=== PATIENT | female | born 1960 | race Caucasian/White ===

== ENCOUNTER 2020-09-16 10:18 | Day surgery (SDC) | payer OTHER, SELFPAY ==
--- NOTE | 2020-09-14 08:16 | HO.ANESPROP2 ---
Documented by User: Lizzie Olmstead 09/14/20 08:17 HPI - Anesthesia Eval Consult details Narrative: 60yo F for colonoscopy, screening [facility] Past Medical History Medical History GERD (gastroesophageal reflux disease) Hyperlipemia Hypertension Surgical History Surgical History History of ovarian cystectomy Hx of hysterectomy Social History Social History Smoking Status: Never smoker Second Hand Smoke Exposure: Yes Use of substances other than those prescribed or required for medical reasons: No Advance Directives: No Advance Directives Information Provided: Yes Meds Allergies Allergy/AdvReac Type Severity Reaction Status Date / Time No Known Allergies Allergy Unverified 08/18/20 14:59 [No Known Allergies*] Home Medications Medication Instructions Recorded Confirmed Type atorvastatin 1 tab PO BEDTIME 09/13/20 09/13/20 History lisinopril-hydrochlorothiazide 1 tab PO DAILY 09/13/20 09/13/20 History omeprazole 1 cap PO DAILY 09/13/20 09/13/20 History zolpidem 1 tab PO BEDTIME PRN 09/13/20 09/13/20 History Exam Exam Date and Time: September 14, 2020 0816 Assessment and Plan Assessment Anesthesia Assessment: Chart Reviewed Documented by User: Jenny Beltrán 09/16/20 10:39 [facility] Past Medical History Medical History GERD (gastroesophageal reflux disease) Hyperlipemia Hypertension Surgical History Surgical History History of ovarian cystectomy Hx of hysterectomy Social History Social History Smoking Status: Never smoker Second Hand Smoke Exposure: Yes Use of substances other than those prescribed or required for medical reasons: No Advance Directives: No Advance Directives Information Provided: Yes Meds Allergies Allergy/AdvReac Type Severity Reaction Status Date / Time No Known Allergies Allergy Unverified 08/18/20 14:59 [No Known Allergies*] Home Medications Medication Instructions Recorded Confirmed Type atorvastatin 1 tab PO BEDTIME 09/13/20 09/13/20 History lisinopril-hydrochlorothiazide 1 tab PO DAILY 09/13/20 09/13/20 History omeprazole 1 cap PO DAILY 09/13/20 09/13/20 History zolpidem 1 tab PO BEDTIME PRN 09/13/20 09/13/20 History Exam Airway Mallampati Class: II TM Dist: >3cm Neck ROM: Full Assessment and Plan Assessment Anesthesia Assessment: Anesthesia Plan Discussed and Chart Reviewed Final Anesthetic Review NPO: Yes ASA Class: II Final Preanesthetic Review: No Changes in Pt Med Stat, Meds/Allgs Chart Reviewed, Consent Obtained/Reviewed and Anes Risks/Benef Reviewed Patient Risk: Low Procedure Risk: Low Assessment/Block/Sedation in SS: Assess/Block/Sedation-SS Anesthetic Plan Anesthetic Plan: MAC: Disposition: Standard PACU
[2020-09-16 10:28] VITALS: BMI 24.7
[2020-09-16 10:35] VITALS: BP 148/82; PULSE 73; RESP 16; TEMP 36.5; O2SAT 98
[2020-09-16] MEDS: Lactated Ringers 1,000 ML 100 ML IVCONT (10:43)
--- NOTE | 2020-09-16 10:46 | MHC.SHP ---
Pre-Procedural Eval Section A The patient is an INPATIENT: No Changes since office visit: Yes Patient answered all questions; No Cold of Flu in the past 2 weeks, No New Medical Problems and No Changes in Medication The History & Physical has been completed within 30 days and I have reviewed it.: No Section B Chief Complaint: screening Details of Present Illness: Colon cancer screening, frequent bowel movement Present Medications: see Short Stay Collaborative assessment Medical History: Significant History (Hyperlipidemia. Hypertension. Elevated LDL cholesterol level. ) History of Previous Operations: Relevant previous surgery/procedure and date(s) (ovary removed (large cyst) ) Allergies: Allergies Allergy/AdvReac Type Severity Reaction Status Date / Time No Known Allergies Allergy Verified 09/16/20 10:44 [No Known Allergies*] Review of Systems Sugical H&P ROS: Negative: Constitution, Cardiovascular, Respiratory and Psychiatric and Yes, Specify: Gastrointestinal (Gas, bloating and frequent BMs) Exam Surgical H&P Exam: Normal: Heart, Normal: Lungs, Normal: Extremities and Normal: Abdomen Plan Diagnosis/Plan: Unchanged Patient has been examined and remains a candidate for the planned procedure
--- NOTE | 2020-09-16 10:57 | P.BOP_ITS ---
Brief Operative Note Date of procedure: 09/16/20 Pre-op diagnosis: Colon cancer screening, gas, bloating and increased stool fr equency Post-op diagnosis: other ( left-sided diverticulosis and internal hemorrhoids, fair prep) Procedure: COLONOSCOPY PROCEDURE NOTE Consent: Indications for the procedure and potential complications of bleeding, perforation, reaction to medications and missed diagnosis were discussed with the patient and informed consent was obtained. Instrument: Olympus PCF H 190 L variable stiffness pediatric colonoscope Monitoring: Vital signs and clinical assessment, intermittent blood pressure monitoring, continuous EKG monitoring, Pulse oximetry and Carbon Dioxide monitoring were done throughout the procedure. Colon withdrawl time was 25 minutes. Procedure: The patient was placed in the left lateral decubitis position and pre-procedure medications were administered. After a digital rectal examination of the ano-rectum, the video colonoscope was inserted into the rectum and advanced through the colon to the cecum. The colonoscope was slowly withdrawn in a retrograde panoramic fashion and the colon mucosa was carefully examined including a retroflexed view of the rectum. Findings and interventions are described below. Procedure Difficulty: There was a sharp turn at 20- 25 cms with luminal narrowing due to severe diverticulosis. Findings: Terminal Ileum: Not evaluated Cecum: Normal Ascending Colon: Normal Transverse Colon: Normal Descending Colon: Moderate diverticulosis Sigmoid Colon: severe diverticulosis with luminal narrowing Rectum: Normal Ano-rectum: moderate internal hemorrhoids and perianal skin tags Colon preparation: fair despite copious irrigation Impression and Post Procedure Diagnosis: Colonoscopy Findings: No polyps were detected. Random biopsies were obtained from the colon Moderate to severe diverticulosis in the left colon. Moderate internal hemorrhoids and perianal skin tags Plan: Await pathology results Patient has an appointment on 09/26/20 in the GI [facility] with Juliet Samayoa NP. Repeat Colonoscopy in 1-2 years due to fair prep. Above findings were reviewed with the patient and diverticulosis handout was given in the discharge area Surgeon: Zhanna Shaw MD Anesthesia: MAC (Meet [employer]ty CRNA) Automatic Riveting Machine Operator: Dheeraj Abdul Pathology: other (A. random colon biopsy) Condition: stable Disposition: PACU
[2020-09-16 11:44] VITALS: BP 125/72; PULSE 89; RESP 16; TEMP 35.9; O2SAT 96
[2020-09-16 11:58] VITALS: BP 141/77; PULSE 84; RESP 20; O2SAT 98
[2020-09-16 12:11] VITALS: BP 151/80; PULSE 74; RESP 20; TEMP 36.2; O2SAT 100
--- NOTE | 2020-09-16 14:44 | HO.POSTANES ---
Post Anesthesia Evaluation Post Anesthesia Evaluation Vital Signs: Vital Signs Temp Pulse Resp BP Pulse Ox 09/16/20 12:11 97.2 F 74 20 151/80 H 100 09/16/20 11:58 84 20 141/77 H 98 09/16/20 11:44 96.7 F L 89 16 125/72 96 09/16/20 10:35 97.7 F 73 16 148/82 H 98 Anesthesia: Monitored Mental Status: Awake Pain Control: Satisfactory Nausea/Vomiting: None Hydration: Adequate Anesthesia-Related Issues: No Anes. Related Issues
== END 2020-09-16 12:52 | disposition home or self-care (01) ==
PROVIDERS: Visit Provider Internal Medicine Gastroenterology
PROC: 0DJD8ZZ Inspection of Lower Intestinal Tract, Via Natural or Artificial Opening Endoscopic (ICD-10-PCS; CPT 45378; principal; 2020-09-16 11:00)
DX: Z12.11 Encounter for screening for malignant neoplasm of colon (principal); K57.30 Diverticulosis of large intestine without perforation or abscess without bleeding; K64.8 Other hemorrhoids; K64.4 Residual hemorrhoidal skin tags; K63.89 Other specified diseases of intestine; K21.9 Gastro-esophageal reflux disease without esophagitis; I10 Essential (primary) hypertension; E78.5 Hyperlipidemia, unspecified; Z79.899 Other long term (current) drug therapy; Z77.22 Contact with and (suspected) exposure to environmental tobacco smoke (acute) (chronic)
CPT/HCPCS: 45380; 88305; J3010

== ENCOUNTER → 2020-09-26 09:00 | Outpatient (BNVA) | payer OTHER, SELFPAY | PROVIDERS: Visit Provider Nurse Practitioner | DX: K57.90 Diverticulosis of intestine, part unspecified, without perforation or abscess without bleeding (principal); Z86.19 Personal history of other infectious and parasitic diseases; Z71.3 Dietary counseling and surveillance | CPT/HCPCS: 99213; Q3014 ==

== ENCOUNTER 2020-11-03 17:58 | Inpatient (IN) | payer OTHER, SELFPAY ==
[2020-11-03 18:52] VITALS: BP 192/91; PULSE 94; RESP 16; TEMP 37; O2SAT 98; BMI 24.9
--- NOTE | 2020-11-03 21:30 | ED.ABDPAIN ---
HPI - Abdominal Pain General Chief Complaint: Abdominal Pain Stated Complaint: Abdominal Pain Time Seen by Provider: 11/03/20 21:26 Source: patient Mode of arrival: ambulatory Limitations: no limitations History of Present Illness HPI narrative: Patient with history of diverticulosis for colonoscopy done on 09/16 was doing okay for last 4 days patient complaining of pain in left lower quadrant started on Levaquin and Flagyl by PCP 2 days ago still pain is getting worse specially today with poor oral intake and nausea. Patient denied any fever or chills no abdominal distension no rectal bleeding MD elicited complaint: abdominal pain Pain Consistency: constant Location: LLQ Severity: moderate Quality: cramping Radiation: none Exacerbating factors: eating and bowel movement Relieving factors: nothing Associated symptoms: nausea Related Data Home Medications Medication Instructions Recorded Confirmed atorvastatin 1 tab PO BEDTIME 09/13/20 09/13/20 lisinopril-hydrochlorothiazide 1 tab PO DAILY 09/13/20 09/13/20 omeprazole 1 cap PO DAILY 09/13/20 09/13/20 zolpidem 1 tab PO BEDTIME PRN 09/13/20 09/13/20 Allergies Allergy/AdvReac Type Severity Reaction Status Date / Time No Known Allergies Allergy Verified 09/26/20 09:02 [No Known Allergies*] Review of Systems Review of Systems REVIEW OF SYSTEMS: Pertinent positives and negatives are stated above in the history. GEN: no fevers, chills, fatigue HEENT: no nasal congestion, sore throat, ear pain NEURO: no headache, dizziness, focal weakness PULM: no cough, shortness of breath CV: no chest pain, palpitations, LE edema ABD: no vomiting, diarrhea : no dysuria, urgency, frequency SKIN: no rash ROS otherwise negative x 10 Physical Exam Vital Signs: Vital Signs: Last Vital Signs Temp 98.7 F 11/04/20 01:23 Pulse 79 11/04/20 01:23 Resp 18 11/04/20 01:23 BP 132/53 L 11/04/20 01:23 Pulse Ox 98 11/04/20 01:23 Body Mass Index 24.9 VITAL SIGNS: Reviewed. GENERAL: Well developed, well nourished, in mild distress. HEAD: Normocephalic/atraumatic, EYES: PERRLA No pallor/icterus noted OROPHARYNX: Oral mucosa moist no oral lesions NECK: Supple, no adenopathy LUNGS: Normal breath sounds. No adventitious sounds or accessory muscle use CARDIOVASCULAR: Regular rate and rhythm without noted murmurs, no JVD or lower extremity edema. ABDOMEN: Soft, tenderness left lower quadrant, rebound tenderness present guarding present left lower quadrant, non-distended with normal bowel sounds. No rigidity. No palpable masses or hernias noted MUSCULOSKELETAL: No tenderness, deformities, EXTREMITIES: No cyanosis or edema. SKIN: no rashes, ulcerations, jaundice, pallor, NEUROLOGIC: Alert and oriented x 3. Strength and sensation to light touch were grossly intact normal speech MDM - Abdominal Pain MDM Narrative Medical decision making narrative: Patient with acute diverticulitis failure to oral antibiotics CT scan showed significant inflammation without any fluid collection. Will admit patient for IV Levaquin and Flagyl at this time patient is not septic. Blood cultures were drawn patient has normal lactic acid Lab Data Result diagrams: 11/03/20 21:53 11/03/20 21:53 Labs: Lab Results 11/03/20 11/03/20 11/03/20 Range/Units 21:53 21:53 21:53 WBC 15.3 H (4.8-10.8) X10*3/uL RBC 4.31 (4.20-5.50) X10*6/uL Hgb 11.9 L (12.0-16.0) g/dl Hct 34.8 L (37-47) % MCV 80.7 (80-98) fL MCH 27.6 (27.0-33.0) pg MCHC 34.2 (31.0-35.0) g/dl RDW 14.2 (11.0-16.0) % Plt Count 309 (160-400) X10*3/uL MPV 9.9 (9.4-12.3) fL Immature Gran % (Auto) 0.4 (0.0-0.4) % Neut % (Auto) 75.8 H (45-73) % Lymph % (Auto) 13.8 L (20-40) % [place] % (Auto) 7.7 (2-11) % Eos % (Auto) 2.0 (0-4) % Baso % (Auto) 0.3 (0-2) % Lymph # (Auto) 2.1 (1.2-4.9) X10*3/uL [place] # (Auto) 1.2 (0.1-1.2) X10*3/uL Eos # (Auto) 0.3 (0.0-0.4) X10*3/uL Baso # (Auto) 0.1 (0.0-0.2) X10*3/uL Abs Immat Gran (auto) 0.06 H (0.00-0.03) X10*3/uL Absolute Neuts (auto) 11.6 H (2.0-8.3) X10*3/uL Absolute Nucleated RBC 0.000 (0.0-0.012) X10*3/uL Nucleated RBC % (auto) 0.0 (0.0-0.2) /100WBC PT (10.8-13.0) SEC INR (0.9-1.1) APTT (24.1-38.0) SEC Sodium 139 (135-145) mmol/L Potassium 3.6 (3.3-5.1) mmol/l Chloride 103 (96-108) mmol/L Carbon Dioxide 26 (22-29) mmol/L Anion Gap 14 (12-20) BUN 11 (9-16) mg/dL Creatinine 0.68 (0.5-1.4) mg/dL Estim Creat Clear Calc 80.1 Estimated GFR > 60 Random Glucose 106 (60-115) mg/dL Lactic Acid 0.6 (0.5-2.0) mmol/L Calcium 9.0 (8.4-10.2) mg/dL Total Bilirubin 0.7 (0.0-1.0) mg/dL AST 10 (5-31) U/L ALT 10 (0-31) U/L Alkaline Phosphatase 87 (39-117) U/L Total Protein 7.3 (6.5-8.0) g/dL Albumin 4.1 (3.5-5.0) g/dL Lipase 9 (8-78) U/L Urine Color Urine Appearance Urine pH (5.0-8.0) Ur Specific [place] (1.005-1.025) Urine Protein (NEG-TRACE) MG/DL Urine Glucose (UA) (NEG) MG/DL Urine Ketones (NEG) MG/DL Urine Blood (NEG) Urine Nitrite (NEG) Ur Leukocyte Esterase (NEG) Urine RBC (0) /HPF Urine WBC (0-4) /HPF Ur Squamous Epith Cells /LPF Uric Acid Crystals /LPF Urine Bacteria /LPF 11/03/20 11/04/20 Range/Units 21:53 00:04 WBC (4.8-10.8) X10*3/uL RBC (4.20-5.50) X10*6/uL Hgb (12.0-16.0) g/dl Hct (37-47) % MCV (80-98) fL MCH (27.0-33.0) pg MCHC (31.0-35.0) g/dl RDW (11.0-16.0) % Plt Count (160-400) X10*3/uL MPV (9.4-12.3) fL Immature Gran % (Auto) (0.0-0.4) % Neut % (Auto) (45-73) % Lymph % (Auto) (20-40) % [place] % (Auto) (2-11) % Eos % (Auto) (0-4) % Baso % (Auto) (0-2) % Lymph # (Auto) (1.2-4.9) X10*3/uL [place] # (Auto) (0.1-1.2) X10*3/uL Eos # (Auto) (0.0-0.4) X10*3/uL Baso # (Auto) (0.0-0.2) X10*3/uL Abs Immat Gran (auto) (0.00-0.03) X10*3/uL Absolute Neuts (auto) (2.0-8.3) X10*3/uL Absolute Nucleated RBC (0.0-0.012) X10*3/uL Nucleated RBC % (auto) (0.0-0.2) /100WBC PT 15.7 H (10.8-13.0) SEC INR 1.3 H (0.9-1.1) APTT 29.0 (24.1-38.0) SEC Sodium (135-145) mmol/L Potassium (3.3-5.1) mmol/l Chloride (96-108) mmol/L Carbon Dioxide (22-29) mmol/L Anion Gap (12-20) BUN (9-16) mg/dL Creatinine (0.5-1.4) mg/dL Estim Creat Clear Calc Estimated GFR Random Glucose (60-115) mg/dL Lactic Acid (0.5-2.0) mmol/L Calcium (8.4-10.2) mg/dL Total Bilirubin (0.0-1.0) mg/dL AST (5-31) U/L ALT (0-31) U/L Alkaline Phosphatase (39-117) U/L Total Protein (6.5-8.0) g/dL Albumin (3.5-5.0) g/dL Lipase (8-78) U/L Urine Color YELLOW Urine Appearance CLEAR Urine pH 6.5 (5.0-8.0) Ur Specific [place] <= 1.005 (1.005-1.025) Urine Protein NEG (NEG-TRACE) MG/DL Urine Glucose (UA) NEG (NEG) MG/DL Urine Ketones 5 (NEG) MG/DL Urine Blood TRACE (NEG) Urine Nitrite NEG (NEG) Ur Leukocyte Esterase NEG (NEG) Urine RBC 0-2 (0) /HPF Urine WBC 0 (0-4) /HPF Ur Squamous Epith Cells TRACE /LPF Uric Acid Crystals TRACE /LPF Urine Bacteria NONE /LPF Discharge Plan Discharge Clinical Impression: Diverticulitis Patient Disposition: Admitted As Inpatient [facility] Past Medical History Surgical History History of esophagogastroduodenoscopy (EGD) History of ovarian cystectomy Hx of colonoscopy (09/16/20) Hx of hysterectomy Family History Family History Father Parkinson disease HTN (hypertension) Mother HTN (hypertension) Brother Cancer Social History Social History Alcohol intake: never Smoking Status: Unknown if ever smoked Second Hand Smoke Exposure: Yes Use of substances other than those prescribed or required for medical reasons: No Advance Directives: No Advance Directives Information Provided: Yes
--- NOTE | 2020-11-03 21:40 | CT_ITS ---
EXAMINATION: CT ABDOMEN AND PELVIS WITH CONTRAST CLINICAL INFORMATION: Left lower quadrant pain. Concern for diverticulitis. COMPARISON: None TECHNIQUE: Multidetector volumetric images were obtained from the superior aspect of the liver through the pubic symphysis following administration 85 mL of Omnipaque 350 intravenous contrast. Sagittal and coronal reformatted images were obtained on the technologist's workstation. Oral contrast: No This CT examination was performed using dose optimization techniques as appropriate, variously including the following: *Automated exposure control *Adjustment of mA and/or kV according to patient size (this includes techniques or standardized protocols for targeted exams where dose is matched to indication/reason for exam; i.e. extremities or head) *Use of iterative reconstruction technique DLP: 452 mGy-cm FINDINGS: LUNG BASES: The visualized lung bases are unremarkable. LIVER, GALLBLADDER, AND BILIARY TREE: The liver is normal in size, shape, and attenuation. No focal hepatic lesion or biliary ductal dilatation is present. The gallbladder is unremarkable with no evidence of radiopaque gallstones, gallbladder wall thickening, or obvious pericholecystic inflammatory changes. PANCREAS: Unremarkable. SPLEEN: Unremarkable. ADRENAL GLANDS: Unremarkable. KIDNEYS AND URETERS: The kidneys are normal in size, shape, and attenuation. No hydronephrosis, hydroureter, or calculi seen. No perinephric stranding. There are small cortical cysts scattered in the kidneys. Largest lower pole of the right kidney measures 2 cm. BLADDER: Unremarkable. GASTROINTESTINAL TRACT: There is focal bowel wall thickening with pericolonic edema and a small amount of fluid involving the sigmoid colon. There are numerous diverticula in this region. Findings consistent with a diverticulitis. There is no abscess. No free air. No bowel obstruction. Large volume of stool in the right colon. The appendix is not seen. The small bowel loops are unremarkable. ABDOMINAL WALL: No significant hernia is appreciated. LYMPH NODES: Normal. VASCULAR: Scattered vascular calcifications of the wall of aorta. No aneurysm. PELVIC VISCERA: Unremarkable. OSSEOUS STRUCTURES: Unremarkable. CT/CT abdomen pelvis w con IMPRESSION: There is marked diverticulitis involving the sigmoid colon with pericolonic edema and a small amount of fluid but no perforation or abscess.
[2020-11-03] MEDS: Morphine Sulfate 4 MG/ML CARTRIDGE IVPUSH (22:00)
[2020-11-03 22:02] LABS: Basophils Absolute Auto 0.1 X10*3/uL (0.0-0.2); Basophils Percent Auto 0.3 % (0-2); Eosinophils Absolute Auto 0.3 X10*3/uL (0.0-0.4); Hematocrit 34.8 % (37-47); Hemoglobin 11.9 g/dl (12.0-16.0); Imm Gran Abs Auto 0.06 X10*3/uL (0.00-0.03); Imm Gran Pct Auto 0.4 % (0.0-0.4); Lymphocytes Absolute Auto 2.1 X10*3/uL (1.2-4.9); Lymphocytes Percent Auto 13.8 % (20-40); MANUAL DIFF FLAG NO; Mean Corpuscular HGB Conc 34.2 g/dl (31.0-35.0); Mean Corpuscular Hemoglobin 27.6 pg (27.0-33.0); Mean Corpuscular Volume 80.7 fL (80-98); Mean Platelet Volume 9.9 fL (9.4-12.3); Monocytes Absolute Auto 1.2 X10*3/uL (0.1-1.2); Monocytes Percent Auto 7.7 % (2-11); Neutrophils Absolute Auto 11.6 X10*3/uL (2.0-8.3); Neutrophils Percent Auto 75.8 % (45-73); Platelet Count 309 X10*3/uL (160-400); Red Blood Count 4.31 X10*6/uL (4.20-5.50); Red Cell Distribution Width 14.2 % (11.0-16.0); White Blood Count 15.3 X10*3/uL (4.8-10.8)
[2020-11-03] MEDS: 0.9 % Sodium Chloride 1,000 ML 999 ML IVCONT (22:03)
[2020-11-03] MEDS: ondansetron HCL 4 MG/2 ML VIAL IVPUSH (22:03)
[2020-11-03 22:05] VITALS: BP 150/71; PULSE 80; RESP 18; O2SAT 100
[2020-11-03 22:08] LABS: INTERNATIONAL NORM RATIO 1.3 (0.9-1.1); Prothrombin Time 15.7 SEC (10.8-13.0)
[2020-11-03 22:18] LABS: Lactic Acid 0.6 mmol/L (0.5-2.0)
[2020-11-03 22:24] LABS: Alanine Aminotransferase 10 U/L (0-31); Albumin Level 4.1 g/dL (3.5-5.0); Alkaline Phosphatase 87 U/L (39-117); Anion Gap 14 (12-20); Aspartate Amino Transferase 10 U/L (5-31); Bilirubin Total 0.7 mg/dL (0.0-1.0); Blood Urea Nitrogen 11 mg/dL (9-16); Carbon Dioxide 26 mmol/L (22-29); Chloride 103 mmol/L (96-108); Creatinine Clr Calc Pharmacy 80.1; Estimated Glomerular Filt Rate > 60; Glucose Random 106 mg/dL (60-115); Lipase 9 U/L (8-78); Potassium 3.6 mmol/l (3.3-5.1); Sodium 139 mmol/L (135-145); Total Protein 7.3 g/dL (6.5-8.0)
[2020-11-03] MEDS: iohexoL 350 MG/ML 100 ML INFUS..BTL IV (22:56)
[2020-11-04] VITALS (8 sets, daily range): BP systolic 111–169; BP diastolic 53–80; PULSE 65–94; RESP 16–18; TEMP 36.6–37.2; O2SAT 98–99; BMI 22.0
[2020-11-04] MEDS: metroNIDAZOLE/NS 500 MG/100 ML PIGGYBACK 100 MG IV ×3 (00:02→15:21)
[2020-11-04] MEDS: levoFLOXacin/D5W 500 MG/100 ML PIGGYBACK 100 MG IV ×2 (00:02→06:00)
[2020-11-04 00:26] LABS: Glucose Urine UA NEG (NEG); Leukocyte Esterase Urine NEG (NEG); Nitrite Urine NEG (NEG); PH 6.5 (5.0-8.0); Specific Gravity - Urine <= 1.005 (1.005-1.025); Urine Blood TRACE (NEG); Urine Ketones 5 MG/DL (NEG); Urine Protein NEG (NEG-TRACE)
[2020-11-04 00:28] LABS: Appearance Urine CLEAR; Color Urine YELLOW
[2020-11-04 00:52] LABS: RBC Urine 0-2 /HPF (0); Squamous Epithelial Cell Urine TRACE /LPF; WBC Urine 0 /HPF (0-4)
[2020-11-04 00:53] LABS: Uric Acid Crystals Urine TRACE /LPF
--- NOTE | 2020-11-04 01:41 | PM.IMHP ---
History of Present Illness Date of Service: 11/04/20 Chief Complaint: Abdominal pain 60 y/o female with PMHX of HTN, HLP, GERD and Insomnia who presents from home c/o Abdominal pain. Per history provided by the patient, for the past 1 week has been having on and off episodes of abdominal pain, located more in the left lower quadrant of the abdomen 6/10 in intensity, associated with blood mucous whenever goes to the bathroom. Patient was started per PCP 2 days on oral antibiotics but patient report that her symptoms continued for what decided to come to the ED for further evaluation. On presentation to the ED patient was found to be hypertensive which later improved with pain control, now BP of 130/50 mmHg and hR of 79 bpm. No episodes of fever in the ED reported. WBC of 15.3, hgb stable. CT abdomen showed marked diverticulitis of the sigmoid colon without perforation. Patient reports that last colonoscopy was done 1 month ago and told had diverticulosis. Decision for admission given. Patient seen and examined at the bedside, laying down in bed in no acute distress. ROS as above otherwise negative. Physical exam positive for LLQ tenderness, no masses, no guarding, nonedistended. PMHX: HTN, HLP, GERD, Insomnia and diverticulosis PSx: none Toxic habits: No hx of alcohol abuse, smoking or IVDA Review of Systems Constitutional: Constitutional: Reports as per HPI PMFSH Functional capacity: independent ambulation Family History Father Parkinson disease HTN (hypertension) Mother HTN (hypertension) Brother Cancer Surgical History History of esophagogastroduodenoscopy (EGD) History of ovarian cystectomy Hx of colonoscopy (09/16/20) Hx of hysterectomy Social History Alcohol intake: never Smoking Status: Unknown if ever smoked Second Hand Smoke Exposure: Yes Use of substances other than those prescribed or required for medical reasons: No Advance Directives: No Advance Directives Information Provided: Yes Meds Allergies Allergy/AdvReac Type Severity Reaction Status Date / Time No Known Allergies Allergy Verified 09/26/20 09:02 [No Known Allergies*] Home Medications Medication Instructions Recorded Confirmed Type atorvastatin 1 tab PO BEDTIME 09/13/20 09/13/20 History lisinopril-hydrochlorothiazide 1 tab PO DAILY 09/13/20 09/13/20 History omeprazole 1 cap PO DAILY 09/13/20 09/13/20 History zolpidem 1 tab PO BEDTIME PRN 09/13/20 09/13/20 History Physical Exam Vital Signs and Narrative: Vital Signs: Last Vital Signs Temp 98.7 F 11/04/20 01:23 Pulse 79 11/04/20 01:23 Resp 18 11/04/20 01:23 BP 132/53 L 11/04/20 01:23 Pulse Ox 98 11/04/20 01:23 Body Mass Index 24.9 Const: General: cooperative, comfortable and no acute distress Orientation/consciousness: oriented to person, oriented to place and oriented to time HENMT: Head: Yes normal to inspection Eyes: General: appearance normal, both eyes and all related structures Neck: Yes normal visual inspection Chest: Chest palpation & inspection: normal inspection of the chest Resp: Effort & Inspection: normal respiratory effort Auscultation: clear to auscultation bilaterally Cardio: Jugular venous distension: no JVD Rate: regular rate Rhythm: regular rhythm Heart sounds: S1 normal heart sound present and S2 normal heart sound present GI: Inspection: Yes normal to inspection Palpation (GI): Other GI palpation findings present (LLE tenderness on exam ) Skin: General skin exam: no rashes or lesions noted Neuro: General: oriented to person, oriented to place and oriented to time Cognition (Neuro): normal cognition Results Labs CBC and Chem 7: 11/03/20 21:53 11/03/20 21:53 Labs: Laboratory Results - last 24 hr 11/03/20 11/03/20 11/03/20 21:53 21:53 21:53 MCV 80.7 MCH 27.6 MCHC 34.2 RDW 14.2 Plt Count 309 MPV 9.9 Immature Gran % (Auto) 0.4 Neut % (Auto) 75.8 H Lymph % (Auto) 13.8 L [place] % (Auto) 7.7 Eos % (Auto) 2.0 Baso % (Auto) 0.3 Lymph # (Auto) 2.1 [place] # (Auto) 1.2 Eos # (Auto) 0.3 Baso # (Auto) 0.1 Abs Immat Gran (auto) 0.06 H Absolute Neuts (auto) 11.6 H Absolute Nucleated RBC 0.000 Nucleated RBC % (auto) 0.0 PT INR APTT Anion Gap 14 Estim Creat Clear Calc 80.1 Estimated GFR > 60 Random Glucose 106 Lactic Acid 0.6 Calcium 9.0 Total Bilirubin 0.7 AST 10 ALT 10 Alkaline Phosphatase 87 Total Protein 7.3 Albumin 4.1 Lipase 9 Urine Color Urine Appearance Urine pH Ur Specific [place] Urine Protein Urine Glucose (UA) Urine Ketones Urine Blood Urine Nitrite Ur Leukocyte Esterase Urine RBC Urine WBC Ur Squamous Epith Cells Uric Acid Crystals Urine Bacteria 11/03/20 11/04/20 21:53 00:04 MCV MCH MCHC RDW Plt Count MPV Immature Gran % (Auto) Neut % (Auto) Lymph % (Auto) [place] % (Auto) Eos % (Auto) Baso % (Auto) Lymph # (Auto) [place] # (Auto) Eos # (Auto) Baso # (Auto) Abs Immat Gran (auto) Absolute Neuts (auto) Absolute Nucleated RBC Nucleated RBC % (auto) PT 15.7 H INR 1.3 H APTT 29.0 Anion Gap Estim Creat Clear Calc Estimated GFR Random Glucose Lactic Acid Calcium Total Bilirubin AST ALT Alkaline Phosphatase Total Protein Albumin Lipase Urine Color YELLOW Urine Appearance CLEAR Urine pH 6.5 Ur Specific [place] <= 1.005 Urine Protein NEG Urine Glucose (UA) NEG Urine Ketones 5 Urine Blood TRACE Urine Nitrite NEG Ur Leukocyte Esterase NEG Urine RBC 0-2 Urine WBC 0 Ur Squamous Epith Cells TRACE Uric Acid Crystals TRACE Urine Bacteria NONE Imaging Radiologist's Impressions: Impressions Abdomen/Pelvis CT 11/03/20 21:40 IMPRESSION: There is marked diverticulitis involving the sigmoid colon with pericolonic edema and a small amount of fluid but no perforation or abscess. Assessment and Plan (1) Diverticulitis: Status: Acute NPO advance diet as tolerated Continue with Levaquin for gram neg coverage continue with flagyl for anaerobic coverage Follow up [facility] Infectious disease consult in the am Gastroenterology consult in the am (2) Hypertension: Status: Acute continue with home BP meds as ordered (3) Hyperlipemia: Status: Acute continue with statin home dose (4) GERD (gastroesophageal reflux disease): Status: Acute continue with PPI home dose
--- NOTE | 2020-11-04 03:03 | PC.NURSE ---
COVID swab sent. pt continues to be resting with NAD. safety maintained
[2020-11-04 03:23] LABS: COVID-19 Test Negative (Negative)
[2020-11-04] MEDS: Heparin Sodium,Porcine 5,000 UNIT/ML VIAL 5000 UNIT SUBCUT ×3 (04:53→21:19)
[2020-11-04 06:10] LABS: MANUAL DIFF FLAG NO
[2020-11-04 06:45] LABS: Anion Gap 12 (12-20); Basophils Absolute Auto 0.1 X10*3/uL (0.0-0.2); Basophils Percent Auto 0.3 % (0-2); Blood Urea Nitrogen 9 mg/dL (9-16); Calcium 8.4 mg/dL (8.4-10.2); Carbon Dioxide 26 mmol/L (22-29); Chloride 104 mmol/L (96-108); Creatinine Clr Calc Pharmacy 74.7; Eosinophils Absolute Auto 0.2 X10*3/uL (0.0-0.4); Eosinophils Percent Auto 1.3 % (0-4); Estimated Glomerular Filt Rate > 60; Glucose Random 110 mg/dL (60-115); Hematocrit 32.4 % (37-47); Hemoglobin 10.7 g/dl (12.0-16.0); Imm Gran Pct Auto 0.7 % (0.0-0.4); Lymphocytes Absolute Auto 1.7 X10*3/uL (1.2-4.9); Lymphocytes Percent Auto 10.9 % (20-40); Mean Corpuscular Hemoglobin 27.1 pg (27.0-33.0); Mean Platelet Volume 10.5 fL (9.4-12.3); Monocytes Absolute Auto 1.2 X10*3/uL (0.1-1.2); Monocytes Percent Auto 7.5 % (2-11); Neutrophils Absolute Auto 12.2 X10*3/uL (2.0-8.3); Neutrophils Percent Auto 79.3 % (45-73); Platelet Count 293 X10*3/uL (160-400); Red Blood Count 3.95 X10*6/uL (4.20-5.50); Red Cell Distribution Width 14.3 % (11.0-16.0); Sodium 138 mmol/L (135-145); White Blood Count 15.4 X10*3/uL (4.8-10.8)
[2020-11-04] MEDS: 0.9 % Sodium Chloride Flush 3 ML SYRINGE IVFLUSH ×2 (07:48→15:21)
--- NOTE | 2020-11-04 08:05 | P.CNGI_ITS ---
History of Present Illness Data of Consult Service Date: 11/04/20 Requesting physician: Debbie Davidson Primary Care Provider: Unknown Physician HPI 60 YF Presented to [facility] ED yesterday with abdominal pain: Patient with history of diverticulosis for colonoscopy done on 09/16 was doing okay for last 4 days patient complaining of pain in left lower quadrant started on Levaquin and Flagyl by PCP 2 days ago still pain is getting worse specially today with poor oral intake and nausea. Patient denied any fever or chills no abdominal distension no rectal bleeding Pt was started on IV Levofloxacin and metronidazole and admitted for further management. Pt was seen by Infectious Disease today and antibiotics were changed to IV Zosyn. IMAGING STUDIES: 11/03/[address] scan showed: There is marked diverticulitis involving the sigmoid colon with pericolonic edema and a small amount of fluid but no perforation or abscess. Patient complains of cramping 9/10 LLQ pain for the past week. Pain is constant and accompanied by nausea and intermittent fevers and worsened by eating and BMs. She denies recent change in bowel habits or wt loss. Notes Improvement in pain to 1-2/10 this evening. Denies symptoms of heartburn, dysphagia. Denies recent change in bowel habits, constipation, diarrhea, black stools or rectal bleeding. Patient denies major cardiac or pulmonary problems, loud snoring or sleep apnea Denies problems with anesthesia in the past. Denies being on chronic anticoagulation. Patient denies known family history of colon polyps, colon cancer or other GI malignancies. PAST GI HISTORY BY REVIEW OF MEDICAL RECORDS: 09/16/20 Colonoscopy showed: Sigmoid Colon: severe diverticulosis with luminal narrowing Ano-rectum: moderate internal hemorrhoids and perianal skin tags Impression and Post Procedure Diagnosis: Colonoscopy Findings: No polyps were detected. Random biopsies were obtained from the colon Moderate to severe diverticulosis in the left colon. Moderate internal hemorrhoids and perianal skin tags Plan: Patient has an appointment on 09/26/20 in the GI Clinic with Juliet Samayoa NP. Repeat Colonoscopy in 1-2 years due to fair prep. Review of Systems Constitutional: Constitutional: Denies fever(s), Denies headache(s) and Denies weight loss Eyes: Eyes: Denies eye discharge and Denies irritation ENT: Reports Normal hearing present, Denies dysphagia, Denies dizziness and Denies headache(s) Cardiovascular: Cardiovascular: Denies chest pain, Denies leg edema and Denies dyspnea on exertion Respiratory: Respiratory: Denies cough and Denies dyspnea on exertion Gastrointestinal: Gastrointestinal: Reports abdominal pain, Denies change in bowel habits, Denies dysphagia and Denies heartburn Genitourinary: Genitourinary: Denies difficulty voiding and Denies dysuria Musculoskeletal: Musculoskeletal: Denies back pain and Denies arthralgias Integumentary/Breasts: Skin/Breast: Denies pruritus, Denies rash and Denies jaundice Neurologic: Reports Normal hearing present, Denies Abnormal speech present, Denies dizziness, Denies headache(s) and Denies seizure-like activity Psychiatric: Psychiatric: Denies anxiety, Denies depression and Denies panic attacks Endocrine: Endocrine: Denies cold intolerance, Denies flushing and Denies heat intolerance PMFSH Past Medical History Medical History (Updated 11/13/20 @ 00:14 by Background Daemon) Anemia Colon cancer screening Diverticulosis GERD (gastroesophageal reflux disease) Hyperlipemia Hypertension Functional capacity: independent ambulation Family History Family History Father Parkinson disease HTN (hypertension) Mother HTN (hypertension) Brother Cancer Surgical History Surgical History History of esophagogastroduodenoscopy (EGD) History of ovarian cystectomy Hx of colonoscopy (09/16/20) Hx of hysterectomy Social History Social History Household Members: Significant Other Housing: Apartment Do you presently have visiting nurse or other home services: No Alcohol intake: never Smoking Status: Unknown if ever smoked Second Hand Smoke Exposure: Yes Use of substances other than those prescribed or required for medical reasons: No Currently Displaying Signs/Symptoms of Drug Intoxication Withdrawal: No Have you been hit, kicked, punched, or otherwise hurt by someone within the past year? If so, by whom?: No Do you feel safe in your current relationship?: Yes Is there a partner from a previous relationship who is making you feel unsafe now?: No Are you made to feel afraid or neglected: No Advance Directives: No Advance Directives Information Provided: Yes Do you have thoughts of harming others: None Do you have a plan to hurt others: No Plan Recently lost weight without trying: No service: No Current occupational status: employed Meds Allergies Allergy/AdvReac Type Severity Reaction Status Date / Time No Known Allergies Allergy Verified 09/26/20 09:02 [No Known Allergies*] Home Medications Medication Instructions Recorded Confirmed Type atorvastatin 1 tab PO BEDTIME 09/13/20 11/04/20 History lisinopril-hydrochlorothiazide 1 tab PO DAILY 09/13/20 11/04/20 History omeprazole 1 cap PO DAILY 09/13/20 11/04/20 History zolpidem 1 tab PO BEDTIME PRN 09/13/20 11/04/20 History Physical Exam Vital Signs: Vital Signs: Last Vital Signs Temp 97.9 F 11/04/20 07:10 Pulse 82 11/04/20 07:10 Resp 16 11/04/20 07:10 BP 129/68 11/04/20 07:10 Pulse Ox 99 11/04/20 07:10 Body Mass Index 22.0 Const: General: comfortable and no acute distress Nutritional Appearance: average body habitus Orientation/consciousness: patient oriented x3 Limitations: no limitations HENMT: Head: Yes normal to inspection Ears: hearing grossly normal bilaterally Eyes: Sclerae: sclerae normal Pupils: Equal, round and reactive pupils pr esent Neck: Neck: Yes normal visual inspection Chest: Chest palpation & inspection: normal inspection of the chest Resp: Effort & Inspection: normal respiratory effort Auscultation: clear to auscultation bilaterally Cardio: Palpation: normal PMI Rate: regular rate Rhythm: regular rhythm Heart sounds: S1 normal heart sound present, S2 normal heart sound present and no murmurs GI: Palpation (GI): Soft to palpation, Tenderness to palpation present (GI) (Mild LLQ tenderness) and No hepatosplenomegaly present Auscultation: normal bowel sounds Rectal Exam - Female: deferred Skin: General skin exam: no rashes or lesions noted Neuro: General: patient oriented x3, gait normal and moves all extremities Cranial nerves: Yes Equal, round and reactive pupils present and Yes Normal hearing present Speech: No Abnormal speech present Extrem: Right lower extremity: no edema Left lower extremity: no edema Psych: Appearance: grossly normal Mental Status: mental status grossly normal Results Labs CBC & Chem 7: 11/05/20 05:27 11/04/20 05:11 Labs: Short CBC 11/03/20 11/04/20 Range/Units 21:53 05:11 WBC 15.3 H 15.4 H (4.8-10.8) X10*3/uL Hgb 11.9 L 10.7 L (12.0-16.0) g/dl Hct 34.8 L 32.4 L (37-47) % Plt Count 309 293 (160-400) X10*3/uL BMP 11/03/20 11/04/20 21:53 05:11 Sodium 139 138 Potassium 3.6 4.0 Chloride 103 104 Carbon Dioxide 26 26 BUN 11 9 Creatinine 0.68 0.67 Calcium 9.0 8.4 D Liver Function 11/03/20 Range/Units 21:53 Total Bilirubin 0.7 (0.0-1.0) mg/dL AST 10 (5-31) U/L ALT 10 (0-31) U/L Alkaline Phosphatase 87 (39-117) U/L Albumin 4.1 (3.5-5.0) g/dL Urine 11/04/20 Range/Units 00:04 Urine Color YELLOW Urine Appearance CLEAR Urine pH 6.5 (5.0-8.0) Ur Specific [place] <= 1.005 (1.005-1.025) Urine Protein NEG (NEG-TRACE) MG/DL Urine Glucose (UA) NEG (NEG) MG/DL Assessment and Plan (1) Diverticulitis: Problem details: She has been feeling somewhat better CT scan shows some diverticulitis She has had some improvement Status: Acute (2) Colon cancer screening: (3) Diverticulosis: (4) Anemia: 60 YF admitted with LLQ abdominal pain for the past week associated with intermittent fevers, elevated WBC count and normocytic normochromic anemia. Abd CT scan showed diverticulitis involving the sigmoid colon with pericolonic edema and a small amount of fluid without perforation or abscess. Pt notes improvement in abdominal pain today. 09/20 Colonoscopy showed severe diverticulosis with luminal narrowing in the sigmoid colon. RECOMMENDATIONS: 1. Continue IV antibitoics for another 24 hrs. 2. Check iron studies, Vitamin B12 and folate levels for evaluation of anemia - added to am labs. 2. Advance diet to full liquid diet in the am and if she tolerates it to low fibre diet. 3. Once pain resolves, she can be discharged home on oral antibiotics and a low fibre diet
--- NOTE | 2020-11-04 09:44 | MHC.CM.PN ---
CM met with patient at the bedside who reports she is independent and lives with S.O. Patient does not have a HCP and declines filling one out today. Discussed discharge plan, home no services. [facility]Jud Malave will provide transport [phone]. CM will continue to follow patient for discharge needs.
--- NOTE | 2020-11-04 11:44 | P.EN_ITS ---
Event Note Date of Service: 11/04/20 Event Note: Seen/examined. She was admitted this morning with acute diverticul itis. WBC is 15. Has mild tenderness in abdomen. Plan: as outlined in H and P, GI eval pending. Start Liquid diet.
--- NOTE | 2020-11-04 14:30 | W.PM.IDCN ---
History of Present Illness Data of Consult Service Date: 11/04/20 Requesting physician: [facility] Primary Care Provider: Unknown Physician HPI Reason for consult: abdominal discomfort She presents to hospital with 4 days LLQ pain ,7/10 to back She has no fever or chills. She was started on Levaquin and Flagyl two days ago by PCP and has not had improvement. She has leukocytosis Review of Systems Gastrointestinal: Gastrointestinal: Reports abdominal pain PMFSH Past Medical History Functional capacity: independent ambulation Family History Family History Father Parkinson disease HTN (hypertension) Mother HTN (hypertension) Brother Cancer Surgical History Surgical History History of esophagogastroduodenoscopy (EGD) History of ovarian cystectomy Hx of colonoscopy (09/16/20) Hx of hysterectomy Social History Social History Household Members: Significant Other Housing: Apartment Do you presently have visiting nurse or other home services: No Alcohol intake: never Smoking Status: Unknown if ever smoked Second Hand Smoke Exposure: Yes Use of substances other than those prescribed or required for medical reasons: No Have you been hit, kicked, punched, or otherwise hurt by someone within the past year? If so, by whom?: No Do you feel safe in your current relationship?: Yes Is there a partner from a previous relationship who is making you feel unsafe now?: No Are you made to feel afraid or neglected: No Advance Directives: No Advance Directives Information Provided: Yes Do you have thoughts of harming others: None Do you have a plan to hurt others: No Plan Recently lost weight without trying: No service: No Current occupational status: employed Meds Allergies Allergy/AdvReac Type Severity Reaction Status Date / Time No Known Allergies Allergy Verified 09/26/20 09:02 [No Known Allergies*] Home Medications Medication Instructions Recorded Confirmed Type atorvastatin 1 tab PO BEDTIME 09/13/20 11/04/20 History lisinopril-hydrochlorothiazide 1 tab PO DAILY 09/13/20 11/04/20 History omeprazole 1 cap PO DAILY 09/13/20 11/04/20 History zolpidem 1 tab PO BEDTIME PRN 09/13/20 11/04/20 History Physical Exam Vital Signs: Vital Signs: Last Vital Signs Temp 98.1 F 11/04/20 11:08 Pulse 76 11/04/20 11:08 Resp 18 11/04/20 11:08 BP 125/66 11/04/20 11:08 Pulse Ox 98 11/04/20 11:08 Body Mass Index 22.0 Const: General: cooperative Orientation/consciousness: oriented to person, oriented to place and oriented to time HENMT: Head: Yes normal to inspection Mouth: Normal oral and palatal mucosa present Eyes: General: appearance normal, both eyes and all related structures Resp: Effort & Inspection: normal respiratory effort Cardio: Rate: regular rate Rhythm: regular rhythm GI: Inspection: Yes normal to inspection Palpation (GI): Tenderness to palpation present (GI) in the LLQ : General: Yes no CVA tenderness Back/Spine/Pelvis: Back: no CVA tenderness Skin: General skin exam: no rashes or lesions noted Neuro: General: oriented to person, oriented to place and oriented to time Assessment and Plan (1) Diverticulitis: Problem details: She has been feeling somewhat better CT scan shows some diverticulitis She has had some improvement Status: Acute Would continue antibiotics Since Levaquin and Flagyl po didnt seem to work and IV and po are bioequivalent would give Zosyn Po Augmentin on discharge for a week Results Labs CBC & Chem 7: 11/04/20 05:11 11/04/20 05:11 Labs: Short CBC 11/03/20 11/04/20 Range/Units 21:53 05:11 WBC 15.3 H 15.4 H (4.8-10.8) X10*3/uL Hgb 11.9 L 10.7 L (12.0-16.0) g/dl Hct 34.8 L 32.4 L (37-47) % Plt Count 309 293 (160-400) X10*3/uL BMP 11/03/20 11/04/20 21:53 05:11 Sodium 139 138 Potassium 3.6 4.0 Chloride 103 104 Carbon Dioxide 26 26 BUN 11 9 Creatinine 0.68 0.67 Calcium 9.0 8.4 D Liver Function 11/03/20 Range/Units 21:53 Total Bilirubin 0.7 (0.0-1.0) mg/dL AST 10 (5-31) U/L ALT 10 (0-31) U/L Alkaline Phosphatase 87 (39-117) U/L Albumin 4.1 (3.5-5.0) g/dL Urine 11/04/20 Range/Units 00:04 Urine Color YELLOW Urine Appearance CLEAR Urine pH 6.5 (5.0-8.0) Ur Specific [place] <= 1.005 (1.005-1.025) Urine Protein NEG (NEG-TRACE) MG/DL Urine Glucose (UA) NEG (NEG) MG/DL
[2020-11-04] MEDS: Piperacillin Sodium/Tazobactam 3.375 GM in 0.9 % Sodium Chloride 50 ML IV ×2 (16:22→21:19)
[2020-11-05] MEDS: 0.9 % Sodium Chloride Flush 3 ML SYRINGE IVFLUSH ×2 (01:14→08:10)
[2020-11-05 03:47] VITALS: BP 121/66; PULSE 78; RESP 18; TEMP 37.3; O2SAT 97
[2020-11-05] MEDS: Piperacillin Sodium/Tazobactam 3.375 GM in 0.9 % Sodium Chloride 50 ML IV ×2 (05:59→10:00)
[2020-11-05] MEDS: Heparin Sodium,Porcine 5,000 UNIT/ML VIAL 5000 UNIT SUBCUT ×2 (05:59→12:02)
[2020-11-05 06:45] VITALS: BP 112/57; PULSE 69; RESP 20; TEMP 36.6; O2SAT 97
[2020-11-05 07:10] LABS: Hematocrit 31.4 % (37-47); Hemoglobin 10.6 g/dl (12.0-16.0); Mean Corpuscular HGB Conc 33.8 g/dl (31.0-35.0); Mean Corpuscular Hemoglobin 27.5 pg (27.0-33.0); Mean Corpuscular Volume 81.6 fL (80-98); Mean Platelet Volume 10.8 fL (9.4-12.3); Platelet Count 307 X10*3/uL (160-400); Red Blood Count 3.85 X10*6/uL (4.20-5.50); Red Cell Distribution Width 14.3 % (11.0-16.0); White Blood Count 10.7 X10*3/uL (4.8-10.8)
[2020-11-05 07:26] LABS: Iron 41 mcg/dL (30-160); Percent Iron Saturation 21 % (15-50); Total Iron Binding Capacity 200 mcg/dL (228-428); Unsaturated Iron Binding 159 ug/dL
[2020-11-05 07:33] LABS: Ferritin 305 ng/mL (10-250)
--- NOTE | 2020-11-05 10:08 | PM.DS ---
DS: Providers Provider Date of admission: 11/04/20 01:38 Primary care physician: Unknown Physician Consults: 11/04/20 04:19 Consult to Gastroenterology Routine Consulting Provider: [facility] Reason for consultation: diverticulitis Has provider been notified: No Consult to Infectious Diseases Routine Consulting Provider: Daniela De Anda Reason for consultation: diverticulitis Has provider been notified: No DS: Diagnosis Discharge Diagnosis (1) Diverticulitis: Status: Acute Problem details: She has been feeling somewhat better CT scan shows some diverticulitis She has had some improvement (2) Colon cancer screening: (3) Diverticulosis: (4) Anemia: DS: Medications Discharge Medications Home Medications: Home Medications Medication Instructions Recorded Confirmed atorvastatin 1 tab PO BEDTIME 09/13/20 11/04/20 lisinopril-hydrochlorothiazide 1 tab PO DAILY 09/13/20 11/04/20 omeprazole 1 cap PO DAILY 09/13/20 11/04/20 zolpidem 1 tab PO BEDTIME PRN 09/13/20 11/04/20 DS: Summary Hospital Course Hospital Course: 60/F treated with PO flagyl and Levquin for diverticulitis and didn't improve and come to ED and admitted and given IV Abx (Flagyl and levaquin) initially, was then seen by ID (Dr. De Anda) and changed to IV Zosyn and has significantly improved. She is afebrile. WBC is now normal from 16K on admission. Will transition to oral Augmetin for 1 week. She was also seen by Dr. Shaw from GI and recommending oral Abx once pain is improved. Presently has no pain and Tolerating diet Time Spent with Patient Time attestation: Total time spent providing and/or coordinating discharge services: Discharge coordination time: Greater than 30 minutes Physical Exam Vital Signs: Vital Signs: Last Vital Signs Temp 98 F 11/05/20 06:45 Pulse 69 11/05/20 06:45 Resp 20 11/05/20 06:45 BP 112/57 L 11/05/20 06:45 Pulse Ox 97 11/05/20 06:45 Body Mass Index 22.0 General: AO X 3, no acute distress Resp: normal respiratory effort CVS: S1,S2,RRR GI: +BS, NT, no distention Skin: No rash Neuro: motor grossly intact Psych: appropriate affect DS: Data Data Completed and Pending Labs on day of discharge: 11/03/20 21:40 IV insert/maintain NOW CT abdomen pelvis w con Stat 11/03/20 21:42 Morphine Sulfate 4 mg IVPUSH ONCE ONE ondansetron HCL [Zofran] 4 mg IVPUSH ONCE ONE 11/03/20 21:45 0.9 % Sodium Chloride [Ns] 1,000 ml IVCONT 999 mls/hr 11/03/20 21:53 Complete Blood Count Auto Diff Stat Comprehensive Met. Panel Stat Lactic Acid Stat Lipase Stat Partial Thromboplastin Time Stat Prothrombin Time INR Stat 11/03/20 22:56 iohexoL 350 MG/ML [Omnipaque 350 MG/ML] 100 ml IV ONCE ONE 11/03/20 23:28 levoFLOXacin/D5W [Levaquin] 500 mg in 100 ml IV ONCE metroNIDAZOLE/NS [Flagyl] 500 mg in 100 ml IV ONCE 11/04/20 01:36 Transfer Order Routine 11/04/20 03:01 COVID-19 ID NOW ([place]) Stat 11/04/20 04:19 Vital Signs QSHIFT 11/04/20 05:11 Basic Metabolic Panel Routine Complete Blood Count Auto Diff Routine 11/04/20 06:00 levoFLOXacin/D5W [Levaquin] 500 mg in 100 ml IV Q24H 11/04/20 08:00 levoFLOXacin/D5W [Levaquin] 500 mg in 100 ml IV Q24H metroNIDAZOLE/NS [Flagyl] 500 mg in 100 ml IV Q8H 11/04/20 Breakfast NPO Diet 11/04/20 Lunch Clear Liquid Diet 11/04/20 16:19 Piperacillin Sodium/Tazobactam [Zosyn] 3.375 gm IV .STK-MED ONE 11/04/20 21:07 Piperacillin Sodium/Tazobactam [Zosyn] 3.375 gm IV .STK-MED ONE 11/05/20 05:27 Complete Blood Count no Diff DAILY@0600 Ferritin Routine IRON PROFILE Routine 11/05/20 05:42 Piperacillin Sodium/Tazobactam [Zosyn] 3.375 gm IV .STK-MED ONE 11/05/20 09:47 Piperacillin Sodium/Tazobactam [Zosyn] 3.375 gm IV .STK-MED ONE Laboratory Last Values WBC 10.7 X10*3/uL (4.8-10.8) 11/05/20 05:27 RBC 3.85 X10*6/uL (4.20-5.50) L 11/05/20 05:27 Hgb 10.6 g/dl (12.0-16.0) L 11/05/20 05:27 Hct 31.4 % (37-47) L 11/05/20 05:27 MCV 81.6 fL (80-98) 11/05/20 05:27 MCH 27.5 pg (27.0-33.0) 11/05/20 05:27 MCHC 33.8 g/dl (31.0-35.0) 11/05/20 05:27 RDW 14.3 % (11.0-16.0) 11/05/20 05:27 Plt Count 307 X10*3/uL (160-400) 11/05/20 05:27 MPV 10.8 fL (9.4-12.3) 11/05/20 05:27 Immature Gran % (Auto) 0.7 % (0.0-0.4) H 11/04/20 05:11 Neut % (Auto) 79.3 % (45-73) H 11/04/20 05:11 Lymph % (Auto) 10.9 % (20-40) L 11/04/20 05:11 [place] % (Auto) 7.5 % (2-11) 11/04/20 05:11 Eos % (Auto) 1.3 % (0-4) 11/04/20 05:11 Baso % (Auto) 0.3 % (0-2) 11/04/20 05:11 Lymph # (Auto) 1.7 X10*3/uL (1.2-4.9) 11/04/20 05:11 [place] # (Auto) 1.2 X10*3/uL (0.1-1.2) 11/04/20 05:11 Eos # (Auto) 0.2 X10*3/uL (0.0-0.4) 11/04/20 05:11 Baso # (Auto) 0.1 X10*3/uL (0.0-0.2) 11/04/20 05:11 Abs Immat Gran (auto) 0.10 X10*3/uL (0.00-0.03) H 11/04/20 05:11 Absolute Neuts (auto) 12.2 X10*3/uL (2.0-8.3) H 11/04/20 05:11 Absolute Nucleated RBC 0.000 X10*3/uL (0.0-0.012) 11/05/20 05:27 Nucleated RBC % (auto) 0.0 /100WBC (0.0-0.2) 11/05/20 05:27 PT 15.7 SEC (10.8-13.0) H 11/03/20 21:53 INR 1.3 (0.9-1.1) H 11/03/20 21:53 APTT 29.0 SEC (24.1-38.0) 11/03/20 21:53 Sodium 138 mmol/L (135-145) 11/04/20 05:11 Potassium 4.0 mmol/l (3.3-5.1) 11/04/20 05:11 Chloride 104 mmol/L (96-108) 11/04/20 05:11 Carbon Dioxide 26 mmol/L (22-29) 11/04/20 05:11 Anion Gap 12 (-) 11/04/20 05:11 BUN 9 mg/dL (9-16) 11/04/20 05:11 Creatinine 0.67 mg/dL (0.5-1.4) 11/04/20 05:11 Estim Creat Clear Calc 74.7 11/04/20 05:11 Estimated GFR > 60 11/04/20 05:11 Random Glucose 110 mg/dL (60-115) 11/04/20 05:11 Lactic Acid 0.6 mmol/L (0.5-2.0) 11/03/20 21:53 Calcium 8.4 mg/dL (8.4-10.2) D 11/04/20 05:11 Iron 41 mcg/dL (30-160) 11/05/20 05:27 TIBC 200 mcg/dL (228-428) L 11/05/20 05:27 % Saturation 21 % (15-50) 11/05/20 05:27 Unsat Iron Binding 159 ug/dL 11/05/20 05:27 Total Bilirubin 0.7 mg/dL (0.0-1.0) 11/03/20 21:53 Ferritin 305 ng/mL (10-250) H 11/05/20 05:27 AST 10 U/L (5-31) 11/03/20 21:53 ALT 10 U/L (0-31) 11/03/20 21:53 Alkaline Phosphatase 87 U/L (39-117) 11/03/20 21:53 Total Protein 7.3 g/dL (6.5-8.0) 11/03/20 21:53 Albumin 4.1 g/dL (3.5-5.0) 11/03/20 21:53 Lipase 9 U/L (8-78) 11/03/20 21:53 Urine Color YELLOW 11/04/20 00:04 Urine Appearance CLEAR 11/04/20 00:04 Urine pH 6.5 (5.0-8.0) 11/04/20 00:04 Ur Specific [place] <= 1.005 (1.005-1.025) 11/04/20 00:04 Urine Protein NEG MG/DL (NEG-TRACE) 11/04/20 00:04 Urine Glucose (UA) NEG MG/DL (NEG) 11/04/20 00:04 Urine Ketones 5 MG/DL (NEG) 11/04/20 00:04 Urine Blood TRACE (NEG) 11/04/20 00:04 Urine Nitrite NEG (NEG) 11/04/20 00:04 Ur Leukocyte Esterase NEG (NEG) 11/04/20 00:04 Urine RBC 0-2 /HPF (0) 11/04/20 00:04 Urine WBC 0 /HPF (0-4) 11/04/20 00:04 Ur Squamous Epith Cells TRACE /LPF 11/04/20 00:04 Uric Acid Crystals TRACE /LPF 11/04/20 00:04 Urine Bacteria NONE /LPF 11/04/20 00:04 COVID-19 ([place]) Negative (Negative) 11/04/20 03:01 COVID-19 Clin Com See Note 11/04/20 03:01 Preliminary micro results at discharge 11/03/20 21:57 Blood Culture - Preliminary Blood - Arterial No growth after 24 hours. 11/03/20 21:53 Blood Culture - Preliminary Blood - Arterial No growth after 24 hours. Discharge Plan Discharge Anticipated Discharge Date/Time: 11/05/20 10:03 Patient Disposition: Home, Self-Care Referrals: Physician,Unknown [Primary Care Provider] - Discharge Medications: New amoxicillin-pot clavulanate [Augmentin] 875-125 mg tablet 1 tab PO Q12H Qty: 14 RF: 0 Continued atorvastatin 40 mg tablet 1 tab PO BEDTIME RF: 0 lisinopril-hydrochlorothiazide 20-12.5 mg tablet 1 tab PO DAILY RF: 0 omeprazole 20 mg capsule,delayed release(DR/EC) 1 cap PO DAILY RF: 0 zolpidem 10 mg tablet 1 tab PO BEDTIME PRN (Reason: Insomnia) RF: 0 Discharge Orders: Discharge Order (Routine); Ordered 11/05/20 Ordered By: Kirk Canchola Diet: advance to usual diet Activity on Discharge: As tolerated Discharge Date/Time: 11/05/20 13:23 Visit Report Forms: Patient Portal Discharge page Care Plan Goals: Resolution of acute diverticulitis Health Concerns: no new halth concern at this time Plan of Treatment: Take Augmentin as recommend and follow up with your Docotor in a week
--- NOTE | 2020-11-05 10:31 | MHC.CM.PN ---
Pt cleared to DC home today with no services. Pt will self arrange transport
[2020-11-05 12:00] VITALS: BP 150/67; PULSE 72; RESP 20; TEMP 36.4; O2SAT 98
[2020-11-05] MEDS: Amoxicillin/Potassium Clav 875 MG TABLET PO (12:02)
[2020-11-07 09:27] LABS: Folate 14.4 ng/mL (> or = 4.0); Vitamin B12 500 pg/mL (200-900)
== END 2020-11-05 13:23 | disposition home or self-care (01) | DRG 392 ==
LOC: HO.ED 11-04 01:38 → HO.IMC 11-04 03:46
PROVIDERS: Internal Medicine Gastroenterology; Admitting Provider Internal Medicine; Emergency Provider Internal Medicine; Visit Provider Internal Medicine
DX: K57.92 Diverticulitis of intestine, part unspecified, without perforation or abscess without bleeding (principal); K21.9 Gastro-esophageal reflux disease without esophagitis; E78.5 Hyperlipidemia, unspecified; G47.00 Insomnia, unspecified; Z20.828 Contact with and (suspected) exposure to other viral communicable diseases; Z79.899 Other long term (current) drug therapy
CPT/HCPCS: 36415; 74177; 80048; 80053; 81001; 82607; 82728; 82746; 83540; 83605; 83690; 85025; 85027; 85610; 85730; 87040; 87635; 96361; 96365; 96375; 99285; J1956; J2270; J2405; J2543; Q9967

== ENCOUNTER 2021-01-18 14:12 | Outpatient (REF) | payer SELFPAY ==
--- NOTE | ~2021-01-18 | XR_ITS ---
EXAMINATION: XR KNEE, RIGHT CLINICAL INFORMATION: Pain COMPARISON: None TECHNIQUE: Four views of the right knee. FINDINGS: Bone alignment is normal. No fracture or dislocation is seen. There are small osteophytes at the patellofemoral joint. There is a small osteophyte at the quadriceps tendon insertion to the patella. There is a small joint effusion. XR/XR knee RT 4V IMPRESSION: Mild degenerative changes.
== END 2021-01-18 14:13 | disposition home or self-care (01) ==
LOC: HO.XRAY 14:12
PROVIDERS: Visit Provider Family Medicine
DX: M25.561 Pain in right knee (principal)
CPT/HCPCS: 73564

== ENCOUNTER → 2021-05-25 14:50 | Outpatient (BNVA) | payer OTHER, SELFPAY | PROVIDERS: PCP Family Medicine; Visit Provider Nurse Practitioner ==

== ENCOUNTER → 2021-07-03 09:02 | Outpatient (BNVA) | payer OTHER, SELFPAY | PROVIDERS: PCP Family Medicine; Visit Provider Nurse Practitioner ==

== ENCOUNTER 2021-09-07 10:31 | Outpatient (REF) | payer OTHER, SELFPAY ==
--- NOTE | ~2021-09-07 | MM_ITS ---
EXAMINATION: MM SCREENING DIGITAL BREAST TOMOSYNTHESIS, BILATERAL CLINICAL INFORMATION: Screening. Asymptomatic. The lifetime risk of breast cancer based on the Tyrer-Cuzick Model is 4%. COMPARISON: Mammography: 07/22/2020, 04/07/2019, 03/19/2018 TECHNIQUE: Digital breast tomosynthesis is performed in both the craniocaudal and mediolateral oblique views along with computer-aided detection (CAD). Synthesized 2D images are generated from the tomosynthesis. FINDINGS: There are scattered areas of fibroglandular density (ACR BI-RADS breast composition Category b). There are no significant masses, abnormal calcifications, or other abnormalities. Parenchymal pattern is similar to prior studies. No developing density. The axilla and skin contours are unremarkable. MM/MM tomosynthesis screening BI IMPRESSION: No mammographic evidence of malignancy. ASSESSMENT: BI-RADS 1: Negative RECOMMENDATION: Routine annual mammography screening. This patient's information was entered into a reminder system with a target due date for their next mammogram.
== END 2021-09-07 10:32 | disposition home or self-care (01) ==
LOC: HO.MAMMO 10:31
PROVIDERS: Visit Provider Advanced Practice Midwife
DX: Z12.31 Encounter for screening mammogram for malignant neoplasm of breast (principal)
CPT/HCPCS: 77063; 77067

== ENCOUNTER 2021-10-27 10:33 | Emergency (ER) | payer OTHER, SELFPAY ==
[2021-10-27 10:50] VITALS: BP 117/78; PULSE 80; RESP 17; TEMP 36.8; O2SAT 98; BMI 24.0
[2021-10-27 11:08] LABS: Appearance Urine HAZY; Color Urine YELLOW; Glucose Urine UA NEG (NEG); Leukocyte Esterase Urine NEG (NEG); Nitrite Urine NEG (NEG); Specific Gravity - Urine 1.025 (1.005-1.025); UACC Culture Trigger NO; Urine Blood 3+ (NEG); Urine Ketones NEG (NEG); Urine Protein 2+ MG/DL (NEG-TRACE)
[2021-10-27 11:16] LABS: WBC Urine 0-2 /HPF (0-4)
[2021-10-27 11:17] LABS: RBC Urine 30-49 /HPF (0); Squamous Epithelial Cell Urine 1+ /LPF
--- NOTE | 2021-10-27 11:28 | ED.FEMALEGU ---
HPI - Female Genitourinary General Chief complaint: Urogenital-Female Stated complaint: urinary burning Time Seen by Provider: 10/27/21 11:12 Source: patient Mode of arrival: ambulatory Limitations: no limitations History of Present Illness HPI Narrative: 61-year-old female here with complaints of dysuria, frequency and urgency since yesterday. No back pain or abdominal pain. No fevers, chills, vomiting. Related Data Home Medications Medication Instructions Recorded Confirmed atorvastatin 40 mg tablet 1 tab PO BEDTIME 09/13/20 11/04/20 lisinopril 20 1 tab PO DAILY 09/13/20 11/04/20 mg-hydrochlorothiazide 12.5 mg tablet zolpidem 10 mg tablet 1 tab PO BEDTIME PRN 09/13/20 11/04/20 sulfamethoxazole 800 1 tab PO BID 05/25/21 mg-trimethoprim 160 mg tablet Previous Rx's Medication Instructions Recorded lubiprostone 8 mcg capsule 8 mcg PO BID 30 Days #60 cap 07/03/21 (Amitiza) omeprazole 20 mg capsule,delayed 20 mg PO DAILY 30 Days #30 cap 07/03/21 release dicyclomine 20 mg tablet 20 mg PO QID #120 tab 07/28/21 nitrofurantoin 100 mg PO Q12H 5 Days #10 cap 10/27/21 monohydrate/macrocrystals 100 mg capsule (Macrobid) phenazopyridine 200 mg tablet 200 mg PO TID PRN #10 tab 10/27/21 (Pyridium) Allergies Allergy/AdvReac Type Severity Reaction Status Date / Time No Known Allergies Allergy Verified 10/27/21 10:49 [No Known Allergies*] Review of Systems Review of Systems: Yes all other systems are reviewed and are negative Constitutional: Constitutional: Reports no additional constitutional complaints, Denies body ache(s), Denies chills, Denies fever(s), Denies headache(s) and Denies weakness Eyes: Eyes: Reports no additional eye complaints and Denies change in vision ENT: Reports system reviewed and no additional complaints, except as documented, Denies dizziness, Denies headache(s), Denies nasal congestion, Denies nasal discharge and Denies neck pain Cardiovascular: Cardiovascular: Reports no additional cardiovascular complaints, Denies chest pain, Denies leg edema and Denies dyspnea Respiratory: Respiratory: Reports no additional respiratory complaints, Denies cough and Denies dyspnea Gastrointestinal: Gastrointestinal: Reports no additional gastrointestinal complaints, Denies abdominal pain, Denies diarrhea, Denies nausea and Denies vomiting Genitourinary: Genitourinary: Reports no additional female genitourinary complaints, Reports dysuria, Denies urinary incontinence and Reports urinary urgency Comments: frequent urination Musculoskeletal: Musculoskeletal: Reports no additional musculoskeletal complaints, Denies back pain, Denies arthralgias, Denies joint swelling, Denies neck pain, Denies numbness and Denies tingling Integumentary/Breasts: Skin/Breast: Reports system reviewed and no additional complaints, except as docu and Denies rash Neurologic: Reports system reviewed and no additional complaints, except as documented, Denies Abnormal speech present, Denies dizziness, Denies headache(s), Denies numbness, Denies tingling and Denies weakness PMFSH Past Medical History Attestation statement: The following information was validated with the patient. Source: old records reviewed and nursing notes reviewed Medical History Anemia Colon cancer screening Diverticulosis Hyperlipemia Hypertension Surgical History History of esophagogastroduodenoscopy (EGD) History of ovarian cystectomy Hx of colonoscopy (09/16/20) Hx of hysterectomy Family History Family History Father Parkinson disease HTN (hypertension) Mother HTN (hypertension) Brother Cancer Social History Social History Household Members: Significant Other Housing: Apartment Do you presently have visiting nurse or other home services: No Alcohol intake: never Second Hand Smoke Exposure: Yes Advance Directives: No Patient : No service: No Current occupational status: employed Physical Exam Vital Signs: Vital Signs: Last Vital Signs Temp 98.3 F 10/27/21 10:50 Pulse 80 10/27/21 10:50 Resp 17 10/27/21 10:50 BP 117/78 10/27/21 10:50 Pulse Ox 98 10/27/21 10:50 Body Mass Index 24.0 Const: General: cooperative, healthy appearing, comfortable and no acute distress Orientation/consciousness: patient oriented x3 Limitations: no limitations HENMT: Head: Yes normal to inspection Ears: hearing grossly normal bilaterally General nose exam: Normal external nose present Face and sinus: Yes normal facial exam Mouth: Normal oral and palatal mucosa present Throat: Yes posterior oropharynx normal Eyes: General: appearance normal, both eyes and all related structures Pupils: Equal, round and reactive pupils present Neck: Neck: Yes normal visual inspection Chest: Chest palpation & inspection: normal inspection of the chest Resp: Effort & Inspection: normal respiratory effort Auscultation: clear to auscultation bilaterally Cardio: Rate: regular rate Rhythm: regular rhythm Peripheral pulses: Peripheral pulses 2+ throughout GI: Inspection: Yes normal to inspection Palpation (GI): Soft to palpation and nontender Auscultation: normal bowel sounds : General: Yes no CVA tenderness Back/Spine/Pelvis: Back: no CVA tenderness Thoracic/Lumbar Spine: thoracic and lumbar spine normal to inspection Skin: General skin exam: no rashes or lesions noted Neuro: General: patient oriented x3, no focal motor deficits and normal sensation to monofilament Cranial nerves: Yes Equal, round and reactive pupils present Cognition (Neuro): normal cognition Speech: No Abnormal speech present Gait exam (Neuro): Normal gait present Motor exam (neuro): 5/5 motor strength present throughout Extrem: General: Yes normal to inspection Course Course Course Narrative: 61-year-old female here with UTI symptoms since yesterday. No flank pain or abdominal pain. Patient is well-appearing and is afebrile. UA is consistent with UTI. Will send urine culture and treat with course of antibiotics. Reviewed worrisome signs and symptoms of when to return to the emergency department. Comfortable discharge home. MDM - Female Genitourinary Medical Records Attestation: I reviewed the patient's medical records. Lab Data Attestation: I reviewed the patient's lab results. Labs: Lab Results 10/27/21 Range/Units 11:01 Urine Color YELLOW Urine Appearance HAZY Urine pH 6.0 (5.0-8.0) Ur Specific [place] 1.025 (1.005-1.025) Urine Protein 2+ H (NEG-TRACE) MG/DL Urine Glucose (UA) NEG (NEG) MG/DL Urine Ketones NEG (NEG) MG/DL Urine Blood 3+ H (NEG) Urine Nitrite NEG (NEG) Ur Leukocyte Esterase NEG (NEG) Urine RBC 30-49 H (0) /HPF Urine WBC 0-2 (0-4) /HPF Ur Squamous Epith Cells 1+ /LPF Urine Bacteria NONE /LPF Discharge Plan Discharge Clinical Impression: Urinary tract infection Patient Disposition: Home, Self-Care Instructions: Urinary Tract Infection in Women (ED) Additional Instructions: Increase fluids, rest Return for fever, vomiting or back pain Prescriptions: New nitrofurantoin monohyd/m-cryst [Macrobid] 100 mg capsule 100 mg PO Q12H 5 Days Qty: 10 RF: 0 phenazopyridine [Pyridium] 200 mg tablet 200 mg PO TID PRN (Reason: pain) Qty: 10 RF: 0 No Action dicyclomine 20 mg tablet 20 mg PO QID Qty: 120 RF: 1 atorvastatin 40 mg tablet 1 tab PO BEDTIME RF: 0 lisinopril-hydrochlorothiazide 20-12.5 mg tablet 1 tab PO DAILY RF: 0 zolpidem 10 mg tablet 1 tab PO BEDTIME PRN (Reason: Insomnia) RF: 0 sulfamethoxazole-trimethoprim 800-160 mg tablet 1 tab PO BID RF: 0 omeprazole 20 mg capsule,delayed release(DR/EC) 20 mg PO DAILY 30 Days Qty: 30 RF: 6 lubiprostone [Amitiza] 8 mcg capsule 8 mcg PO BID 30 Days Qty: 60 RF: 5 Referrals: Mirlande Casey, STATISTICAL ANALYST [Primary Care Provider] - 2 days Interventions: ED Discharge Assessment Last Done: 10/27/21 11:45
== END 2021-10-27 11:45 | disposition home or self-care (01) ==
PROVIDERS: Nurse Practitioner Family; Emergency Provider Emergency Medicine; PCP Registered Nurse
DX: N39.0 Urinary tract infection, site not specified (principal); I10 Essential (primary) hypertension; E78.5 Hyperlipidemia, unspecified; Z79.02 Long term (current) use of antithrombotics/antiplatelets; Z79.899 Other long term (current) drug therapy
CPT/HCPCS: 36415; 81001; 87086; 99283; 99284

== ENCOUNTER → 2021-12-28 14:16 | Outpatient (BNVA) | payer OTHER, SELFPAY | PROVIDERS: PCP Registered Nurse; Visit Provider Nurse Practitioner | DX: K58.1 Irritable bowel syndrome with constipation (principal); K21.9 Gastro-esophageal reflux disease without esophagitis | CPT/HCPCS: 99212 ==

== ENCOUNTER 2022-05-01 11:00 | Outpatient (REF) | payer OTHER, SELFPAY | END 2022-05-01 11:01 | disposition home or self-care (01) | LOC: HO.LAB 11:00 | PROVIDERS: PCP Registered Nurse | DX: N39.0 Urinary tract infection, site not specified (principal); R10.2 Pelvic and perineal pain | CPT/HCPCS: 87086; 87088; 87186; 99202 ==

== ENCOUNTER 2022-05-10 11:20 | Outpatient (REF) | payer OTHER, SELFPAY ==
[2022-05-10 13:47] LABS: CT PCR NOT DETECTED (Not Detect.); NG PCR NOT DETECTED (Not Detect.)
[2022-05-11 09:51] LABS: BV Int Neg Control Negative (Negative); BV Int Pos Control Positive (Positive)
== END 2022-05-10 11:21 | disposition home or self-care (01) ==
LOC: HO.LAB 11:20
PROVIDERS: Visit Provider Advanced Practice Midwife
DX: Z11.3 Encounter for screening for infections with a predominantly sexual mode of transmission (principal); N95.2 Postmenopausal atrophic vaginitis
CPT/HCPCS: 87480; 87491; 87510; 87591; 87660; 99202

== ENCOUNTER 2022-09-13 10:58 | Outpatient (REF) | payer OTHER, SELFPAY ==
--- NOTE | ~2022-09-13 | MM_ITS ---
EXAMINATION: MM SCREENING DIGITAL BREAST TOMOSYNTHESIS, BILATERAL CLINICAL INFORMATION: Screening. Asymptomatic. The lifetime risk of breast cancer based on the Tyrer-Cuzick Model is 5%. COMPARISON: Mammography: September 07, 2021 and studies dating back to February 08, 2014 TECHNIQUE: Digital breast tomosynthesis is performed in both the craniocaudal and mediolateral oblique views along with computer-aided detection (CAD). Synthesized 2D images are generated from the tomosynthesis. FINDINGS: The breasts are heterogeneously dense, which may obscure small masses (ACR BI-RADS breast composition Category c). There are no new significant masses, abnormal calcifications, or other abnormalities. MM/MM tomosynthesis screening BI IMPRESSION: No significant changes ASSESSMENT: BI-RADS 1: Negative RECOMMENDATION: Routine annual mammography screening. This patient's information was entered into a reminder system with a target due date for their next mammogram.
== END 2022-09-13 10:59 | disposition home or self-care (01) ==
LOC: HO.MAMMO 10:58
PROVIDERS: PCP Registered Nurse; Visit Provider Registered Nurse
DX: Z12.31 Encounter for screening mammogram for malignant neoplasm of breast (principal)
CPT/HCPCS: 77063; 77067

== ENCOUNTER 2022-11-22 10:32 | Outpatient (REF) | payer OTHER, SELFPAY ==
[2022-11-22 17:11] LABS: Urine Cytology See Pathology rpt
== END 2022-11-22 10:33 | disposition home or self-care (01) ==
LOC: HO.LAB 10:32
PROVIDERS: PCP Registered Nurse; Visit Provider Nurse Practitioner Family
DX: N39.0 Urinary tract infection, site not specified (principal)
CPT/HCPCS: 51798; 87086; 87088; 87186; 88112; 99212

== ENCOUNTER 2023-02-07 09:50 | Outpatient (REF) | payer OTHER, SELFPAY ==
--- NOTE | ~2023-02-07 | US_ITS ---
EXAMINATION: US RETROPERITONEAL LIMITED (RENAL ONLY) CLINICAL INFORMATION: Urinary tract infection, site not specified. COMPARISON: CT abdomen and pelvis 11/03/2020. TECHNIQUE: Real-time imaging of the kidneys. FINDINGS: RIGHT KIDNEY: 11.0 x 4.3 x 5.0 cm (SAG x AP x TRV). The kidney is normal in size, contour, and echogenicity. Renal cortical thickness is normal. 2 cm simple appearing lower pole cyst. Extrarenal pelvis present. No renal calculi. LEFT KIDNEY: 10.8 x 5.7 x 4.5 cm (SAG x AP x TRV). The kidney is normal in size, contour, and echogenicity. Renal cortical thickness is normal. No renal calculi or hydronephrosis. Suspected small extra renal pelvis. US/US retroperitoneal limited IMPRESSION: No renal calculi or hydronephrosis of either kidney.
== END 2023-02-07 09:51 | disposition home or self-care (01) ==
LOC: HO.US 09:50
PROVIDERS: Visit Provider Nurse Practitioner Family
DX: N39.0 Urinary tract infection, site not specified (principal)
CPT/HCPCS: 76775

== ENCOUNTER 2023-02-15 10:04 | Outpatient (REF) | payer OTHER, SELFPAY ==
--- NOTE | ~2023-02-15 | US_ITS ---
EXAMINATION: US PELVIS LIMITED (BLADDER) CLINICAL INFORMATION: Urinary tract infection, site not specified. COMPARISON: Ultrasound kidneys 02/07/2023. CT abdomen and pelvis 11/03/2020. TECHNIQUE: Real-time imaging of the bladder. FINDINGS: BLADDER: Well distended and normal. Bilateral ureteral jets are demonstrated. Prevoid bladder volume is 140 mL. Postvoid bladder volume is 9.5 mL. US/US bladder IMPRESSION: Normal bladder.
== END 2023-02-15 10:05 | disposition home or self-care (01) ==
LOC: HO.US 10:04
PROVIDERS: PCP Registered Nurse; Visit Provider Nurse Practitioner Family
DX: N39.0 Urinary tract infection, site not specified (principal)
CPT/HCPCS: 76857

== ENCOUNTER 2023-09-19 10:53 | Outpatient (REF) | payer OTHER, SELFPAY ==
--- NOTE | ~2023-09-19 | MM_ITS ---
EXAMINATION: MM SCREENING DIGITAL BREAST TOMOSYNTHESIS, BILATERAL CLINICAL INFORMATION: Screening. Asymptomatic. COMPARISON: Mammography: 09/13/2022, 09/07/2021, 07/22/2020, 04/07/2019, 03/19/2018 TECHNIQUE: Digital breast tomosynthesis is performed in both the craniocaudal and mediolateral oblique views along with computer-aided detection (CAD). Synthesized 2D images are generated from the tomosynthesis. FINDINGS: There are scattered areas of fibroglandular density (ACR BI-RADS breast composition Category b). There are no suspicious masses, suspicious grouped calcifications, or areas of architectural distortion in either breast. The parenchymal pattern is stable from prior exams. There are no axillary or skin changes. MM/MM tomosynthesis screening BI IMPRESSION: No mammographic evidence of malignancy. ASSESSMENT: BI-RADS BI-RADS 1 - Negative RECOMMENDATION: Routine annual mammography screening. 1 year F/U This examination should not preclude the clinical evaluation of a suspicious palpable abnormality. This patient's information was entered into a reminder system with a target due date for their next mammogram.
== END 2023-09-19 10:54 | disposition home or self-care (01) ==
LOC: HO.MAMMO 10:53
PROVIDERS: Visit Provider Registered Nurse
DX: Z12.31 Encounter for screening mammogram for malignant neoplasm of breast (principal)
CPT/HCPCS: 77063; 77067

== ENCOUNTER → 2023-09-19 11:00 | Outpatient (BNV) | payer OTHER, SELFPAY | PROVIDERS: Visit Provider Radiology Diagnostic Radiology | DX: Z12.31 Encounter for screening mammogram for malignant neoplasm of breast (principal) | CPT/HCPCS: 77063; 77067 ==

== ENCOUNTER 2023-10-30 10:48 | Outpatient (REF) | payer OTHER, SELFPAY ==
[2023-10-30 11:34] LABS: Hematocrit 34.1 % (37.0-47.0); Hemoglobin 11.3 g/dl (12.0-16.0); Mean Corpuscular HGB Conc 33.1 g/dl (31.0-35.0); Mean Corpuscular Hemoglobin 27.3 pg (27.0-33.0); Mean Corpuscular Volume 82.4 fL (80.0-98.0); Mean Platelet Volume 10.8 fL (9.4-12.3); Platelet Count 274 X10*3/uL (160-400); Red Blood Count 4.14 X10*6/uL (4.20-5.50); Red Cell Distribution Width 14.2 % (11.0-16.0); White Blood Count 10.4 X10*3/uL (4.8-10.8)
[2023-10-30 12:19] LABS: Alanine Aminotransferase 8 U/L (0-31); Albumin Level 4.6 g/dL (3.5-5.0); Alkaline Phosphatase 89 U/L (39-117); Anion Gap 11 (12-20); Aspartate Amino Transferase 13 U/L (5-31); Bilirubin Total 0.4 mg/dL (0.0-1.0); Blood Urea Nitrogen 18 mg/dL (9-16); Calcium 10.5 mg/dL (8.4-10.2); Carbon Dioxide 27 mmol/L (22-29); Chloride 106 mmol/L (96-108); Cholesterol 226 mg/dL (<200); Estimated Glomerular Filt Rate > 60; Glucose Random 104 mg/dL (60-115); HDL Cholesterol 56 mg/dL (>40); LDL Cholesterol Calculated 143 mg/dL (<100); Potassium 4.2 mmol/L (3.3-5.1); Sodium 140 mmol/L (135-145); Total Protein 8.8 g/dL (6.5-8.0); Triglycerides 137 mg/dL (<150)
[2023-10-30 12:29] LABS: HBS Num1 296.85 mIU/mL (0-7.99); HBc Num1 0.25 S/CO (0.00-0.79); HBsAGNum1 0.49 S/CO (0.00-0.99); HIV AB/AG Nonreactive (Nonreactive); HIV Num 1 0.05 S/CO (0.00-0.99); Hepatitis B Core Antibody Nonreactive (Nonreactive); Hepatitis B Surface Antigen Negative (Negative); ~HepC Num1 0.12 S/CO (0.00-0.79); ~Hepatitis B Surface Antibody REACTIVE (Nonreactive); ~Hepatitis C Antibody Nonreactive (Nonreactive)
== END 2023-10-30 10:49 | disposition home or self-care (01) ==
LOC: HO.HHCL 10:48
PROVIDERS: Visit Provider Family Medicine
DX: Z00.00 Encounter for general adult medical examination without abnormal findings (principal); Z11.4 Encounter for screening for human immunodeficiency virus [HIV]; I10 Essential (primary) hypertension; E78.5 Hyperlipidemia, unspecified
CPT/HCPCS: 36415; 80053; 80061; 85027; 86704; 86706; 86803; 87340; 87389

== ENCOUNTER 2023-10-31 12:31 | Outpatient (REF) | payer OTHER, SELFPAY ==
[2023-10-31 13:20] LABS: MANUAL DIFF FLAG NO
[2023-10-31 13:26] LABS: Basophils Absolute Auto 0.1 X10*3/uL (0.0-0.2); Basophils Percent Auto 0.7 % (0-2); Eosinophils Absolute Auto 0.5 X10*3/uL (0.0-0.4); Eosinophils Percent Auto 4.9 % (0-4); Hematocrit 34.5 % (37.0-47.0); Hemoglobin 11.3 g/dl (12.0-16.0); Imm Gran Abs Auto 0.04 X10*3/uL (0.00-0.03); Imm Gran Pct Auto 0.4 % (0.0-0.4); Lymphocytes Absolute Auto 2.4 X10*3/uL (1.2-4.9); Lymphocytes Percent Auto 25.3 % (20-40); Mean Corpuscular HGB Conc 32.8 g/dl (31.0-35.0); Mean Corpuscular Hemoglobin 27.1 pg (27.0-33.0); Mean Corpuscular Volume 82.7 fL (80.0-98.0); Mean Platelet Volume 10.8 fL (9.4-12.3); Monocytes Absolute Auto 0.7 X10*3/uL (0.1-1.2); Monocytes Percent Auto 7.3 % (2-11); Neutrophils Absolute Auto 5.9 x10*3/uL (2.0-8.3); Neutrophils Percent Auto 61.4 % (45-73); Platelet Count 278 X10*3/uL (160-400); Red Blood Count 4.17 X10*6/uL (4.20-5.50); Red Cell Distribution Width 14.2 % (11.0-16.0); White Blood Count 9.6 X10*3/uL (4.8-10.8)
[2023-10-31 14:17] LABS: Iron 57 mcg/dL (30-160); Percent Iron Saturation 22 % (15-50); Total Iron Binding Capacity 259 mcg/dL (228-428); Unsaturated Iron Binding 202 ug/dL
[2023-10-31 14:20] LABS: Ferritin 202 ng/mL (10-250)
[2023-10-31 14:32] LABS: Folate 7.1 ng/mL (> or = 4.0); Vitamin B12 986 pg/mL (200-900)
== END 2023-10-31 12:32 | disposition home or self-care (01) ==
LOC: HO.HHCL 12:31
PROVIDERS: Visit Provider Emergency Medicine
DX: D64.9 Anemia, unspecified (principal)
CPT/HCPCS: 36415; 82607; 82728; 82746; 83540; 85025

== ENCOUNTER 2024-01-17 10:52 | Outpatient (REF) | payer OTHER, SELFPAY ==
[2024-01-17 13:30] LABS: Hematocrit 34.9 % (37.0-47.0); Hemoglobin 11.6 g/dl (12.0-16.0); Immature Retic Fraction 14.7 % (3.0-15.9); Mean Corpuscular HGB Conc 33.2 g/dl (31.0-35.0); Mean Corpuscular Hemoglobin 27.2 pg (27.0-33.0); Mean Corpuscular Volume 81.7 fL (80.0-98.0); Mean Platelet Volume 11.2 fL (9.4-12.3); Platelet Count 289 X10*3/uL (160-400); Red Blood Count 4.27 X10*6/uL (4.20-5.50); Red Cell Distribution Width 13.9 % (11.0-16.0); Retic HGB Equivalent 32.4 pg (30.0-35.0); Reticulocyte Percent 1.7 % (0.5-1.8); Reticulocytes Absolute 0.071 X10*6/uL (0.026-0.095); White Blood Count 9.5 X10*3/uL (4.8-10.8)
[2024-01-17 13:44] LABS: Creatinine Urine 64.15 mg/dL; Microalbum/Creatinine Ratio Ur 91.9 ug/mg cr (<30)
[2024-01-17 13:59] LABS: Anion Gap 13 (12-20); Blood Urea Nitrogen 18 mg/dL (9-16); Calcium 10.5 mg/dL (8.4-10.2); Carbon Dioxide 25 mmol/L (22-29); Chloride 105 mmol/L (96-108); Cholesterol 213 mg/dL (<200); Estimated Glomerular Filt Rate > 60; Glucose Random 104 mg/dL (60-115); HDL Cholesterol 53 mg/dL (>40); LDL Cholesterol Calculated 132 mg/dL (<100); Sodium 139 mmol/L (135-145); Triglycerides 141 mg/dL (<150)
== END 2024-01-17 10:53 | disposition home or self-care (01) ==
LOC: HO.HHCL 10:52
PROVIDERS: Visit Provider Nurse Practitioner
DX: D64.9 Anemia, unspecified (principal); I10 Essential (primary) hypertension; E78.5 Hyperlipidemia, unspecified
CPT/HCPCS: 36415; 80048; 80061; 82043; 82570; 85027; 85045

== ENCOUNTER 2024-04-03 11:19 | Outpatient (REF) | payer OTHER, SELFPAY ==
[2024-04-03 13:41] LABS: Hematocrit 34.5 % (37.0-47.0); Hemoglobin 11.7 g/dl (12.0-16.0); Mean Corpuscular HGB Conc 33.9 g/dl (31.0-35.0); Mean Corpuscular Hemoglobin 27.5 pg (27.0-33.0); Mean Corpuscular Volume 81.2 fL (80.0-98.0); Mean Platelet Volume 11.2 fL (9.4-12.3); Platelet Count 275 X10*3/uL (160-400); Red Blood Count 4.25 X10*6/uL (4.20-5.50); Red Cell Distribution Width 14.6 % (11.0-16.0); White Blood Count 9.2 X10*3/uL (4.8-10.8)
[2024-04-03 14:12] LABS: Alanine Aminotransferase 10 U/L (0-31); Albumin Level 4.6 g/dL (3.5-5.0); Alkaline Phosphatase 87 U/L (39-117); Anion Gap 16 (12-20); Aspartate Amino Transferase 15 U/L (5-31); Bilirubin Direct 0.2 mg/dL (0.0-0.5); Bilirubin Total 0.5 mg/dL (0.0-1.0); Blood Urea Nitrogen 29 mg/dL (9-16); Calcium 10.8 mg/dL (8.4-10.2); Carbon Dioxide 23 mmol/L (22-29); Chloride 104 mmol/L (96-108); Estimated Glomerular Filt Rate 51; Glucose Random 105 mg/dL (60-115); Potassium 4.5 mmol/L (3.3-5.1); Sodium 138 mmol/L (135-145); Total Protein 8.9 g/dL (6.5-8.0)
[2024-04-03 14:39] LABS: Creatinine Urine 88.15 mg/dL; Microalbum/Creatinine Ratio Ur 116.8 ug/mg cr (<30)
== END 2024-04-03 11:20 | disposition home or self-care (01) ==
LOC: HO.HHCL 11:19
PROVIDERS: Visit Provider Nurse Practitioner
DX: M79.604 Pain in right leg (principal); M79.605 Pain in left leg; D64.9 Anemia, unspecified; I10 Essential (primary) hypertension
CPT/HCPCS: 36415; 80048; 80076; 82043; 82550; 82570; 85027

== ENCOUNTER 2024-05-27 10:30 | Outpatient (AMB) | payer OTHER, SELFPAY ==
--- NOTE | 2024-05-27 10:34 | A.OFFVIS_ITS ---
Vital Signs 3 05/27/24 10:37 Height 5 ft 3 in Weight 142 lb 13.753 oz BMI 25.3 BP 110/54 L Blood Pressure Location Lt brachial Position Sitting Pulse 71 Intake Visit Reasons: Anemia/Mondamin Screen Intake Note: Patient in office today in follow up of anemia and for colonoscopy screening. CC: Patient c/o abdominal cramping when she needs to have a BM. Vp Celebr[employer] Services Required: Yes Accompanied by: Self / Same As Patient Allergies No Known Allergies [No Known Allergies*] Allergy (Verified 11/22/22 15:27) HPI HPI Anemia/Mondamin Screen: Details: Assessment & Plan (1) Irritable bowel syndrome with constipation: ?Code(s): K58.1 - Irritable bowel syndrome with constipation ?Plan: Gabonese # she declines program development specialist today She received the Amitiza and feels it helped, but after discussion it turns out she is only taking it once a day. She is at 8mcg and I instruct her to take it bid. This is because she continues to have pain, and I think she is having bowel irritability as some days she does not move her bowels and some days it is several times a day. This is likely promoting bowels spasm. She has not had any RB in the stools; and when I explain my thoughts she says yes, I think i have more IBS than diverticulitis. She wants a high fiber food list for her CIC and I print her one in Gabonese from CN site. She did not find the dicyclomine helpful, she prefers taking tylenol for the pain. This is fine. The pain is intermittent and can last anywhere from 2 hours to a whole day and although it is 6/10 at its worst it is improved from when we first started working on it. CARMINA in 6 weeks to see if taking the Amitiza correctly improves her pain/spasm. She continues on her omeprazole with good GERD control. (2) GERD (gastroesophageal reflux disease): ?Code(s): K21.9 - Gastro-esophageal reflux disease without esophagitis ? ? ? Medications: Refilled omeprazole 20 mg? PO DAILY 30 days 30 caps 6RF K21. 9 - Gastro-esophageal reflux disease without esophagitis ? lubiprostone (Amitiza) 8 mcg? PO BID 30 days 60 caps 6RF K58.1 - Irritable bowel syndrome with constipation ? Discontinued nitrofurantoin monohyd/m-cryst 100 mg (Macrobid) ?? must administer with a meal/food ?? Discontinued Reason:? Doctor's Order 100 mg? PO Q12H 5 days 10 caps 0RF ? ? phenazopyridine (Pyridium) ?? Discontinued Reason:? Doctor's Order 200 mg? PO TID PRN 10 tabs 0RF pain ? ? dicyclomine ?? Discontinued Reason:? Doctor's Order 20 mg? PO QID 120 tabs 1RF TODAY'S VISIT Gabonese # DECLINES Patient has been lost to follow-up since 12/2021 HER LAST COLONOSCOPY was 09/2020 but called for 1-2 year follow-up because of poor prep. She has soft stools, but multiple daily BM's with some incomplete evacuation but she is not bothered by this. We discuss low residual diet a couple of days before the prep day. She denies any upper GI problems. There are no prior problems with anesthesia or sedation. She denies any cardiac or respiratory problems. There is no known FHX of crc or polyps. [facility] Medical History (Updated 07/01/24 @ 16:15 by RAMU Walsh) Irritable bowel syndrome with constipation Vaginal irritation UTI (urinary tract infection) History of Helicobacter pylori infection Colon cancer screening Frequent UTI Anemia Diverticulosis Colon cancer screening Hyperlipemia Hypertension Surgical History History of esophagogastroduodenoscopy (EGD) Hx of colonoscopy (09/16/20) History of ovarian cystectomy Hx of hysterectomy Family History Father Parkinson disease HTN (hypertension) Mother HTN (hypertension) Brother Cancer Social History Household Members: Significant Other Housing: Apartment Do you presently have visiting nurse or other home services: No Alcohol intake: current Alcohol intake frequency: holidays/special occasions only Patient Tobacco Use Status: Never used Tobacco Second Hand Smoke Exposure: Yes service: No Current occupational status: employed Sexual orientation: Straight/Heterosexual Gender identity: Female Review of Systems Const Denies fatigue, Denies fever(s), Denies night sweats, Denies poor appetite and Denies weight loss Eyes Reports requires corrective lenses ENT Reports Normal hearing present, Denies dental pain, Denies dysphagia, Denies hearing loss, Denies mouth pain, Denies odynophagia, Denies throat swelling, Denies tongue swelling and Reports other (Dentition adequate) GI Details: Denies abdominal pain, Denies melena, Denies bloating, Denies hematochezia, Denies constipation, Denies GI cramping, Denies dysphagia, Denies excessive flatus, Denies early satiety, Denies heartburn, Denies diarrhea, Denies nausea, Denies odynophagia, Denies vomiting and Denies hematemesis Skin/Breast Denies pruritus, Denies lesions, Denies rash and Denies jaundice Neuro Reports Normal hearing present and Denies Abnormal speech present Endo Denies fatigue Aller/Immun Denies throat swelling and Denies tongue swelling Physical Exam Vital Signs: Last Vital Signs Pulse 71 05/27/24 10:37 BP 110/54 L 05/27/24 10:37 BMI result Body Mass Index 25.3 Const General: cooperative, no acute distress, well developed and well groomed Nutritional Appearance: average body habitus and well nourished Orientation/consciousness: oriented to person, oriented to place and oriented to time Limitations: No language barrier HEENT Head: Yes normocephalic and Yes atraumatic Eyes General: appearance normal, both eyes and all related structures Pupils: Equal, round and reactive pupils present Neck Neck: Yes normal visual inspection and Yes no lymphadenopathy Thyroid: Thyroid normal Resp Effort & Inspection: normal respiratory effort and able to speak in complete sentences Auscultation: clear to auscultation bilaterally Cardio Rate: regular rate Rhythm: regular rhythm Heart sounds: Normal, physiologic split S2 sound present Peripheral pulses: radial pulses present and posterior tibial pulses present GI Inspection: No distended, No Abdominal panniculus present, Yes scar and Yes striae Palpation (GI): Soft to palpation, nontender, no guarding, not rigid and No hepatosplenomegaly present Percussion: Yes normal to percussion Auscultation: normal bowel sounds Rectal Exam - Female: deferred Abdomen image: 2 1. ] Surgical scar Skin General skin exam: no rashes or lesions noted, turgor normal, skin not dry, no jaundice, No spider nevi and no striae Rashes: no rashes Nails: normal Neuro General: oriented to person, oriented to place and oriented to time Cranial nerves: Yes Equal, round and reactive pupils present and Yes Normal hearing present Speech: No Abnormal speech present Extrem General: Yes normal to inspection, No clubbing, No cyanosis and No edema Psych Appearance: grossly normal and well kempt Mental Status: mental status grossly normal Speech and movement: Normal speech and movement present Affect: normal affect Attitude: cooperative Thought process: Normal thought process present and not confabulating Thought content: Normal thought content present Insight: Limited insight present (Psych) Judgement: Limited judgement present (Psych) Results Reviewed Results Reviewed: Laboratory Tests 04/03/24 11:24 WBC 9.2 RBC 4.25 Hgb 11.7 L Hct 34.5 L MCV 81.2 MCH 27.5 Plt Count 275 Estimated GFR 51 Total Bilirubin 0.5 Direct Bilirubin 0.2 AST 15 ALT 10 Alkaline Phosphatase 87 Assessment & Plan Assessment & Plan (1) Pre-op examination: Code(s): Z01.818 - Encounter for other preprocedural examination Category: Medical Plan Gabonese # DECLINES Patient has been lost to follow-up since 12/2021 HER LAST COLONOSCOPY was 09/2020 but called for 1-2 year follow-up because of poor prep. She has soft stools, but multiple daily BM's with some incomplete evacuation but she is not bothered by this. We discuss low residual diet a couple of days before the prep day. She denies any upper GI problems. There are no prior problems with anesthesia or sedation. She denies any cardiac or respiratory problems. There is no known FHX of crc or polyps. Medications: New 2 peg 3350-electrolytes 236-22.74-6.74 -5.86 gram (Golytely) until fecal effluent is clear; do not exceed a total volume of 2,000 mL 240 mL PO Q10M 4,000 mL 0RF 1 day Z12.11 - Encounter for screening for malignant neoplasm of colon bisacodyl (Dulcolax (bisacodyl)) 10 mg (2 x 5 mg) PO BEDTIME 4 tabs 0RF 2 days Discontinued 2 lubiprostone Discontinued Reason: Doctor's Order 8 mcg PO BID 30 days 60 caps 6RF K58.1 - Irritable bowel syndrome with constipation Coding Level of Care Code Est Pt Level 4 (89040) Diagnoses Pre-op examination Z01.818
[2024-05-27 10:37] VITALS: BP 110/54; PULSE 71; BMI 25.3
== END 2024-05-27 11:09 | disposition home or self-care (01) ==
PROVIDERS: PCP Nurse Practitioner; Referring Provider Nurse Practitioner; Visit Provider Nurse Practitioner
DX: Z01.818 Encounter for other preprocedural examination (principal)
CPT/HCPCS: 99214

== ENCOUNTER → 2024-05-27 10:30 | Outpatient (BNVA) | payer OTHER, SELFPAY | PROVIDERS: Visit Provider Nurse Practitioner | DX: Z01.818 Encounter for other preprocedural examination (principal); K21.9 Gastro-esophageal reflux disease without esophagitis; K58.1 Irritable bowel syndrome with constipation | CPT/HCPCS: 99212 ==

== ENCOUNTER 2024-07-13 10:18 | Outpatient (AMB) | payer OTHER, SELFPAY ==
--- NOTE | 2024-07-13 10:18 | A.OFFVIS_ITS ---
Vital Signs 07/13/24 10:19 Height 5 ft 3 in Weight 143 lb BMI 25.3 BP 120/64 Blood Pressure Location Lt brachial Position Sitting Pulse 80 Pulse Source Pulse Oximeter Pulse Oximetry (%) 99 Oxygen Delivery Method Room Air Intake Visit Reasons: Hypertension Intake Note: [facility] senior hardware design engineer not needed patient signed form and scanned into chart. Sales Support Coordinator Required: No Accompanied by: Self / Same As Patient Allergies No Known Allergies [No Known Allergies*] Allergy (Verified 07/13/24 10:21) HPI Comments Details: Thank you for referring Neha in consultation for proteinuria, hypertension and hypercalcemia. 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 She is not a diabetic. She has longstanding hypertension and has been on hydrochlorothiazide, lisinopril and amlodipine. She has no epistaxis, joint swellings, photosensitivity, new skin rashes, hematemesis, melena, hematuria, nephrolithiasis, new bone or back pain. She has been having high calcium but denies taking any excessive all calcium or vitamin-D. She does not take any excessive nonsteroidal anti-inflammatories and tries to maintain good hydration. She has no hearing loss. She is compliant with her medications. She has been on PPI. She does not have any nausea or or vomiting. There were no other new active complaints at the time of this office visit. [facility] Medical History (Updated 07/13/24 @ 10:42 by Dagoberto Espinoza MD) Irritable bowel syndrome with constipation Vaginal irritation UTI (urinary tract infection) History of Helicobacter pylori infection Colon cancer screening Frequent UTI Anemia Diverticulosis Colon cancer screening Hyperlipemia Hypertension Surgical History History of esophagogastroduodenoscopy (EGD) Hx of colonoscopy (09/16/20) History of ovarian cystectomy Hx of hysterectomy Family History Father Parkinson disease HTN (hypertension) Mother HTN (hypertension) Brother Cancer Social History Household Members: Significant Other Housing: Apartment Do you presently have visiting nurse or other home services: No Alcohol intake: current Alcohol intake frequency: holidays/special occasions only Patient Tobacco Use Status: Never used Tobacco Second Hand Smoke Exposure: Yes service: No Current occupational status: employed Sexual orientation: Straight/Heterosexual Gender identity: Female Review of Systems Const All systems reviewed & are unremarkable except as noted in HPI and below Physical Exam Vital Signs: Last Vital Signs Pulse 80 07/13/24 10:19 BP 120/64 07/13/24 10:19 Pulse Ox 99 07/13/24 10:19 Oxygen Delivery Method Room Air 07/13/24 10:19 BMI result Body Mass Index 25.3 Const General: comfortable and no acute distress Orientation/consciousness: patient oriented x3 HEENT Head: Yes normocephalic Mouth: Normal oral and palatal mucosa present Eyes EOM: EOMs intact bilaterally Neck Neck: Yes supple Resp Auscultation: clear to auscultation bilaterally Cardio Jugular venous distension: no JVD Rate: regular rate GI Palpation (GI): Soft to palpation Auscultation: normal bowel sounds General: Yes no CVA tenderness Back/Spine/Pelvis Back: no CVA tenderness Skin General skin exam: no rashes or lesions noted Neuro General: patient oriented x3 and moves all extremities Extrem General: Yes no pedal edema Assessment & Plan Assessment & Plan (1) Proteinuria: Code(s): R80.9 - Proteinuria, unspecified Category: Medical Qualifiers: Proteinuria type: unspecified Qualified Code(s): R80.9 - Proteinuria, unspecified (2) Hypertension: Code(s): I10 - Essential (primary) hypertension Category: Medical Qualifiers: Hypertension type: primary hypertension Qualified Code(s): I10 - Essential (primary) hypertension (3) Hypercalcemia: Code(s): E83.52 - Hypercalcemia Category: Medical Plan Neha has longstanding hypertension. Whether she has any hypertensive nephrosclerosis or AIN from PPI needs to be ascertained. Her urine output is good. She is on RODOLFO inhibitor, hydrochlorothiazide and amlodipine. She may have a parathyroid adenoma. I have ordered workup for her hypercalcemia. Urine studies ordered for evaluation of her proteinuria. Her renal ultrasound is pending. I may discontinue her hydrochlorothiazide given hypercalcemia. She has been having mild swelling at the end of the day when she has been on amlodipine. After evaluation of all the results I may switch her amlodipine and hydrochlorothiazide altogether and maximize her RODOLFO inhibitor if her serum creatinine and potassium permits. Still ,if she continues to have proteinuria and or worsening renal function she may need a renal biopsy. All these have been explained in detail. Time spent retrieving all her data, reviewing past clinical encounters with the primary care physician, current patient encounter documentation 59 minutes. Follow-up given. Orders: Orders Parathyroid Hormone Intact Today R80.9 - Proteinuria, unspecified Phosphorus Today R80.9 - Proteinuria, unspecified Vitamin D 1,25 dihydroxy Today R80.9 - Proteinuria, unspecified Vitamin D 25-OH Total Today R80.9 - Proteinuria, unspecified Immunofixation Pnl, Serum Today R80.9 - Proteinuria, unspecified Complete Blood Count Auto Diff Today R80.9 - Proteinuria, unspecified Creatinine Today R80.9 - Proteinuria, unspecified UA w Microscopic Today R80.9 - Proteinuria, unspecified Protein Creatinine Ratio, Ur Today R80.9 - Proteinuria, unspecified Anti DNA DS Antibody Today R80.9 - Proteinuria, unspecified Proteinase 3 PR3 Antibodies Today R80.9 - Proteinuria, unspecified Phospholipase A2 Receptor Pnl Today R80.9 - Proteinuria, unspecified US renal BI Today E83.52 - Hypercalcemia, I10 - Essential (primary) hypertension, R80.9 - Proteinuria, unspecified Calcium Today R80.9 - Proteinuria, unspecified Blood Urea Nitrogen Today R80.9 - Proteinuria, unspecified Electrolytes Today R80.9 - Proteinuria, unspecified Microalbumin, Random (w Creat) Today R80.9 - Proteinuria, unspecified Myeloperoxidase Antibody Today R80.9 - Proteinuria, unspecified Neutrophil Cytoplasma Ab Today R80.9 - Proteinuria, unspecified Anti Glomerular Basement Memb Today R80.9 - Proteinuria, unspecified Complement C3 Today R80.9 - Proteinuria, unspecified Complement C4 Today R80.9 - Proteinuria, unspecified Hepatitis B Core Antibody Today R80.9 - Proteinuria, unspecified Hepatitis B Surface Antigen Today R80.9 - Proteinuria, unspecified Lactate Dehydrogenase Today E83.52 - Hypercalcemia, I10 - Essential (primary) hypertension, R80.9 - Proteinuria, unspecified Coding Level of Care Code New Pt Level 5 (44148) Diagnoses Proteinuria, unspecified type R80.9 Proteinuria type: unspecified Primary hypertension I10 Hypertension type: primary hypertension Hypercalcemia E83.52
[2024-07-13 10:19] VITALS: BP 120/64; PULSE 80; O2SAT 99; BMI 25.3
== END 2024-07-13 10:45 | disposition home or self-care (01) ==
PROVIDERS: PCP Nurse Practitioner; Visit Provider Internal Medicine Nephrology
DX: R80.9 Proteinuria, unspecified (principal); I10 Essential (primary) hypertension; E83.52 Hypercalcemia
CPT/HCPCS: 99205

== ENCOUNTER → 2024-07-13 10:18 | Outpatient (BNVA) | payer OTHER, SELFPAY | PROVIDERS: PCP Nurse Practitioner; Visit Provider Internal Medicine Nephrology | DX: I10 Essential (primary) hypertension (principal); R80.9 Proteinuria, unspecified; E83.52 Hypercalcemia | CPT/HCPCS: 99202 ==

== ENCOUNTER 2024-07-13 10:54 | Outpatient (REF) | payer OTHER, SELFPAY ==
[2024-07-13 13:14] LABS: MANUAL DIFF FLAG NO
[2024-07-13 13:19] LABS: Basophils Absolute Auto 0.1 X10*3/uL (0.0-0.2); Basophils Percent Auto 0.5 % (0-2); Eosinophils Absolute Auto 0.5 X10*3/uL (0.0-0.4); Eosinophils Percent Auto 4.6 % (0-4); Hematocrit 33.6 % (37.0-47.0); Hemoglobin 11.5 g/dl (12.0-16.0); Imm Gran Abs Auto 0.06 X10*3/uL (0.00-0.03); Imm Gran Pct Auto 0.6 % (0.0-0.4); Lymphocytes Absolute Auto 2.8 X10*3/uL (1.2-4.9); Lymphocytes Percent Auto 26.3 % (20-40); Mean Corpuscular HGB Conc 34.2 g/dl (31.0-35.0); Mean Corpuscular Hemoglobin 28.5 pg (27.0-33.0); Mean Corpuscular Volume 83.4 fL (80.0-98.0); Mean Platelet Volume 10.8 fL (9.4-12.3); Monocytes Absolute Auto 0.8 X10*3/uL (0.1-1.2); Monocytes Percent Auto 7.2 % (2-11); Neutrophils Absolute Auto 6.4 x10*3/uL (2.0-8.3); Neutrophils Percent Auto 60.8 % (45-73); Platelet Count 269 X10*3/uL (160-400); Red Blood Count 4.03 X10*6/uL (4.20-5.50); White Blood Count 10.5 X10*3/uL (4.8-10.8)
[2024-07-13 13:30] LABS: Appearance Urine Clear; Color Urine Yellow; Glucose Urine UA Negative (Negative); Leukocyte Esterase Urine Large (3+) (Negative); Nitrite Urine Negative (Negative); Specific Gravity - Urine 1.015 (1.005-1.025); UMIC TRIGGER UA YES; Urine Blood Trace (Negative); Urine Ketones Negative (Negative); Urine Protein Negative (Neg-Trace)
[2024-07-13 13:36] LABS: Bacteria Urine None Seen (None Seen); Hyaline Casts Urine 0-2 /LPF (0-2); RBC Urine 0-2 /HPF (0-2); Squamous Epithelial Cell Urine 0-2 /HPF (0-2); WBC Urine >50 /HPF (0-5)
[2024-07-13 13:38] LABS: Anion Gap 14 (12-20); Blood Urea Nitrogen 20 mg/dL (9-16); Calcium 10.7 mg/dL (8.4-10.2); Carbon Dioxide 25 mmol/L (22-29); Chloride 105 mmol/L (96-108); Estimated Glomerular Filt Rate > 60; Phosphorus 3.1 mg/dL (2.7-4.5); Potassium 4.6 mmol/L (3.3-5.1); Sodium 139 mmol/L (135-145)
[2024-07-13 13:44] LABS: Creatinine Urine 52.63 mg/dL; Total Protein Urine Random 16 mg/dL (<12)
[2024-07-13 13:53] LABS: Parathyroid Hormone Intact 41.1 pg/mL (8.7-77.1)
[2024-07-13 13:55] LABS: Lactate Dehydrogenase 187 U/L (122-220)
[2024-07-14 08:34] LABS: HBc Num1 0.25 S/CO (0.00-0.79); Hepatitis B Core Antibody Nonreactive (Nonreactive); Hepatitis B Surface Antigen Negative (Negative)
[2024-07-14 10:33] LABS: Complement C3 163 mg/dL (83-193)
[2024-07-14 12:59] LABS: IgA 402 mg/dL (70-320); IgG 1588 mg/dL (600-1540); IgM 157 mg/dL (50-300)
[2024-07-15 19:04] LABS: Anti DNA DS Antibody 2 IU/mL; Anti Glomerular Basement Memb <1.0 AI; Myeloperoxidase Antibody <1.0 AI; Proteinase 3 PR3 Antibodies <1.0 AI
[2024-07-16 10:54] LABS: Neutrophil Cyto Ab Screen NEGATIVE (NEGATIVE)
[2024-07-18 05:54] LABS: VITAMIN D (1,25 OH) D3 51 pg/mL; Vit D (1,25-Dihydroxy) Total 51 pg/mL (18-72); Vitamin D (1,25 OH) D2 <8 pg/mL
[2024-07-24 14:13] LABS: Phospholipase A2 IgG ELISA <4 RU/mL; Phospholipase A2 IgG IFA NEGATIVE (NEGATIVE)
== END 2024-07-13 10:55 | disposition home or self-care (01) ==
LOC: HO.10HDL 10:54
PROVIDERS: Visit Provider Internal Medicine Nephrology
DX: R80.9 Proteinuria, unspecified (principal); I10 Essential (primary) hypertension; E83.52 Hypercalcemia
CPT/HCPCS: 36415; 80051; 81001; 82043; 82306; 82310; 82565; 82570; 82652; 82784; 83520; 83615; 83970; 84100; 84156; 84520; 85025; 86021; 86036; 86160; 86225; 86255; 86334; 86704; 87340

== ENCOUNTER 2024-07-30 08:44 | Outpatient (REF) | payer OTHER, SELFPAY ==
--- NOTE | ~2024-07-30 | US_ITS ---
EXAMINATION: US RETROPERITONEAL COMPLETE (RENAL) CLINICAL INFORMATION: Proteinuria. COMPARISON: CT abdomen and pelvis 11/03/2020, ultrasound kidneys 02/07/2023 TECHNIQUE: Real-time imaging of the kidneys and bladder. FINDINGS: RIGHT KIDNEY: 10.3 x 4.0 x 3.8 cm (SAG x AP x TRV). The kidney is normal in size, contour, and echogenicity. Renal cortical thickness is normal. No calculi . Again seen is some mild fullness in the right renal pelvis similar to the prior CT scan without gross hydronephrosis. A benign 1.7 cm Bosniak class II renal cyst with some mural calcification is noted in the lower pole which requires no additional imaging or follow up. Additional benign cysts were seen on the prior CT not appreciated on the current study No solid renal masses are seen.. LEFT KIDNEY: 10.1 x 5.0 x 4.5 cm (SAG x AP x TRV). The kidney is normal in size, contour, and echogenicity. Renal cortical thickness is normal. No calculi or focal parenchymal lesions. No hydronephrosis. US/US renal BI IMPRESSION: No significant abnormality is seen. Stable mild fullness in the right renal pelvis. Electronically signed by: Edilberto Mauricio MD 07/30/2024 11:28 AM EDT
== END 2024-07-30 08:45 | disposition home or self-care (01) ==
LOC: HO.US 08:44
PROVIDERS: PCP Nurse Practitioner; Visit Provider Internal Medicine Nephrology
DX: R80.9 Proteinuria, unspecified (principal); I10 Essential (primary) hypertension; E83.52 Hypercalcemia
CPT/HCPCS: 76775

== ENCOUNTER 2024-08-12 13:42 | Outpatient (AMB) | payer OTHER, SELFPAY ==
--- NOTE | 2024-08-12 13:56 | HO.NEPHOV_ITS ---
Vital Signs 08/12/24 13:57 Height 5 ft 3 in Weight 143 lb 8 oz BMI 25.4 BP 130/64 Blood Pressure Location Lt brachial Position Sitting Pulse 76 Pulse Source Pulse Oximeter Pulse Oximetry (%) 99 Oxygen Delivery Method Room Air Intake Visit Reasons: Hypertension- Conf Physical Medicine Physician Required: Yes Physical Medicine Physician Services: Physical Medicine Physician Present Physical Medicine Physician Name: [place] [id number] Accompanied by: Self / Same As Patient Allergies No Known Allergies [No Known Allergies*] Allergy (Verified 08/12/24 13:59) HPI Comments Details: Neha was seen in follow up for proteinuria, hypertension and hypercalcemia. 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 She has longstanding hypertension and has been on hydrochlorothiazide, lisinopril and amlodipine. She has no epistaxis, joint swellings, photosensitivity, new skin rashes, hematemesis, melena, hematuria, nephrolithiasis, new bone or back pain. She has been having high calcium but denies taking any excessive all calcium or vitamin-D. Her PTH also has been disproportionately high. She does not take any excessive nonsteroidal anti-inflammatories and tries to maintain good hydration. She has no hearing loss. She is compliant with her medications. She has been on PPI. She does not have any nausea or or vomiting. There were no other new active complaints at the time of this office visit [facility] Medical History (Updated 07/13/24 @ 10:42 by Dagoberto Espinoza MD) Irritable bowel syndrome with constipation Vaginal irritation UTI (urinary tract infection) History of Helicobacter pylori infection Colon cancer screening Frequent UTI Anemia Diverticulosis Colon cancer screening Hyperlipemia Hypertension Surgical History History of esophagogastroduodenoscopy (EGD) Hx of colonoscopy (09/16/20) History of ovarian cystectomy Hx of hysterectomy Family History Father Parkinson disease HTN (hypertension) Mother HTN (hypertension) Brother Cancer Social History Household Members: Significant Other Housing: Apartment Do you presently have visiting nurse or other home services: No Alcohol intake: current Alcohol intake frequency: holidays/special occasions only Patient Tobacco Use Status: Never used Tobacco Second Hand Smoke Exposure: Yes service: No Current occupational status: employed Sexual orientation: Straight/Heterosexual Gender identity: Female Review of Systems Const All systems reviewed & are unremarkable except as noted in HPI and below Physical Exam Vital Signs: Last Vital Signs Pulse 76 08/12/24 13:57 BP 130/64 08/12/24 13:57 Pulse Ox 99 08/12/24 13:57 Oxygen Delivery Method Room Air 08/12/24 13:57 BMI result Body Mass Index 25.4 Const General: comfortable and no acute distress Orientation/consciousness: patient oriented x3 HEENT Head: Yes normocephalic Mouth: Normal oral and palatal mucosa present Eyes EOM: EOMs intact bilaterally Neck Neck: Yes supple Resp Auscultation: clear to auscultation bilaterally Cardio Jugular venous distension: no JVD Rate: regular rate GI Palpation (GI): Soft to palpation Auscultation: normal bowel sounds General: Yes no CVA tenderness Back/Spine/Pelvis Back: no CVA tenderness Skin General skin exam: no rashes or lesions noted Neuro General: patient oriented x3 and moves all extremities Extrem General: Yes no pedal edema Results Reviewed Nephrology Results: Hgb 11.5 g/dl (12.0-16.0) L 07/13/24 WBC 10.5 X10*3/uL (4.8-10.8) 07/13/24 Plt Count 269 X10*3/uL (160-400) 07/13/24 Sodium 139 mmol/L (135-145) 07/13/24 Potassium 4.6 mmol/L (3.3-5.1) 07/13/24 Chloride 105 mmol/L (96-108) 07/13/24 Carbon Dioxide 25 mmol/L (22-29) 07/13/24 BUN 20 mg/dL (9-16) H 07/13/24 Creatinine 0.87 mg/dL (0.5-1.4) 07/13/24 Calcium 10.5 mg/dL (8.4-10.2) H 08/12/24 Phosphorus 3.1 mg/dL (2.7-4.5) 07/13/24 PTH Intact 41.1 pg/mL (8.7-77.1) 07/13/24 Urine Protein Negative mg/dL (Neg-Trace) 07/13/24 Urine Creatinine 52.63 mg/dL 07/13/24 Protein/Creatinin Ratio 0.30 (<0.2) H 07/13/24 Renal US 07/30/24 Assessment & Plan Assessment & Plan (1) Hypercalcemia: Code(s): E83.52 - Hypercalcemia Category: Medical (2) Hypertension: Code(s): I10 - Essential (primary) hypertension Category: Medical Qualifiers: Hypertension type: primary hypertension Qualified Code(s): I10 - Essential (primary) hypertension (3) Proteinuria: Code(s): R80.9 - Proteinuria, unspecified Category: Medical Qualifiers: Proteinuria type: unspecified Qualified Code(s): R80.9 - Proteinuria, unspecified Plan Neha has longstanding hypertension. Whether she has any hypertensive nephrosclerosis or AIN from PPI needs to be ascertained. Her urine output is good. She is on RODOLFO inhibitor, hydrochlorothiazide and amlodipine. She may velasquez ve a parathyroid adenoma. I have ordered Parathyroid scan along with urine calcium. Her renal ultrasound was unremarkable. I may discontinue her hydrochlorothiazide given hypercalcemia. She has been having mild swelling at the end of the day when she has been on amlodipine. After evaluation of all the results I may switch her amlodipine and hydrochlorothiazide altogether and maximize her RODOLFO inhibitor if her serum creatinine and potassium permits. Still ,if she continues to have proteinuria and or worsening renal function she may need a renal biopsy. All these have been explained in detail. Follow-up given Orders: Orders NM parathyroid 08/12/24 E83.52 - Hypercalcemia Calcium, Random Urine 08/12/24 E83.52 - Hypercalcemia, I10 - Essential (primary) hypertension Calcium 08/12/24 E83.52 - Hypercalcemia, I10 - Essential (primary) hypertension Coding Level of Care Code Est Pt Level 4 (65308) Diagnoses Hypercalcemia E83.52 Primary hypertension I10 Hypertension type: primary hypertension Proteinuria, unspecified type R80.9 Proteinuria type: unspecified
[2024-08-12 13:57] VITALS: BP 130/64; PULSE 76; O2SAT 99; BMI 25.4
== END 2024-08-12 14:23 | disposition home or self-care (01) ==
PROVIDERS: PCP Nurse Practitioner; Visit Provider Internal Medicine Nephrology
DX: E83.52 Hypercalcemia (principal); I10 Essential (primary) hypertension; R80.9 Proteinuria, unspecified
CPT/HCPCS: 99214

== ENCOUNTER 2024-08-12 13:42 | Outpatient (REF) | payer OTHER, SELFPAY ==
[2024-08-12 15:36] LABS: Calcium 10.5 mg/dL (8.4-10.2)
== END 2024-08-12 13:43 | disposition home or self-care (01) ==
LOC: HO.LAB 13:42
PROVIDERS: PCP Nurse Practitioner; Visit Provider Internal Medicine Nephrology
DX: I10 Essential (primary) hypertension (principal); E83.52 Hypercalcemia; R80.9 Proteinuria, unspecified; Z79.899 Other long term (current) drug therapy
CPT/HCPCS: 36415; 82310; 99212

== ENCOUNTER 2024-09-24 10:50 | Outpatient (REF) | payer OTHER, SELFPAY ==
--- NOTE | ~2024-09-24 | MM_ITS ---
EXAMINATION: MM SCREENING DIGITAL BREAST TOMOSYNTHESIS, BILATERAL CLINICAL INFORMATION: Screening. Asymptomatic. COMPARISON: Mammography: Comparison is made with available priors TECHNIQUE: Digital breast mammography with tomosynthesis is performed in both the craniocaudal and mediolateral oblique views along with computer-aided detection (CAD). FINDINGS: There are scattered areas of fibroglandular density (ACR BI-RADS breast composition Category b). There are no significant masses, abnormal calcifications, or other abnormalities. MM/MM tomosynthesis screening BI IMPRESSION: No mammographic evidence of malignancy. ASSESSMENT: BI-RADS BI-RADS 1 - Negative RECOMMENDATION: Routine annual mammography screening. 1 year F/U This examination should not preclude the clinical evaluation of a suspicious palpable abnormality. This patient's information was entered into a reminder system with a target due date for their next mammogram. Electronically signed by: Sole Major DO 10/03/2024 10:30 AM EDT
== END 2024-09-24 10:51 | disposition home or self-care (01) ==
LOC: HO.MAMMO 10:50
PROVIDERS: PCP Nurse Practitioner; Visit Provider Nurse Practitioner
DX: Z12.31 Encounter for screening mammogram for malignant neoplasm of breast (principal)
CPT/HCPCS: 77063; 77067

== ENCOUNTER → 2024-09-24 11:00 | Outpatient (BNV) | payer OTHER, SELFPAY | PROVIDERS: PCP Nurse Practitioner; Visit Provider Internal Medicine | DX: Z12.31 Encounter for screening mammogram for malignant neoplasm of breast (principal) | CPT/HCPCS: 77063; 77067 ==

== ENCOUNTER → 2024-10-15 08:05 | Outpatient (REF) | payer OTHER, SELFPAY | LOC: HO.NUCMED 08:05 | PROVIDERS: PCP Nurse Practitioner; Visit Provider Internal Medicine Nephrology | DX: Z13.89 Encounter for screening for other disorder (principal) ==

== ENCOUNTER → 2024-11-05 08:02 | Outpatient (REF) | payer OTHER, SELFPAY ==
--- NOTE | ~2024-11-05 | NM_ITS ---
EXAMINATION: NM PARATHYROID SCAN CLINICAL INFORMATION: Hypercalcemia. COMPARISON: None available. TECHNIQUE: A double radionuclide study of the thyroid bed region and upper chest in multiple projections was performed 4 hours after the oral administration of 940 microcuries I-123 sodium iodide and immediately following the intravenous administration of 30 mCi Tc-99m sestamibi. Repeat imaging was performed 2 hours later. The iodide images were electronically subtracted from the sestamibi images using different weighting factors. FINDINGS: There is homogeneous uptake of radioiodine throughout both lobes. The thyroid gland appears to be normal in size and shape. Note is made of asymmetric focal prominence at the inferior pole of the right lobe of the thyroid gland. There are no focal areas of increased or diminished uptake. Technetium 99m sestamibi images demonstrate homogeneous thyroid activity. Asymmetric focal prominence of the inferior pole of the right lobe of the thyroid gland is also noted on the sestamibi images. There are no focal areas of increased or decreased Technetium 99m sestamibi activity. Computer-generated digital subtraction images reveal no evidence of excess sestamibi activity. NM/NM parathyroid IMPRESSION: * No definite evidence of excess sestamibi activity suggestive of parathyroid adenoma or hyperplasia. There is homogeneous uptake of radioiodine in the thyroid gland which is also normal in size and shape. * Asymmetric focal prominence at the inferior pole of the right lobe of the thyroid gland is present on both iodine as well as an sestamibi images, likely represent asymmetric variable nodular thyroid tissue versus thyroid nodule. Possibility of atypical parathyroid adenoma/intrathyroidal parathyroid adenoma) may have similar appearance and cannot be absolutely excluded. * Alternative imaging modality including 4D CT scan of the soft tissue neck (with and without contrast) may be considered for further clarification. Electronically signed by: Adalberto Walker MD 11/09/2024 11:59 AM [facility]
== END ==
LOC: HO.NUCMED 08:02
PROVIDERS: PCP Nurse Practitioner; Visit Provider Internal Medicine Nephrology
DX: E83.52 Hypercalcemia (principal)
CPT/HCPCS: 78070; A9500; A9516

== ENCOUNTER 2024-11-12 10:12 | Outpatient (AMB) | payer OTHER, SELFPAY ==
--- NOTE | 2024-11-12 10:21 | MHC.OFFVIS ---
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 Her legs and feet hurt , states her ankles swell. At night her legs tingle and it keeps her awake. 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 Complaints include pain in her calves, slight swelling of lower extremities, and cramping of the lower extremities. It has been affecting their daily activities including walking, standing, and working. It is noted more so in bilateral legs. Patient denies any previous venous surgery or injections. Patient denies any history of DVT/ PE. Patient denies any history of phlebitis. Trial of compression includes - compression stockings help a little bit; elevation helps a little as well They now present for vascular evaluation regarding their varicose veins. [facility] Medical History Irritable bowel syndrome with constipation Vaginal irritation UTI (urinary tract infection) History of Helicobacter pylori infection Colon cancer screening Frequent UTI Anemia Diverticulosis Colon cancer screening Hyperlipemia Hypertension Surgical History History of esophagogastroduodenoscopy (EGD) Hx of colonoscopy (09/16/20) History of ovarian cystectomy Hx of hysterectomy Family History Father Parkinson disease HTN (hypertension) Mother HTN (hypertension) Brother Cancer Social History Household Members: Significant Other Housing: Apartment Do you presently have visiting nurse or other home services: No Alcohol intake: current Alcohol intake frequency: holidays/special occasions only Patient Tobacco Use Status: Never used Tobacco Second Hand Smoke Exposure: Yes service: No Current occupational status: employed Sexual orientation: Straight/Heterosexual Gender identity: Female Review of Systems Const Reports as per HPI and Denies weakness ENT Reports Normal hearing present and Denies dizziness Card Reports as per HPI, Denies chest pain, Denies chest pain at rest, Denies chest pain with activity, Denies dyspnea and Denies dyspnea on exertion Resp Reports as per HPI, Denies cough, Denies dyspnea and Denies dyspnea on exertion GI Reports as per HPI, Denies abdominal pain, Denies nausea and Denies vomiting Musc Denies numbness Skin/Breast Reports as per HPI, Denies erythema and Denies wounds Neuro Reports Normal hearing present, Denies dizziness, Denies numbness, Denies Sensory deficit (Neuro) and Denies weakness Psych Reports no additional complaints Endo Reports no additional complaints Physical Exam Const General: healthy appearing and no acute distress Orientation/consciousness: patient oriented x3 HEENT Head: Yes normal to inspection Ears: hearing grossly normal bilaterally Mouth: Normal oral and palatal mucosa present Resp Effort & Inspection: normal respiratory effort and able to speak in complete sentences Auscultation: clear to auscultation bilaterally Cardio Jugular venous distension: no JVD Rate: regular rate Rhythm: regular rhythm Heart sounds: S1 normal heart sound present and S2 normal heart sound present Bruits: no abdominal aortic bruits, no carotid bruits, no femoral bruits and no renal bruits Peripheral pulses: Peripheral pulses 2+ throughout GI Inspection: Yes normal to inspection Palpation (GI): No Abdominal aortic bruit present Skin General skin exam: no rashes or lesions noted Wounds: no wounds Hair: normal Neuro General: patient oriented x3 Cranial nerves: Yes Normal hearing present Cognition (Neuro): normal cognition Gait exam (Neuro): Normal gait present Motor exam (neuro): 5/5 motor strength present throughout Sensory Exam: No Sensory deficit (Neuro) Extrem Other: Bilateral lower extremities: Some small spider veins noted in the thigh areas. Slight discoloration noted in the ankle areas. CEAP: C - 4 E - primary A - superficial P - reflux General: Yes normal to inspection, Yes full ROM, Yes capillary refill normal and Yes normal gait Assessment & Plan Assessment & Plan (1) Varicose veins of both lower extremities with inflammation: Code(s): I83.11 - Varicose veins of right lower extremity with inflammation; I83.12 - Varicose veins of left lower extremity with inflammation Category: Medical Plan: Neha is presenting today as a referral from her PCP for question of venous insufficiency. In short, the patient has evidence of venous insufficiency. I have discussed the pathophysiology with the patient. In addition I have provided informational material regarding venous disease to the patient. We have discussed conservative measures including compression, elevation, and exercise. I have also provided a handout regarding appropriate use of compression stockings and where to purchase good compression stockings as well. I have taken the liberty of ordering venous insufficiency testing with the patient. They will follow up with me after testing. The patient had an opportunity to ask questions regarding the treatment plan. All questions were answered. Imaging studies, laboratory studies and physical exam results were discussed and reviewed in detail. No major barriers to understanding were identified. The patient expressed understanding and agreement with the above treatment plan. The patient is aware they should contact our office by phone for worsening of the current condition or the appearance of new symptoms. Thank you for allowing me to participate in the vascular care of this patient. If you have any questions or concerns regarding the treatment for the above condition please do not hesitate to contact me. The office telephone contact is [phone]. This note is constructed using voice recognition software. While every effort has been made to ensure accuracy, vice president diversity errors may have been included. Thank you for allowing me to participate in the care of your patient. Yours sincerely, TERRA Aldrich Orders: Orders US venous duplex LE BI 1 Week I83.11 - Varicose veins of right lower extremity with inflammation, I83.12 - Varicose veins of left lower extremity with inflammation Coding Level of Care Code New Pt Level 4 (26247) Diagnoses Varicose veins of both lower extremities with inflammation I83.11; I83.12
== END 2024-11-12 10:37 | disposition home or self-care (01) ==
PROVIDERS: PCP Nurse Practitioner; Visit Provider Physician Assistant Surgical
DX: I83.11 Varicose veins of right lower extremity with inflammation (principal); I83.12 Varicose veins of left lower extremity with inflammation
CPT/HCPCS: 99204

== ENCOUNTER → 2024-11-12 10:12 | Outpatient (BNVA) | payer OTHER, SELFPAY | PROVIDERS: PCP Nurse Practitioner; Visit Provider Physician Assistant Surgical | DX: I83.11 Varicose veins of right lower extremity with inflammation (principal); I83.12 Varicose veins of left lower extremity with inflammation | CPT/HCPCS: 99202 ==

== ENCOUNTER 2024-11-18 10:11 | Outpatient (AMB) | payer OTHER, SELFPAY ==
--- NOTE | 2024-11-18 10:26 | HO.NEPHOV_ITS ---
Vital Signs 11/18/24 10:28 Height 5 ft 3 in Weight 142 lb 4 oz BMI 25.2 BP 118/60 Blood Pressure Location Rt brachial Position Sitting Pulse 70 Pulse Source Pulse Oximeter Pulse Oximetry (%) 99 Oxygen Delivery Method Room Air Intake Visit Reasons: Hypertension-Conf Software Licensing Specialist Required: Yes Software Licensing Specialist Language: Horse Race Starter Services: Software Licensing Specialist Offered & Declined [place] [place] Accompanied by: Self / Same As Patient Allergies No Known Allergies [No Known Allergies*] Allergy (Verified 11/18/24 10:27) HPI Comments Details: Neha was seen in follow up for proteinuria, hypertension and hypercalcemia. 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 She is not a diabetic. She has longstanding hypertension and has been on hydrochlorothiazide, lisinopril and amlodipine. She has no epistaxis, joint swellings, photosensitivity, new skin rashes, hematemesis, melena, hematuria, nephrolithiasis, new bone or back pain. She has been having high calcium but denies taking any excessive all calcium or vitamin-D. Her PTH also has been disproportionately high. She does not take any excessive nonsteroidal anti-inflammatories and tries to maintain good hydration. She has no hearing loss. She is compliant with her medications. She has been on PPI. She does not have any nausea or or vomiting. There were no other new active complaints at the time of this office visit [facility] Medical History Irritable bowel syndrome with constipation Vaginal irritation UTI (urinary tract infection) History of Helicobacter pylori infection Colon cancer screening Frequent UTI Anemia Diverticulosis Colon cancer screening Hyperlipemia Hypertension Surgical History History of esophagogastroduodenoscopy (EGD) Hx of colonoscopy (09/16/20) History of ovarian cystectomy Hx of hysterectomy Family History Father Parkinson disease HTN (hypertension) Mother HTN (hypertension) Brother Cancer Social History Household Members: Significant Other Housing: Apartment Do you presently have visiting nurse or other home services: No Alcohol intake: current Alcohol intake frequency: holidays/special occasions only Patient Tobacco Use Status: Never used Tobacco Second Hand Smoke Exposure: Yes service: No Current occupational status: employed Sexual orientation: Straight/Heterosexual Gender identity: Female Review of Systems Const All systems reviewed & are unremarkable except as noted in HPI and below Physical Exam Vital Signs: Last Vital Signs Pulse 70 11/18/24 10:28 BP 118/60 11/18/24 10:28 Pulse Ox 99 11/18/24 10:28 Oxygen Delivery Method Room Air 11/18/24 10:28 BMI result Body Mass Index 25.2 Const General: comfortable and no acute distress Orientation/consciousness: patient oriented x3 HEENT Head: Yes normocephalic Mouth: Normal oral and palatal mucosa present Eyes EOM: EOMs intact bilaterally Neck Neck: Yes supple Resp Auscultation: clear to auscultation bilaterally Cardio Jugular venous distension: no JVD Rate: regular rate GI Palpation (GI): Soft to palpation Auscultation: normal bowel sounds General: Yes no CVA tenderness Back/Spine/Pelvis Back: no CVA tenderness Skin General skin exam: no rashes or lesions noted Neuro General: patient oriented x3 and moves all extremities Extrem General: Yes no pedal edema Results Reviewed Nephrology Results: Hgb 11.5 g/dl (12.0-16.0) L 07/13/24 WBC 10.5 X10*3/uL (4.8-10.8) 07/13/24 Plt Count 269 X10*3/uL (160-400) 07/13/24 Sodium 139 mmol/L (135-145) 07/13/24 Potassium 4.6 mmol/L (3.3-5.1) 07/13/24 Chloride 105 mmol/L (96-108) 07/13/24 Carbon Dioxide 25 mmol/L (22-29) 07/13/24 BUN 20 mg/dL (9-16) H 07/13/24 Creatinine 0.87 mg/dL (0.5-1.4) 07/13/24 Calcium 10.5 mg/dL (8.4-10.2) H 08/12/24 Phosphorus 3.1 mg/dL (2.7-4.5) 07/13/24 PTH Intact 41.1 pg/mL (8.7-77.1) 07/13/24 Urine Protein Negative mg/dL (Neg-Trace) 07/13/24 Urine Creatinine 52.63 mg/dL 07/13/24 Protein/Creatinin Ratio 0.30 (<0.2) H 07/13/24 Renal US 07/30/24 Assessment & Plan Assessment & Plan (1) Hypercalcemia: Code(s): E83.52 - Hypercalcemia Category: Medical (2) Hypertension: Code(s): I10 - Essential (primary) hypertension Category: Medical Qualifiers: Hypertension type: primary hypertension Qualified Code(s): I10 - Essential (primary) hypertension (3) Proteinuria: Code(s): R80.9 - Proteinuria, unspecified Category: Medical Qualifiers: Proteinuria type: unspecified Qualified Code(s): R80.9 - Proteinuria, unspecified Plan Neha has longstanding hypertension. Whether she has any hypertensive nephrosclerosis or AIN from PPI needs to be ascertained. Her urine output is good. She is on RODOLFO inhibitor, hydrochlorothiazide and amlodipine. She likely has a parathyroid adenoma ( refer to recent Sestamibi). She likely will need 24 hour urine calcium. Her renal ultrasound was unremarkable. I discontinued her hydrochlorothiazide given hypercalcemia. I increased her lisinopril to 30 mg daily. She should avoid calcium supplementation for now. I referred her to Endocrine as well. Still ,if she continues to have proteinuria and or worsening renal function she may need a renal biopsy. All these have been explained in detail. Follow-up given Orders: Orders Blood Urea Nitrogen 3 Months I10 - Essential (primary) hypertension, R80.9 - Proteinuria, unspecified Electrolytes 3 Months I10 - Essential (primary) hypertension, R80.9 - Proteinuria, unspecified Protein Creatinine Ratio, Ur 3 Months I10 - Essential (primary) hypertension, R80.9 - Proteinuria, unspecified Creatinine 3 Months I10 - Essential (primary) hypertension, R80.9 - Proteinuria, unspecified Referrals Endocrinology Referral E83.52 - Hypercalcemia Medications: New lisinopril 30 mg PO DAILY 90 tabs 4RF Coding Level of Care Code Est Pt Level 4 (44745) Diagnoses Hypercalcemia E83.52 Primary hypertension I10 Hypertension type: primary hypertension Proteinuria, unspecified type R80.9 Proteinuria type: unspecified
[2024-11-18 10:28] VITALS: BP 118/60; PULSE 70; O2SAT 99; BMI 25.2
== END 2024-11-18 10:50 | disposition home or self-care (01) ==
PROVIDERS: PCP Nurse Practitioner; Visit Provider Internal Medicine Nephrology
DX: E83.52 Hypercalcemia (principal); I10 Essential (primary) hypertension; R80.9 Proteinuria, unspecified
CPT/HCPCS: 99214

== ENCOUNTER → 2024-11-18 10:11 | Outpatient (BNVA) | payer OTHER, SELFPAY | PROVIDERS: PCP Nurse Practitioner; Visit Provider Internal Medicine Nephrology | DX: I10 Essential (primary) hypertension (principal); E83.52 Hypercalcemia; R80.9 Proteinuria, unspecified | CPT/HCPCS: 99212 ==

== ENCOUNTER 2024-12-03 10:25 | Outpatient (REF) | payer OTHER, SELFPAY ==
--- NOTE | ~2024-12-03 | US_ITS ---
EXAMINATION: US LOWER EXTREMITY VENOUS (REFLUX EXAM), BILATERAL CLINICAL INFORMATION: Varices in the right lower extremity with inflammation. COMPARISON: None. TECHNIQUE: Color flow triplex imaging and compression Doppler was performed to evaluate both the deep and the superficial systems bilaterally. To evaluate the superficial system, the examination was performed in the upright position. Color-flow Doppler ultrasound and compression ultrasound were utilized. In addition, maneuvers were utilized to demonstrate reflux. FINDINGS: Submitted for interpretation on December 09, 2024. 1. DEEP VENOUS ULTRASOUND OF THE RIGHT LOWER EXTREMITY: Common Femoral Vein: Compressible, normal respiratory variation and augmented flow. Femoral Vein: Compressible, normal color flow and augmentation. Popliteal Vein: Compressible, normal augmentation. Deep Reflux: There is no evidence of reflux in the deep system in either the common femoral vein, superficial femoral or the popliteal vein. There is no evidence of a Reynoso's cyst. 2. SUPERFICIAL ULTRASOUND WITH DOPPLER OF RIGHT LOWER EXTREMITY: GREAT SAPHENOUS VEIN: Saphenofemoral Junction: 0.6 cm; Reflux: 0 ms Proximal Thigh: 0.3 cm; Reflux: 0 ms Mid Thigh: 0.2 cm; Reflux: 0 ms Distal Thigh: 0.2 cm; Reflux: 0 ms At Knee: 0.2 cm; Reflux: 0 ms Proximal Calf: 0.1 cm; Reflux: 0 ms Mid Calf: 0.2 cm; Reflux: 0 ms Distal Calf: 0.1 cm; Reflux: 0 ms DUPLICATED MEDIAL GREAT SAPHENOUS VEIN: Diameter: None imaged Reflux: NA DUPLICATED LATERAL GREAT SAPHENOUS VEIN: Diameter: None imaged Reflux: NA SMALL SAPHENOUS VEIN: Saphenopopliteal Junction: 0.2 cm; Reflux: 0 ms Proximal: 0.2 cm; Reflux: 0 ms Distal: 0.2 cm; Reflux: 0 ms VEIN OF GIACOMINI: Size: NA Reflux: NA PERFORATORS: Location: None imaged Size: NA Reflux: NA VARICOSITIES: Location: None imaged. Size: NA Reflux: NA 3. DEEP VENOUS ULTRASOUND OF THE LEFT LOWER EXTREMITY: Common Femoral Vein: Compressible, normal respiratory variation and augmented flow. Femoral Vein: Compressible, normal color flow and augmentation. Popliteal Vein: Compressible, normal augmentation. Deep Reflux: There is no evidence of reflux in the deep system in either the common femoral vein, superficial femoral or the popliteal vein. There is no evidence of a Reynoso's cyst. 4. SUPERFICIAL ULTRASOUND WITH DOPPLER OF LEFT LOWER EXTREMITY: GREAT SAPHENOUS VEIN: Saphenofemoral Junction: 0.5 cm; Reflux: 0 ms Proximal Thigh: 0.3 cm; Reflux: 0 ms Mid Thigh: 0.1 cm; Reflux: +36 ms Distal Thigh: 0.3 cm; Reflux: 0 ms At Knee: 0.1 cm; Reflux: 0 ms Proximal Calf: 0.1 cm; Reflux: 0 ms Mid Calf: 0.1 cm; Reflux: 0 ms Distal Calf: 0.1 cm; Reflux: 0 ms DUPLICATED MEDIAL GREAT SAPHENOUS VEIN: Diameter: None imaged Reflux: NA DUPLICATED LATERAL GREAT SAPHENOUS VEIN: Diameter: None imaged. Reflux: NA SMALL SAPHENOUS VEIN: Saphenopopliteal Junction: 0.2 cm; Reflux: 0 ms Proximal: 0.2 cm; Reflux: 0 ms Distal: 0.2 cm; Reflux: 0 ms VEIN OF GIACOMINI: Size: NA Reflux: NA PERFORATORS: Location: None imaged Size: NA Reflux: NA VARICOSITIES: Location: None Imaged Size: NA Reflux: NA US/US venous insuf bilat IMPRESSION: Right: No gross venous insufficiency/reflux. Left: +36 ms at the mid thigh. Electronically signed by: Emerson Manuel MD 12/09/2024 09:11 AM [facility]
== END 2024-12-03 10:26 | disposition home or self-care (01) ==
LOC: HO.US 10:25
PROVIDERS: PCP Nurse Practitioner; Visit Provider Physician Assistant Surgical
DX: I83.11 Varicose veins of right lower extremity with inflammation (principal); I83.12 Varicose veins of left lower extremity with inflammation
CPT/HCPCS: 93970

== ENCOUNTER → 2024-12-03 10:27 | Outpatient (BNV) | payer OTHER, SELFPAY | PROVIDERS: PCP Nurse Practitioner; Visit Provider Radiology Diagnostic Radiology | DX: I83.11 Varicose veins of right lower extremity with inflammation (principal) | CPT/HCPCS: 93970 ==

== ENCOUNTER 2024-12-24 10:51 | Outpatient (AMB) | payer OTHER, SELFPAY ==
--- NOTE | 2024-12-24 10:56 | MHC.OFFVIS ---
Intake Visit Reasons: follow up s/p US 12/03/24 Intake Note: Patient presents for follow up US performed on 12/03/24. No complaints. Accompanied by: Self / Same As Patient Allergies No Known Allergies [No Known Allergies*] Allergy (Verified 12/24/24 10:56) HPI HPI follow up s/p US 12/03/24: Details: Neha is a presenting today for a follow up to venous insufficiency ultrasound, performed on 12/03/2024. She does continue to endorse lower extremity swelling and pain. 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 She does continue to wear compression stockings, which states helps. She has no new concerns this morning. [facility] Medical History Irritable bowel syndrome with constipation Vaginal irritation UTI (urinary tract infection) History of Helicobacter pylori infection Colon cancer screening Frequent UTI Anemia Diverticulosis Colon cancer screening Hyperlipemia Hypertension Surgical History History of esophagogastroduodenoscopy (EGD) Hx of colonoscopy (09/16/20) History of ovarian cystectomy Hx of hysterectomy Family History Father Parkinson disease HTN (hypertension) Mother HTN (hypertension) Brother Cancer Social History Household Members: Significant Other Housing: Apartment Do you presently have visiting nurse or other home services: No Alcohol intake: current Alcohol intake frequency: holidays/special occasions only Patient Tobacco Use Status: Never used Tobacco Second Hand Smoke Exposure: Yes service: No Current occupational status: employed Sexual orientation: Straight/Heterosexual Gender identity: Female Review of Systems Const Reports as per HPI and Denies weakness ENT Reports Normal hearing present and Denies dizziness Card Reports as per HPI, Denies chest pain, Denies chest pain at rest, Denies chest pain with activity, Denies dyspnea and Denies dyspnea on exertion Resp Reports as per HPI, Denies cough, Denies dyspnea and Denies dyspnea on exertion GI Reports as per HPI, Denies abdominal pain, Denies nausea and Denies vomiting Musc Denies numbness Skin/Breast Reports as per HPI, Denies erythema and Denies wounds Neuro Reports Normal hearing present, Denies dizziness, Denies numbness, Denies Sensory deficit (Neuro) and Denies weakness Psych Reports no additional complaints Endo Reports no additional complaints Physical Exam Const General: healthy appearing and no acute distress Orientation/consciousness: patient oriented x3 HEENT Head: Yes normal to inspection Ears: hearing grossly normal bilaterally Mouth: Normal oral and palatal mucosa present Resp Effort & Inspection: normal respiratory effort and able to speak in complete sentences Auscultation: clear to auscultation bilaterally Cardio Jugular venous distension: no JVD Rate: regular rate Rhythm: regular rhythm Heart sounds: S1 normal heart sound present and S2 normal heart sound present Bruits: no abdominal aortic bruits, no carotid bruits, no femoral bruits and no renal bruits Peripheral pulses: Peripheral pulses 2+ throughout GI Inspection: Yes normal to inspection Palpation (GI): No Abdominal aortic bruit present Skin General skin exam: no rashes or lesions noted Wounds: no wounds Hair: normal Neuro General: patient oriented x3 Cranial nerves: Yes Normal hearing present Cognition (Neuro): normal cognition Gait exam (Neuro): Normal gait present Motor exam (neuro): 5/5 motor strength present throughout Sensory Exam: No Sensory deficit (Neuro) Extrem Other: Bilateral lower extremities: Some small spider veins noted in the thigh areas. Slight discoloration noted in the ankle areas. General: Yes normal to inspection, Yes full ROM, Yes capillary refill normal and Yes normal gait Results Reviewed Results Reviewed: Brief summary of venous insufficiency testing is as follows: right great saphenous vein: negative right small saphenous vein: negative right accessory vein: none present left great saphenous vein: negative left small saphenous vein: negative left accessory vein: none present Please note there is no evidence of any venous aneurysms or significant tortuosity Assessment & Plan Assessment & Plan (1) Varicose veins of both lower extremities with inflammation: Code(s): I83.11 - Varicose veins of right lower extremity with inflammation; I83.12 - Varicose veins of left lower extremity with inflammation Category: Medical Plan: Neha is presenting today for a follow up to venous insufficiency ultrasound, performed on 12/03/24. There was no venous insufficiency found on ultrasound. We discussed that she should follow up with her primary care for further assessment and evaluation of the bilateral lower extremity pain and swelling. We did discuss the importance of continuing with the compression stockings, elevation, and physical activity. We discussed the importance of a well-balanced diet. We were able to provide her with some compression stockings today. We discussed if there were any other vascular concerns, she can reach out to us any point. Thank you for allowing us to participate in the patient's care. There are any questions or concerns, please do not hesitate to reach out to us. Coding Level of Care Code Est Pt Level 4 (99388) Diagnoses Varicose veins of both lower extremities with inflammation I83.11; I83.12 Comment Review of venous insufficiency ultrasound
== END 2024-12-24 11:15 | disposition home or self-care (01) ==
PROVIDERS: PCP Nurse Practitioner; Visit Provider Physician Assistant Surgical
DX: I83.11 Varicose veins of right lower extremity with inflammation (principal); I83.12 Varicose veins of left lower extremity with inflammation
CPT/HCPCS: 99214

== ENCOUNTER → 2024-12-24 10:51 | Outpatient (BNVA) | payer OTHER, SELFPAY | PROVIDERS: PCP Nurse Practitioner; Visit Provider Physician Assistant Surgical | DX: I83.11 Varicose veins of right lower extremity with inflammation (principal); I83.12 Varicose veins of left lower extremity with inflammation | CPT/HCPCS: 99212 ==

== ENCOUNTER 2025-01-04 13:56 | Emergency (ER) | payer OTHER, SELFPAY ==
[2025-01-04 14:08] VITALS: BP 136/48; BP 145/77; PULSE 90; PULSE 93; RESP 18; TEMP 36.8; O2SAT 100; BMI 24.8
[2025-01-04 14:21] LABS: MANUAL DIFF FLAG NO
[2025-01-04 14:23] LABS: Basophils Percent Auto 0.2 % (0-2); Eosinophils Percent Auto 0.1 % (0-4); Hematocrit 32.4 % (37.0-47.0); Hemoglobin 11.5 g/dl (12.0-16.0); Imm Gran Abs Auto 0.12 X10*3/uL (0.00-0.03); Imm Gran Pct Auto 0.7 % (0.0-0.4); Lymphocytes Percent Auto 5.5 % (20-40); Mean Corpuscular HGB Conc 35.5 g/dl (31.0-35.0); Mean Corpuscular Hemoglobin 28.2 pg (27.0-33.0); Mean Corpuscular Volume 79.4 fL (80.0-98.0); Mean Platelet Volume 10.3 fL (9.4-12.3); Monocytes Absolute Auto 1.2 X10*3/uL (0.1-1.2); Monocytes Percent Auto 6.6 % (2-11); Neutrophils Absolute Auto 15.6 x10*3/uL (2.0-8.3); Neutrophils Percent Auto 86.9 % (45-73); Platelet Count 193 X10*3/uL (160-400); Red Blood Count 4.08 X10*6/uL (4.20-5.50); Red Cell Distribution Width 13.8 % (11.0-16.0)
[2025-01-04 14:37] LABS: Anion Gap 15 (12-20); Blood Urea Nitrogen 14 mg/dL (9-16); Calcium 9.9 mg/dL (8.4-10.2); Carbon Dioxide 19 mmol/L (22-29); Chloride 107 mmol/L (96-108); Estimated Glomerular Filt Rate > 60; Glucose Random 161 mg/dL (60-115); Magnesium 1.7 mg/dL (1.6-2.6); Potassium 3.6 mmol/L (3.3-5.1); Sodium 137 mmol/L (135-145)
[2025-01-04 15:05] LABS: Influenza A PCR NEGATIVE (Negative); Influenza B PCR NEGATIVE (Negative); Resp Syncy Virus RNA Qual PCR NEGATIVE (Negative); SARS COV2 PCR INHOUSE NEGATIVE (Negative)
--- NOTE | 2025-01-04 16:00 | ED_ITS ---
HPI - General Adult General Chief complaint: General Medical Stated complaint: flu-like symp, N/V, weakness, chills, abd pain Time Seen by Provider: 01/04/25 15:49 Source: patient, RN notes reviewed and old records reviewed Mode of arrival: EMS Limitations: no limitations History of Present Illness ED Provider: Larry HPI narrative: 64-year-old female presents for evaluation abdominal pain. Patient reports lower abdominal pain with nausea, chills and weakness for the last 2 days. She reports that she has lots of stool but it was not diarrhea. She states when she has bowel movements she has burning ?in my bladder. ? The patient reports a history of a pelvic floor prolapse that is status post surgical fixation but states this feels different Denies any sick contacts. She reports a history of a UTI a few years ago Related Data Home Medications ?Medication ?Instructions ?Recorded ?Confirmed zolpidem 10 mg tablet 1 tab PO BEDTIME PRN Insomnia 09/13/20 11/22/22 amlodipine 10 mg tablet 10 mg PO DAILY 11/22/22 11/22/22 ascorbic acid (vitamin C) 250 mg 250 mg PO Q OTHER DAY 05/27/24 tablet ferrous gluconate 324 mg (38 mg 324 mg PO Q OTHER DAY 05/27/24 iron) tablet rosuvastatin 40 mg tablet 40 mg PO DAILY 05/27/24 omeprazole 20 mg capsule,delayed 20 mg PO DAILY PRN 07/13/24 release Previous Rx's ?Medication ?Instructions ?Recorded lisinopril 30 mg tablet 30 mg PO DAILY #90 tabs 11/18/24 cefuroxime axetil 250 mg tablet 250 mg PO Q12H #14 tabs 01/04/25 Allergies Allergy/AdvReac Type Severity Reaction Status Date / Time No Known Allergies Allergy Verified 01/04/25 14:09 [No Known Allergies*] Review of Systems 2 Constitutional: Constitutional: Reports body ache(s), Reports chills, Reports fever(s), Reports lethargy, Reports malaise and Reports weakness Cardiovascular: Cardiovascular: Denies chest pain and Denies dyspnea Respiratory: Respiratory: Denies cough and Denies dyspnea Gastrointestinal: Gastrointestinal: Reports abdominal pain, Denies hematochezia, Reports nausea and Denies vomiting Genitourinary: Genitourinary: Reports dysuria Musculoskeletal: Musculoskeletal: Denies back pain Integumentary/Breasts: Skin/Breast: Denies rash Neurologic: Reports weakness Psychiatric: Psychiatric: Denies anxiety [facility] Past Medical History Medical History Irritable bowel syndrome with constipation Vaginal irritation UTI (urinary tract infection) History of Helicobacter pylori infection Colon cancer screening Frequent UTI Anemia Diverticulosis Colon cancer screening Hyperlipemia Hypertension Surgical History History of esophagogastroduodenoscopy (EGD) Hx of colonoscopy (09/16/20) History of ovarian cystectomy Hx of hysterectomy Family History Family History Father Parkinson disease HTN (hypertension) Mother HTN (hypertension) Brother Cancer Social History Social History Household Members: Significant Other Housing: Apartment Do you presently have visiting nurse or other home services: No Alcohol intake: current Alcohol intake frequency: holidays/special occasions only Patient Tobacco Use Status: Never used Tobacco Smoked in Last 30 Days: No Second Hand Smoke Exposure: Yes Use of substances other than those prescribed or required for medical reasons: No Advance Directives: No Advance Directives Information Provided: Yes Do you have a plan to hurt others: No Plan service: No Current occupational status: employed Sexual orientation: Straight/Heterosexual Gender identity: Female Physical Exam ED Vital Signs: Vital Signs - 24 hr 01/04/25 14:08 Temperature 98.3 F Pulse Rate 90 Respiratory Rate 18 Blood Pressure 136/48 L Pulse Oximetry 100 Oxygen Delivery Method Room Air BMI result Body Mass Index 24.8 Const General: healthy appearing, comfortable, no acute distress, alert and awake Nutritional Appearance: well nourished Orientation/consciousness: patient oriented x3 HENMT Head: Yes normocephalic and Yes atraumatic Eyes Eyelids: Yes eyelids normal Conjunctivae: conjunctivae normal Sclerae: sclerae normal Corneas: corneas normal Pupils: Equal, round and reactive pupils present EOM: EOMs intact bilaterally Neck Neck: Yes full ROM Resp Effort & Inspection: normal respiratory effort, able to speak in complete sentences and not labored GI Inspection: No distended Palpation (GI): Soft to palpation, not firm, Tenderness to palpation present (GI) in the LLQ, in the RLQ and suprapubicly, Guarding due to palpation present (GI) and not rigid Skin General skin exam: elasticity normal Neuro General: patient oriented x3 Cranial nerves: Yes Equal, round and reactive pupils present and Yes Bilaterally intact EOM present Cognition (Neuro): normal cognition Extrem Other: Moving all extremities well without any obvious deformities Medications Administered Discontinued Medications Generic Name Dose Route Start Last Admin Trade Name Freq PRN Reason Stop Dose Admin Cefuroxime Axetil 500 mg 01/04/25 17:11 01/04/25 17:39 Cefuroxime Axetil 500 Mg Tablet PO 01/04/25 17:12 500 mg ONCE ONE Administration Medical Decision Making Medical Decision Making MDM Narrative: A 64-year-old female presents for evaluation abdominal pain. She reports burning in her bladder but states that this is when she was having bowel movements. She reports associated flank pain. Clinically the patient likely has UTI/pyelonephritis. Urinalysis is still pending. [place] [address] which goes along with infectious process. The patient is afebrile, no evidence of sepsis. Less likely bowel obstruction as the patient reports frequent bowel movements Differential Diagnosis Differential Diagnoses: The differential diagnosis associated with the presentation includes UTI Pyelonephritis Gastritis Colitis Diverticulitis Lab Data MDM Lab Attestation statement: I reviewed the patient's lab results. Mild leukocytosis as above. Patient has a chronic anemia that is consistent with her baseline. She does have an associated left shift. No significant chemistry abnormalities. The patient's carbon dioxide level is just below normal at 19 was related to hyperventilation. 01/04/25 14:17 01/04/25 14:17 Labs: Lab Results 01/04/25 01/04/25 Range/Units 14:17 16:48 WBC 18.0 H (4.8-10.8) X10*3/uL RBC 4.08 L (4.20-5.50) X10*6/uL Hgb 11.5 L (12.0-16.0) g/dl Hct 32.4 L (37.0-47.0) % MCV 79.4 L (80.0-98.0) fL MCH 28.2 (27.0-33.0) pg MCHC 35.5 H (31.0-35.0) g/dl RDW 13.8 (11.0-16.0) % Plt Count 193 D (160-400) X10*3/uL MPV 10.3 (9.4-12.3) fL Immature Gran % (Auto) 0.7 H (0.0-0.4) % Neut % (Auto) 86.9 H (45-73) % Lymph % (Auto) 5.5 L (20-40) % [place] % (Auto) 6.6 (2-11) % Eos % (Auto) 0.1 (0-4) % Baso % (Auto) 0.2 (0-2) % Lymph # (Auto) 1.0 L (1.2-4.9) X10*3/uL [place] # (Auto) 1.2 (0.1-1.2) X10*3/uL Eos # (Auto) 0.0 (0.0-0.4) X10*3/uL Baso # (Auto) 0.0 (0.0-0.2) X10*3/uL Abs Immat Gran (auto) 0.12 H (0.00-0.03) X10*3/uL Absolute Neuts (auto) 15.6 H (2.0-8.3) x10*3/uL Absolute Nucleated RBC 0.000 (0.0-0.012) X10*3/uL Nucleated RBC % (auto) 0.0 (0.0-0.2) /100WBC Sodium 137 (135-145) mmol/L Potassium 3.6 (3.3-5.1) mmol/L Chloride 107 (96-108) mmol/L Carbon Dioxide 19 L (22-29) mmol/L Anion Gap 15 (12-20) BUN 14 (9-16) mg/dL Creatinine 0.94 (0.5-1.4) mg/dL Estim Creat Clear Calc 55.0 Estimated GFR > 60 Random Glucose 161 H (60-115) mg/dL Calcium 9.9 (8.4-10.2) mg/dL Magnesium 1.7 (1.6-2.6) mg/dL Urine Color Yellow Urine Appearance Turbid Urine pH 7.5 (5.0-9.0) Ur Specific [place] 1.010 (1.005-1.025) Urine Protein 100 (2+) H (Neg-Trace) mg/dL Urine Glucose (UA) Negative (Negative) mg/dL Urine Ketones 15 (Negative) mg/dL Urine Blood Large (3+) H (Negative) Urine Nitrite Positive H (Negative) Ur Leukocyte Esterase Large (3+) H (Negative) Urine RBC 11-20 H (0-2) /HPF Urine WBC >50 H (0-5) /HPF Ur Squamous Epith Cells 3-5 (0-2) /HPF Urine Bacteria 4+ (None Seen) Hyaline Casts 3-5 (0-2) /LPF Influenza Type A (PCR) NEGATIVE (Negative) Influenza Type B (PCR) NEGATIVE (Negative) RSV RNA Qual (PCR) NEGATIVE (Negative) SARS-CoV-2 RNA (RT-PCR) NEGATIVE (Negative) Discharge Plan Discharge Clinical Impression: UTI (urinary tract infection) Patient Disposition: Home, Self-Care Instructions: Urinary Tract Infection in Women (ED) Additional Instructions: Your workup in the ER today showed a urinary tract infection. You were given an antibiotic called cefuroxime. Take this antibiotic twice daily for 1 week starting tomorrow morning Hydrate well. Return for new or worsening symptoms Prescriptions: New cefuroxime axetil 250 mg tablet 250 mg PO Q12H Qty: 14 0RF No Action zolpidem 10 mg tablet 1 tab PO BEDTIME PRN (Reason: Insomnia) amlodipine 10 mg tablet 10 mg PO DAILY rosuvastatin 40 mg tablet 40 mg PO DAILY ferrous gluconate 324 mg (38 mg iron) tablet 324 mg PO Q OTHER DAY ascorbic acid (vitamin C) 250 mg tablet 250 mg PO Q OTHER DAY lisinopril 30 mg tablet 30 mg PO DAILY Qty: 90 4RF omeprazole 20 mg capsule,delayed release(DR/EC) 20 mg PO DAILY PRN Print Language: German
--- OUTSIDE RECORDS SUMMARY | 2025-01-04 16:17 | XMS_ITS | Encounter Summary ---
Author Organization [employer] [facility] Address [address] [place] [address] 7[address] [place] [address] Care Team Providers Care Egg Worker Name Role Phone Verenice Nixon METAL RIVETING MACHINE OPERATOR Primary Care Provider [phone] Verenice Nixon METAL RIVETING MACHINE OPERATOR Primary Care Provider [phone] Encounter Details Date Type Department Care Team (Late Contact Info) Description 11/01/2023 Orders Only [facility] [address] [place] [address] Regi Marsh FNP Social History Tobacco Use Types Packs/Day Years Used Date Smoking Tobacco: Never Smokeless Tobacco: Never Alcohol Use Standard Drinks/Week Comments Yes 0 (1 standard drink = 0.6 oz pur e alcohol) 2-3 drinks monthly Alcohol Answer Date Recorded Frequency of Alcohol Consumption Not on file 10/30/2023 Average Number of Drinks Not on file 023 Frequency of Binge Drinking Not on file 10/03 Score 0 10/30/2023 Depression Answer Date Recorded Patient Health Questionnaire-9 Score 3 10/30/2023 Patient Health Questionnaire-9 Score 3 10/30/2023 Last PHQ-9: Questionnaire Data Not on file 1 12/30/2022 Depression Answer Date Recorded Patient Health Questionnaire-2 Score 0 10/30/2023 Comments No Sex and Gender Information Value Date Recorded Sex Assigned at Female 10/01/2022 10:14 AM EDT Legal Sex Female 10:14 AM EDT Gender Identity Female 10/01/2022 10:14 AM EDT Sexual Orientation Straight 10/01/2022 10 :14 AM EDT documented as of this encounter Plan of Treatment Upcoming Encounters Date Type Department Care Team (Late Contact Info) Description 01/15/2025 11:00 AM EST Office Visit [facility] [address] [place] [address] Verenice Nixon NP [address] [place] [address] 02/04/2025 10:30 AM EST Office Visit [facility] [address] [place] [address] Jo-Ann Hinojosa, OD [address] [place] [address] documented as of this encounter Visit Diagnoses Not on filedocumented in this encounter Additional Health Concerns Assessment Noted Time PHQ-9 Depression Total Score: 3 10/30/20 9:52 AM EST documented as of this encounter Care Teams Egg Worker Relationship Specialty Start Date End Date Verenice Nixon NP [address] [place] [address] PCP - General Family Medicine 09/06/23 11/03/23 Verenice Nixon NP [address] [place] [address] PCP - General Family Medicine 11/04/23 documented as of this encounter
--- OUTSIDE RECORDS SUMMARY | 2025-01-04 16:17 | XMS_ITS | Encounter Summary ---
Author Organization [employer] [facility] Address [address] [place] [address] 7[address] [place] [address] Care Team Providers Care Production Maintenance Mechanic Name Role Phone LanceCarrie JAWBONE PULLER Primary Care Provider [phone] Verenice Nixon NP Primary Care Provider [phone] Verenice Nixon NP Primary Care Provider [phone] Encounter Details Date Type Department Care Team (Late st Contact Info) Description 03/11/2023 Orders Only [facility] [address] [place] [address] Beatriz Castillo LPN Social History Tobacco Use Types Packs/Day Years Used Date Smoking Tobacco: Never Smokeless Tobacco: Never Comments Unknown Sex and Gender Information Value Date Recorded Sex Assigned at Female 10/01/2022 10:14 AM EDT Legal Sex Female 10:14 AM EDT Gender Identity Female 10/01/2022 10:14 AM EDT Sexual Orientation Straight 10/01/2022 10 :14 AM EDT documented as of this encounter Plan of Treatment Upcoming Encounters Date Type Department Care Team (Late st Contact Info) Description 01/15/2025 11:00 AM EST Office Visit [facility] [address] [place] [address] Verenice Nixon NP [address] [place], [place] [phone] 02/04/2025 10:30 AM EST Office Visit [facility] OPTOM[facility]RY [address] [place], [place] [phone] Jo-Ann Hinojosa, OD [address] [place], [place] [phone] documented as of this encounter Visit Diagnoses Not on filedocumented in this encounter Care Teams Production Maintenance Mechanic Relationship Specialty Start Date End Date Carrie Lucas FNP PCP - General Family Medicine 11/20/21 09/05/23 Verenice Nixon NP [address] [place] [address] PCP - General Family Medicine 09/06/23 11/03/23 Verenice Nixon NP [address] [place] [address] PCP - General Family Medicine 11/04/23 documented as of this encounter
--- OUTSIDE RECORDS SUMMARY | 2025-01-04 16:17 | XMS_ITS | Encounter Summary ---
Author Organization [employer] Address [address] [place] [address] 7[address] [place] [address] Care Team Providers Care Manufacturing Process Engineer Name Role Phone Verenice Nixon NP Primary Care Provider [phone] Reason for Visit * Reason Comments Hypertension Encounter Details Date Type Department Care Team ([facility] st Contact Info) Description 12/16/2024 9:45 AM EST Office Visit [facility] [address] [place] [address] Verenice Nixon NP [address] [place] [address] Primary hypertension (Primary Dx); Anemia, unspecified type; Primary insomnia; Screening for colon cancer Social History Tobacco Use Types Packs/Day Years Used Date Smoking Tobacco: Never Smokeless Tobacco: Never Tobacco Cessation:Counseling Given: Not Answered Alcohol Use Standard Drinks/Week Comments Yes 0 (1 standard drink = 0.6 oz pur e alcohol) 2-3 drinks monthly Alcohol Answer Date Recorded How often do you have a drink containing alcohol ? 1 12/16/2024 How many drinks containing a lcohol do you have on a typical day when you are drinking? 0 12/16/2024 How often do you have six or more drinks on one occasion? 0 12/16/2024 Depression Answer Date Recorded Patient Health Questionnaire-9 Score 0 01/17/2024 Patient Health Questionnaire-9 Score 0 01/17/2024 Last PHQ-9: Questionnaire Data Not on file 0 01/17/2024 Housing Stability Answer Date Recorded What is your housing situation today? I have anup lubin 01/17/[address] you li ve. Do you have problems with any of the following? None of the above 01/17/2024 Food Insecurity Answer Date Recorded Within the past 12 months, y ou worried that your food would run out before you got money to buy more: Never True 01/17/2024 Within the past 12 months,th e food you bought just didn't last and you didn't have enough money to get more: Never True Transportation Answer Date Recorded In the past 12 months, has l ack of transportation kept you from medical appts, meetings, work or from getting things needed for daily living? No 01/17/2024 Utilities Answer Date Recorded In the past 12 months, has t he electric, gas, oil or water company threatened to shut off services in your home? No 01/17/2024 Depression Answer Date Recorded Patient Health Questionnaire-2 Score 0 01/17/2024 Comments No Sex and Gender Information Value Date Recorded Sex Assigned at Female 10/01/2022 10:14 AM EDT Legal Sex Female 10:14 AM EDT Gender Identity Female 10/01/2022 10:14 AM EDT Sexual Orientation Straight 10/01/2022 10 :14 AM EDT documented as of this encounter Last Filed Vital Signs Vital Sign Reading Time Taken Comments Blood Pressure 136/72 12/16/2024 10:33 AM EST Pulse 70 12/16/2024 9:43 AM EST Temperature 36.3 ??C (97.3 ??F) 12/16/2024 9:43 AM ES T Respiratory Rate 18 12/16/2024 9:43 AM EST Oxygen Saturation 97% 12/16/2024 9:43 AM EST Inhaled Oxygen Concentration - - Weight 66.7 kg (147 lb) 12/16/2024 9:43 AM EST Height 160 cm (5' 3 ) 12/16/2024 9:43 AM EST Body Mass Index 26.04 12/16/2024 9:43 AM EST documented in this encounter Plan of Treatment Upcoming Encounters Date Type Department Care Team (Late st Contact Info) Description 01/15/2025 11:00 AM EST Office Visit [facility] [address] [place] [address] Verenice Nixon NP [address] [place] [address] 02/04/2025 10:30 AM EST Office Visit [facility]OMET[facility] [address] [place] [address] Jo-Ann Hinojosa, OD [address] [place] [address] Pending Results Name Type Priority Associated Diagnoses Date /Time Cologuard?? colon cancer screening Lab Routine Screening for colon cancer 12/31/2024 1:15 PM EST documented as of this encounter Procedures Procedure Name Priority Date/Time Associated Diagnosis Comments CBC WITH AUTO DIFFERENTIAL Routine 12/16/2024 10:47 AM EST Anemia, unspecified type LIPID PANEL, STANDARD Routine 12/16/2024 10:47 AM EST Primary hypertension BASIC METABOLIC PANEL Routine 12/16/2024 10:47 AM EST Primary hypertension documented in this encounter Results * (ABNORMAL) CBC auto differential (12/16/2024 10:47 AM EST) White Blood Count 9.9 4.8 - 10.8 X10*3/uL [facility] Red Blood Count 4.15(L) 4.20 - 5.50 X10*6/uL [facility] Hemoglobin 11.8(L) 12.0 - 16.0 g/dl [facility] Hematocrit 35.3(L) 37.0 - 47.0 % [facility] Mean Corpuscular Volume 85.1 80.0 - 98.0 fL [facility] Mean Corpuscular Hemoglobin 28.4 27.0 - 33.0 pg [facility] Mean Corpuscular HGB Conc 33.4 31.0 - 35.0 g/dl [facility] Red Cell Distribution Width 14.5 11.0 - 16.0 % [facility] Platelet Count 260 160 - 400 X10*3/uL [facility] Mean Platelet Volume 11.2 9.4 - 12.3 fL [facility] Neutrophils Percent Auto 60.6 45 - 73 % [facility] Imm Gran Pct Auto 0.4 0.0 - 0.4 % [facility] Lymphocytes Percent Auto 26.5 20 - 40 % [facility] Monocytes Percent Auto 7.4 2 - 11 % [facility] Eosinophils Percent Auto 4.4(H) 0 - 4 % [facility] Basophils Percent Auto 0.7 0 - 2 % [facility] NRBC Pct Auto 0.0 0.0 - 0.2 /100WBC [facility] Neutrophils Absolute Auto 6.0 2.0 - 8.3 x10*3/uL [facility] Imm Gran Abs Auto 0.04(H) 0.00 - 0.03 X10*3/uL [facility] Lymphocytes Absolute Auto 2.6 1.2 - 4.9 X10*3/uL [facility] Monocytes Absolute Auto 0.7 0.1 - 1.2 X10*3/uL [facility] Eosinophils Absolute Auto 0.4 0.0 - 0.4 X10*3/uL [facility] Basophils Absolute Auto 0.1 0.0 - 0.2 X10*3/uL [facility] NRBC Abs Auto 0.000 0.0 - 0.012 X10*3/uL [facility] Blood Venous blood specimen / Unknown 12/16/2024 10:47 AM EST 12/16/2024 1:05 PM EST us Verenice Nixon DIRECTOR OF PHYSICIAN PRACTICES LAB BLOOD ORDERABLES Final Resu lt [facility] [address] [place] [phone] * (ABNORMAL) Basic Metabolic Panel (12/16/2024 10:47 AM EST) Sodium 142 135 - 145 mmol/L [facility] Potassium 3.8 3.3 - 5.1 mmol/L [facility] Chloride 109(H) 96 - 108 mmol/L [facility] Carbon Dioxide 24 22 - 29 mmol/L [facility] Anion Gap 13 12 - 20 [facility] Urea Nitrogen (BUN) 13 9 - 16 mg/dL [facility] Creatinine, Serum 0.81 0.5 - 1.4 mg/dL [facility] Estimated Glomerular Filt Rate >60 [facility] Comment:Chronic Kidney Disea se: Estimated GFR < 60 mL/min/[id number] Kidney Disease: Estimated GFR < 15 mL/min/1.73m2 Glucose 97 60 - 115 mg/dL [facility] Calcium 9.8 8.4 - 10.2 mg/dL [facility] Blood Venous blood specimen / Unknown 12/16/2024 10:47 AM EST 12/16/2024 1:05 PM EST Verenice Nixon DIRECTOR OF PHYSICIAN PRACTICES LAB BLOOD ORDERABLES Final Resu lt [facility] [address] [place] [address] [phone] * (ABNORMAL) Lipid Panel, Standard (12/16/2024 10:47 AM EST) Triglycerides 112 <150 mg/dL [facility] Comment:Desirable Triglyceri de: less than 150 mg/dLBorderline High Triglyceride 150-199 mg/dLHigh Triglyceride: 200-499 mg/dLVery High Triglyceride: greater than or equal to 5OO mg/dL Cholesterol 198 <200 mg/dL [facility] Comment:Desirable Cholestero l: less than 200 mg/dLBorderline High Cholesterol: 200-239 mg/dLHigh Cholesterol: greater than 239 mg/dL LDL Cholesterol Calculated 119(H) <100 mg/dL [facility] Comment:Desirable LDL: less than 100 mg/dLNear Optimal/Above Optimal LDL: 110- 129 mg/dLBorderline High LDL: 130-159 mg/dLHigh LDL: 160-189 mg/dLVery High LDL: greater than or equal to 190 mg/dL HDL Cholesterol 57 >40 mg/dL [facility] Comment:Desirable HDL: great er than 40 mg/dL Note: This HDL assay may give artificially low results in patients with liver disease. Blood Venous blood specimen / Unknown 12/16/2024 10:47 AM EST 12/16/2024 1:05 PM EST Verenice Nixon NP LAB BLOOD ORDERABLES Final Resu lt [facility] [address] [place] [address] [phone] documented in this encounter Visit Diagnoses Diagnosis Primary hypertension- Primary Unspecified essential hypertension Anemia, unspecified type Primary insomnia Persistent disorder of initiating or maintaining sleep Screening for colon cancer Special screening for malignant neoplasms, colon documented in this encounter Additional Health Concerns Assessment Noted Time PHQ-9 Depression Total Score: 0 01/17/20 24 10:02 AM EST documented as of this encounter Care Teams Manufacturing Process Engineer Relationship Specialty Start Date End Date Verenice Nixon NP [address] [place] [address] PCP - General Family Medicine 11/04/23 documented as of this encounter
--- OUTSIDE RECORDS SUMMARY | 2025-01-04 16:17 | XMS_ITS | Encounter Summary ---
Author Organization [employer] Address [address] [place] [address] 7t [place] [address] Care Team Providers Care Court Stenographer Name Role Phone Verenice Nixon NP Primary Care Provider [phone] Reason for Visit * Reason Onset Date Comments Med Refill 02/19/2024 Encounter Details Date Type Department Care Team ([facility] st Contact Info) Description 02/19/2024 Telephone [facility] [address] [place], [place] [phone] Verenice Nixon NP [address] [place], [place] [phone] Med Refill Social History Tobacco Use Types Packs/Day Years [...] AM EDT documented as of this encounter Miscellaneous Notes * Telephone Encounter - Beatriz Castillo LPN - 02/19/2024 1:45 PM EDT Medication was sent to [facility][id number] on 01/23/24 90 day supply. * Telephone Encounter - Harlan Colon - 02/19/2024 1:39 PM EDT TC from pt requesting medication refill. Medications needing refill : rosuvastatin (Crestor) 40 MG tablet To be sent to: [facility]/pharmacy #[id number] - [place], [place] - [address] [place] [address] documented in this encounter Plan of Treatment Upcoming Encounters Date Type Department Care Team (Late st Contact Info) Description 01/15/2025 11:00 AM EST Office Visit [facility] [address] [place] [address] Verenice Nixon NP [address] [place] [address] 02/04/2025 10:30 AM EST Office Visit [facility] [address] [place] [address] Jo-Ann Hinojosa, OD [address] [place] [address] documented as of this encounter Visit Diagnoses Not on filedocumented in this encounter Additional Health Concerns Assessment Noted Time PHQ-9 Depression Total Score: 0 01/17/20 10:02 AM EST documented as of this encounter Care Teams Court Stenographer Relationship Specialty Start Date End Date Verenice Nixon NP [address] [place] [address] PCP - General Family Medicine 11/04/23 documented as of this encounter
--- OUTSIDE RECORDS SUMMARY | 2025-01-04 16:17 | XMS_ITS | Encounter Summary ---
Author Organization [employer] Address [address] [place] [address] [address]t [place] [address] Care Team Providers Care Stevedoring Superintendent Name Role Phone Verenice Nixon RITA Primary Care Provider [phone] Reason for Visit * Reason Comments Med Refill Encounter Details Date Type Department Care Team (Late st Contact Info) Description 12/09/2023 Refill [facility] [address] [place] [address] Tamara Siegel MD [address] [place] [address] Primary insomnia Social History Tobacco Use Types Packs/Day Years [...] encounter Miscellaneous Notes * Telephone Encounter - Verenice Nixon NP - 12/10/2023 11:23 AM EST Approving, but needs appt for additional refills. documented in this encounter Plan of Treatment Upcoming Encounters Date Type Department Care Team (Late st Contact Info) Description 01/15/2025 11:00 AM EST Office Visit [facility] [address] [place] [address] Verenice Nixon NP [address] [place] [address] 02/04/2025 10:30 AM EST Office Visit [facility] [address] [place] [address] TarJo-Ann tello, OD [address] [place] [address] documented as of this encounter Visit Diagnoses Diagnosis Primary insomnia Persistent disorder of initiating or maintaining sleep documented in this encounter Additional Health Concerns Assessment Noted Time PHQ-9 Depression Total Score: 3 10/30/20 23 9:52 AM EST documented as of this encounter Care Teams Stevedoring Superintendent Relationship Specialty Start Date End Date Verenice Nixon NP [address] [place] [address] PCP - General Family Medicine 11/04/23 documented as of this encounter
--- OUTSIDE RECORDS SUMMARY | 2025-01-04 16:17 | XMS_ITS | Encounter Summary ---
Author Organization [employer] Address [address] [facility] 7t [place] [address] Care Team Providers Care Campus Aide Name Role Phone Verenice Nixon NP Primary Care Provider [phone] Reason for Visit * Reason Comments Med Refill Encounter Details Date Type Department Care Team (Late st Contact Info) Description 12/18/2024 Refill [facility] [address] [place] [address] Verenice Nixon NP [address] [place], [place] [phone] Anemia, unspecified type Social History Tobacco Use Types Packs/Day Years [...] Description 01/15/2025 11:00 AM EST Office Visit [facility] [address] [place] [address] Verenice Nixon NP [address] [place] [address] 02/04/2025 10:30 AM EST Office Visit [facility] OPTOM[facility] [address] [place] [address] Tarka, Jo-Ann, OD [address] [place] [address] documented as of this encounter Visit Diagnoses Diagnosis Anemia, unspecified type documented in this encounter Additional Health Concerns Assessment Noted Time PHQ-9 Depression Total Score: 0 01/17/20 24 10:02 AM EST documented as of this encounter Care Teams Campus Aide Relationship Specialty Start Date End Date Verenice Nixon NP [address] [place] [address] PCP - General Family Medicine 11/04/23 documented as of this encounter
--- OUTSIDE RECORDS SUMMARY | 2025-01-04 16:17 | XMS_ITS | Encounter Summary ---
Author Organization [employer] Address [address] [facility] 7t [place] [address] Care Team Providers Care Cut Out Worker Name Role Phone Verenice Nixon NP Primary Care Provider [phone] Reason for Visit * Reason Comments Med Refill Encounter Details Date Type Department Care Team (Late st Contact Info) Description 02/09/2024 Refill [facility]INE [address] [place] [address] Verenice Nixon NP [address] [place] [address] Primary insomnia Social History Tobacco Use Types [...] Telephone Encounter - Verenice Nixon NP - 02/11/2024 4:19 PM EDT Approving, but needs appt for additional refills. documented in this encounter Plan of Treatment Upcoming Encounters Date Type Department Care Team (Late st Contact Info) Description 01/15/2025 11:00 AM EST Office Visit [facility] MEDICINE [address] [place] [address] Verenice Nixon NP [address] [place] [address] 02/04/2025 10:30 AM EST Office Visit [facility] OPTOMETRY [address] [place] [address] Jo-Ann Hinojosa, OD [address] [place] [address] documented as of this encounter Visit Diagnoses Diagnosis Primary insomnia Persistent disorder of initiating or maintaining sleep documented in this encounter Additional Health Concerns Assessment Noted Time PHQ-9 Depression Total Score: 0 01/17/20 24 10:02 AM EST documented as of this encounter Care Teams Cut Out Worker Relationship Specialty Start Date End Date Verenice Nixon NP [address] [place] [address] PCP - General Family Medicine 11/04/23 documented as of this encounter
--- OUTSIDE RECORDS SUMMARY | 2025-01-04 16:17 | XMS_ITS | Clinical Summary ---
Author Organization [employer] Address [address] [place] [address] [address] [place] [address] Care Team Providers Care Manugrapher Name Role Phone Verenice Nixon NP Primary Care Provider [phone] Allergies No known active allergies Medications ibuprofen 400 MG tabletIndications :Dysuria Take 1 tablet (400 mg) by mouth every 6 (six) hours if needed for moderate pain or fever for up to 30 doses. 30 tablet 01/07/20 23 Active rosuvastatin (Crestor) 40 MG tabletIndications :Hyperlipidemia, unspecified hyperlipidemia type TAKE 1 TABLET BY MOUTH EVERY DAY AT NIGHT 90 tablet 1 08/14/20 24 Active omeprazole (PriLOSEC) [address] capsule TAKE 1 CAPSULE BY MOUTH EVERY DAY BEFORE A MEAL 90 capsule 1 09/24/20 24 Active amLODIPine (Norvasc) 10 MG tablet TAKE 1 TABLET BY MOUTH EVERY DAY 90 tablet 11/24/20 24 Active lisinopril 30 MG tablet Take 1 tablet by mouth Once per day. 11/18/20 24 Active zolpidem (Ambien) 10 MG tabletIndications :Primary insomnia TAKE 1 TABLET BY MOUTH EVERYDAY AT BEDTIME Do not start before December 20, 2024. 28 tablet 12/20/19 25 Active ferrous gluconate (Fergon) 324 (38 Fe) MG tabletIndications :Anemia, unspecified type TAKE 1 TABLET BY MOUTH EVERY OTHER MORNING WITH VITAMIN C 45 tablet 12/18/19 25 Active Ascorbic Acid (vitamin C) 250 MG tabletIndications :Anemia, unspecified type TAKE 1 TABLET BY MOUTH EVERY OTHER MORNING WITH IRON 45 tablet 07/17/20 24 025 Discontinued(D iscontinued by another clinician) lisinopril-hydroC HLOROthiazide 20-25 MG tabletIndications :Primary hypertension TAKE 1 TABLET BY MOUTH EVERY DAY 90 tablet 08/27/20 24 025 Discontinued(D iscontinued by another clinician) ferrous gluconate (Fergon) 324 (38 Fe) MG tabletIndications :Anemia, unspecified type TAKE 1 TABLET BY MOUTH EVERY OTHER MORNING WITH VITAMIN C 45 tablet 10/09/20 24 025 Discontinued zolpidem (Ambien) 10 MG tabletIndications :Primary insomnia TAKE 1 TABLET BY MOUTH EVERYDAY AT BEDTIME 28 tablet 11/20/20 24 025 Discontinued(R eorder (will not trigger notification to Pharmacy)) Active Problems Problem Noted Date Diagnosed Date Pain in both lower extremities 06/23/2024 Assessment & Plan (10/15/2024 12:38 PM EST): -likely venous insufficiency based on patient report -advised continued use of compression stockings and leg elevation as previously discussed -referral to vascular as this has been a long standing complaint of hers Assessment & Plan (06/23/2024 5:43 PM EDT): -may be due to venous insufficiency based on patient report -advised to continue elevation when possible -will benefit from use of compression stocking. encouraged to purchase a pair from [email or web address] as [facility] will not cover -consider venous US and vascular referral with continued pain despite interventions mentioned above Anemia 02/13/2024 Assessment & Plan (06/23/2024 5:40 PM EDT): -continue iron supplementation every other day skipping vitamin C doses to see if cause of increased stool frequency -pending GI appointment to undergo colonoscopy to determine GI cause of anemia. Will reach out to our support team in attempt to secure transportation for the patient -cbc ordered to assess anemia status Assessment & Plan (02/13/2024 2:31 PM EDT): -iron panel remains normal -H & H very slowly improving Lab Results Component Value Date HCT 34.9 (L) 01/17/2024 HCT 34.5 (L) 10/31/2023 HCT 34.1 (L) 10/30/2023 HGB 11.6 (L) 01/17/2024 HGB 11.3 (L) 10/31/2023 HGB 12.2 09/21/2021 HGB 13.6 01/18/2021 -previously referred to GI. Will check on status of referral and expedite appointment if possible -start iron supplementation -labs ordered to eval renal function as possible cause Microalbuminuria 01/23/2024 Overview (01/23/2024): Moderately increased. Likely due to hypertension Repeat in 3 months. If persistently increased with disproportion to BP readings, consider renal imaging for structural causes H/O: hysterectomy 01/16/2024 Primary insomnia 10/30/2023 10/30/2023 Assessment & Plan (10/31/2023 4:36 PM EST): -stable on zolpidem 10 mg -sleep hygiene measures reviewed: keep a consistent bed and awakening time; avoid coffee, caffinated drink or foods right before bed; avoid looking at phone or TV 30 min before bed; engage in daily physical activity 4-6 hrs before bed; keep the place where you sleep quiet and dark use a white noise machine or ear plugs to block out sound if needed -gentle stretching/ meditate before bed -medication refilled for future date Diverticular disease 10/30/2023 10/30/2023 Uterovaginal prolapse 10/30/2023 10/30/2023 Routine adult health maintenance 10/30/2023 Assessment & Plan (10/31/2023 8:50 PM EST): -declined flu vaccine -HIV and hepatitis screen completed today -cervical cancer screen not necessary. S/p total hysterectomy -reports recent mammogram and colonoscopy. Will obtain records Recurrent urinary tract infection 05/01/2022 Impaired fasting glucose 10/02/2017 Hypertension 07/29/2012 Assessment & Plan (10/15/2024 12:41 PM EST): -stable -continue current med regimen -continue home monitoring and lifestyle changes -following with renal for microalbuminuria Assessment & Plan (06/23/2024 5:35 PM EDT): -hypertension controlled -BP at target goal of <130/80 mmHg -continue amlodipine 10 mg and lisinopril-hydrochlorothiazide 20/25 mg -microalbumin: 91.9 micrograms/mg on 01/17/2024. Repeat ordered today. Will refer to nephrology if persistently elevated -12 lead EKG: will obtain baseline tracing at next visit -continued daily BP monitoring advised -low salt diet and 30 min moderate intensity daily exercise recommended -Reviewed ED precautions to include chest pain, shortness of breath, severe headache, sudden vision changes or BP >=180/>=120 mmHg. -Call clinic if three or more BP readings >130/80 mmHg. -follow-up 3 months Assessment & Plan (02/13/2024 2:26 PM EDT): -BP nearing target goal of <130/80 -continue taking amlodipine 10 mg and lisinopril-hydrochlorothiazide 20/25 mg -continuous BP monitoring at home encouraged -low salt diet advised -vision referral placed for routine exam -labs ordered to eval kidney function -follow-up in 3 months with BP log Assessment & Plan (10/31/2023 8:44 PM EST): -at goal per AHA/ACC guidelines <130/80 mmHg -continue current medication and daily monitoring -patient educated on symptoms of hyper and hypotension -dietary sodium restriction reinforced Hyperlipidemia 07/29/2012 10/30/2023 Overview (02/13/2024): Dose increased to Crestor 40 mg 01/17 Assessment & Plan (02/13/2024 1:45 PM EDT): -total cholesterol and LDL elevated despite daily medication compliance -continue crestor nightly -dose increased to 40 mg -low fat diet strongly encouraged -30 min moderate intensity physical activity independent of work advised -follow-up 3 months Assessment & Plan (10/31/2023 8:52 PM EST): -continue crestor 10 mg -labs ordered. Will follow up with results -diet and exercise reviewed as outlined above Encounters Date Type Department Care Team Description 01/04/2025 Orders Only GENERIC EXTERNAL DATA DEPARTMENT Provider, Generic External Data 12/18/2024 Refill [facility] [address] [place] [address] Verenice Nixon NP Anemia, unspecified type 12/16/2024 9:45 AM EST Office Visit [facility] [address] [facility] [place] [address] Verenice Nixon NP Primary hypertension (Primary Dx); Anemia, unspecified type; Primary insomnia; Screening for colon cancer 12/16/2024 Travel 12/10/2024 Telephone [facility] [address] [place] [address] Eugenia Mathur MA chartprep 11/24/2024 Refill [facility] [address] [place] [address] Verenice Nixon NP 11/18/2024 Refill [facility] [address] [place] [address] Verenice Nixon NP Primary insomnia 11/05/2024 Orders Only [facility] External Provider, [facility] 10/21/2024 Refill [facility] [address] [place] [address] Verenice Nixon NP Primary insomnia 10/15/2024 Telephone [facility] [address] [place] [address] Verenice Nixon NP Follow-up 10/09/2024 Refill [facility] [address] [place] [address] Verenice Nixon NP Anemia, unspecified type from Last 3 Months Immunizations Name Administration Dates Next Due Hep A, Adult 11/01/2008,02/20/2007 Hep B, adult 07/07/2008,05/21/2007,02/20/2007 Influenza injectable quadriv alent preservative free 10/30/2023,10/02/2017 Influenza, IIV3, injectable 09/06/2014 Influenza, Split (incl. oz fied surface antigen) 07/29/2012 Tdap 12/16/2024,07/29/2012 Zoster, Recombinant 07/09/2022,04/19/2022 Family History Medical History Relation Name Comments Diabetes Brother Pancreatic cancer Brother Hypertension Father Hypertension Mother Diabetes Sister Relation Name Status Comments Brother Father Mother Other paterna uncle throat cancer Sister Social History Tobacco Use Types Packs/Day Years [...] Orientation Straight 10/01/2022 10 :14 AM EDT Last Filed Vital Signs Vital Sign Reading [...] Mass Index 26.04 12/16/2024 9:43 AM EST Plan of Treatment Upcoming Encounters Date Type Department Care Team (Late st Contact Info) Description 01/15/2025 11:00 AM EST Office Visit [facility] [address] [place] [address] Verenice Nixon NP [address] [place] [address] 02/04/2025 10:30 AM EST Office Visit [facility] OPTOMET[facility] [address] [place] [address] TarkaJo-Ann, OD [address] [place] [address] Health Maintenance Due Date Last Done Comments CT Colonography 1961 Colonoscopy 1961 Colorectal Cancer Screening 1960 FIT DNA/Cologuard 1960 FIT 1960 FOBT 1960 Sigmoidoscopy 1960 Pneumococcal Vaccine: 50+ Years (1 of 1 - PCV) 2011 COVID-19 Vaccine ( season) 2024 01/29/2022, 01/19/2021, 12/29/2020 Influenza Vaccine (#1) 2024 3, 10/02/2017, 09/06/2014, Additional history exists Depression Screening 01/17/2025 01/17/2024, 01/17/20 24 SDOH Screening 01/17/2025 01/17/2024 Alcohol/Substance Use Screening 12/16/2025 12/16/2024 Tobacco Screening 12/16/2025 12/16/2024 Mammogram 09/24/2026 09/24/2024, 09/01, 09/13/2022, Additional history exists Lipid Panel 12/16/2029 12/16/2024, 01/02, 10/30/2023, Additional history exists DTaP/Tdap/Td Vaccines (3 - Td or Tdap) 12/16/2034 12/16/2024, 07/29/2012 RSV Patients and Patients Aged 60 years or older (1 - 1-dose 75+ series) 2036 Hepatitis B Vaccines Completed 07/07/2008, 05/21/2007, 02/20/2007 Hepatitis A Vaccines Aged Out 11/01/2008, 02/21/20 07 No longer eligible based on patient's age to complete this topic Zoster Vaccines Completed 07/09/2022, 04/19/2022 HIV Screening Completed 10/30/2023 Hepatitis C Screening Completed 10/30/2023 HIB Vaccines Aged Out No longer eligi ble based on patient's age to complete this topic HPV Vaccines Aged Out No longer eligi ble based on patient's age to complete this topic IPV Vaccines Aged Out No longer eligi ble based on patient's age to complete this topic Meningococcal Vaccine Aged Out No raghav andrez eligible based on patient's age to complete this topic Pneumococcal Vaccine: Pediatrics (0 to 5 Years) and At-Risk Patients (6 to 49) Years) Aged Out No longer eligible based on patient's age to complete this topic RSV under 20 months Aged Out No longe r eligible based on patient's age to complete this topic Rotavirus Vaccines Aged Out No longer eligible based on patient's age to complete this topic Procedures Procedure Name Priority Date/Time Associated Diagnosis Comments SARS COV2/INFLUENZA A/B AND RSV RNA QL NAAT Routine 01/04/2025 2:17 PM EST CBC WITH AUTO DIFFERENTIAL Routine 12/16/2024 10:47 AM EST Anemia, unspecified type BASIC METABOLIC PANEL Routine 12/16/2024 10:47 AM EST Primary hypertension LIPID PANEL, STANDARD Routine 12/16/2024 10:47 AM EST Primary hypertension VASC US LOWER EXTREMITY VENOUS INSUFFICIENCY BILATERAL Routine 12/03/2024 10:47 AM EST NM PARATHYROID Routine 11/05/2024 8:04 AM EST BI MAMMOGRAM SCREENING TOMOSYNTHESIS BILATERAL Routine 09/24/2024 11:00 AM EDT HEPATITIS C AB W/REFL TO HCV RNA, QN, PCR Routine 10/30/2023 10:53 AM EST Routine adult health maintenance HIV 1/2 ANTIGEN/ANTIBODY, FOURTH GENERATION W/RFL Routine 10/30/2023 10:53 AM EST Routine adult health maintenance from Last 3 Months or Most Recently Relevant to Health Maintenance Results * SARS-CoV-2 RNA, Influenza A/B, and RSV RNA, Ql NAAT (01/04/2025 2:17 PM EST) Influenza A PCR NEGATIVE Negative [facility] Influenza B PCR NEGATIVE Negative [facility] Resp Syncy Virus RNA Qual PCR NEGATIVE Negative [facility] SARS COV2 PCR NEGATIVE Negative [facility] Comment:All test results mus t be correlated with clinical findings.Negative results do not preclude SARS-CoV2, influenza Avirus, influenza B virus and/or RSV infectionand should not be used as the sole basis for treatment orother patient management decisions. Negative results must becombined with clinical observations, patient history, andepidemiological information.This test has not been evaluated for monitoring treatment ofinfection.This test has been authorized by the FDA under an EmergencyUse Authorization (EUA) for use by authorized laboratories.Testing performed on the [employer] GeneXpert utilizingreal-time RT-PCR.All SARS CoV2 and positive influenza A/B results arereported to [facility]. 01/04/2025 2:17 PM EST 01/04/2025 2:20 PM EST us Generic External Data Provider LAB MICROBIOLOGY - GENERAL ORDERABLES Final Result [facility] [address] [place], [place] [phone] * (ABNORMAL) CBC auto differential (12/16/2024 10:47 AM EST) White Blood Count 9.9 4.8 - 10.8 X10*3/uL [facility] Red Blood Count 4.15(L) 4.20 - 5.50 X10*6/uL [facility] Hemoglobin 11.8(L) 12.0 - 16.0 g/dl [facility] Hematocrit 35.3(L) 37.0 - 47.0 % [facility] Mean Corpuscular Volume 85.1 80.0 - 98.0 fL [facility] Mean Corpuscular Hemoglobin 28.4 27.0 - 33.0 pg [facility] Mean Corpuscular HGB Conc 33.4 31.0 - 35.0 g/dl [facility] Red Cell Distribution Width 14.5 11.0 - 16.0 % [facility] Platelet Count 260 160 - 400 X10*3/uL [facility] Mean Platelet Volume 11.2 9.4 - 12.3 fL [facility] Neutrophils Percent Auto 60.6 45 - 73 % [facility] Imm Gran Pct Auto 0.4 0.0 - 0.4 % [facility] Lymphocytes Percent Auto 26.5 20 - 40 % [facility] Monocytes Percent Auto 7.4 2 - 11 % [facility] Eosinophils Percent Auto 4.4(H) 0 - 4 % [facility] Basophils Percent Auto 0.7 0 - 2 % [facility] NRBC Pct Auto 0.0 0.0 - 0.2 /100WBC [facility] Neutrophils Absolute Auto 6.0 2.0 - 8.3 x10*3/uL [facility] Imm Gran Abs Auto 0.04(H) 0.00 - 0.03 X10*3/uL [facility] Lymphocytes Absolute Auto 2.6 1.2 - 4.9 X10*3/uL [facility] Monocytes Absolute Auto 0.7 0.1 - 1.2 X10*3/uL [facility] Eosinophils Absolute Auto 0.4 0.0 - 0.4 X10*3/uL [facility] Basophils Absolute Auto 0.1 0.0 - 0.2 X10*3/uL [facility] NRBC Abs Auto 0.000 0.0 - 0.012 X10*3/uL [facility] Blood Venous blood specimen / Unknown 12/16/2024 10:47 AM EST 12/16/2024 1:05 PM EST us Verenice Nixon COUNTER [employer]KER LAB BLOOD ORDERABLES Final Resu lt [facility] [address] [place] [address] [phone] * (ABNORMAL) Lipid Panel, Standard (12/16/2024 10:47 AM EST) Triglycerides 112 <150 mg/dL [facility] Comment:Desirable Triglyceri de: less than 150 mg/dLBorderline High Triglyceride 150-199 mg/dLHigh Triglyceride: 200-499 mg/dLVery High Triglyceride: greater than or equal to 5OO mg/dL Cholesterol 198 <200 mg/dL [facility] Comment:Desirable Cholestero l: less than 200 mg/dLBorderline High Cholesterol: 200-239 mg/dLHigh Cholesterol: greater than 239 mg/dL LDL Cholesterol Calculated 119(H) <100 mg/dL [facility] Comment:Desirable LDL: less than 100 mg/dLNear Optimal/Above Optimal LDL: 110- 129 mg/dLBorderline High LDL: 130-159 mg/dLHigh LDL: 160-189 mg/dLVery High LDL: greater than or equal to 190 mg/dL HDL Cholesterol 57 >40 mg/dL [facility] Comment:Desirable HDL: great er than 40 mg/dL Note: This HDL assay may give artificially low results in patients with liver disease. Blood Venous blood specimen / Unknown 12/16/2024 10:47 AM EST 12/16/2024 1:05 PM EST Verenice Lucio [employer]TER [employer] LAB BLOOD ORDERABLES Final Resu lt Performing Organization Address City/[facility]/ZIP Co de Phone Number [facility] [address] [place] [address] [phone] * (ABNORMAL) Basic Metabolic Panel (12/16/2024 10:47 AM EST) Sodium 142 135 - 145 mmol/L [facility] Potassium 3.8 3.3 - 5.1 mmol/L [facility] Chloride 109(H) 96 - 108 mmol/L [facility] Carbon Dioxide 24 22 - 29 mmol/L [facility] Anion Gap 13 12 - 20 [facility] Urea Nitrogen (BUN) 13 9 - 16 mg/dL [facility] Creatinine, Serum 0.81 0.5 - 1.4 mg/dL [facility] Estimated Glomerular Filt Rate >60 [facility] Comment:Chronic Kidney Disea se: Estimated GFR < 60 mL/min/[id number] Kidney Disease: Estimated GFR < 15 mL/min/1.73m2 Glucose 97 60 - 115 mg/dL [facility] Calcium 9.8 8.4 - 10.2 mg/dL [facility] Blood Venous blood specimen / Unknown 12/16/2024 10:47 AM EST 12/16/2024 1:05 PM EST Verenice Lucio COUNTER [employer]KER LAB BLOOD ORDERABLES Final Resu lt Performing Organization Address City/[facility]/ZIP Co de Phone Number [facility] [address] [place] [address] [phone] * VASC US Lower Extremity Venous Insufficiency Bilateral (12/03/2024 10:47 AM EST) 12/03/2024 10:4 7 AM EST Narrative [facility] - 12/09/2024 9:13 AM EST ? [facility] ?[address] ?[place] [address] ? Ultrasound Report ? Signed ? Patient: Metzger,Neha ?MR#: [id number] ? : 1960 ?Acct:[id number] ? Age/Sex: 64 / F ?ADM Date: 12/03/24 ? Loc: HO.US ? Attending Dr: Ngozi Cates PA-C ? Ordering Physician: Ngozi Cates PA-C ?? Date of Service: 12/03/24 ?? Procedure(s): US venous insuf bilat ?? Accession Number(s): [id number] ? cc: Verenice Nixon; Ngozi Cates PA-C ? EXAMINATION: ?? US LOWER EXTREMITY VENOUS (REFLUX EXAM), BILATERAL ? CLINICAL INFORMATION: ?? Varices in the right lower extremity with inflammation. ? COMPARISON: ?? None. ? TECHNIQUE: ?? Color flow triplex imaging and compression Doppler was performed to ?? evaluate both the deep and the superficial systems bilaterally. To ?? evaluate the superficial system, the examination was performed in the ?? upright position. Color-flow Doppler ultrasound and compression ?? ultrasound were utilized. In addition, maneuvers were utilized to ?? demonstrate reflux. ? FINDINGS: ? Submitted for interpretation on December 09, 2024. ? 1. DEEP VENOUS ULTRASOUND OF THE RIGHT LOWER EXTREMITY: ?? Common Femoral Vein: Compressible, normal respiratory variation and ?? augmented flow. ? Femoral Vein: Compressible, normal color flow and augmentation. ?? Popliteal Vein: Compressible, normal augmentation. ? Deep Reflux: There is no evidence of reflux in the deep system in ?? either the common femoral vein, superficial femoral or the popliteal ?? vein. ? There is no evidence of a Reynoso's cyst. ? 2. SUPERFICIAL ULTRASOUND WITH DOPPLER OF RIGHT LOWER EXTREMITY: ? GREAT SAPHENOUS VEIN: ?? Saphenofemoral Junction: 0.6 cm; Reflux: 0 ms ?? Proximal Thigh: 0.3 cm; Reflux: 0 ms ?? Mid Thigh: 0.2 cm; Reflux: 0 ms ?? Distal Thigh: 0.2 cm; Reflux: 0 ms ?? At Knee: 0.2 cm; Reflux: 0 ms ?? Proximal Calf: 0.1 cm; Reflux: 0 ms ?? Mid Calf: 0.2 cm; Reflux: 0 ms ?? Distal Calf: 0.1 cm; Reflux: 0 ms ? DUPLICATED MEDIAL GREAT SAPHENOUS VEIN: ?? Diameter: None imaged ?? Reflux: NA ? DUPLICATED LATERAL GREAT SAPHENOUS VEIN: ?? Diameter: None imaged ?? Reflux: NA ? SMALL SAPHENOUS VEIN: ?? Saphenopopliteal Junction: 0.2 cm; Reflux: 0 ms ?? Proximal: 0.2 cm; Reflux: 0 ms ?? Distal: 0.2 cm; Reflux: 0 ms ? VEIN OF GIACOMINI: ?? Size: NA ?? Reflux: NA ? PERFORATORS: ?? Location: None imaged ?? Size: NA ?? Reflux: NA ? VARICOSITIES: ?? Location: None imaged. ?? Size: NA ?? Reflux: NA ? 3. DEEP VENOUS ULTRASOUND OF THE LEFT LOWER EXTREMITY: ?? Common Femoral Vein: Compressible, normal respiratory variation and ?? augmented flow. ? Femoral Vein: Compressible, normal color flow and augmentation. ?? Popliteal Vein: Compressible, normal augmentation. ? Deep Reflux: There is no evidence of reflux in the deep system in ?? either the common femoral vein, superficial femoral or the popliteal ?? vein. ? There is no evidence of a Reynoso's cyst. ? 4. SUPERFICIAL ULTRASOUND WITH DOPPLER OF LEFT LOWER EXTREMITY: ? GREAT SAPHENOUS VEIN: ?? Saphenofemoral Junction: 0.5 cm; Reflux: 0 ms ?? Proximal Thigh: 0.3 cm; Reflux: 0 ms ?? Mid Thigh: 0.1 cm; Reflux: +36 ??ms ?? Distal Thigh: 0.3 cm; Reflux: 0 ms ?? At Knee: 0.1 cm; Reflux: 0 ms ?? Proximal Calf: 0.1 cm; Reflux: 0 ms ?? Mid Calf: 0.1 cm; Reflux: 0 ms ?? Distal Calf: 0.1 cm; Reflux: 0 ms ? DUPLICATED MEDIAL GREAT SAPHENOUS VEIN: ?? Diameter: None imaged ?? Reflux: NA ? DUPLICATED LATERAL GREAT SAPHENOUS VEIN: ?? Diameter: None imaged. ?? Reflux: NA ? SMALL SAPHENOUS VEIN: ?? Saphenopopliteal Junction: 0.2 cm; Reflux: 0 ms ?? Proximal: 0.2 cm; Reflux: 0 ms ?? Distal: 0.2 cm; Reflux: 0 ms ? VEIN OF GIACOMINI: ?? Size: NA ?? Reflux: NA ? PERFORATORS: ?? Location: None imaged ?? Size: NA ?? Reflux: NA ? VARICOSITIES: ?? Location: None Imaged ?? Size: NA ?? Reflux: NA ? US/US venous insuf bilat ?? IMPRESSION: ?? Right: No gross venous insufficiency/reflux. ? Left: +36 ms at the mid thigh. ? Electronically signed by: ??Emerson Manuel MD ??12/09/2024 09:11 AM ?? EST RP ? Dictated By: ?Emerson Sahu MD ? Signed By: ?<Electronically signed by Emerson Britton MD in OV> ? 12/09/24 0911 ? DD/ [id number] ? TD/TT: 12/03/24 1139 ? [employer]: ? Procedure Note Deejay, Image - 12/09/2024 [place] [id number] Ultrasound Report Signed Patient: Jerome Metzger#: [id number] : 1Acct:[id number] Age/Sex: 64 / FADM Date: 12/03/24 Loc: HO. Attending Dr: Ngozi Cates PA-C Ordering Physician: Ngozi Cates PA-C Date of Service: 12/03/24 Procedure(s): US venous insuf bilat Accession Number(s): [id number] cc: Verenice Nixon; Ngozi Cates PA-C EXAMINATION: US LOWER EXTREMITY VENOUS (REFLUX EXAM), BILATERAL CLINICAL INFORMATION: Varices in the right lower extremity with inflammation. COMPARISON: None. TECHNIQUE: Color flow triplex imaging and compression Doppler was performed to evaluate both the deep and the superficial systems bilaterally. To evaluate the superficial system, the examination was performed in the upright position. Color-flow Doppler ultrasound and compression ultrasound were utilized. In addition, maneuvers were utilized to demonstrate reflux. FINDINGS: Submitted for interpretation on December 09, 2024. 1. DEEP VENOUS ULTRASOUND OF THE RIGHT LOWER EXTREMITY: Common Femoral Vein: Compressible, normal respiratory variation and augmented flow. Femoral Vein: Compressible, normal color flow and augmentation. Popliteal Vein: Compressible, normal augmentation. Deep Reflux: There is no evidence of reflux in the deep system in either the common femoral vein, superficial femoral or the popliteal vein. There is no evidence of a Reynoso's cyst. 2. SUPERFICIAL ULTRASOUND WITH DOPPLER OF RIGHT LOWER EXTREMITY: GREAT SAPHENOUS VEIN: Saphenofemoral Junction: 0.6 cm; Reflux: 0 ms Proximal Thigh: 0.3 cm; Reflux: 0 ms Mid Thigh: 0.2 cm; Reflux: 0 ms Distal Thigh: 0.2 cm; Reflux: 0 ms At Knee: 0.2 cm; Reflux: 0 ms Proximal Calf: 0.1 cm; Reflux: 0 ms Mid Calf: 0.2 cm; Reflux: 0 ms Distal Calf: 0.1 cm; Reflux: 0 ms DUPLICATED MEDIAL GREAT SAPHENOUS VEIN: Diameter: None imaged Reflux: NA DUPLICATED LATERAL GREAT SAPHENOUS VEIN: Diameter: None imaged Reflux: NA SMALL SAPHENOUS VEIN: Saphenopopliteal Junction: 0.2 cm; Reflux: 0 ms Proximal: 0.2 cm; Reflux: 0 ms Distal: 0.2 cm; Reflux: 0 ms VEIN OF GIACOMINI: Size: NA Reflux: NA PERFORATORS: Location: None imaged Size: NA Reflux: NA VARICOSITIES: Location: None imaged. Size: NA Reflux: NA 3. DEEP VENOUS ULTRASOUND OF THE LEFT LOWER EXTREMITY: Common Femoral Vein: Compressible, normal respiratory variation and augmented flow. Femoral Vein: Compressible, normal color flow and augmentation. Popliteal Vein: Compressible, normal augmentation. Deep Reflux: There is no evidence of reflux in the deep system in either the common femoral vein, superficial femoral or the popliteal vein. There is no evidence of a Reynoso's cyst. 4. SUPERFICIAL ULTRASOUND WITH DOPPLER OF LEFT LOWER EXTREMITY: GREAT SAPHENOUS VEIN: Saphenofemoral Junction: 0.5 cm; Reflux: 0 ms Proximal Thigh: 0.3 cm; Reflux: 0 ms Mid Thigh: 0.1 cm; Reflux: +36 ms Distal Thigh: 0.3 cm; Reflux: 0 ms At Knee: 0.1 cm; Reflux: 0 ms Proximal Calf: 0.1 cm; Reflux: 0 ms Mid Calf: 0.1 cm; Reflux: 0 ms Distal Calf: 0.1 cm; Reflux: 0 ms DUPLICATED MEDIAL GREAT SAPHENOUS VEIN: Diameter: None imaged Reflux: NA DUPLICATED LATERAL GREAT SAPHENOUS VEIN: Diameter: None imaged. Reflux: NA SMALL SAPHENOUS VEIN: Saphenopopliteal Junction: 0.2 cm; Reflux: 0 ms Proximal: 0.2 cm; Reflux: 0 ms Distal: 0.2 cm; Reflux: 0 ms VEIN OF GIACOMINI: Size: NA Reflux: NA PERFORATORS: Location: None imaged Size: NA Reflux: NA VARICOSITIES: Location: None Imaged Size: NA Reflux: NA US/US venous insuf bilat IMPRESSION: Right: No gross venous insufficiency/reflux. Left: +36 ms at the mid thigh. Electronically signed by: Emerson Manuel MD 12/09/2024 09:11 AM EST Dictated By: Emerson Sahu MD Signed By: <Electronically signed by Emerson Britton MDin OV> 12/09/24 0911 DD/ 1047 TD/TT: 12/03/24 1139 Manager International: [facility] External Provider CV VASC ULAR PROCEDURES Edited Result - Final [facility] [address] [place] [phone] * NM Parathyroid (11/05/2024 8:04 AM EST) Anatomical Region Laterality Modality Head and Neck Nuclear Medicine 11/05/2024 8:04 AM EST Narrative 11/09/2024 12:03 PM EST ? [facility] ?[address] ?[place] [address] ?Nuclear Medicine Report ? Signed ? Patient: Metzger,Neha ?MR#: [id number] ? : 1960 ?Acct:[id number] ? Age/Sex: 64 / F ?ADM Date: 12/05/24 ? Loc: HO.NUCMED ? Attending Dr: Dagoberto Espinoza MD ? Ordering Physician: Dagoberto Espinoza MD ?? Date of Service: 11/05/24 ?? Procedure(s): NM parathyroid ?? Accession Number(s): [id number] ? cc: Verenice Nixon; Dagoberto Espinoza MD ? EXAMINATION: ?? NM PARATHYROID SCAN ? CLINICAL INFORMATION: ?? Hypercalcemia. ? COMPARISON: ?? None available. ? TECHNIQUE: ?? A double radionuclide study of the thyroid bed region and upper chest ?? in multiple projections was performed 4 hours after the oral ?? administration of 940 microcuries I-123 sodium iodide and immediately ?? following the intravenous administration of 30 mCi Tc-99m sestamibi. ?? Repeat imaging was performed 2 hours later. The iodide images were ?? electronically subtracted from the sestamibi images using different ?? weighting factors. ? FINDINGS: ?? There is homogeneous uptake of radioiodine throughout both lobes. The ?? thyroid gland appears to be normal in size and shape. Note is made of ?? asymmetric focal prominence at the inferior pole of the right lobe of ?? the thyroid gland. There are no focal areas of increased or diminished ?? uptake. ? Technetium 99m sestamibi images demonstrate homogeneous thyroid ?? activity. Asymmetric focal prominence of the inferior pole of the right ?? lobe of the thyroid gland is also noted on the sestamibi images. There ?? are no focal areas of increased or decreased Technetium 99m sestamibi ?? activity. ? Computer-generated digital subtraction images reveal no evidence of ?? excess sestamibi activity. ? NM/NM parathyroid ?? IMPRESSION: ?? * ??No definite evidence of excess sestamibi activity suggestive of ?? parathyroid adenoma or hyperplasia. There is homogeneous uptake of ?? radioiodine in the thyroid gland which is also normal in size and ?? shape. ?? * ??Asymmetric focal prominence at the inferior pole of the right lobe ?? of the thyroid gland is present on both iodine as well as an sestamibi ?? images, likely represent asymmetric variable nodular thyroid tissue ?? versus thyroid nodule. Possibility of atypical parathyroid ?? adenoma/intrathyroidal parathyroid adenoma) may have similar appearance ?? and cannot be absolutely excluded. ?? * ??Alternative imaging modality including 4D CT scan of the soft tissue ?? neck (with and without contrast) may be considered for further ?? clarification. ? Electronically signed by: ??Adalberto Walker MD ??11/09/2024 11:59 AM EST ? Dictated By: ?Adalberto Walker MD ? Signed By: ?<Electronically signed by Adalberto Walker MD in OV> ? 11/09/24 1159 ? DD/ 0804 ? TD/TT: 11/05/24 1515 ? Manager International: PK ? Procedure Note Donsongter, Image - 11/09/[address] [address] Nuclear Medicine Report Signed Patient: Jerome Metzger#: [id number] : 1Acct:[id number] Age/Sex: 64 / FADM Date: 11/05/24 Loc: [place] Attending Dr: Dagoberto Espinoza MD Ordering Physician: Dagoberto Espinoza MD Date of Service: 11/05/24 Procedure(s): NM parathyroid Accession Number(s): [id number] cc: Verenice Nixon; Dagoberto Espinoza MD EXAMINATION: NM PARATHYROID SCAN CLINICAL INFORMATION: Hypercalcemia. COMPARISON: None available. TECHNIQUE: A double radionuclide study of the thyroid bed region and upper chest in multiple projections was performed 4 hours after the oral administration of 940 microcuries I-123 sodium iodide and immediately following the intravenous administration of 30 mCi Tc-99m sestamibi. Repeat imaging was performed 2 hours later. The iodide images were electronically subtracted from the sestamibi images using different weighting factors. FINDINGS: There is homogeneous uptake of radioiodine throughout both lobes. The thyroid gland appears to be normal in size and shape. Note is made of asymmetric focal prominence at the inferior pole of the right lobe of the thyroid gland. There are no focal areas of increased or diminished uptake. Technetium 99m sestamibi images demonstrate homogeneous thyroid activity. Asymmetric focal prominence of the inferior pole of the right lobe of the thyroid gland is also noted on the sestamibi images. There are no focal areas of increased or decreased Technetium 99m sestamibi activity. Computer-generated digital subtraction images reveal no evidence of excess sestamibi activity. NM/NM parathyroid IMPRESSION: * No definite evidence of excess sestamibi activity suggestive of parathyroid adenoma or hyperplasia. There is homogeneous uptake of radioiodine in the thyroid gland which is also normal in size and shape. * Asymmetric focal prominence at the inferior pole of the right lobe of the thyroid gland is present on both iodine as well as an sestamibi images, likely represent asymmetric variable nodular thyroid tissue versus thyroid nodule. Possibility of atypical parathyroid adenoma/intrathyroidal parathyroid adenoma) may have similar appearance and cannot be absolutely excluded. * Alternative imaging modality including 4D CT scan of the soft tissue neck (with and without contrast) may be considered for further clarification. Electronically signed by: Adalberto Walker MD 11/09/2024 11:59 AM EST Dictated By: Adalberto Walker MD Signed By: <Electronically signed by Adalberto Walker MD in OV> 11/09/24 1159 DD/ 0804 TD/TT: 11/05/24 1515 Manager International: MO[facility] External Provider IMG NM PROCEDURES Final Result * BI Mammogram Screening Tomosynthesis Bilateral (09/24/2024 11:00 AM EDT) Anatomical Region Laterality Modality Breast Bilateral Mammography 09/24/2024 11:0 0 AM EDT Narrative 10/03/2024 10:33 AM EDT ? [facility] [place] ? [address] [facility] ?[place] [address] ? Mammography Report ? Signed ? Patient: Metzger,Neha ?MR#: [id number] ? : 1960 ?Acct:[id number] ? Age/Sex: 64 / F ?ADM Date: 10/24/24 ? Loc: HO.MAMMO ? Attending Dr: Verenice Appram ? Ordering Physician: Verenice Nixon ?Results: 1Negative ? Date of Service: 09/24/24 ?Follow Up: 1 Year From Orig ?? inal Mammogram ? Procedure(s): MM tomosynthesis screening BI ?? Accession Number(s): [id number] ? cc: Verenice Nixon ? EXAMINATION: ?? MM SCREENING DIGITAL BREAST TOMOSYNTHESIS, BILATERAL ? CLINICAL INFORMATION: ? Screening. Asymptomatic. ? COMPARISON: ?? Mammography: Comparison is made with available priors ? TECHNIQUE: ?? Digital breast mammography with tomosynthesis is performed in both the ?? craniocaudal and mediolateral oblique views along with computer-aided ?? detection (CAD). ? FINDINGS: ?? There are scattered areas of fibroglandular density (ACR BI-RADS breast ?? composition Category b). ? There are no significant masses, abnormal calcifications, or other ?? abnormalities. ? MM/MM tomosynthesis screening BI ?? IMPRESSION: ?? No mammographic evidence of malignancy. ? ASSESSMENT: ? BI-RADS BI-RADS 1 - Negative ? RECOMMENDATION: ?? Routine annual mammography screening. ? 1 year F/U ? This examination should not preclude the clinical evaluation of a ?? suspicious palpable abnormality. ? This patient's information was entered into a reminder system with a ?? target due date for their next mammogram. ? Electronically signed by: ??Sole Major DO ??10/03/2024 10:30 AM EDT ?? RP ? Dictated By: ?Sole Major DO ? Signed By: ?<Electronically signed by Sole Major, DO in OV> ? 10/03/24 1030 ? DD/ 1100 ? TD/TT: 09/24/24 1118 ? Manager International: ? Procedure Note Donotuseinterpreter, Image - 10/03/2024 [facility] [address] [place] [address] Mammography Report Signed Patient: Jerome Metzger#: [id number] : 1Acct:[id number] Age/Sex: 64 / FADM Date: 09/24/24 Loc: HO.MAMMO Attending Dr: Verenice Nixon Ordering Physician: Verenice NixonResults: 1Negative Date of Service: 09/24/24Follow Up: 1 Year From Orig inal Mammogram Procedure(s): MM tomosynthesis screening BI Accession Number(s): [id number] cc: Verenice Nixon EXAMINATION: MM SCREENING DIGITAL BREAST TOMOSYNTHESIS, BILATERAL CLINICAL INFORMATION: Screening. Asymptomatic. COMPARISON: Mammography: Comparison is made with available priors TECHNIQUE: Digital breast mammography with tomosynthesis is performed in both the craniocaudal and mediolateral oblique views along with computer-aided detection (CAD). FINDINGS: There are scattered areas of fibroglandular density (ACR BI-RADS breast composition Category b). There are no significant masses, abnormal calcifications, or other abnormalities. MM/MM tomosynthesis screening BI IMPRESSION: No mammographic evidence of malignancy. ASSESSMENT: BI-RADS BI-RADS 1 - Negative RECOMMENDATION: Routine annual mammography screening. 1 year F/U This examination should not preclude the clinical evaluation of a suspicious palpable abnormality. This patient's information was entered into a reminder system with a target due date for their next mammogram. Electronically signed by: Sole Major DO 10/03/2024 10:30 AM EDT Dictated By: Sole Major DO Signed By: <Electronically signed by Sole Major DO in OV> 10/03/24 1030 DD/ 1100 TD/TT: 09/24/24 1118 Manager International: Verenice Nixon COUNTER MAKER IMG BI PROCEDURES Final Result * Hepatitis C Antibody with Reflex to HCV, RNA, Quantitative, Real-Time PCR (10/30/2023 10:53 AM EST) Hepatitis C Antibody Nonreactive Nonreactive [facility] Comment:Antibodies to HCV no t detected; does not exclude early acuteHCV infection. Blood Venous blood specimen / Unknown 10/30/2023 10:53 AM EST 10/30/2023 11:19 AM EST Tamara Siegel MD LAB BLOOD ORDERABLES Final Re sult Performing Organization Address [facility]/ZIP Co de Phone Number [facility] [address] [place] [phone] * HIV-1/2 Antigen and Antibodies, Fourth Generation, with Reflexes (10/30/2023 10:53 AM EST) HIV AB/AG Nonreactive Nonreactive [facility] Comment:HIV-1 p24 Ag and/or HIV-1/HIV-2 Ab not detected.A test result that is nonreactive does not exclude thepossibility of exposure to or infection with HIV-1 and/orHIV-2. Nonreactive results in this assay for individualswith prior exposure to HIV-1 and/or HIV-2 may be due toantigen and antibody levels that are below the limit ofdetection of this assay.The [employer] HIV Ag/Ab Combo assay result andsupplemental assay results should be interpreted inconjunction with the patient's clinical presentation,history and other laboratory results. If the results areinconsistent with clinical evidence, additional testing issuggested to confirm the result. Blood Venous blood specimen / Unknown 10/30/2023 10:53 AM EST 10/30/2023 11:19 AM EST us Tamara Siegel MD LAB BLOOD ORDERABLES Final Re sult Performing Organization Address City/[facility]/ZIP Co de Phone Number [facility] [address] [place] [phone] from Last 3 Months or Most Recently Relevant to Health Maintenance Insurance [facility] [employer] [facility] Care Teams Manugrapher Relationship Specialty Start Date End Date Verenice Nixon NP [address] [place] [address] PCP - General Family Medicine 11/04/23
--- OUTSIDE RECORDS SUMMARY | 2025-01-04 16:17 | XMS_ITS | Encounter Summary ---
Author Organization [employer] Address [address] [place] [address] 7t [place] [address] Care Team Providers Care Drawer Liner Name Role Phone LanceCarrie ENERGY SALES CONSULTANT Primary Care Provider [phone] Verenice Nixon NP Primary Care Provider [phone] Verenice Nixon NP Primary Care Provider [phone] Encounter Details Date Type Department Care Team (Late st Contact Info) Description 04/02/2023 Orders Only [facility] CHC MED & PEDS [address] [place] [address] Beatriz Castillo LPN Social History Tobacco Use [...] Description 01/15/2025 11:00 AM EST Office Visit [facility] MEDICINE [address] [place] [address] Verenice Nixon NP [address] [place], [place] [phone] 02/04/2025 10:30 AM EST Office Visit [facility] OPTOMETRY [address] [place], [place] [phone] Jo-Ann Hinojosa, OD [address] [place], [place] [phone] documented as of this encounter Visit Diagnoses Not on filedocumented in this encounter Care Teams Drawer Liner Relationship Specialty Start Date End Date Carrie Lucas FNP PCP - General Family Medicine 11/20/21 09/05/23 Verenice Nixon NP [address] [place] [address] PCP - General Family Medicine 09/06/23 11/03/23 Verenice Nixon NP [address] [place] [address] PCP - General Family Medicine 11/04/23 documented as of this encounter
--- OUTSIDE RECORDS SUMMARY | 2025-01-04 16:17 | XMS_ITS | Encounter Summary ---
Author Organization [employer] [facility] Address [address] [place] [address] [place] [address] Care Team Providers Care Urgent Care Physician Assistant Name Role Phone Carrie LucasP Primary Care Provider [phone] Verenice Nixon NP Primary Care Provider [phone] Verenice Nixon NP Primary Care Provider [phone] Reason for Visit * Reason Comments Med Refill Encounter Details Date Type Department Care Team (Late st Contact Info) Description 11/05/2022 Refill [facility] MEDICINE [address] [place] [address] Carrie Lucas FNP [address] [place] [address] [place] [address] Social History Tobacco Use Types Packs/Day Years Used Date Smoking Tobacco: Never Assessed Comments Unknown Sex and Gender Information Value [...] Description 01/15/2025 11:00 AM EST Office Visit [facility] MEDICINE [address] [place] [address] Verenice Nixon NP [address] [place] [address] 02/04/2025 10:30 AM EST Office Visit [facility] OPTOMETRY [address] [place] [address] Jo-Ann Hinojosa, OD [address] [place] [address] documented as of this encounter Visit Diagnoses Not on filedocumented in this encounter Care Teams Urgent Care Physician Assistant Relationship Specialty Start Date End Date Carrie Lucas FNP PCP - General Family Medicine 11/20/21 09/05/23 Verenice Nixon NP [address] [place] [address] PCP - General Family Medicine 09/06/23 11/03/23 Verenice Nixon NP [address] [place] [address] PCP - General Family Medicine 11/04/23 documented as of this encounter
--- OUTSIDE RECORDS SUMMARY | 2025-01-04 16:17 | XMS_ITS | Encounter Summary ---
Author Organization [employer] Address [address] [place] [address] 7 [place] [address] Care Team Providers Care Ear Machine Operator Name Role Phone Naveedpeyton Verenice RITA Primary Care Provider [phone] Reason for Visit * Reason Onset Date Comments chartprep 12/10/2024 Encounter Details Date Type Department Care Team ([facility] st Contact Info) Description 12/10/2024 Telephone [facility] MEDICINE [address] [place] [address] Eugenia Mathur MA chartprep Social History Tobacco Use Types Packs/Day Years [...] encounter Miscellaneous Notes * Telephone Encounter - Eugenia Mathur MA - 12/10/2024 9:50 AM EST Chart Prep Labs: done Images: done Vaccines due: Covid Due, Tdap Due, and Flu Due Referrals: Completed Screenings: Colonoscopy Overdue care gaps: [facility] and Oral Health, GEORGE-7 documented in this encounter Plan of Treatment Upcoming Encounters Date Type Department Care Team (Late st Contact Info) Description 01/15/2025 11:00 AM EST Office Visit [facility] MEDIC[facility] [address] [place] [address] Verenice Nixon NP [address] [place] [address] 02/04/2025 10:30 AM EST Office Visit [facility] OPTOMETRY [address] [place] [address] Jo-Ann Hinojosa OD [address] [place] [address] documented as of this encounter Visit Diagnoses Not on filedocumented in this encounter Additional Health Concerns Assessment Noted Time PHQ-9 Depression Total Score: 0 01/17/20 24 10:02 AM EST documented as of this encounter Care Teams Ear Machine Operator Relationship Specialty Start Date End Date Verenice Nixon NP [address] [place] [address] PCP - General Family Medicine 11/04/23 documented as of this encounter
--- OUTSIDE RECORDS SUMMARY | 2025-01-04 16:17 | XMS_ITS | Encounter Summary ---
Author Organization [employer] Address [address] [place] [facility] [address] [place] [address] Care Team Providers Care Production Support Manager Name Role Phone Verenice Nixon RITA Primary Care Provider [phone] Encounter Details Date Type Department Care Team (Late st Contact Info) Description 01/04/2025 Orders Only GENERIC EXTERNAL DATA DEPARTMENT Provider, Generic External Data Social History Tobacco Use Types Packs/Day Years [...] 01/15/2025 11:00 AM EST Office Visit [facility] MEDICINE [address] [place] [address] Verenice Nixon NP [address] [place] [address] 02/04/2025 10:30 AM EST Office Visit [facility] OPTOMETRY [address] [place] [address] Jo-Ann Hinojosa, OD [address] [place] [address] documented as of this encounter Procedures Procedure Name Priority Date/Time Associated Diagnosis Comments SARS COV2/INFLUENZA A/B AND RSV RNA QL NAAT Routine 01/04/2025 2:17 PM EST documented in this encounter Results * SARS-CoV-2 RNA, Influenza A/B, and RSV RNA, Ql NAAT (01/04/2025 2:17 PM EST) Influenza A PCR NEGATIVE Negative [facility] Influenza B PCR NEGATIVE Negative [facility] Resp Syncy Virus RNA Qual PCR NEGATIVE Negative [facility] SARS COV2 PCR NEGATIVE Negative [facility] Comment:All test results mus t be [...] use by authorized laboratories.Testing performed on the Dog Digital GeneXpert utilizingreal-time RT-PCR.All SARS CoV2 and positive influenza A/B results arereported to [facility]. 01/04/2025 2:17 PM EST 01/04/2025 2:20 PM EST us Generic External Data Provider LAB MICROBIOLOGY - GENERAL ORDERABLES Final Result [facility] [address] [place] [phone] documented in this encounter Visit Diagnoses Not on filedocumented in this encounter Additional Health Concerns Assessment Noted Time PHQ-9 Depression Total Score: 0 01/17/20 24 10:02 AM EST documented as of this encounter Care Teams Production Support Manager Relationship Specialty Start Date End Date Verenice Nixon NP [address] [place] [address] PCP - General Family Medicine 11/04/23 documented as of this encounter
--- OUTSIDE RECORDS SUMMARY | 2025-01-04 16:17 | XMS_ITS | Encounter Summary ---
Author Organization [employer] Address [address] [facility] 7t [place] [address] Care Team Providers Care Section Crews Activities Clerk Name Role Phone Verenice Nixon RITA Primary Care Provider [phone] Encounter Details Date Type Department Care Team (Latest Contact Info) Description 12/16/2024 Travel Social History Tobacco Use Types Packs/Day Years [...] Description 01/15/2025 11:00 AM EST Office Visit [facility] MEDICINE [address] [place] [address] Verenice Nixon NP [address] [place] [address] 02/04/2025 10:30 AM EST Office Visit [facility] OPTOMETRY [address] [place] [address] Tarka, Jo-Ann, OD [address] [place] [address] documented as of this encounter Visit Diagnoses Not on filedocumented in this encounter Additional Health Concerns Assessment Noted Time PHQ-9 Depression Total Score: 0 01/17/20 24 10:02 AM EST documented as of this encounter Care Teams Section Crews Activities Clerk Relationship Specialty Start Date End Date Verenice Nixon NP [address] [place] [address] PCP - General Family Medicine 11/04/23 documented as of this encounter
--- OUTSIDE RECORDS SUMMARY | 2025-01-04 16:17 | XMS_ITS | Encounter Summary ---
Author Organization [employer] Address [address] [place] [address] 7t [place] [address] Care Team Providers Care Study Manager Name Role Phone LanceCarrie Heidi SILVAP Primary Care Provider [phone] Verenice Nixon NP Primary Care Provider [phone] Verenice Nixon NP Primary Care Provider [phone] Encounter Details Date Type Department Care Team (Late st Contact Info) Description 01/02/2023 Orders Only [facility] CH[facility] MED & PEDS [address] [place] [address] Beatriz Castillo LPN Social History Tobacco Use [...] EST Office Visit [facility] MEDICINE [address] [place] [address] Verenice Nixon NP [address] [place] [address] 02/04/2025 10:30 AM EST Office Visit [facility] OPTOMETRY [address] [place] [address] Jo-Ann Hinojosa, OD [address] [place] [address] documented as of this encounter Visit Diagnoses Not on filedocumented in this encounter Care Teams Study Manager Relationship Specialty Start Date End Date Carrie Lucas FNP PCP - General Family Medicine 11/20/21 09/05/23 Verenice Nixon NP [address] [place] [address] PCP - General Family Medicine 09/06/23 11/03/23 Verenice Nixon NP [address] [place] [address] PCP - General Family Medicine 11/04/23 documented as of this encounter
--- OUTSIDE RECORDS SUMMARY | 2025-01-04 16:17 | XMS_ITS | Encounter Summary ---
Author Organization [employer] [facility] Address [address] [place] [address] Care Team Providers Care Commercial Hvac Service Technician Name Role Phone Carrie Lucas FURNACE INSTALLER Primary Care Provider [phone] Verenice Nixon NP Primary Care Provider [phone] Verenice Nixon NP Primary Care Provider [phone] Encounter Details Date Type Department Care Team (Late st Contact Info) Description 12/07/2022 Orders Only [facility] MEDICINE [address] [place] [address] Maria G Jean RN [address] [place] [address] Social History Tobacco Use Types Packs/Day Years [...] 01/15/2025 11:00 AM EST Office Visit [facility] MEDICINE [address] [place] [address] Verenice Nixon NP [address] [place] [address] 02/04/2025 10:30 AM EST Office Visit [facility] OPTOMETRY [address] [place], [place] [phone] Jo-Ann Hinojosa, OD [address] [place] [address] documented as of this encounter Visit Diagnoses Not on filedocumented in this encounter Care Teams Commercial Hvac Service Technician Relationship Specialty Start Date End Date Carrie Lucas FNP PCP - General Family Medicine 11/20/21 09/05/23 Verenice Nixon NP [address] [place] [address] PCP - General Family Medicine 09/06/23 11/03/23 Verenice Nixon NP [address] [place] [address] PCP - General Family Medicine 11/04/23 documented as of this encounter
[2025-01-04 16:55] LABS: Appearance Urine Turbid; Color Urine Yellow; Glucose Urine UA Negative (Negative); Leukocyte Esterase Urine Large (3+) (Negative); Nitrite Urine Positive (Negative); PH 7.5 (5.0-9.0); UMIC TRIGGER UACC YES; Urine Blood Large (3+) (Negative); Urine Ketones 15 mg/dL (Negative); Urine Protein 100 (2+) mg/dL (Neg-Trace)
[2025-01-04 16:57] LABS: Bacteria Urine 4+ (None Seen); UACC Culture Trigger YES; WBC Urine >50 /HPF (0-5)
[2025-01-04] MEDS: cefuroxime axetiL 500 MG TABLET PO (17:39)
[2025-01-04 18:17] VITALS: BP 109/63; PULSE 75; RESP 16; TEMP 36.9; O2SAT 95
[2025-01-04 18:20] VITALS: BP 109/63; PULSE 75; RESP 16; TEMP 36.9; O2SAT 95
== END 2025-01-04 18:22 | disposition home or self-care (01) ==
PROVIDERS: Emergency Provider Emergency Medicine
DX: N39.0 Urinary tract infection, site not specified (principal); R11.2 Nausea with vomiting, unspecified; R10.2 Pelvic and perineal pain; Z03.818 Encounter for observation for suspected exposure to other biological agents ruled out; Z87.440 Personal history of urinary (tract) infections; Z79.899 Other long term (current) drug therapy
CPT/HCPCS: 0241U; 80048; 81001; 83735; 85025; 87086; 87088; 87186; 99283; 99284

== ENCOUNTER 2025-02-11 09:56 | Outpatient (AMB) | payer OTHER, SELFPAY ==
[2025-02-11 09:58] VITALS: BP 136/74; PULSE 69; O2SAT 98; BMI 26.2
--- NOTE | 2025-02-11 09:58 | A.OFFVIS_ITS ---
Vital Signs 02/11/25 09:58 Height 5 ft 3 in Weight 147 lb 11.355 oz BMI 26.2 BP 136/74 Blood Pressure Location Rt brachial Position Sitting Pulse 69 Pulse Source Pulse Oximeter Pulse Oximetry (%) 98 Oxygen Delivery Method Room Air Intake Visit Reasons: Hypercalcemia Intake Note: New patient present today for Hypercalcemia office visit. Mucking Machine Operator Required: Yes Mucking Machine Operator Language: Dye Machine Operator Services: Mucking Machine Operator Present (GSOUND) Mucking Machine Operator Name: Mirtha #[id number] Information Interpreted: clinical only Accompanied by: Self / Same As Patient Allergies No Known Allergies [No Known Allergies*] Allergy (Verified 02/11/25 10:04) Medication List - Last Reconciled 02/11/25 by Martine Hicks MD amlodipine 10 mg PO DAILY ferrous gluconate 324 mg PO Q OTHER DAY lisinopril 30 mg PO DAILY omeprazole 20 mg PO DAILY PRN rosuvastatin 40 mg PO DAILY zolpidem 1 tab PO BEDTIME PRN HPI Comments Details: 64-year-old female coming in today for 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 Chart review shows patient has had elevated calcium levels at least since 2022. Calcium level during 2022 and 2023 ranged anywhere from 10.5-10.8 with albumin level around 4.6, corrected calcium would be 9.9-10.2. Most recently after hydrochlorothiazide was discontinued by Nephrology, calcium level in December and January has come down to 9.8-9.9, no concurrent albumin done. Magnesium level of 1.7 from January 2025. Phosphorus was normal back in July 2020 for a 3.1. Vitamin-D level was 37 back in July 2024, 125 dihydroxy vitamin-D level was also normal at 51 at the same time. PTH level from that time was inappropriately normal at 41.1 with a calcium level of 10.7, consistent with PTH mediated hypercalcemia. No history of kidney stones, renin ultrasound 07/30/2024 did not show any kidney stones. No history of fragility fractures, no DEXA scan done. No 24 hour urine in the system. 11/05/2024: Parathyroid can nuclear medicine showed an asymmetric focal prominence in the inferior pole of the right lobe of the thyroid gland present on both iodine as well as sestamibi images, either representing thyroid nodule versus atypical parathyroid adenoma/intrathyroidal parathyroid adenoma. Vitamin-D intake: 2023 took supplements for a few months , stopped it end of the year Calcium intake: no supplements, Lactaid 1-2 times a month, no yogurt, cheese rarely doesnt really like these Denies any symptoms of hyper calcemia such constipation, brain fog, memory issues. Does report polyuria since 1 year. Has history of IBS and diverticulosis so intermittent abd pain. Family history of kidney stones:none Family history of hypercalcemia:none No history of pituitary tumors No history of GERD/diarrhea. History to evaluate possible thyroid nodule Patient currently denies heat or cold intolerance, , diarrhea or constipation,, palpitation, anxiety, weight changes, mood changes, low energy, changes in appearance of eyes or vision changes, tremors, increased diaphoresis or dry skin. ?Reports some hair loss Patient denies any difficulty swallowing, pain on swallowing or voice changes or difficulty breathing. Patient denies any history of childhood neck radiation. Denies having ever used lithium, amiodarone or biotin supplements. Patient denies any family history of thyroid cancer . sister has thyroid disease. Physical exam General: sitting comfortably in no acute distress HEENT: normocephalic/atraumatic, moist oral mucosa Neck: supple, palpable 1 cm thyroid nodule right side Cardiac: normal heart sounds Pulm: normal breath sounds B/L, no added breath sounds Abd: not distended, no tenderness Extremities: no edema, no signs of myxedema Laboratory Tests 01/12/20 11/03/20 11/04/20 10:15 21:53 05:11 BUN Creatinine Estim Creat Clear Calc Estimated GFR Calcium 9.6 9.0 8.4 D Phosphorus Magnesium Albumin 4.2 4.1 25-OH Vitamin D Total 1,25 Dihydroxy Vit D 1,25 Dihydroxy Vit D2 1,25 Dihydroxy Vit D3 PTH Intact 10/30/23 01/17/24 04/03/24 10:53 10:55 11:24 BUN Creatinine Estim Creat Clear Calc Estimated GFR Calcium 10.5 H D 10.5 H 10.8 H Phosphorus Magnesium Albumin 4.6 4.6 25-OH Vitamin D Total 1,25 Dihydroxy Vit D 1,25 Dihydroxy Vit D2 1,25 Dihydroxy Vit D3 PTH Intact 07/13/24 08/12/24 12/16/24 11:00 14:58 10:47 BUN Creatinine Estim Creat Clear Calc Estimated GFR Calcium 10.7 H 10.5 H 9.8 D Phosphorus 3.1 Magnesium Albumin 25-OH Vitamin D Total 37.0 1,25 Dihydroxy Vit D 51 1,25 Dihydroxy Vit D2 <8 1,25 Dihydroxy Vit D3 51 PTH Intact 41.1 01/04/25 14:17 BUN 14 Creatinine 0.94 Estim Creat Clear Calc 55.0 Estimated GFR > 60 Calcium 9.9 Phosphorus Magnesium 1.7 Albumin 25-OH Vitamin D Total 1,25 Dihydroxy Vit D 1,25 Dihydroxy Vit D2 1,25 Dihydroxy Vit D3 PTH Intact NM PARATHYROID SCAN 11/05/24 CLINICAL INFORMATION: Hypercalcemia. COMPARISON: None available. TECHNIQUE: A double radionuclide study of the thyroid bed region and upper chest in multiple projections was performed 4 hours after the oral administration of 940 microcuries I-123 sodium iodide and immediately following the intravenous administration of 30 mCi Tc-99m sestamibi. Repeat imaging was performed 2 hours later. The iodide images were electronically subtracted from the sestamibi images using different weighting factors. FINDINGS: There is homogeneous uptake of radioiodine throughout both lobes. The thyroid gland appears to be normal in size and shape. Note is made of asymmetric focal prominence at the inferior pole of the right lobe of the thyroid gland. There are no focal areas of increased or diminished uptake. Technetium 99m sestamibi images demonstrate homogeneous thyroid activity. Asymmetric focal prominence of the inferior pole of the right lobe of the thyroid gland is also noted on the sestamibi images. There are no focal areas of increased or decreased Technetium 99m sestamibi activity. Computer-generated digital subtraction images reveal no evidence of excess sestamibi activity. NM/NM parathyroid IMPRESSION: * No definite evidence of excess sestamibi activity suggestive of parathyroid adenoma or hyperplasia. There is homogeneous uptake of radioiodine in the thyroid gland which is also normal in size and shape. * Asymmetric focal prominence at the inferior pole of the right lobe of the thyroid gland is present on both iodine as well as an sestamibi images, likely represent asymmetric variable nodular thyroid tissue versus thyroid nodule. Possibility of atypical parathyroid adenoma/intrathyroidal parathyroid adenoma) may have similar appearance and cannot be absolutely excluded. * Alternative imaging modality including 4D CT scan of the soft tissue neck (with and without contrast) may be considered for further clarification. Electronically signed by: Adalberto Walker MD 11/09/2024 11:59 AM EST RP US RETROPERITONEAL COMPLETE (RENAL) 07/30/24 CLINICAL INFORMATION: Proteinuria. COMPARISON: CT abdomen and pelvis 11/03/2020, ultrasound kidneys 02/07/2023 TECHNIQUE: Real-time imaging of the kidneys and bladder. FINDINGS: RIGHT KIDNEY: 10.3 x 4.0 x 3.8 cm (SAG x AP x TRV). The kidney is normal in size, contour, and echogenicity. Renal cortical thickness is normal. No calculi . Again seen is some mild fullness in the right renal pelvis similar to the prior CT scan without gross hydronephrosis. A benign 1.7 cm Bosniak class II renal cyst with some mural calcification is noted in the lower pole which requires no additional imaging or follow up. Additional benign cysts were seen on the prior CT not appreciated on the current study No solid renal masses are seen.. LEFT KIDNEY: 10.1 x 5.0 x 4.5 cm (SAG x AP x TRV). The kidney is normal in size, contour, and echogenicity. Renal cortical thickness is normal. No calculi or focal parenchymal lesions. No hydronephrosis. US/US renal BI IMPRESSION: No significant abnormality is seen. Stable mild fullness in the right renal pelvis. Electronically signed by: Edilberto Mauricio MD 07/30/2024 11:28 AM EDT RP [facility] Medical History Irritable bowel syndrome with constipation Vaginal irritation UTI (urinary tract infection) History of Helicobacter pylori infection Colon cancer screening Frequent UTI Anemia Diverticulosis Colon cancer screening Hyperlipemia Hypertension Surgical History History of esophagogastroduodenoscopy (EGD) Hx of colonoscopy (09/16/20) History of ovarian cystectomy Hx of hysterectomy Family History Father Parkinson disease HTN (hypertension) Mother HTN (hypertension) Brother Cancer Social History Household Members: Significant Other Housing: Apartment Do you presently have visiting nurse or other home services: No Alcohol intake: current Alcohol intake frequency: holidays/special occasions only Patient Tobacco Use Status: Never used Tobacco Second Hand Smoke Exposure: Yes service: No Current occupational status: employed Sexual orientation: Straight/Heterosexual Gender identity: Female Physical Exam Vital Signs: Last Vital Signs Pulse 69 02/11/25 09:58 BP 136/74 02/11/25 09:58 Pulse Ox 98 02/11/25 09:58 Oxygen Delivery Method Room Air 02/11/25 09:58 BMI result Body Mass Index 26.2 Assessment & Plan Assessment & Plan (1) Hypercalcemia: Code(s): E83.52 - Hypercalcemia Category: Medical Plan: 64-year-old female coming in today for 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 Chart review shows patient has had elevated calcium levels at least since 2022. Calcium level during 2022 and 2023 ranged anywhere from 10.5-10.8 with albumin level around 4.6, corrected calcium would be 9.9-10.2. Most recently after hydrochlorothiazide was discontinued by Nephrology, calcium level in December and January has come down to 9.8-9.9, no concurrent albumin done. Magnesium level of 1.7 from January 2025. Phosphorus was normal back in July 2020 for a 3.1. Vitamin-D level was 37 back in July 2024, 125 dihydroxy vitamin-D level was also normal at 51 at the same time. PTH level from that time was inappropriately normal at 41.1 with a calcium level of 10.7, consistent with PTH mediated hypercalcemia. likely the hydrochlorothiazide and mast a possible primary hyperparathyroidism. calcium levels normal most recently, however we will evaluate with a 24 hour urine collection to see if she has hypercalciuria. No history of kidney stones, renal ultrasound 07/30/2024 did not show any kidney stones. No history of fragility fractures, no DEXA scan done. If no hypercalciuria is present, she possibly has mild primary hyperparathyroidism /normocalcemic hyperPTH that does not meet criteria for surgery. 11/05/2024: Parathyroid can nuclear medicine showed an asymmetric focal prominence in the inferior pole of the right lobe of the thyroid gland present on both iodine as well as sestamibi images, either representing thyroid nodule versus atypical parathyroid adenoma/intrathyroidal parathyroid adenoma. while further imaging is not needed if we are not considering surgery for primary hyperparathyroidism. Since her sestamibi scan did show some increased uptake in the inferior pole of the right lobe of the thyroid, we will obtain ultrasound of the thyroid to evaluate for possible thyroid nodule. I do on my exam feel 1 cm cm right thyroid nodule. Plan: - ordered 24 hour urine calcium, creatinine, BMP, serum calcium, albumin, ionized calcium, PTH, phosphorus - discussed with her that patients with underlying hyperparathyroidism can have bone loss, restart vitamin-D 1000 units daily. We will check level as well - discussed with her that while she should not be taking any calcium supplements, her nutritional intake of calcium is very low, she should try to incorporate at least 2-3 servings of calcium rich foods daily - ordered ultrasound of the thyroid -follow up in 8 weeks to discuss results Plan I spent 45 minutes in reviewing the record, seeing the patient and documenting in the medical record. Orders: Orders Albumin Level Today E83.52 - Hypercalcemia Calcium, Ionized Today E83.52 - Hypercalcemia Phosphorus Today E83.52 - Hypercalcemia Vitamin D 25-OH Total Today E83.52 - Hypercalcemia Calcium, 24 Hr Ur Today E83.52 - Hypercalcemia US thyroid Today E04.1 - Nontoxic single thyroid nodule TSH reflex Free T4 Today E04.1 - Nontoxic single thyroid nodule Calcium Today E83.52 - Hypercalcemia Parathyroid Hormone Intact Today E83.52 - Hypercalcemia Creatinine, 24 Hr Group Today E83.52 - Hypercalcemia Basic Metabolic Panel Today E83.52 - Hypercalcemia Medications: New cholecalciferol (vitamin D3) 25 mcg PO DAILY 30 caps 5RF Patient Instructions: Do 24 hr urine collection and same day as you hand in the urine , do blood work 24 hr urine collection instructions You have been asked to collect your urine for 24 hours to assess for calcium excretion. You must choose a 24 hour period of time when you will be home. The morning of the first day, DISCARD the FIRST morning void and then note the time. You will collect every single void from then on for 24 hours. For example, if you wake up at 6am and urinate, flush down that void. You will then collect every drop of urine all day and all night through 6am the following day. You will urinate one last time at 6am for the collection. The jug of urine must be kept in the refrigerator until you bring it to the lab. Start taking vitamin D 1000 units daily Start incorporating calcium in your diet , 2-3 servings daily of calcium rich foods Do ultrasound of the thyroid, someone will call you to schedule this Follow up in 8 weeks to discuss results Realice greyson recolecci?n de orina de 24 horas y, el mismo d?a que la entregue, realice un an?lisis de cally. Instrucciones para la recolecci?n de orina de 24 horas Se le velasquez solicitado que recolecte orina geovanni 24 horas para evaluar la excreci?n de calcio. Debe elegir un per?odo de 24 horas en el que estar? en casa. La ma?louisa del primer d?a, DESECHE la PRIMERA micci?n de la ma?louisa y anote la hora. Recolectar? cada micci?n a partir de entonces geovanni 24 horas. Por ejemplo, si se despierta a las 6 a. m. y orina, tire de la carty. Rec olectar? cada gota de orina geovanni todo el d?a y toda la noche hasta las 6 a. m. del d?a siguiente. Orinar? por ?ltima vez a las 6 a. m. para la recolecci?n. El recipiente con la orina debe conservarse en el refrigerador hasta que lo lleve al laboratorio. Comience a rkistal 1000 unidades diarias de vitamina D. Comience a incorporar calcio en ridley dieta: 2-3 raciones diarias de alimentos ricos en calcio. Realice greyson ecograf?a de tiroides; le llamar?n para programarla. V?ctima de seguimiento en 8 semanas para analizar los resultados. Coding Level of Care Code New Pt Level 4 (57062) Diagnoses Hypercalcemia E83.52 Time Spent (min) 45
--- OUTSIDE RECORDS SUMMARY | 2025-02-11 12:19 | XMS_ITS | Encounter Summary ---
Author Organization [employer] [facility] Address [address] [place] [address] Care Team Providers Care Phlebotomist Associate Name Role Phone Carrie Lucas Primary Care Provider [phone] Verenice Nixon NP Primary Care Provider [phone] Verenice Nixon NP Primary Care Provider [phone] Reason for Visit * Reason Comments Med Refill Encounter Details Date Type Department Care Team (Late st Contact Info) Description 11/05/2022 Refill [facility] MEDICINE [address] [place] [phone] Carrie Lucas FNP [address] [place] [address] Dept [place] [address] Social History Tobacco Use Types Packs/Day Years [...] Care Team (Late st Contact Info) Description 05/14/2025 10:00 AM EDT Office Visit [facility] MEDICINE [address] [place] [address] Verenice Nixon NP [address] [place], [place] [phone] documented as of this encounter Visit Diagnoses Not on filedocumented in this encounter Care Teams Phlebotomist Associate Relationship Specialty Start Date End Date Carrie Lucas FNP PCP - General Family Medicine 11/20/21 09/05/23 Verenice Nixon NP [address] [place] [address] PCP - General Family Medicine 09/06/23 11/03/23 Verenice Nixon NP [address] [place] [address] PCP - General Family Medicine 11/04/23 documented as of this encounter
--- OUTSIDE RECORDS SUMMARY | 2025-02-11 12:19 | XMS_ITS | Encounter Summary ---
Author Organization [employer] Address [address] [place] [address] [address] [place] [address] Care Team Providers Care Seedling Sorter Name Role Phone Verenice Nixon RITA Primary Care Provider [phone] Reason for Visit * Reason Comments Med Refill Encounter Details Date Type Department Care Team (Late st Contact Info) Description 12/09/2023 Refill [facility] MEDICINE [address] [place] [address] Tamara Siegel MD [address] [place] [address] Primary insomnia Social History Tobacco Use Types [...] Description 05/14/2025 10:00 AM EDT Office Visit [facility] MEDICINE [address] [place] [address] Verenice Nixon NP [address] [place] [address] documented as of this encounter Visit Diagnoses Diagnosis Primary insomnia Persistent disorder of initiating or maintaining sleep documented in this encounter Additional Health Concerns Assessment Noted Time PHQ-9 Depression Total Score: 3 10/30/20 23 9:52 AM EST documented as of this encounter Care Teams Seedling Sorter Relationship Specialty Start Date End Date Verenice Nixon NP [address] [place] [address] PCP - General Family Medicine 11/04/23 documented as of this encounter
--- OUTSIDE RECORDS SUMMARY | 2025-02-11 12:19 | XMS_ITS | Encounter Summary ---
Author Organization [employer] Address [address] [place] [address] [address] [place] [address] Care Team Providers Care Cuff Maker Name Role Phone Verenice Nixon RITA Primary Care Provider [phone] Encounter Details Date Type Department Care Team (Late st Contact Info) Description 02/11/2025 Orders Only GENERIC EXTERNAL DATA DEPARTMENT Provider, [...] Recorded Patient Health Questionnaire-2 Score 0 01/17/2024 Internet Access Answer Date Recorded Internet Access Q1 Yes 01/15/2025 Internet Access Q2 Not on file 01/15/2025 Comments No Sex and Gender Information Value [...] Description 05/14/2025 10:00 AM EDT Office Visit [facility] MEDICINE [address] [place] [address] Verenice Nixon NP [address] [place] [address] Pending Results Name Type Priority Associated Diagnoses Date /Time Basic Metabolic Panel Lab Routine 10:45 AM EDT Phosphate (As Phosphorus) Lab Routine 02/11/2025 10:45 AM EDT Albumin Lab Routine 02/11/2025 10: 45 AM EDT documented as of this encounter Procedures Procedure Name Priority Date/Time Associated Diagnosis Comments PHOSPHATE ( PHOSPHORUS) Routine 02/11/2025 10:45 AM EDT CALCIUM Routine 02/11/2025 10:45 AM EDT ALBUMIN Routine 02/11/2025 10:45 AM EDT BASIC METABOLIC PANEL Routine 02/11/2025 10:45 AM EDT documented in this encounter Results * Calcium (02/11/2025 10:45 AM EDT) Calcium 10.2 8.4 - 10.2 mg/dL [facility] 02/11/2025 10:4 5 AM EDT 02/11/2025 11:32 AM EDT us Generic External Data Provider LAB BLOOD ORDERAB LES Final Result [facility] [address] [place] [phone] [phone] documented in this encounter Visit Diagnoses Not on filedocumented in this encounter Additional Health Concerns Assessment Noted Time PHQ-9 Depression Total Score: 0 01/17/20 24 10:02 AM EST documented as of this encounter Care Teams Cuff Maker Relationship Specialty Start Date End Date Verenice Nixon NP [address] [place] [address] PCP - General Family Medicine 11/04/23 documented as of this encounter
--- OUTSIDE RECORDS SUMMARY | 2025-02-11 12:19 | XMS_ITS | Encounter Summary ---
Author Organization [facility] Address [address] [place] [address] Care Team Providers Care Senior Principal Architect Name Role Phone Carrie Lucas Primary Care Provider [phone] Verenice Nixon NP Primary Care Provider [phone] Verenice Nixon NP Primary Care Provider [phone] Encounter Details Date Type Department Care Team (Late st Contact Info) Description 03/11/[address] [facility] MED & PEDS [address] [place] [address] Beatriz Castillo LPN Social History Tobacco Use [...] Description 05/14/2025 10:00 AM EDT Office Visit [facility] MEDICINE [address] [place] [address] Verenice Nixon NP [address] [place] [address] documented as of this encounter Visit Diagnoses Not on filedocumented in this encounter Care Teams Senior Principal Architect Relationship Specialty Start Date End Date Carrie Lucas FNP PCP - General Family Medicine 11/20/21 09/05/23 Verenice Nixon NP [address] [place] [address] PCP - General Family Medicine 09/06/23 11/03/23 Verenice Nixon NP [address] [place] [address] PCP - General Family Medicine 11/04/23 documented as of this encounter
--- OUTSIDE RECORDS SUMMARY | 2025-02-11 12:19 | XMS_ITS | Clinical Summary ---
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 30 tablet 01/07/20 23 Active rosuvastatin (Crestor) 40 MG tabletIndications :Hyperlipidemia, unspecified hyperlipidemia type TAKE 1 TABLET BY MOUTH EVERY DAY AT NIGHT 90 tablet 1 08/14/20 24 Active lisinopril 30 MG tablet Take 1 tablet by mouth Once per day. 11/18/20 24 Active ferrous gluconate (Fergon) 324 (38 Fe) MG tabletIndications :Anemia, unspecified type TAKE 1 TABLET BY MOUTH EVERY OTHER MORNING WITH VITAMIN C 45 tablet 12/18/19 25 Active zolpidem (Ambien) 10 MG tabletIndications :Primary insomnia TAKE 1 TABLET BY MOUTH EVERYDAY AT BEDTIME DO NOT START BEFORE DECEMBER 20, 2024. 28 tablet 01/20/20 25 Active omeprazole (PriLOSEC) [address] capsule TAKE 1 CAPSULE BY MOUTH EVERY DAY BEFORE A MEAL 90 capsule 1 02/09/20 25 Active omeprazole (PriLOSEC) [address] capsule TAKE 1 CAPSULE BY MOUTH EVERY DAY BEFORE A MEAL 90 capsule 1 09/24/20 24 025 Discontinued amLODIPine (Norvasc) 10 MG tablet TAKE 1 TABLET BY MOUTH EVERY DAY 90 tablet 11/24/20 24 025 Discontinued(D iscontinued by another clinician) zolpidem (Ambien) 10 MG tabletIndications :Primary insomnia TAKE 1 TABLET BY MOUTH EVERYDAY AT BEDTIME Do not start before December 20, 2024. 28 tablet 12/20/19 25 025 Discontinued Active Problems Problem Noted Date Diagnosed Date Screening for colon cancer 02/08/2025 Assessment & Plan (02/08/2025 1:41 PM EDT): -patient agreeable to screening with cologuard -counseled on 13% false positive and 8% false negative rate and is aware that if the test is positive a diagnostic colonoscopy should be pursued within 3-6 months. -patient informed of need to repeat test in 3 years if negative result -cologuard order placed Pain in both lower extremities 06/23/2024 Assessment & Plan (02/08/2025 1:40 PM EDT): -following with vascular -has started using compression stockings and is scheduled for US Assessment & Plan (10/15/2024 12:38 PM EST): [...] stocking. encouraged to purchase a pair from medical supply [employer] as [facility] will not cover -consider venous US [...] Primary insomnia 10/30/2023 10/30/2023 Assessment & Plan (02/08/2025 1:39 PM EDT): Med refill for Zolpidem 10 mg provided per patient request Assessment & Plan (10/31/2023 4:36 PM EST): [...] glucose 10/02/2017 Hypertension 07/29/2012 Assessment & Plan (02/08/2025 1:38 PM EDT): -stable at this time; notable slight increase since discontinuing hydrochlorothiazide secondary to elevated Ca levels -continue current med regimen with lisinopril 30 mg -continue home monitoring -diet and lifestyle modifications reviewed -following with renal for microalbuminuria -plan to discuss initiation of Aspirin for primary prevention at next visit Assessment & Plan (10/15/2024 12:41 PM EST): [...] Encounters Date Type Department Care Team Description 02/11/2025 Orders Only GENERIC EXTERNAL DATA DEPARTMENT Provider, Generic External Data 02/09/2025 Telephone [facility] MEDICINE [address] [place] [phone] Eugenia Mathur MA follow up appointment scheduled 02/08/2025 Telephone [facility] MEDICINE [address] [place] [phone] Verenice Nixon NP 02/07/2025 Refill [facility] MEDICINE [address] [place] [phone] Verenice Nixon NP 02/04/2025 10:30 AM EST Office Visit [facility] OPTOMETRY [address] [place] [address] Tarka, Jo-Ann, OD 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); Presbyopia 02/04/2025 Travel 01/19/2025 Refill [facility] MEDICINE [address] [place] [address] Verenice Nixon NP Primary insomnia 01/15/2025 11:00 AM EST Office Visit [facility] MEDICINE [address] [place] [phone] Verenice Nixon NP Encounter for immunization 01/05/2025 Telephone [facility] MEDICINE [address] [place] [phone] Eugenia Mathur MA chartprep 01/04/2025 Orders Only GENERIC EXTERNAL DATA DEPARTMENT Provider, Generic External Data 12/18/2024 Refill [facility] MEDICINE [address] [place] [address] Verenice Nixon NP Anemia, unspecified type 12/16/2024 9:45 AM EST Office Visit [facility] [address] [facility] [place] [address] Verenice Nixon NP Primary hypertension (Primary Dx); Anemia, unspecified type; Primary insomnia; Screening for colon cancer; Pain in both lower extremities 12/16/2024 Travel 12/10/2024 Telephone [facility] MEDICINE [address] [place] [address] Kevan Eugenia [place] chartprep 11/24/2024 Refill [facility] MEDICINE [address] [place] [address] Verenice Nixon NP 11/18/2024 Refill [facility] MEDICINE [address] [place] [address] Verenice Nixon NP Primary insomnia from Last 3 Months Immunizations Name Administration Dates Next Due Hep A, Adult 11/01/2008,02/20/2007 Hep B, adult 07/07/2008,05/21/2007,02/20/2007 Influenza injectable quadriv alent preservative free 10/30/2023,10/02/2017 Influenza, IIV3, injectable 09/06/2014 Influenza, Split (incl. oz fied surface antigen) 07/29/2012 Pneumococcal Conjugate PCV 20 01/15/2025 Tdap 12/16/2024,07/29/2012 Zoster, Recombinant 07/09/2022,04/19/2022 Family History [...] Sign Reading Time Taken Comments Blood Pressure 122/71 01/15/2025 11:03 AM EST Pulse 70 01/15/2025 11:03 AM EST Temperature 36.9 ??C (98.5 ??F) 01/15/2025 11:[address] Respiratory Rate 16 01/15/2025 11:03 AM EST Oxygen Saturation 98% 01/15/2025 11:03 AM EST Inhaled Oxygen Concentration - - Weight 65 kg (143 lb 6.4 oz) 01/15/2025 11:03 AM EST Height 160 cm (5' 3 ) 01/15/2025 11:03 AM EST Body Mass Index 25.4 01/15/2025 11:03 AM EST Plan of Treatment Upcoming Encounters Date Type Department Care Team (Late st Contact Info) Description 05/14/2025 10:00 AM EDT Office Visit [facility] MEDICINE [address] [place] [address] Verenice Nixon NP [address] [place], [place] [phone] Health Maintenance Due Date Last Done Comments CT Colonography 1960 Colonoscopy 1960 FIT 1960 FOBT 1960 Sigmoidoscopy 1960 COVID-19 Vaccine ( season) 2024 01/29/2022, 01/19/2021, 12/29/2020 Influenza Vaccine (#1) 2024 , 10/02/2017, 09/06/2014, Additional history exists Depression Screening 01/17/2025 01/17/2024, 01/17/20 Alcohol/Substance Use Screening 12/16/2025 12/16/2024 SDOH Screening 01/15/2026 01/15/2025 Tobacco Screening 02/04/2026 02/04/2025 Mammogram 09/24/2026 09/24/2024, 09/01, 09/13/2022, Additional history exists Colorectal Cancer Screening 12/29/2027 FIT DNA/Cologuard 12/29/2027 12/29/2024 Lipid Panel 12/16/2029 12/16/2024, 01/02, 10/30/2023, Additional [...] Completed 10/30/2023 Hepatitis C Screening Completed 10/30/2023 Pneumococcal Vaccine: 50+ Years Completed 01/15/2025 HIB Vaccines Aged Out No longer eligi [...] Procedure Name Priority Date/Time Associated Diagnosis Comments ALBUMIN Routine 02/11/2025 10:45 AM EDT PHOSPHATE ( PHOSPHORUS) Routine 02/11/2025 10:45 AM EDT BASIC METABOLIC PANEL Routine 02/11/2025 10:45 AM EDT CALCIUM Routine 02/11/2025 10:45 AM EDT URINALYSIS, COMPLETE, WITH REFLEX TO CULTURE Routine 01/04/2025 4:48 PM EST CULTURE, URINE, ROUTINE Routine 01/04/2025 4:48 PM EST SARS COV2/INFLUENZA A/B AND RSV RNA QL NAAT Routine 01/04/2025 2:17 PM EST LAB COLOGUARD?? COLON CANCER SCREEN Routine 12/29/2024 4:40 PM EST Screening for colon cancer CBC WITH AUTO DIFFERENTIAL Routine 12/16/2024 10:47 AM EST Anemia, unspecified type BASIC METABOLIC PANEL Routine 12/16/2024 10:47 AM EST Primary hypertension LIPID PANEL, STANDARD Routine 12/16/2024 10:47 AM EST Primary hypertension VASC US LOWER EXTREMITY VENOUS INSUFFICIENCY BILATERAL Routine 12/03/2024 10:47 AM EST BI MAMMOGRAM SCREENING TOMOSYNTHESIS BILATERAL Routine 09/24/2024 11:00 AM EDT HEPATITIS C AB W/REFL TO HCV RNA, QN, PCR Routine 10/30/2023 10:53 AM EST Routine adult health maintenance HIV 1/2 ANTIGEN/ANTIBODY, FOURTH GENERATION W/RFL Routine 10/30/2023 10:53 AM EST Routine adult health maintenance from Last 3 Months or Most Recently Relevant to Health Maintenance Results * Calcium (02/11/2025 10:45 AM EDT) Calcium 10.2 8.4 - 10.2 mg/dL [facility] 02/11/2025 10:4 5 AM EDT 02/11/2025 11:32 AM EDT us Generic External Data Provider LAB BLOOD ORDERAB LES Final Result [facility] [address] [place] [phone] * (ABNORMAL) Urinalysis, Complete, with Reflex to Culture (01/04/2025 4:48 PM EST) Color Urine Yellow [facility] Appearance Urine Turbid [facility] PH 7.5 5.0 - 9.0 [facility] Glucose Urine UA Negative Negative mg/dL [facility] Urine Blood Large (3+)(A) Negative [facility] Specific [place] - Urine 1.010 1.005 - 1.025 [facility] Urine Protein 100 (2+)(A) Neg-Trace mg/dL [facility] Urine Ketones 15 Negative mg/dL [facility] Nitrite Urine Positive(A) Negative [facility] Leukocyte Esterase Urine Large (3+)(A) Negative [facility] RBC Urine 11-20(A) 0 - 2 /HPF [facility] Urine WBC >50(A) 0 - 5 /HPF [facility] Urine Squamous Epithelial Cell 3-5 0 - 2 /HPF [facility] Urine Bacteria 4+ None Seen [facility] Hyaline Casts, Urine 3-5 0 - 2 /LPF [facility] 01/04/2025 4:48 PM EST 01/04/2025 4:50 PM EST Narrative [facility] - 01/04/2025 5:07 PM EST Urine, Clean Catch Generic External Data Provider LAB URINE ORDERAB LES Final Result Performing Organization Address [facility] de Phone Number [facility] [address] [place] [phone] * Culture, Urine, Routine (01/04/2025 4:48 PM EST) Urine Urine specimen obtained by clean catch procedure / Unknown 01/04/2025 4:48 PM EST 01/04/2025 5:17 PM EST Comment:[facility] Narrative [facility] - 01/06/2025 7:49 AM EST Escherichia coli Quant > 100,000 cfu/mL Escherichia coli: Ampicillin 16(I) Escherichia coli: Cefazolin (Urine) <=1(S) Escherichia coli: Cefepime <=0.12(S) Escherichia coli: Ceftriaxone <=0.25(S) Escherichia coli: Ciprofloxacin >=4(R) Escherichia coli: Gentamicin <=1(S) Escherichia coli: Nitrofurantoin <=16(S) Escherichia coli: Trimethoprim/Sulfamethoxazole >=320(R) Specimen Source: Urine clean catch Generic External Data Provider LAB MICROBIOLOGY - GENERAL ORDERABLES Final Result Performing Organization Address [facility] Phone Number [facility] [address] [place] [phone] * SARS-CoV-2 RNA, Influenza A/B, and RSV RNA, Ql NAAT (01/04/2025 2:17 PM EST) Influenza A PCR NEGATIVE Negative [facility] Influenza B PCR NEGATIVE Negative [facility] Resp Syncy Virus RNA Qual PCR NEGATIVE Negative [facility] SARS COV2 PCR NEGATIVE Negative [facility] Comment:All test results mus [...] use by authorized laboratories.Testing performed on the [employer] GeneXpert utilizingreal-time RT-PCR.All SARS CoV2 and positive influenza A/B results arereported to [facility]. 01/04/2025 2:17 PM EST 01/04/2025 2:20 PM EST us Generic External Data Provider LAB MICROBIOLOGY - GENERAL ORDERABLES Final Result [facility] [address] [place] [phone] * Cologuard?? colon cancer screening (12/29/2024 4:40 PM EST) Cologuard Result Negative Negative 01/06/20 8:01 PM EST [facility] (CLIA #:[id number]) Comment: NEGATIVE TEST RESULT. A negative Cologuard result indicates a low likelihood that a colorectal cancer (CRC) or advanced adenoma (adenomatous polyps with more advanced pre-malignant features) ??is present. The chance that a person with a negative Cologuard test has a colorectal cancer is less than 1 in 1500 (negative predictive value >99.9%) or has an ??advanced adenoma is less than ??5.3% (negative predictive value 94.7%). These data are based on a prospective cross-sectional study of 10,000 individuals at average risk for colorectal cancer who were screened with both Cologuard and colonoscopy. (Vinod Robles. roverto al, N Engl J Med 2014;370(14):1286- 1297) The normal value (reference range) for this assay is negative. COLOGUARD RE-SCREENING RECOMMENDATION: Periodic colorectal cancer screening is an important part of preventive healthcare for asymptomatic individuals at average risk for colorectal cancer. ??Following a negative Cologuard result, the [place] [employer] and U.S. Multi-Society Task Force screening guidelines recommend a Cologuard re-screening interval of 3 years. References: [place] [employer] Guideline for Colorectal Cancer Screening: https://www.cancer.org/cancer/dknos-ypwtsx-gakvhg/hrgwfeihv-csjeyvmzt-mkhtkya/ac s-rec ommendations.html.; Arun VILLALOBOS, Jocelin ORONA, Cheikh VelázquezK, Colorectal Cancer Screening: Recommendations for Physicians and Patients from the U.S. Multi-Society Task Force on Colorectal Cancer Screening , Am J Gastroenterology 2017; 112:2138-4259. TEST DESCRIPTION: Composite algorithmic analysis of stool DNA-biomarkers with hemoglobin immunoassay. ?? Quantitative values of individual biomarkers are not reportable and are not associated with individual biomarker result reference ranges. Cologuard is intended for colorectal cancer screening of adults of either sex, 45 years or older, who are at average-risk for colorectal cancer (CRC). Cologuard has been approved for use by the U.S. FDA. The performance of Cologuard was established in a cross sectional study of average-risk adults aged 50-84. Cologuard performance in patients ages 45 to 49 years was estimated by sub-group analysis of near-age groups. Colonoscopies performed for a positive result may find as the most clinically significant lesion: colorectal cancer [4.0%], advanced adenoma (including sessile serrated polyps greater than or equal to 1cm diameter) [20%] or non- advanced adenoma [31%]; or no colorectal neoplasia [45%]. These estimates are derived from a prospective cross-sectional screening study of 10,000 individuals at average risk for colorectal cancer who were screened with both Cologuard and colonoscopy. (Vinod Malcolm, N Engl J Med 2014;370(14):1250-6123.) Cologuard may produce a false negative or false positive result (no colorectal cancer or precancerous polyp present at colonoscopy follow up). A negative Cologuard test result does not guarantee the absence of CRC or advanced adenoma (pre-cancer). The current Cologuard screening interval is every 3 years. ([place] [employer] and U.S. Multi-Society Task Force). Cologuard performance data in a 10,000 patient pivotal study using colonoscopy as the reference method can be accessed at the following location: www.wmbly/results. Additional description of the Cologuard test process, warnings and precautions can be found at www.cologuard.com. Stool specimen (specimen) 12/29/2024 4:40 PM EST 12/31/2024 1:15 PM EST Verenice Lucio [employer] LAB MOLECULAR DIAGNOSTICS ORDER [place]ALDEMAR Final Result [facility] (CLIA #:[id number]) [place] [place] [address], * (ABNORMAL) CBC auto differential (12/16/2024 10:47 AM EST) White Blood Count 9.9 4.8 - 10.8 X10*3/uL [facility] Red Blood Count 4.15(L) 4.20 - 5.50 X10*6/uL [facility] Hemoglobin 11.8(L) 12.0 - 16.0 g/dl [facility] Hematocrit 35.3(L) 37.0 - 47.0 % [facility] Mean Corpuscular Volume 85.1 80.0 - 98.0 fL [facility] Mean Corpuscular Hemoglobin 28.4 27.0 - 33.0 pg [facility] Mean Corpuscular HGB Conc 33.4 31.0 - 35.0 g/dl [facility] Red Cell Distribution Width 14.5 11.0 - 16.0 % [facility] Platelet Count 260 160 - 400 X10*3/uL [facility] Mean Platelet Volume 11.2 9.4 - 12.3 fL [facility] Neutrophils Percent Auto 60.6 45 - 73 % [facility] Imm Gran Pct Auto 0.4 0.0 - 0.4 % [facility] Lymphocytes Percent Auto 26.5 20 - 40 % [facility] Monocytes Percent Auto 7.4 2 - 11 % [facility] Eosinophils Percent Auto 4.4(H) 0 - 4 % [facility] Basophils Percent Auto 0.7 0 - 2 % [facility] NRBC Pct Auto 0.0 0.0 - 0.2 /100WBC [facility] Neutrophils Absolute Auto 6.0 2.0 - 8.3 x10*3/uL [facility] Imm Gran Abs Auto 0.04(H) 0.00 - 0.03 X10*3/uL [facility] Lymphocytes Absolute Auto 2.6 1.2 - 4.9 X10*3/uL [facility] Monocytes Absolute Auto 0.7 0.1 - 1.2 X10*3/uL [facility] Eosinophils Absolute Auto 0.4 0.0 - 0.4 X10*3/uL [facility] Basophils Absolute Auto 0.1 0.0 - 0.2 X10*3/uL [facility] NRBC Abs Auto 0.000 0.0 - 0.012 X10*3/uL [facility] Blood Venous blood specimen / Unknown 12/16/2024 10:47 AM EST 12/16/2024 1:05 PM EST us Verenice Nixon [employer] LAB BLOOD ORDERABLES Final Resu lt [facility] [address] [place] [phone] * (ABNORMAL) Lipid Panel, Standard (12/16/2024 10:47 AM EST) Triglycerides 112 <150 mg/dL [facility] Comment:Desirable Triglyceri de: less than 150 mg/dLBorderline High Triglyceride 150-199 mg/dLHigh Triglyceride: 200-499 mg/dLVery High Triglyceride: greater than or equal to 5OO mg/dL Cholesterol 198 <200 mg/dL [facility] Comment:Desirable Cholestero l: less than 200 mg/dLBorderline High Cholesterol: 200-239 mg/dLHigh Cholesterol: greater than 239 mg/dL LDL Cholesterol Calculated 119(H) <100 mg/dL [facility] Comment:Desirable LDL: less than 100 mg/dLNear Optimal/Above Optimal LDL: 110- 129 mg/dLBorderline High LDL: 130-159 mg/dLHigh LDL: 160-189 mg/dLVery High LDL: greater than or equal to 190 mg/dL HDL Cholesterol 57 >40 mg/dL [facility] Comment:Desirable HDL: great er than 40 mg/dL Note: This HDL assay may give artificially low results in patients with liver disease. Blood Venous blood specimen / Unknown 12/16/2024 10:47 AM EST 12/16/2024 1:05 PM EST Verenice Nixon [employer] LAB BLOOD ORDERABLES Final Resu lt [facility] [address] [place] [phone] * (ABNORMAL) Basic Metabolic Panel (12/16/2024 10:47 AM EST) Sodium 142 135 - 145 mmol/L [facility] Potassium 3.8 3.3 - 5.1 mmol/L [facility] Chloride 109(H) 96 - 108 mmol/L [facility] Carbon Dioxide 24 22 - 29 mmol/L [facility] Anion Gap 13 12 - 20 [facility] Urea Nitrogen (BUN) 13 9 - 16 mg/dL [facility] Creatinine, Serum 0.81 0.5 - 1.4 mg/dL [facility] Estimated Glomerular Filt Rate >60 [facility] Comment:Chronic Kidney Disea se: Estimated GFR < 60 mL/min/1.40k0Slchyi Kidney Disease: Estimated GFR < 15 mL/min/1.73m2 Glucose 97 60 - 115 mg/dL [facility] Calcium 9.8 8.4 - 10.2 mg/dL [facility] Blood Venous blood specimen / Unknown 12/16/2024 10:47 AM EST 12/16/2024 1:05 PM EST us Verenice Nixon [employer] LAB BLOOD ORDERABLES Final Resu lt [facility] [address] [facility] [place] [address] [phone] * VASC US Lower Extremity Venous Insufficiency Bilateral (12/03/2024 10:47 AM EST) 12/03/2024 10:4 7 AM EST Narrative [facility] - 12/09/2024 9:13 AM EST ? [facility] ?[address] ?[place] [address] ? Ultrasound Report ? Signed ? Patient: Metzger,Neha ?MR#: [id number] ? : 1960 ?Acct:[id number] ? Age/Sex: 64 / F ?ADM Date: 12/03/24 ? Loc: HO.US ? Attending Dr: Ngozi Cates PA-C ? Ordering Physician: Ngozi Cates PA-C ?? Date of Service: 12/03/24 ?? Procedure(s): US venous insuf bilat ?? Accession Number(s): [id number] ? cc: Verenice Nixon; Ngozi Cates PA-C [...] DD/ 1047 ? TD/TT: 12/03/24 1139 ? Ballaster: ? Procedure Note Javier Villalba - 12/09/[address] [address] Ultrasound Report Signed Patient: Jerome Metzger#: [id number] : 1960cct:[id number] Age/Sex: 64 / FADM Date: 12/03/24 Loc: . Attending Dr: Ngozi Cates PA-C Ordering Physician: Ngozi Cates PA-C Date of Service: 12/03/24 Procedure(s): US venous insuf bilat Accession Number(s): [id number] cc: Verenice Nixon; Ngozi Cates PA-C EXAMINATION: [...] by: Emerson Manuel MD 12/09/2024 09:11 AM [facility] Dictated By: Emerson Sahu MD Signed By: <Electronically signed by Emerson Britton MDin OV> 12/09/24 0911 DD/ 1047 TD/TT: 12/03/24 1139 Ball[place]: us [facility] External Provider CV VASC ULAR PROCEDURES Edited Result - Final [facility] [address] [place] [address] * BI Mammogram Screening Tomosynthesis Bilateral (09/24/2024 11:00 AM EDT) Anatomical Region Laterality Modality Breast Bilateral Mammography 09/24/2024 11:0 0 AM EDT Narrative 10/03/2024 10:33 AM EDT ? [facility] ? [address] ?[place] [address] ? Mammography Report ? Signed ? Patient: Metzger,Neha ?MR#: [id number] ? : 1960 ?Acct:[id number] ? Age/Sex: 64 / F ?ADM Date: 09/24/24 ? Loc: HO.MAMMO ? Attending Dr: Verenice Nixon ? Ordering Physician: Verenice Nixon ?Results: 1Negative ? Date of Service: 09/24/24 ?Follow Up: 1 Year From Orig ?? inal Mammogram ? Procedure(s): MM tomosynthesis screening BI ?? Accession Number(s): [id number] ? cc: Verenice Nixon ? EXAMINATION: ?? [...] ??Sole Major DO ??10/03/2024 10:30 AM EDT ? Dictated By: ?Sole Major DO ? Signed By: ?<Electronically signed by Sole Major, DO in OV> ? 10/03/24 1030 ? DD/ 1100 ? TD/TT: 09/24/24 1118 ? Ballaster: ? Procedure Note Deejay, Image - 10/03/2024 [facility] [address] [place] [address] Mammography Report Signed Patient: Jerome Metzger#: [id number] : 1Acct:[id number] Age/Sex: 64 / FADM Date: 09/24/24 Loc: SEAN Attending Dr: Verenice Nixon Ordering Physician: Verenice NixonResults: 1Negative Date of Service: 09/24/24Follow Up: 1 Year From Orig inal Mammogram Procedure(s): MM tomosynthesis screening BI Accession Number(s): [id number] cc: Verenice Nixon EXAMINATION: MM SCREENING DIGITAL [...] 10/03/24 1030 DD/ 1100 TD/TT: 09/24/24 1118 Ball[place]: Verenice Nixon NP IMG BI PROCEDURES Final Result * Hepatitis C Antibody with Reflex to HCV, RNA, Quantitative, Real-Time PCR (10/30/2023 10:53 AM EST) Hepatitis C Antibody Nonreactive Nonreactive [facility] Comment:Antibodies to HCV no t detected; does not exclude early acuteHCV infection. Blood Venous blood specimen / Unknown 10/30/2023 10:53 AM EST 10/30/2023 11:19 AM EST us Tamara Siegel MD LAB BLOOD ORDERABLES Final Re sult [facility] [address] [place] [phone] * HIV-1/2 Antigen and Antibodies, Fourth Generation, with Reflexes (10/30/2023 10:53 AM EST) HIV AB/AG Nonreactive Nonreactive [facility] Comment:HIV-1 p24 Ag and/or HIV-1/HIV-2 Ab not detected.A test result that is nonreactive does not exclude thepossibility of exposure to or infection with HIV-1 and/orHIV-2. Nonreactive results in this assay for individualswith prior exposure to HIV-1 and/or HIV-2 may be due toantigen and antibody levels that are below the limit ofdetection of this assay.The [employer] HIV Ag/Ab Combo assay result andsupplemental assay results should be interpreted inconjunction with the patient's clinical presentation,history and other laboratory results. If the results areinconsistent with clinical evidence, additional testing issuggested to confirm the result. 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
--- OUTSIDE RECORDS SUMMARY | 2025-02-11 12:19 | XMS_ITS | Encounter Summary ---
Author Organization [employer] Address [address] [place] [address] 7t [place] [address] Care Team Providers Care Parcel Post Truck Driver Name Role Phone Verenice Nixon NP Primary Care Provider [phone] Reason for Visit * Reason Onset Date Comments Med Refill 02/19/2024 Encounter Details Date Type Department Care Team ([facility] st Contact Info) Description 02/19/2024 Telephone [facility] MEDICINE [address] [place], [place] [phone] Verenice Nixon NP [address] [place], [place] [id number] Med Refill Social History Tobacco Use Types [...] 1:45 PM EDT Medication was sent to [id number] on 01/23/24 90 day supply. * Telephone Encounter - Harlan Colon - 02/19/2024 1:39 PM EDT TC from pt requesting medication refill. Medications needing refill : rosuvastatin (Crestor) 40 MG tablet To be sent to: [facility]/pharmacy #[id number] - [place], [place] - [address] [place] [address] documented in this encounter Plan of Treatment Upcoming Encounters Date Type Department Care Team (Late st Contact Info) Description 05/14/2025 10:00 AM EDT Office Visit [facility] MEDICINE [address] [place] [address] Verenice Nixon NP [address] [place] [address] documented as of this encounter Visit Diagnoses Not on filedocumented in this encounter Additional Health Concerns Assessment Noted Time PHQ-9 Depression Total Score: 0 01/17/20 24 10:02 AM EST documented as of this encounter Care Teams Parcel Post Truck Driver Relationship Specialty Start Date End Date Verenice Nixon NP [address] [place] [address] PCP - General Family Medicine 11/04/23 documented as of this encounter
--- OUTSIDE RECORDS SUMMARY | 2025-02-11 12:19 | XMS_ITS | Encounter Summary ---
Author Organization [employer] Address [address] [place] [address] 7t [place] [address] Care Team Providers Care Medical Records Director Name Role Phone Verenice Nixon NP Primary Care Provider [phone] Encounter Details Date Type Department Care Team ([facility] st Contact Info) Description 02/08/2025 Telephone [facility] MEDICINE [address] [place] [address] Verenice Nixon NP [address] [place] [address] Social History Tobacco Use Types Packs/Day Years [...] encounter Miscellaneous Notes * Telephone Encounter - Ngozi Vital RN - 02/08/2025 2:55 PM EDT T/C to pt via [employer] Pilot Boat Operator [employer] #[id number] to advise of message from PCP re: lab results. No answer,v/m left to return call to [place] team nurses. * Telephone Encounter - Ngozi Vital RN - 02/08/2025 2:50 PM EDT ----- Message from Verenice Nixon sent at 02/08/2025 1:47 PM EDT ----- Please inform patient of lab results that are within acceptable range with exception of mild anemialikely due to iron deficiency. Advise increased dietary sources. Inform if improvement in lipid levels and encouraged continued low fat diet. Thanks documented in this encounter Plan of Treatment Upcoming Encounters Date Type Department Care Team (Late st Contact Info) Description 05/14/2025 10:00 AM EDT Office Visit [facility] MEDICINE [address] [place] [address] Vreenice Nixon NP [address] [place] [address] documented as of this encounter Visit Diagnoses Not on filedocumented in this encounter Additional Health Concerns Assessment Noted Time PHQ-9 Depression Total Score: 0 01/17/20 24 10:02 AM EST documented as of this encounter Care Teams Medical Records Director Relationship Specialty Start Date End Date Verenice Nixon NP [address] [place] [address] PCP - General Family Medicine 11/04/23 documented as of this encounter
--- OUTSIDE RECORDS SUMMARY | 2025-02-11 12:19 | XMS_ITS | Encounter Summary ---
Author Organization [employer] Address [address] [place] [address] 7 [place] [address] Care Team Providers Care Skiagrapher Name Role Phone NaveedVerenice todd RITA Primary Care Provider [phone] Reason for Visit * Reason Onset Date Comments follow up appointment scheduled 02/09/2025 Encounter Details Date Type Department Care Team ([facility] st Contact Info) Description 02/09/2025 Telephone [facility] MEDICINE [address] [place] [address] Eugenia Mathur MA follow up appointment scheduled Social History Tobacco Use Types Packs/Day Years [...] Telephone Encounter - Eugenia Mathur MA - 02/09/2025 9:34 AM EDT T/C placed spoke with pt, pt agreed to come in on 05/14/25 @ 10:00pm for follow up visit. Reminder will be sent. documented in this encounter Plan of Treatment Upcoming Encounters Date Type Department Care Team (Late st Contact Info) Description 05/14/2025 10:00 AM EDT Office Visit [facility] MEDICINE [address] [place] [address] Verenice Nixon NP [address] [place] [address] documented as of this encounter Visit Diagnoses Not on filedocumented in this encounter Additional Health Concerns Assessment Noted Time PHQ-9 Depression Total Score: 0 01/17/20 24 10:02 AM EST documented as of this encounter Care Teams Skiagrapher Relationship Specialty Start Date End Date Verenice Nixon NP [address] [place] [address] PCP - General Family Medicine 11/04/23 documented as of this encounter
--- OUTSIDE RECORDS SUMMARY | 2025-02-11 12:19 | XMS_ITS | Encounter Summary ---
Author Organization [employer] Address [address] [facility] [address] [facility] 7t [place] [address] Care Team Providers Care Small Business Sales Representative Name Role Phone Verenice Nixon RITA Primary Care Provider [phone] Encounter Details Date Type Department Care Team (Latest Contact Info) Description 02/04/2025 Travel Social History Tobacco Use Types Packs/Day [...] 05/14/2025 10:00 AM EDT Office [facility] MEDICINE [address] [place] [address] Verenice Nixon NP [address] [place] [address] documented as of this encounter Visit Diagnoses Not on filedocumented in this encounter Additional Health Concerns Assessment Noted Time PHQ-9 Depression Total Score: 0 01/17/20 24 10:02 AM EST documented as of this encounter Care Teams Small Business Sales Representative Relationship Specialty Start Date End Date Verenice Nixon NP [address] [place] [address] PCP - General Family Medicine 11/04/23 documented as of this encounter
--- OUTSIDE RECORDS SUMMARY | 2025-02-11 12:19 | XMS_ITS | Encounter Summary ---
Author Organization [employer] Address [address] [place] [address] 7 [place] [address] Care Team Providers Care Concert Singer Name Role Phone Verenice Nixon NP Primary Care Provider [phone] Reason for Visit * Reason Comments Follow-up Encounter Details Date Type Department Care Team ([facility] st Contact Info) Description 01/15/2025 11:00 AM EST Office Visit [facility] MEDICINE [address] [place] [address] Verenice Nixon NP [address] [place] [address] Encounter for immunization Social History Tobacco Use Types Packs/Day Years [...] Mass Index 25.4 01/15/2025 11:03 AM EST documented in this encounter Plan of Treatment Upcoming Encounters Date Type Department Care Team (Late st Contact Info) Description 05/14/2025 10:00 AM EDT Office Visit [facility] MEDICINE [address] [place] [address] Verenice Nixon NP [address] [place] [address] documented as of this encounter Visit Diagnoses Diagnosis Encounter for immunization documented in this encounter Additional Health Concerns Assessment Noted Time PHQ-9 Depression Total Score: 0 01/17/20 24 10:02 AM EST documented as of this encounter Care Teams Concert Singer Relationship Specialty Start Date End Date Verenice Nixon NP [address] [place] [address] PCP - General Family Medicine 11/04/23 documented as of this encounter
--- OUTSIDE RECORDS SUMMARY | 2025-02-11 12:19 | XMS_ITS | Encounter Summary ---
Author Organization [employer] [facility] Address [address] [place] [address] Care Team Providers Care Refractory Repairer Name Role Phone Carrie Lucas Primary Care Provider [phone] Verenice Nixon NP Primary Care Provider [phone] Verenice Nixon NP Primary Care Provider [phone] Encounter Details Date Type Department Care Team (Late st Contact Info) Description 01/02/2023 Orders Only [facility] CHC MED & PEDS [address] [place] [address] Beatriz Castillo LPN Social History Tobacco Use [...] Description 05/14/2025 10:00 AM EDT Office Visit [facility] MEDICINE [address] [place] [address] Verenice Nixon NP [address] [place] [address] documented as of this encounter Visit Diagnoses Not on filedocumented in this encounter Care Teams Refractory Repairer Relationship Specialty Start Date End Date Carrie Lucas FNP PCP - General Family Medicine 11/20/21 09/05/23 Verenice Nixon NP [address] [place] [address] PCP - General Family Medicine 09/06/23 11/03/23 Verenice Nixon NP [address] [place] [address] PCP - General Family Medicine 11/04/23 documented as of this encounter
--- OUTSIDE RECORDS SUMMARY | 2025-02-11 12:19 | XMS_ITS | Encounter Summary ---
Author Organization [facility] [facility] Address [address] [place] [address] Care Team Providers Care Cardroom Attendant Name Role Phone Carrie Lucas Primary Care Provider [phone] Verenice Nixon NP Primary Care Provider [phone] Verenice Nixon NP Primary Care Provider [phone] Encounter Details Date Type Department Care Team (Late st Contact Info) Description 04/02/2023 Orders Only [facility] CHC MED & PEDS [address] [place] [address] Beatriz Castillo LPN Social History Tobacco Use [...] Description 05/14/2025 10:00 AM EDT Office Visit [facility] MEDICINE [address] [place] [address] Verenice Nixon NP [address] [place] [address] documented as of this encounter Visit Diagnoses Not on filedocumented in this encounter Care Teams Cardroom Attendant Relationship Specialty Start Date End Date Carrie Lucas FNP PCP - General Family Medicine 11/20/21 09/05/23 Verenice Nixon NP [address] [place] [address] PCP - General Family Medicine 09/06/23 11/03/23 Verenice Nixon NP [address] [place] [address] PCP - General Family Medicine 11/04/23 documented as of this encounter
--- OUTSIDE RECORDS SUMMARY | 2025-02-11 12:19 | XMS_ITS | Encounter Summary ---
Author Organization [employer] Address [address] [place] [address] 7t [place] [address] Care Team Providers Care Shadow Graph Weight Operator Name Role Phone Verenice Nixon NP Primary Care Provider [phone] Reason for Visit * Reason Comments Med Refill Encounter Details Date Type Department Care Team (Late st Contact Info) Description 01/19/[address] [facility] MEDICINE [address] [place] [address] Verenice Nixon NP [address] [place] [address] Primary insomnia Social History Tobacco Use Types [...] Description 05/14/2025 10:00 AM EDT Office Visit [facility] MEDICINE [address] [place] [address] Verenice Nixon NP [address] [place] [address] documented as of this encounter Visit Diagnoses Diagnosis Primary insomnia Persistent disorder of initiating or maintaining sleep documented in this encounter Additional Health Concerns Assessment Noted Time PHQ-9 Depression Total Score: 0 01/17/20 24 10:02 AM EST documented as of this encounter Care Teams Shadow Graph Weight Operator Relationship Specialty Start Date End Date Verenice Nixon NP [address] [place] [address] PCP - General Family Medicine 11/04/23 documented as of this encounter
--- OUTSIDE RECORDS SUMMARY | 2025-02-11 12:19 | XMS_ITS | Encounter Summary ---
Author Organization [employer] Address [address] [place] [address] 7t [place] [address] Care Team Providers Care Associate Director Of Development Name Role Phone Verenice Nixon NP Primary Care Provider [phone] Reason for Visit * Reason Comments Med Refill Encounter Details Date Type Department Care Team (Late st Contact Info) Description 02/09/2024 Refill [facility] MEDICINE [address] [place] [address] Verenice Nixon NP [address] [place] [address] Primary insomnia Social History Tobacco Use Types [...] Description 05/14/2025 10:00 AM EDT Office Visit [facility] MEDICINE [address] [place] [address] Verenice Nixon NP [address] [place] [address] documented as of this encounter Visit Diagnoses Diagnosis Primary insomnia Persistent disorder of initiating or maintaining sleep documented in this encounter Additional Health Concerns Assessment Noted Time PHQ-9 Depression Total Score: 0 01/17/20 24 10:02 AM EST documented as of this encounter Care Teams Associate Director Of Development Relationship Specialty Start Date End Date Verenice Nixon NP [address] [place] [address] PCP - General Family Medicine 11/04/23 documented as of this encounter
--- OUTSIDE RECORDS SUMMARY | 2025-02-11 12:19 | XMS_ITS | Encounter Summary ---
Author Organization [employer] [facility] Address [address] [place] [address] [address]t [place] [address] Care Team Providers Care Nc Manager Name Role Phone Verenice Nixon MANAGER OF DIGITAL Primary Care Provider [phone] Verenice Nixon MANAGER OF DIGITAL Primary Care Provider [phone] Encounter Details Date Type Department Care Team (Late Contact Info) Description 11/01/2023 Orders Only [facility] MEDICINE [address] [place] [address] Regi Marsh FNP Social History Tobacco Use [...] Department Care Team (Late Contact Info) Description 05/14/2025 10:00 AM EDT Office Visit [facility] MEDICINE [address] [place] [address] Verenice Nixon NP [address] [place] [address] documented as of this encounter Visit Diagnoses Not on filedocumented in this encounter Additional Health Concerns Assessment Noted Time PHQ-9 Depression Total Score: 3 10/30/20 23 9:52 AM EST documented as of this encounter Care Teams Nc Manager Relationship Specialty Start Date End Date Verenice Nixon NP [address] [place] [address] PCP - General Family Medicine 09/06/23 11/03/23 Verenice Nixon NP [address] [place] [address] PCP - General Family Medicine 11/04/23 documented as of this encounter
--- OUTSIDE RECORDS SUMMARY | 2025-02-11 12:19 | XMS_ITS | Encounter Summary ---
Author Organization [employer] Address [address] [place] [address] 7t [place] [address] Care Team Providers Care Accounting Instructor Name Role Phone Verenice Nixon RITA Primary Care Provider [phone] Reason for Visit * Reason Comments Blurred Vision Encounter Details Date Type Department Care Team ([facility] st Contact Info) Description 02/04/2025 10:30 AM EST Office Visit [facility] OPTOMETRY [address] [place], [place] [phone] Jo-Ann Hinojosa, OD [address] [place] [address] 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); Presbyopia Social History Tobacco Use Types Packs/Day Years [...] AM EDT documented as of this encounter Progress Notes * Jo-Ann Hinojosa, OD - 02/04/2025 10:30 AM EST Eye Care Progress Note Patient ID: Neha Metzger is a 64 y.o. female. Chief Complaint Blurred Vision HPI Presents for complete eye exam with complains of blurry vision OU. Reports she is struggling to see up close more than last year. She is using two different pair of OTC glasses to see at distance and at near. Never purchased prescription glasses with last Rx. Denies dryness, pain, flashes, floaters. Last eye exam was here in 01/2023. Last edited by Jo-Ann Hinojosa, OD on 02/05/2025 9:22 AM. Current Outpatient Medications Medication Sig Dispense Refill ferrous gluconate (Fergon) 324 (38 Fe) MG tablet TAKE 1 TABLET BY MOUTH EVERY OTHER MORNING WITH VITAMIN C 45 tablet 0 ibuprofen 400 MG tablet Take 1 tablet (400 mg) by mouth every 6 (six) hours if needed for moderate pain or fever for up to 30 doses. 30 tablet 0 lisinopril 30 MG tablet Take 1 tablet by mouth Once per day. omeprazole (PriLOSEC) [address] capsule TAKE 1 CAPSULE BY MOUTH EVERY DAY BEFORE A MEAL 90 capsule 1 rosuvastatin (Crestor) 40 MG tablet TAKE 1 TABLET BY MOUTH EVERY DAY AT NIGHT 90 tablet 1 zolpidem (Ambien) 10 MG tablet TAKE 1 TABLET BY MOUTH EVERYDAY AT BEDTIME DO NOT START BEFORE DECEMBER 20, 2024. 28 tablet 0 No current facility-administered medications for this visit. Past Medical History: Diagnosis Date Hyperlipidemia Hypertension Insomnia Ovarian cyst Past Surgical History: Procedure Laterality Date BLADDER SURGERY lifted HYSTERECTOMY TOTAL VAGINAL HYSTERECTOMY 10/17/2017 Family History Problem Relation Name Age of Onset Hypertension Mother Hypertension Father Diabetes Sister Diabetes Brother Pancreatic cancer Brother Social History Socioeconomic History Marital status: Single Spouse name: Not on file Number of children: Not on file Years of education: Not on file Highest education level: Not on file Occupational History Not on file Tobacco Use Smoking status: Never Smokeless tobacco: Never Substance and Sexual Activity Alcohol use: Yes Comment: 2-3 drinks monthly Drug use: Never Sexual activity: Yes Partners: Male control/protection: Post-menopausal Other Topics Concern Not on file Social History Narrative Not on file Social Drivers of Health Food Insecurity: Low Risk (01/17/2024) Food Insecurity Within the past 12 months, you worried that your food would run out before you got money to buy more:: Never True Within the past 12 months,the food you bought just didn't last and you didn't have enough money to get more: : Never True Transportation Needs: Low Risk (01/17/2024) Transportation In the past 12 months, has lack of transportation kept you from medical appts, meetings, work or from getting things needed for daily living? : No Intimate Partner Violence: Not on file Housing Stability: Low Risk (01/17/2024) Housing Stability What is your housing situation today?: I have housing Think about the place you live. Do you have problems with any of the following? : None of the above No Known Allergies ROS Positive for: Eyes Negative for: Constitutional, Gastrointestinal, Neurological, Skin, Genitourinary, Musculoskeletal,HENT, Endocrine, Cardiovascular, Respiratory, Psychiatric, Allergic/Imm, Heme/Lymph Last edited by Jaleesa Espitia on 02/04/2025 10:35 AM. Base Eye Exam Visual Acuity (Snellen - Linear) Right Left Dist cc 20/20 -2 20/25 +2 Dist ph sc 20/25 +1 Wearing Rx in phoropter Super pinhole OS: 20/25-3 Tonometry ([facility] , 10:48 AM) Right Left Pressure 18 18 Pupils Pupils APD Right PERRL None Left PERRL None Visual Ramachandran Left Right Full Full Extraocular Movement Right Left Full Full Neuro/Psych Oriented x3: Yes Mood/Affect: Normal Dilation Both eyes: 1.0% Tropicamide @ 10:48 AM Slit Lamp and Fundus Exam External Exam Right Left External Normal Normal Slit Lamp Exam Right Left Lids/Lashes mild scalloping mild scalloping Conjunctiva/Sclera White and quiet White and quiet Cornea Oily tear film Oily tear film Anterior Chamber Deep and quiet Deep and quiet Iris Flat Flat Lens 1+ NSC, trace ACC, posterior vacuoles, 1-2+ paracentral PSC 1+ NSC, trace ACC, few posterior vacuoles, trace central PSC Fundus Exam Right Left Vitreous Clear PVD Disc [place] and distinct [place] and distinct C/D Ratio Vertical 0.40 0.35 C/D Ratio Horizontal 0.40 0.35 Macula Flat and intact Flat and intact, small area of RPE mottling inferior to macula within arcades Vessels Normal Normal Periphery No holes/breaks/tears 360 degrees No holes/breaks/tears 360 degrees Refraction Wearing Rx Sphere Cylinder Add Right +0.75 Sphere +2.25 Left +1.00 Sphere +2.25 Manifest Refraction (Subjective) Sphere Cylinder Dist VA Add Near VA Right +0.75 Sphere 20/20 +2.50 20/20 Left +1.00 Sphere 20/25 +2.50 20/20 Final Rx Sphere Cylinder Dist VA Add Near VA Right +0.75 Sphere 20/20 +2.50 20/20 Left +1.00 Sphere 20/25 +2.50 20/20 Expiration Date: 02/04/2026 Assessment/plan: Diagnoses and all orders for this visit: Combined forms of age-related cataract of both eyes - Visually insignificant right eye (OD), mild impact on vision left eye (OS) (BCVA 20/25) - Monitor annually Presbyopia - Dispensed updated spec Rx RTC in 1 year for comprehensive eye exam or soon as needed Jo-Ann Hinojosa, OD 02/05/2025, 9:23 AM Student Name: Jaleesa Espitia I attest that I was physically present with the optometry student. I personally saw and evaluated the patient and performed my own history and examination. I have reviewed, verified, and revised the documented findings as necessary and agree with the content and plan as written. Pillar Worker Source: _x_ None ___ Bilingual Staff ___ Qualified Staff Cotton Ginner Helper ___ Telephone Pillar Worker; ID# ___ Pillar Worker brought by patient (family member, friend, HAY STACKER OPERATOR, etc) ___ In person manager contract ___ Ipad Pillar Worker; ID#: Language Spoken During Exam: ___English____ documented in this encounter Plan of Treatment Upcoming Encounters Date Type Department Care Team (Late st Contact Info) Description 05/14/2025 10:00 AM EDT Office Visit [facility] MEDICINE [address] [place] [address] Verenice Nixon NP [address] [place] [address] documented as of this encounter Visit Diagnoses Diagnosis Combined forms of age-related cataract of both eyes- Primary Presbyopia documented in this encounter Additional Health Concerns Assessment Noted Time PHQ-9 Depression Total Score: 0 01/17/20 24 10:02 AM EST documented as of this encounter Care Teams Accounting Instructor Relationship Specialty Start Date End Date Verenice Nixon NP [address] [place] [address] PCP - General Family Medicine 11/04/23 documented as of this encounter
--- OUTSIDE RECORDS SUMMARY | 2025-02-11 12:19 | XMS_ITS | Encounter Summary ---
Author Organization [facility] [facility] Address [address] [place] [address] Care Team Providers Care Warehouse Laborer Name Role Phone Carrie Lucas Primary Care Provider [phone] Verenice Nixon NP Primary Care Provider [phone] Verenice Nixon NP Primary Care Provider [phone] Encounter Details Date Type Department Care Team (Late st Contact Info) Description 12/07/2022 Orders Only [facility] MEDICINE [address] [place] [address] Maria G Jean RN [address] [place] [address] Social History Tobacco Use Types Packs/Day Years [...] 10:00 AM EDT Office Visit [facility] MEDICINE [address] [place] [address] Verenice Nixon NP [address] [place] [address] documented as of this encounter Visit Diagnoses Not on filedocumented in this encounter Care Teams Warehouse Laborer Relationship Specialty Start Date End Date Carrie Lucas FNP PCP - General Family Medicine 11/20/21 09/05/23 Verenice Nixon NP [address] [place] [address] PCP - General Family Medicine 09/06/23 11/03/23 Verenice Nixon NP [address] [place] [address] PCP - General Family Medicine 11/04/23 documented as of this encounter
--- OUTSIDE RECORDS SUMMARY | 2025-02-11 12:19 | XMS_ITS | Encounter Summary ---
Author Organization [employer] Address [address] [facility] 7t [place] [address] Care Team Providers Care Tunnel Inspector Name Role Phone Verenice Nixon NP Primary Care Provider [phone] Reason for Visit * Reason Comments Med Refill Encounter Details Date Type Department Care Team (Late st Contact Info) Description 02/07/2025 Refill [facility] [address] [place] [address] Verenice Nixon NP [address] [place] [address] Social History Tobacco Use Types Packs/Day Years [...] 10:00 AM EDT Office Visit [facility] [address] [place] [address] Verenice Nixon NP [address] [place] [address] documented as of this encounter Visit Diagnoses Not on filedocumented in this encounter Additional Health Concerns Assessment Noted Time PHQ-9 Depression Total Score: 0 01/17/20 24 10:02 AM EST documented as of this encounter Care Teams Tunnel Inspector Relationship Specialty Start Date End Date Verenice Nixon NP [address] [place] [address] PCP - General Family Medicine 11/04/23 documented as of this encounter
== END 2025-02-11 10:30 | disposition home or self-care (01) ==
LOC: HO.ENCR 09:57
PROVIDERS: Visit Provider Student in an Organized Health Care Education/Training Program
DX: E83.52 Hypercalcemia (principal)
CPT/HCPCS: 99204

== ENCOUNTER → 2025-02-11 09:56 | Outpatient (BNVA) | payer OTHER, SELFPAY | PROVIDERS: Visit Provider Student in an Organized Health Care Education/Training Program | DX: E83.52 Hypercalcemia (principal); E04.1 Nontoxic single thyroid nodule | CPT/HCPCS: 99202 ==

== ENCOUNTER 2025-02-11 10:37 | Outpatient (REF) | payer OTHER, SELFPAY ==
[2025-02-11 11:57] LABS: Calcium 10.2 mg/dL (8.4-10.2)
[2025-02-11 12:09] LABS: Albumin Level 4.3 g/dL (3.5-5.0); Anion Gap 11 (12-20); Blood Urea Nitrogen 16 mg/dL (9-16); Calcium 10.3 mg/dL (8.4-10.2); Carbon Dioxide 27 mmol/L (22-29); Chloride 108 mmol/L (96-108); Estimated Glomerular Filt Rate > 60; Glucose Random 103 mg/dL (60-115); Phosphorus 3.1 mg/dL (2.7-4.5); Potassium 4.1 mmol/L (3.3-5.1); Sodium 142 mmol/L (135-145)
[2025-02-11 12:26] LABS: TSH reflex Free T4 0.93 uIU/mL (0.32-4.0); Vitamin D 25-OH Total 25.9 ng/mL (>30)
[2025-02-11 12:40] LABS: Parathyroid Hormone Intact 56.8 pg/mL (8.7-77.1)
--- OUTSIDE RECORDS SUMMARY | 2025-02-11 13:26 | XMS_ITS | Encounter Summary ---
Author Organization [employer] [facility] Address [address] [place] [address] Care Team Providers Care Group Work Program Director Name Role Phone Carrie Lucas Primary Care Provider [phone] Verenice Nixon NP Primary Care Provider [phone] Verenice Nixon NP Primary Care Provider [phone] Encounter Details Date Type Department Care Team (Late st Contact Info) Description 12/07/2022 Orders Only [facility] [address] [place] [address] Maria G Jean RN [address] [place] [address] Social History Tobacco Use Types Packs/Day Years [...] Description 05/14/2025 10:00 AM EDT Office Visit [facility] [address] [place] [address] Verenice Nixon NP [address] [place] [address] documented as of this encounter Visit Diagnoses Not on filedocumented in this encounter Care Teams Group Work Program Director Relationship Specialty Start Date End Date Carrie Lucas FNP PCP - General Family Medicine 11/20/21 09/05/23 Verenice Nixon NP [address] [place] [address] PCP - General Family Medicine 09/06/23 11/03/23 Verenice Nixon NP [address] [place] [address] PCP - General Family Medicine 11/04/23 documented as of this encounter
--- OUTSIDE RECORDS SUMMARY | 2025-02-11 13:26 | XMS_ITS | Encounter Summary ---
Author Organization [employer] Address [address] [place] [address] 7 [place] [address] Care Team Providers Care Stroke Belt Sander Operator Name Role Phone Verenice Nixon NP Primary Care Provider [phone] Reason for Visit * Reason Comments Follow-up Encounter Details Date Type Department Care Team ([facility] st Contact Info) Description 01/15/2025 11:00 AM EST Office Visit [facility] [address] [place] [address] Verenice Nixon NP [address] [place] [address] Encounter for immunization Social History Tobacco Use [...] Description 05/14/2025 10:00 AM EDT Office Visit [facility] [address] [place] [address] Verenice Nixon NP [address] [place] [address] documented as of this encounter Visit Diagnoses Diagnosis Encounter for immunization documented in this encounter Additional Health Concerns Assessment Noted Time PHQ-9 Depression Total Score: 0 01/17/20 24 10:02 AM EST documented as of this encounter Care Teams Stroke Belt Sander Operator Relationship Specialty Start Date End Date Verenice Nixon NP [address] [place] [address] PCP - General Family Medicine 11/04/23 documented as of this encounter
--- OUTSIDE RECORDS SUMMARY | 2025-02-11 13:26 | XMS_ITS | Encounter Summary ---
Author Organization [employer] Address [address] [place] [address] 7t [place] [address] Care Team Providers Care Aoc Director Combat Operations Officer Name Role Phone Verenice Nixon NP Primary Care Provider [phone] Reason for Visit * Reason Onset Date Comments Med Refill 02/19/2024 Encounter Details Date Type Department Care Team ([facility] st Contact Info) Description 02/19/2024 Telephone [facility] [address] [place], [place] [phone] Verenice Nixon NP [address] [place], [place] [phone] Med Refill Social History Tobacco Use Types [...] 1:45 PM EDT Medication was sent to [id number] on 01/23/24 90 day supply. * Telephone Encounter - Harlan Colon - 02/19/2024 1:39 PM EDT TC from pt requesting medication refill. Medications needing refill : rosuvastatin (Crestor) 40 MG tablet To be sent to: [facility]/pharmacy #[id number] - [place], [place] - [address] [place] [address] documented in this encounter Plan of Treatment Upcoming Encounters Date Type Department Care Team (Late st Contact Info) Description 05/14/2025 10:00 AM EDT Office Visit [facility] [address] [place] [address] Verenice Nixon NP [address] [place] [address] documented as of this encounter Visit Diagnoses Not on filedocumented in this encounter Additional Health Concerns Assessment Noted Time PHQ-9 Depression Total Score: 0 01/17/20 24 10:02 AM EST documented as of this encounter Care Teams Aoc Director Combat Operations Officer Relationship Specialty Start Date End Date Verenice Nixon NP [address] [place] [address] PCP - General Family Medicine 11/04/23 documented as of this encounter
--- OUTSIDE RECORDS SUMMARY | 2025-02-11 13:26 | XMS_ITS | Encounter Summary ---
Author Organization [employer] [facility] Address [address] [place] [address] Care Team Providers Care Platen Grinder Name Role Phone Carrie Lucas Primary Care Provider [phone] Verenice Nixon NP Primary Care Provider [phone] Verenice Nixon NP Primary Care Provider [phone] Encounter Details Date Type Department Care Team (Late st Contact Info) Description 01/02/2023 Orders Only [facility] [address] [place] [address] Beatriz Castillo LPN Social History Tobacco Use [...] Description 05/14/2025 10:00 AM EDT Office Visit [facility] 230 [place] [address] Verenice Nixon NP [address] [place] [address] documented as of this encounter Visit Diagnoses Not on filedocumented in this encounter Care Teams Platen Grinder Relationship Specialty Start Date End Date Carrie Lucas FNP PCP - General Family Medicine 11/20/21 09/05/23 Verenice Nixon NP [address] [place] [address] PCP - General Family Medicine 09/06/23 11/03/23 Verenice Nixon NP [address] [place] [address] PCP - General Family Medicine 11/04/23 documented as of this encounter
--- OUTSIDE RECORDS SUMMARY | 2025-02-11 13:26 | XMS_ITS | Encounter Summary ---
Author Organization [employer] Address [address] [place] [address] 7t [place] [address] Care Team Providers Care Internal Sales Engineer Name Role Phone Verenice Nixon RITA Primary Care Provider [phone] Reason for Visit * Reason Comments Blurred Vision Encounter Details Date Type Department Care Team ([facility] st Contact Info) Description 02/04/2025 10:30 AM EST Office Visit [facility] [address] [place], [place] [phone] Jo-Ann Hinojosa, OD [address] [place] [address] Combined forms of age-related cataract of both [...] Exam Right Left Vitreous Clear PVD Disc [place] and distinct [place] and distinct C/D Ratio Vertical 0.40 0.35 [...] with the content and plan as written. Incinerator Attendant Source: _x_ None ___ Bilingual Staff ___ Qualified Staff [employer] Farm Workers ___ Telephone Incinerator Attendant; ID# ___ Incinerator Attendant brought by patient (family member, friend, SOW MANAGER, etc) ___ In person tobacco drier operator ___ Ipad Incinerator Attendant; ID#: Language Spoken During Exam: ___English____ documented in this encounter Plan of Treatment Upcoming Encounters Date Type Department Care Team (Late st Contact Info) Description 05/14/2025 10:00 AM EDT Office Visit [facility] [address] [place] [address] Verenice Nixon NP [address] [place] [address] documented as of this encounter Visit Diagnoses Diagnosis 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
--- OUTSIDE RECORDS SUMMARY | 2025-02-11 13:26 | XMS_ITS | Encounter Summary ---
Author Organization [employer] Address [address] [place] [address] 7t [place] [address] Care Team Providers Care Commercial Lending Assistant Name Role Phone Verenice Nixon RITA Primary Care Provider [phone] Encounter Details Date Type Department Care Team [...] Upcoming Encounters Date Type Department Care Team ([facility] st Contact Info) Description 05/14/2025 10:00 AM EDT Office Visit [facility] [address] [place], [place] [phone] Verenice Nixon NP [address] [place] [address] documented as of this encounter Procedures Procedure Name Priority Date/Time Associated Diagnosis Comments VITAMIN D,25-OH,TOTAL,IA Routine 02/11/2025 10:45 AM EDT TSH W/REFLEX TO FT4 Routine 02/11/2025 1 0:45 AM EDT PHOSPHATE ( PHOSPHORUS) Routine 02/11/2025 10:45 AM EDT PTH, INTACT WITHOUT CALCIUM Routine 02/11/2025 10:45 AM EDT CALCIUM Routine 02/11/2025 10:45 AM EDT ALBUMIN Routine 02/11/2025 10:45 AM EDT BASIC METABOLIC PANEL Routine 02/11/2025 10:45 AM EDT documented in this encounter Results * PTH, Intact Without Calcium (02/11/2025 10:45 AM EDT) Parathyroid Hormone, Intact 56.8 8.7 - 77.1 pg/mL [facility] 02/11/2025 10:4 5 AM EDT 02/11/2025 11:40 AM EDT Generic External Data Provider LAB BLOOD ORDERAB LES Final Result Performing Organization Address [facility] Co de Phone Number [facility] [address] [place] [phone] * TSH with Reflex to Free T4 (02/11/2025 10:45 AM EDT) TSH reflex Free T4 0.93 0.32 - 4.0 uIU/mL [facility] 02/11/2025 10:4 5 AM EDT 02/11/2025 11:32 AM EDT Generic External Data Provider LAB BLOOD ORDERAB LES Final Result Performing Organization Address [facility] de Phone Number [facility] [address] [place] [phone] * (ABNORMAL) Vitamin D, 25-Hydroxy, Total, Immunoassay (02/11/2025 10:45 AM EDT) Vitamin D 25-OH Total 25.9(L) >30 ng/mL [facility] Comment: Health Based Reference Values*< 20 ??ng/mL ??Cnqyunned04-83 ng/mL ??Insufficient> 30 ??ng/mL ??Sufficient*Robin MCLAUGHLIN. N Engl J Med. 2007;357:266-280There is no well-established upper level of normal vitamin Dlevels. Some laboratories use 50 ng/mL as an upper limit ofnormal. However, toxicity is patient-dependent and may occurat any level. Careful correlation with the patient'spresentation is necessary and, if there is concern forvitamin D toxicity, treatment should be consideredirrespective of the serum level.Care must be taken in interpreting Vitamin D results fromdifferent laboratories and methodologies. ??Published datademonstrated that results from patients undergoinghemodialysis may show a negative bias when tested withvarious automated 25-OH vitamin D assays when compared toLC- MS/MS.When testing samples from patients whose predominant form ofVitamin D is Vitamin D2, such as patients receiving VitaminD2 supplementation, results that are subtherapeutic shouldbe confirmed with another method such as LC-MS/MS. 02/11/2025 10:4 5 AM EDT 02/11/2025 11:32 AM EDT Generic External Data Provider LAB BLOOD ORDERAB LES Final Result Performing Organization Address [facility] de Phone Number [facility] [address] [place] [phone] * Albumin (02/11/2025 10:45 AM EDT) Albumin Level 4.3 3.5 - 5.0 g/dL [facility] 02/11/2025 10:4 5 AM EDT 02/11/2025 11:32 AM EDT Generic External Data Provider LAB BLOOD ORDERAB LES Final Result Performing Organization Address [facility] Co de Phone Number [facility] [address] [place] [phone] * Phosphate (As Phosphorus) (02/11/2025 10:45 AM EDT) Phosphorus 3.1 2.7 - 4.5 mg/dL [facility] 02/11/2025 10:4 5 AM EDT 02/11/2025 11:32 AM EDT Generic External Data Provider LAB BLOOD ORDERAB LES Final Result Performing Organization Address [facility] Co de Phone Number [facility] [address] [place] [phone] * (ABNORMAL) Basic Metabolic Panel (02/11/2025 10:45 AM EDT) Sodium 142 135 - 145 mmol/L [facility] Potassium 4.1 3.3 - 5.1 mmol/L [facility] Chloride 108 96 - 108 mmol/L [facility] Carbon Dioxide 27 22 - 29 mmol/L [facility] Anion Gap 11(L) 12 - 20 [facility] Urea Nitrogen (BUN) 16 9 - 16 mg/dL [facility] Creatinine, Serum 0.87 0.5 - 1.4 mg/dL [facility] Estimated Glomerular Filt Rate >60 [facility] Comment:Chronic Kidney Disea se: Estimated GFR < 60 mL/min/1.98c7Cdmzer Kidney Disease: Estimated GFR < 15 mL/min/1.73m2 Glucose 103 60 - 115 mg/dL [facility] Calcium 10.3(H) 8.4 - 10.2 mg/dL [facility] 02/11/2025 10:4 5 AM EDT 02/11/2025 11:32 AM EDT us Generic External Data Provider LAB BLOOD ORDERAB LES Final Result Performing Organization Address [facility]/ZIP Co de Phone Number [facility] [address] [place] [phone] * Calcium (02/11/2025 10:45 AM EDT) Calcium 10.2 8.4 - 10.2 mg/dL [facility] 02/11/2025 10:4 5 AM EDT 02/11/2025 11:32 AM EDT us Generic External Data Provider LAB BLOOD ORDERAB LES Final Result Performing Organization Address City/[facility]/ZIP Co de Phone Number [facility] [address] [place] [phone] documented in this encounter Visit Diagnoses Not on filedocumented in this encounter Additional Health Concerns Assessment Noted Time PHQ-9 Depression Total Score: 0 01/17/20 24 10:02 AM EST documented as of this encounter Care Teams Commercial Lending Assistant Relationship Specialty Start Date End Date Verenice Nixon NP [address] [place] [address] PCP - General Family Medicine 11/04/23 documented as of this encounter
--- OUTSIDE RECORDS SUMMARY | 2025-02-11 13:26 | XMS_ITS | Encounter Summary ---
Author Organization [employer] Address [address] [place] [address] 7 [place] [address] Care Team Providers Care Video Game Producer Name Role Phone NaveedVerenice todd RITA Primary Care Provider [phone] Reason for Visit * Reason Onset Date Comments follow up appointment scheduled 02/09/2025 Encounter Details Date Type Department Care Team ([facility] st Contact Info) Description 02/09/2025 Telephone [facility] [address] [place] [address] Eugenia Mathur MA follow up appointment scheduled [...] Description 05/14/2025 10:00 AM EDT Office Visit [facility] [address] [place] [address] Verenice Nixon NP [address] [place] [address] documented as of this encounter Visit Diagnoses Not on filedocumented in this encounter Additional Health Concerns Assessment Noted Time PHQ-9 Depression Total Score: 0 01/17/20 24 10:02 AM EST documented as of this encounter Care Teams Video Game Producer Relationship Specialty Start Date End Date Verenice Nixon NP [address] [place] [address] PCP - General Family Medicine 11/04/23 documented as of this encounter
--- OUTSIDE RECORDS SUMMARY | 2025-02-11 13:26 | XMS_ITS | Encounter Summary ---
Author Organization [employer] [facility] Address [address] [place] [address] 7t [place] [address] Care Team Providers Care Car Rental Clerk Name Role Phone Verenice Nixon SENIOR INSTRUCTIONAL DESIGNER Primary Care Provider [phone] Verenice Nixon SENIOR INSTRUCTIONAL DESIGNER Primary Care Provider [phone] Encounter Details Date Type Department Care Team (Late Contact Info) Description 11/01/2023 Orders Only [facility] [address] [place] [phone] Regi Marsh FNP Social History Tobacco Use [...] EDT Office Visit [facility] [address] [place] [address] Verenice Nixon NP [address] [place] [address] documented as of this encounter Visit Diagnoses Not on filedocumented in this encounter Additional Health Concerns Assessment Noted Time PHQ-9 Depression Total Score: 3 10/30/20 23 9:52 AM EST documented as of this encounter Care Teams Car Rental Clerk Relationship Specialty Start Date End Date Verenice Nixon NP [address] [place] [address] PCP - General Family Medicine 09/06/23 11/03/23 Verenice Nixon NP [address] [place] [address] PCP - General Family Medicine 11/04/23 documented as of this encounter
--- OUTSIDE RECORDS SUMMARY | 2025-02-11 13:26 | XMS_ITS | Encounter Summary ---
Author Organization [employer] Address [address] [place] [address] 7t [place] [address] Care Team Providers Care Administrative Support Assistant Name Role Phone Verenice Nixon NP Primary Care Provider [phone] Reason for Visit * Reason Comments Med Refill Encounter Details Date Type Department Care Team (Late st Contact Info) Description 01/19/2025 Refill [facility] [address] [place] [address] Verenice Nixon NP [address] [place] [address] Primary insomnia Social History Tobacco Use Types [...] Description 05/14/2025 10:00 AM EDT Office Visit [facility] [address] [place] [address] Verenice Nixon NP [address] [place] [address] documented as of this encounter Visit Diagnoses Diagnosis Primary insomnia Persistent disorder of initiating or maintaining sleep documented in this encounter Additional Health Concerns Assessment Noted Time PHQ-9 Depression Total Score: 0 01/17/20 24 10:02 AM EST documented as of this encounter Care Teams Administrative Support Assistant Relationship Specialty Start Date End Date Verenice Nixon NP [address] [place] [address] PCP - General Family Medicine 11/04/23 documented as of this encounter
--- OUTSIDE RECORDS SUMMARY | 2025-02-11 13:26 | XMS_ITS | Encounter Summary ---
Author Organization [employer] Address [address] [facility] 7t [place] [address] Care Team Providers Care Service Vehicle Operator Name Role Phone Verenice Nixon NP Primary Care Provider [phone] Reason for Visit * Reason Comments Med Refill Encounter Details Date Type Department Care Team (Late st Contact Info) Description 02/07/2025 Refill [facility] [address] [place] [address] Verenice Nixon NP [address] [place] [address] Social History Tobacco Use Types Packs/Day Years [...] Description 05/14/2025 10:00 AM EDT Office Visit [facility] [address] [place] [address] Verenice Nixon NP [address] [place] [address] documented as of this encounter Visit Diagnoses Not on filedocumented in this encounter Additional Health Concerns Assessment Noted Time PHQ-9 Depression Total Score: 0 01/17/20 24 10:02 AM EST documented as of this encounter Care Teams Service Vehicle Operator Relationship Specialty Start Date End Date Verenice Nixon NP [address] [place] [address] PCP - General Family Medicine 11/04/23 documented as of this encounter
--- OUTSIDE RECORDS SUMMARY | 2025-02-11 13:26 | XMS_ITS | Encounter Summary ---
Author Organization [employer] [facility] Address [address] [place] [address] Care Team Providers Care Gun Striper Name Role Phone Carrie Lucas Primary Care Provider [phone] Verenice Nixon NP Primary Care Provider [phone] Verenice Nixon NP Primary Care Provider [phone] Reason for Visit * Reason Comments Med Refill Encounter Details Date Type Department Care Team (Late st Contact Info) Description 11/05/2022 Refill [facility] [address] [place] [address] Carrie Lucas FNP [address] [place] [address] Dept [place] [address] Social History Tobacco Use Types Packs/Day Years [...] Description 05/14/2025 10:00 AM EDT Office Visit [facility] [address] [place] [address] Verenice Nixon NP [address] [place], [place] [phone] documented as of this encounter Visit Diagnoses Not on filedocumented in this encounter Care Teams Gun Striper Relationship Specialty Start Date End Date Carrie Lucas FNP PCP - General Family Medicine 11/20/21 09/05/23 Verenice Nixon NP [address] [place] [address] PCP - General Family Medicine 09/06/23 11/03/23 Verenice Nixon NP [address] [place] [address] PCP - General Family Medicine 11/04/23 documented as of this encounter
--- OUTSIDE RECORDS SUMMARY | 2025-02-11 13:26 | XMS_ITS | Encounter Summary ---
Author Organization [employer] [facility] Address [address] [place] [address] Care Team Providers Care Cytopathology Technologist Name Role Phone Carrie Lucas Primary Care Provider [phone] Verenice Nixon NP Primary Care Provider [phone] Verenice Nixon NP Primary Care Provider [phone] Encounter Details Date Type Department Care Team (Late st Contact Info) Description 04/02/[address] [facility] [address] [place] [address] Beatriz Castillo LPN Social History Tobacco Use [...] [facility] [address] [place] [address] Verenice Nixon NP [address] [place] [address] documented as of this encounter Visit Diagnoses Not on filedocumented in this encounter Care Teams Cytopathology Technologist Relationship Specialty Start Date End Date Carrie Lucas FNP PCP - General Family Medicine 11/20/21 09/05/23 Verenice Nixon NP [address] [place] [address] PCP - General Family Medicine 09/06/23 11/03/23 Verenice Nixon NP [address] [place] [address] PCP - General Family Medicine 11/04/23 documented as of this encounter
--- OUTSIDE RECORDS SUMMARY | 2025-02-11 13:26 | XMS_ITS | Encounter Summary ---
Author Organization [employer] Address [address] [place] [address] 7t [place] [address] Care Team Providers Care President & Founder Name Role Phone Verenice Nixon NP Primary Care Provider [phone] Reason for Visit * Reason Comments Med Refill Encounter Details Date Type Department Care Team (Late st Contact Info) Description 02/09/2024 Refill [facility] [address] [place] [address] Verenice Nixon NP [address] [place] [address] Primary insomnia Social History Tobacco Use Types [...] Description 05/14/2025 10:00 AM EDT Office Visit [facility] [address] [place] [address] Verenice Nixon NP [address] [place] [address] documented as of this encounter Visit Diagnoses Diagnosis Primary insomnia Persistent disorder of initiating or maintaining sleep documented in this encounter Additional Health Concerns Assessment Noted Time PHQ-9 Depression Total Score: 0 01/17/20 24 10:02 AM EST documented as of this encounter Care Teams President & Founder Relationship Specialty Start Date End Date Verenice Nixon NP [address] [place] [address] PCP - General Family Medicine 11/04/23 documented as of this encounter
--- OUTSIDE RECORDS SUMMARY | 2025-02-11 13:26 | XMS_ITS | Encounter Summary ---
Author Organization [facility] [facility] Address [address] [place] [address] Care Team Providers Care Marketing Campaign Analyst Name Role Phone Carrie Lucas Primary Care Provider [phone] Verenice Nixon NP Primary Care Provider [phone] Verenice Nixon NP Primary Care Provider [phone] Encounter Details Date Type Department Care Team (Late st Contact Info) Description 03/11/2023 Orders Only [facility] [address] [place] [address] Beatriz Castillo LPN Social History Tobacco Use [...] Description 05/14/2025 10:00 AM EDT Office Visit [facility] [address] [place] [address] Verenice Nixon NP [address] [place] [address] documented as of this encounter Visit Diagnoses Not on filedocumented in this encounter Care Teams Marketing Campaign Analyst Relationship Specialty Start Date End Date Carrie Lucas FNP PCP - General Family Medicine 11/20/21 09/05/23 Verenice Nixon NP [address] [place] [address] PCP - General Family Medicine 09/06/23 11/03/23 Verenice Nixon NP [address] [place] [address] PCP - General Family Medicine 11/04/23 documented as of this encounter
--- OUTSIDE RECORDS SUMMARY | 2025-02-11 13:26 | XMS_ITS | Encounter Summary ---
Author Organization [employer] Address [address] [place] [address] 7[address] [place] [address] Care Team Providers Care Health Screener Name Role Phone Verenice Nixon NP Primary Care Provider [phone] Encounter Details Date Type Department Care Team ([facility] st Contact Info) Description 02/08/2025 Telephone [facility] [address] [place] [address] Verenice Nixon NP [address] [place] [address] Social History Tobacco Use Types Packs/Day Years [...] 2:55 PM EDT T/C to pt via [employer] Cataloging Technician Amauri #[id number] to advise of message from PCP re: lab results. No answer,v/m left to return call to [place] team nurses. * Telephone Encounter - Ngozi [...] 10:00 AM EDT Office Visit [facility] [address] [place] [address] Verenice Nixon NP [address] [place] [address] documented as of this encounter Visit Diagnoses Not on filedocumented in this encounter Additional Health Concerns Assessment Noted Time PHQ-9 Depression Total Score: 0 01/17/20 24 10:02 AM EST documented as of this encounter Care Teams Health Screener Relationship Specialty Start Date End Date Verenice Nixon NP [address] [place] [address] PCP - General Family Medicine 11/04/23 documented as of this encounter
--- OUTSIDE RECORDS SUMMARY | 2025-02-11 13:26 | XMS_ITS | Clinical Summary ---
Author Organization [employer] Address [address] [place] [address] 7t [place] [address] Care Team Providers Care Statistical Methods Professor Name Role Phone Nave[place] Verenice SALINAS Primary Care Provider Allergies No known active allergies Medications ibuprofen [...] to purchase a pair from medical supply [employer] as [facility] will not cover -consider venous US [...] DEPARTMENT Provider, Generic External Data 02/09/[address] [facility] [address] [place] [address] Eugenia Mathur MA follow up appointment scheduled 02/08/[address] [facility] [address] [place] [address] Verenice Nixon NP 02/07/[address] [facility] [address] [place] [address] Verenice Nixon NP 02/04/2025 10:30 AM EST Office Visit 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 [address] [place] [address] Verenice Nixon NP Primary insomnia 01/15/2025 11:00 AM EST Office Visit [facility] [address] [place] [address] Verenice Nixon NP Encounter for immunization 01/05/[address] [facility] [address] [place] [address] Eugenia Mathur MA chartprep 01/04/2025 Orders Only GENERIC EXTERNAL DATA DEPARTMENT Provider, Generic External Data 12/18/[address] [facility] [address] [place] [address] Verenice Nixon NP Anemia, unspecified type 12/16/2024 9:45 AM EST Office [facility] [address] [facility] [place] [address] Verenice Nixon NP Primary hypertension (Primary Dx); Anemia, unspecified type; Primary insomnia; Screening for colon cancer; Pain in both lower extremities 12/16/2024 Travel 12/10/[address] [facility] [address] [place] [address] Kevan Eugenia [place] chartprep 11/24/[address] [facility] [address] [place] [address] Verenice Nixon NP 11/18/[address] [facility] [address] [place] [address] Verenice Nixon NP Primary insomnia from Last [...] 05/14/2025 10:00 AM EDT Office Visit [facility] [address] [place] [address] Verenice Nixon NP [address] [place], [place] [phone] Health Maintenance Due Date Last Done Comments [...] Procedure Name Priority Date/Time Associated Diagnosis Comments PTH, INTACT WITHOUT CALCIUM Routine 02/11/2025 10:45 AM EDT TSH W/REFLEX TO FT4 Routine 02/11/2025 1 0:45 AM EDT VITAMIN D,25-OH,TOTAL,IA Routine 02/11/2025 10:45 AM EDT ALBUMIN Routine 02/11/2025 10:45 AM EDT PHOSPHATE [...] Recently Relevant to Health Maintenance Results * (ABNORMAL) Vitamin D, 25-Hydroxy, Total, Immunoassay (02/11/2025 10:45 AM EDT) Vitamin D 25-OH Total 25.9(L) >30 ng/mL [facility] Comment: Health Based Reference Values*< 20 ??ng/mL ??Smxnkujwl43-37 ng/mL ??Insufficient> 30 ??ng/mL ??Sufficient*Robin MCLAUGHLIN. N [...] ORDERAB LES Final Result Performing Organization Address [facility] de Phone Number [facility] [address] [place] [phone] * TSH with Reflex to Free T4 (02/11/2025 10:45 AM EDT) TSH reflex Free T4 0.93 0.32 - 4.0 uIU/mL [facility] 02/11/2025 10:4 5 AM EDT 02/11/2025 11:32 AM EDT Generic External Data Provider LAB BLOOD ORDERAB LES Final Result Performing Organization Address [facility] de Phone Number [facility] [address] [place] [phone] * Phosphate (As Phosphorus) (02/11/2025 10:45 AM EDT) Phosphorus 3.1 2.7 - 4.5 mg/dL [facility] 02/11/2025 10:4 5 AM EDT 02/11/2025 11:32 AM EDT Generic External Data Provider LAB BLOOD ORDERAB LES Final Result Performing Organization Address [facility] de Phone Number [facility] [address] [place] [phone] * PTH, Intact Without Calcium (02/11/2025 10:45 AM EDT) Parathyroid Hormone, Intact 56.8 8.7 - 77.1 pg/mL [facility] 02/11/2025 10:4 5 AM EDT 02/11/2025 11:40 AM EDT us Generic External Data Provider LAB BLOOD ORDERAB LES Final Result Performing Organization Address City/[facility]/ZIP Co de Phone Number [facility] [address] [place] [phone] * Calcium (02/11/2025 10:45 AM EDT) Calcium 10.2 8.4 - 10.2 mg/dL [facility] 02/11/2025 10:4 5 AM EDT 02/11/2025 11:32 AM EDT us Generic External Data Provider LAB BLOOD ORDERAB LES Final Result Performing Organization Address [facility] Co de Phone Number [facility] [address] [place] [phone] * Albumin (02/11/2025 10:45 AM EDT) Albumin Level 4.3 3.5 - 5.0 g/dL [facility] 02/11/2025 10:4 5 AM EDT 02/11/2025 11:32 AM EDT Generic External Data Provider LAB BLOOD ORDERAB LES Final Result Performing Organization Address [facility] Co de Phone Number [facility] [address] [place] [phone] * (ABNORMAL) Basic Metabolic Panel (02/11/2025 10:45 AM EDT) Only the most recent of2 resultswithin the time period is included. Sodium 142 135 - 145 mmol/L [facility] Potassium 4.1 3.3 - 5.1 mmol/L [facility] Chloride 108 96 - 108 mmol/L [facility] Carbon Dioxide 27 22 - 29 mmol/L [facility] Anion Gap 11(L) 12 - 20 [facility] Urea Nitrogen (BUN) 16 9 - 16 mg/dL [facility] Creatinine, Serum 0.87 0.5 - 1.4 mg/dL [facility] Estimated Glomerular Filt Rate >60 [facility] Comment:Chronic Kidney Disea se: Estimated GFR < 60 mL/min/1.74b6Hnpdno Kidney Disease: Estimated GFR < 15 mL/min/1.73m2 Glucose 103 60 - 115 mg/dL [facility] Calcium 10.3(H) 8.4 - 10.2 mg/dL [facility] 02/11/2025 10:4 5 AM EDT 02/11/2025 11:32 AM EDT us Generic External Data Provider LAB BLOOD ORDERAB LES Final Result Performing Organization Address City/State/[facility] Co de Phone Number [facility] [address] [place] [phone] * (ABNORMAL) Urinalysis, Complete, with Reflex to Culture (01/04/2025 4:48 PM EST) Color Urine Yellow [facility] Appearance Urine Turbid [facility] PH 7.5 5.0 - 9.0 [facility] Glucose Urine UA Negative Negative mg/dL [facility] Urine Blood Large (3+)(A) Negative [facility] Specific [place] - Urine 1.010 1.005 - 1.025 [facility] Urine Protein 100 (2+)(A) Neg-Trace mg/dL [facility] Urine Ketones 15 Negative mg/dL [facility] Nitrite Urine Positive(A) Negative [facility] Leukocyte Esterase Urine Large (3+)(A) Negative [facility] RBC Urine 11-20(A) 0 - 2 /HPF [facility] Urine WBC >50(A) 0 - 5 /HPF [facility] Urine Squamous Epithelial Cell 3-5 0 - 2 /HPF [facility] Urine Bacteria 4+ None Seen [facility] Hyaline Casts, Urine 3-5 0 - 2 /LPF [facility] 01/04/2025 4:48 PM EST 01/04/2025 4:50 PM EST Narrative [facility] - 01/04/2025 5:07 PM EST Urine, Clean Catch Generic External Data Provider LAB URINE ORDERAB LES Final Result Performing Organization Address [facility] de Phone Number [facility] [address] [place] [phone] * Culture, Urine, Routine (01/04/2025 4:48 PM EST) Urine Urine specimen obtained by clean catch procedure / Unknown 01/04/2025 4:48 PM EST 01/04/2025 5:17 PM EST Comment:[facility] - 01/06/2025 7:49 AM EST Escherichia [...] GENERAL ORDERABLES Final Result Performing Organization Address [facility] Phone Number [facility] [address] [place] [phone] * SARS-CoV-2 RNA, Influenza A/B, and RSV RNA, Ql NAAT (01/04/2025 2:17 PM EST) Influenza A PCR NEGATIVE Negative [facility] Influenza B PCR NEGATIVE Negative [facility] Resp Syncy Virus RNA Qual PCR NEGATIVE Negative [facility] SARS COV2 PCR NEGATIVE Negative [facility] Comment:All test results mus t [...] use by authorized laboratories.Testing performed on the [employer] GeneXpert utilizingreal-time RT-PCR.All SARS CoV2 and positive influenza A/B results arereported to [facility]. 01/04/2025 2:17 PM EST 01/04/2025 2:20 PM EST us Generic External Data Provider LAB MICROBIOLOGY - GENERAL ORDERABLES Final Result [facility] [address] [place] [phone] * Cologuard?? colon cancer screening (12/29/2024 4:40 PM EST) Cologuard Result Negative Negative 01/06/20 8:01 PM EST [employer] (CLIA #:[id number]) Comment: NEGATIVE TEST RESULT. A negative Cologuard [...] cancer. ??Following a negative Cologuard result, the [place] Cancer Society and U.S. Multi-Society Task Force screening guidelines recommend a Cologuard re-screening interval of 3 years. References: [place] [employer] Guideline for Colorectal Cancer Screening: https://www.cancer.org/cancer/bfobm-wclfwt-yjucfg/qoshrrbkv-eobzljgoc-wlgtiuv/ac s-rec ommendations.html.; Arun VILLALOBOS, Jocelin ORONA, Cheikh VelázquezK, Colorectal Cancer Screening: Recommendations for Physicians and Patients from the U.S. Multi-Society Task Force on Colorectal Cancer Screening , Am J Gastroenterology 2017; 112:2219-5927. TEST DESCRIPTION: Composite algorithmic analysis of stool [...] colonoscopy. (Vinod Malcolm, N Engl J Med 2014;370(14):2156-3811.) Cologuard may produce a false negative or false positive result (no colorectal cancer or precancerous polyp present at colonoscopy follow up). A negative Cologuard test result does not guarantee the absence of CRC or advanced adenoma (pre-cancer). The current Cologuard screening interval is every 3 years. ([place] [employer] and U.S. Multi-Society Task Force). Cologuard performance data in a 10,000 patient pivotal study using colonoscopy as the reference method can be accessed at the following location: www.[employer]/results. Additional description of the Cologuard test process, warnings and precautions can be found at www.cologuard.com. Stool specimen (specimen) 12/29/2024 4:40 PM EST 12/31/2024 1:15 PM EST [facility] [employer] LAB MOLECULAR DIAGNOSTICS ORDER WALDEMAR Final Result [employer] (CLIA #:[id number]) [place] [address], * (ABNORMAL) CBC auto differential (12/16/2024 10:47 AM EST) White Blood Count 9.9 4.8 - 10.8 X10*3/uL [facility] Red Blood Count 4.15(L) 4.20 - 5.50 X10*6/uL [facility] Hemoglobin 11.8(L) 12.0 - 16.0 g/dl [facility] Hematocrit 35.3(L) 37.0 - 47.0 % [facility] Mean Corpuscular Volume 85.1 80.0 - 98.0 fL [facility] Mean Corpuscular Hemoglobin 28.4 27.0 - 33.0 pg [facility] Mean Corpuscular HGB Conc 33.4 31.0 - 35.0 g/dl [facility] Red Cell Distribution Width 14.5 11.0 - 16.0 % [facility] Platelet Count 260 160 - 400 X10*3/uL [facility] Mean Platelet Volume 11.2 9.4 - 12.3 fL [facility] Neutrophils Percent Auto 60.6 45 - 73 % [facility] Imm Gran Pct Auto 0.4 0.0 - 0.4 % [facility] Lymphocytes Percent Auto 26.5 20 - 40 % [facility] Monocytes Percent Auto 7.4 2 - 11 % [facility] Eosinophils Percent Auto 4.4(H) 0 - 4 % [facility] Basophils Percent Auto 0.7 0 - 2 % [facility] NRBC Pct Auto 0.0 0.0 - 0.2 /100WBC [facility] Neutrophils Absolute Auto 6.0 2.0 - 8.3 x10*3/uL [facility] Imm Gran Abs Auto 0.04(H) 0.00 - 0.03 X10*3/uL [facility] Lymphocytes Absolute Auto 2.6 1.2 - 4.9 X10*3/uL [facility] Monocytes Absolute Auto 0.7 0.1 - 1.2 X10*3/uL [facility] Eosinophils Absolute Auto 0.4 0.0 - 0.4 X10*3/uL [facility] Basophils Absolute Auto 0.1 0.0 - 0.2 X10*3/uL [facility] NRBC Abs Auto 0.000 0.0 - 0.012 X10*3/uL [facility] Blood Venous blood specimen / Unknown 12/16/2024 10:47 AM EST 12/16/2024 1:05 PM EST us Verenice Nixon [employer] LAB BLOOD ORDERABLES Final Resu lt [facility] [address] [place], [place] [phone] * (ABNORMAL) Lipid Panel, Standard (12/16/2024 10:47 AM EST) Triglycerides 112 <150 mg/dL [facility] Comment:Desirable Triglyceri de: less than 150 mg/dLBorderline High Triglyceride 150-199 mg/dLHigh Triglyceride: 200-499 mg/dLVery High Triglyceride: greater than or equal to 5OO mg/dL Cholesterol 198 <200 mg/dL [facility] Comment:Desirable Cholestero l: less than 200 mg/dLBorderline High Cholesterol: 200-239 mg/dLHigh Cholesterol: greater than 239 mg/dL LDL Cholesterol Calculated 119(H) <100 mg/dL [facility] Comment:Desirable LDL: less than 100 mg/dLNear Optimal/Above Optimal LDL: 110- 129 mg/dLBorderline High LDL: 130-159 mg/dLHigh LDL: 160-189 mg/dLVery High LDL: greater than or equal to 190 mg/dL HDL Cholesterol 57 >40 mg/dL [facility] Comment:Desirable HDL: great er than 40 mg/dL Note: This HDL assay may give artificially low results in patients with liver disease. Blood Venous blood specimen / Unknown 12/16/2024 10:47 AM EST 12/16/2024 1:05 PM EST us Verenice Nixon [employer] LAB BLOOD ORDERABLES Final Resu lt [facility] [address] [place] [address] [phone] * VASC US Lower Extremity Venous Insufficiency Bilateral (12/03/2024 10:47 AM EST) 12/03/2024 10:4 7 AM EST Narrative [facility] - 12/09/2024 9:13 AM EST ? [facility] ?[address] ?[place] [address] ? Ultrasound Report ? Signed ? Patient: Metzger,Neha ?MR#: [id number] ? : 1960 ?Acct:[id number] ? Age/Sex: 64 / F ?ADM Date: 01/02/25 ? Loc: HO.US ? Attending Dr: Ngozi Cates PA-C ? Ordering Physician: Ngozi Cates PA-C ?? Date of Service: 12/03/24 ?? Procedure(s): US venous insuf bilat ?? Accession Number(s): [id number] ? cc: Verenice Nixon; Ngozi Cates PA-C [...] Emerson Britton MD in OV> ? 12/09/24 09 ? DD/ 1047 ? TD/TT: 12/03/24 1139 ? School Crossing Guard: ? Procedure Note Donsongter, Image - 12/09/2024 [place] [id number] Ultrasound Report Signed Patient: Jerome Metzger#: [id number] : 1Acct:[id number] Age/Sex: 64 / FADM Date: 12/03/24 Loc: HO.US Attending Dr: Ngozi Cates PA-C Ordering Physician: Ngozi Cates PA-C Date of Service: 12/03/24 Procedure(s): US venous insuf bilat Accession Number(s): [id number] cc: Verenice Nixon; Ngozi Cates PA-C EXAMINATION: [...] Emerson Manuel MD 12/09/2024 09:11 AM EST RP Dictated By: Emerson Sahu MD Signed By: <Electronically signed by Emerson Britton MDin OV> 12/09/24 0911 DD/ 1047 TD/TT: 12/03/24 1139 School Crossing Guard: [facility] External Provider CV VASC ULAR PROCEDURES Edited Result - Final [facility] [address] [place] [address] * BI Mammogram Screening Tomosynthesis Bilateral (09/24/2024 11:00 AM EDT) Anatomical Region Laterality Modality Breast Bilateral Mammography 09/24/2024 11:0 0 AM EDT Narrative 10/03/2024 10:33 AM EDT ? [facility] [place] ? [address] ?[place] [address] ? Mammography Report ? Signed ? Patient: Metzger,Neha ?MR#: [id number] ? : 1960 ?Acct:[id number] ? Age/Sex: 64 / F ?ADM Date: 10/24/24 ? Loc: HO.MAMMO ? Attending Dr: Verenice Appram ? Ordering Physician: Appram,Verenice ?Results: 1Negative ? Date of Service: 09/24/24 ?Follow Up: 1 Year From Orig ?? inal Mammogram ? Procedure(s): MM tomosynthesis screening BI ?? Accession Number(s): [id number] ? cc: Verenice Nixon ? EXAMINATION: ?? [...] DD/ 1100 ? TD/TT: 09/24/24 1118 ? School Crossing Guard: ? Procedure Note Deejay, Image - 10/03/2024 [facility] [address] [place] [address] Mammography Report Signed Patient: Jerome Metzger#: [id number] : 1Acct:[id number] Age/Sex: 64 / FADM Date: 09/24/24 Loc: HO.MAMMO Attending Dr: Verenice Nixon Ordering Physician: Verenice NixonResults: 1Negative Date of Service: 09/24/24Follow Up: 1 Year From Orig inal Mammogram Procedure(s): MM tomosynthesis screening BI Accession Number(s): [id number] cc: Verenice Nixon EXAMINATION: MM SCREENING DIGITAL [...] 10/03/24 1030 DD/ 1100 TD/TT: 09/24/24 1118 School Crossing Guard: Verenice Nixon NP IMG BI PROCEDURES Final Result * Hepatitis C Antibody with Reflex to HCV, RNA, Quantitative, Real-Time PCR (10/30/2023 10:53 AM EST) Hepatitis C Antibody Nonreactive Nonreactive [facility] Comment:Antibodies to HCV no t detected; does not exclude early acuteHCV infection. Blood Venous blood specimen / Unknown 10/30/2023 10:53 AM EST 10/30/2023 11:19 AM EST us Tamara Siegel MD LAB BLOOD ORDERABLES Final Re sult Performing Organization Address [facility] Co de Phone Number [facility] [address] [place] [phone] * HIV-1/2 Antigen and Antibodies, Fourth Generation, with Reflexes (10/30/2023 10:53 AM EST) Pathologist [facility] HIV AB/AG Nonreactive Nonreactive [facility] Comment:HIV-1 p24 Ag and/or HIV-1/HIV-2 Ab not detected.A test result that is nonreactive does not exclude thepossibility of exposure to or infection with HIV-1 and/orHIV-2. Nonreactive results in this assay for individualswith prior exposure to HIV-1 and/or HIV-2 may be due toantigen and antibody levels that are below the limit ofdetection of this assay.[email or web address] HIV Ag/Ab Combo assay result andsupplemental assay results should be interpreted inconjunction with the patient's clinical presentation,history and other laboratory results. If the results areinconsistent with clinical evidence, additional testing issuggested to confirm the result. Blood Venous blood specimen / Unknown 10/30/2023 10:53 AM EST 10/30/2023 11:19 AM EST us Tamara Siegel MD LAB BLOOD ORDERABLES Final Re sult Performing Organization Address [facility]/ZIP Co de Phone Number [facility] [address] [place] [address] [phone] from Last 3 Months or Most Recently Relevant to Health Maintenance Insurance [facility] Care Teams Statistical Methods Professor Relationship Specialty Start Date End Date Verenice Nixon NP [address] [place] [address] PCP - General Family Medicine 11/04/23
--- OUTSIDE RECORDS SUMMARY | 2025-02-11 13:26 | XMS_ITS | Encounter Summary ---
Author Organization [employer] Address [address] [place] [address] [address] [place] [address] Care Team Providers Care Data Technical Lead Name Role Phone Verenice Nixon RITA Primary Care Provider [phone] Reason for Visit * Reason Comments Med Refill Encounter Details Date Type Department Care Team (Late st Contact Info) Description 12/09/2023 Refill [facility] [address] [place] [address] Tamara Siegel MD [address] [place] [address] Primary insomnia Social History Tobacco Use Types [...] Description 05/14/2025 10:00 AM EDT Office Visit [facility] [address] [place] [address] Verenice Nixon NP [address] [place] [address] documented as of this encounter Visit Diagnoses Diagnosis Primary insomnia Persistent disorder of initiating or maintaining sleep documented in this encounter Additional Health Concerns Assessment Noted Time PHQ-9 Depression Total Score: 3 10/30/20 23 9:52 AM EST documented as of this encounter Care Teams Data Technical Lead Relationship Specialty Start Date End Date Verenice Nixon NP [address] [place] [address] PCP - General Family Medicine 11/04/23 documented as of this encounter
--- OUTSIDE RECORDS SUMMARY | 2025-02-11 13:26 | XMS_ITS | Encounter Summary ---
Author Organization [employer] Address [address] [facility] [address] [place] [address] Care Team Providers Care Embosser Apprentice Name Role Phone Verenice Nixon RITA Primary Care Provider [phone] Encounter Details Date Type Department Care [...] Description 05/14/2025 10:00 AM EDT Office Visit [facility] [address] [place] [address] Verenice Nixon NP [address] [place] [address] documented as of this encounter Visit Diagnoses Not on filedocumented in this encounter Additional Health Concerns Assessment Noted Time PHQ-9 Depression Total Score: 0 01/17/20 24 10:02 AM EST documented as of this encounter Care Teams Embosser Apprentice Relationship Specialty Start Date End Date Verenice Nixon NP [address] [place] [address] PCP - General Family Medicine 11/04/23 documented as of this encounter
[2025-02-16 16:03] LABS: Calcium, Ionized 5.4 mg/dL (4.7-5.5)
== END 2025-02-11 10:38 | disposition home or self-care (01) ==
LOC: HO.10HDL 10:37
PROVIDERS: Visit Provider Student in an Organized Health Care Education/Training Program
DX: E83.52 Hypercalcemia (principal); E04.1 Nontoxic single thyroid nodule
CPT/HCPCS: 36415; 80048; 82040; 82306; 82310; 82330; 83970; 84100; 84443

== ENCOUNTER 2025-02-19 07:39 | Outpatient (REF) | payer OTHER, SELFPAY ==
[2025-02-19 10:31] LABS: Albumin Level 4.1 g/dL (3.5-5.0); Anion Gap 12 (12-20); Blood Urea Nitrogen 22 mg/dL (9-16); Calcium 9.9 mg/dL (8.4-10.2); Carbon Dioxide 25 mmol/L (22-29); Chloride 109 mmol/L (96-108); Estimated Glomerular Filt Rate > 60; Glucose Random 114 mg/dL (60-115); Sodium 142 mmol/L (135-145)
[2025-02-19 10:33] LABS: Total Volume 24 Hour Urine 1650 mL
[2025-02-19 10:57] LABS: Creatinine, 24Hr Urine 1.1 G/Day (1.0-2.0); Creatinine, mg/dL 64.24
[2025-02-20 16:43] LABS: Calcium, 24 Hr Urine 83 mg/24 h; Calcium/Creatinine Ratio 83 mg/g creat (30-275); Creatinine 24Hr Urine 0.99 g/24 h (0.50-2.15)
== END 2025-02-19 07:40 | disposition home or self-care (01) ==
LOC: HO.10HDL 07:39
PROVIDERS: Visit Provider Student in an Organized Health Care Education/Training Program
DX: E83.52 Hypercalcemia (principal)
CPT/HCPCS: 36415; 80048; 82040; 82340; 82570

== ENCOUNTER 2025-02-26 10:32 | Outpatient (AMB) | payer OTHER, SELFPAY ==
--- NOTE | 2025-02-26 10:59 | HO.NEPHOV ---
Vital Signs 02/26/25 11:00 Height 5 ft 3 in Weight 147 lb 2 oz BMI 26.1 BP 120/80 Blood Pressure Location Rt brachial Position Sitting Pulse 70 Pulse Source Pulse Oximeter Pulse Oximetry (%) 97 Oxygen Delivery Method Room Air Intake Visit Reasons: Hypertension-Conf Foreclosure Home Inspector Required: Yes Foreclosure Home Inspector Language: Improvement Director Services: Foreclosure Home Inspector Offered & Declined ([facility] film cutter services refused ) Accompanied by: Self / Same As Patient Allergies No Known Allergies [No Known Allergies*] Allergy (Verified 02/26/25 10:59) HPI Comments Details: Neha was seen in follow up for proteinuria, hypertension and hypercalcemia. 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 She is not a diabetic. She has longstanding hypertension and has been on hydrochlorothiazide, lisinopril and amlodipine. She has no epistaxis, joint swellings, photosensitivity, new skin rashes, hematemesis, melena, hematuria, nephrolithiasis, new bone or back pain. She has been having high calcium but denies taking any excessive all calcium or vitamin-D. Her PTH also has been disproportionately high. She does not take any excessive nonsteroidal anti-inflammatories and tries to maintain good hydration. She has no hearing loss. She is compliant with her medications. She has been on PPI. She does not have any nausea or or vomiting. There were no other new active complaints at the time of this office visit [facility] Medical History Irritable bowel syndrome with constipation Vaginal irritation UTI (urinary tract infection) History of Helicobacter pylori infection Colon cancer screening Frequent UTI Anemia Diverticulosis Colon cancer screening Hyperlipemia Hypertension Surgical History History of esophagogastroduodenoscopy (EGD) Hx of colonoscopy (09/16/20) History of ovarian cystectomy Hx of hysterectomy Family History Father Parkinson disease HTN (hypertension) Mother HTN (hypertension) Brother Cancer Social History Household Members: Significant Other Housing: Apartment Do you presently have visiting nurse or other home services: No Alcohol intake: current Alcohol intake frequency: holidays/special occasions only Patient Tobacco Use Status: Never used Tobacco Second Hand Smoke Exposure: Yes service: No Current occupational status: employed Sexual orientation: Straight/Heterosexual Gender identity: Female Review of Systems Const All systems reviewed & are unremarkable except as noted in HPI and below Physical Exam Vital Signs: Last Vital Signs Pulse 70 02/26/25 11:00 BP 152/80 H 02/26/25 11:00 Pulse Ox 97 02/26/25 11:00 Oxygen Delivery Method Room Air 02/26/25 11:00 BMI result Body Mass Index 26.1 Const General: comfortable and no acute distress Orientation/consciousness: patient oriented x3 HEENT Head: Yes normocephalic Mouth: Normal oral and palatal mucosa present Eyes EOM: EOMs intact bilaterally Neck Neck: Yes supple Resp Auscultation: clear to auscultation bilaterally Cardio Jugular venous distension: no JVD Rate: regular rate GI Palpation (GI): Soft to palpation Auscultation: normal bowel sounds General: Yes no CVA tenderness Back/Spine/Pelvis Back: no CVA tenderness Skin General skin exam: no rashes or lesions noted Neuro General: patient oriented x3 and moves all extremities Extrem General: Yes no pedal edema Results Reviewed Nephrology Results: Hgb 11.5 g/dl (12.0-16.0) L 01/04/25 WBC 18.0 X10*3/uL (4.8-10.8) H 01/04/25 Plt Count 193 X10*3/uL (160-400) 01/04/25 Sodium 142 mmol/L (135-145) 02/19/25 Potassium 4.0 mmol/L (3.3-5.1) 02/19/25 Chloride 109 mmol/L (96-108) H 02/19/25 Carbon Dioxide 25 mmol/L (22-29) 02/19/25 BUN 22 mg/dL (9-16) H 02/19/25 Creatinine 0.89 mg/dL (0.5-1.4) 02/19/25 Calcium 9.9 mg/dL (8.4-10.2) 02/19/25 Phosphorus 3.1 mg/dL (2.7-4.5) 02/11/25 PTH Intact 56.8 pg/mL (8.7-77.1) 02/11/25 Urine Protein 100 (2+) mg/dL (Neg-Trace) H 01/04/25 Assessment & Plan Assessment & Plan (1) Hypertension: Code(s): I10 - Essential (primary) hypertension Category: Medical Qualifiers: Hypertension type: primary hypertension Qualified Code(s): I10 - Essential (primary) hypertension (2) Hypercalcemia: Code(s): E83.52 - Hypercalcemia Category: Medical (3) Proteinuria: Code(s): R80.9 - Proteinuria, unspecified Category: Medical Qualifiers: Proteinuria type: unspecified Qualified Code(s): R80.9 - Proteinuria, unspecified Plan Neha has longstanding hypertension. Whether she has any hypertensive nephrosclerosis or AIN from PPI needs to be ascertained. Her urine output is good. She is on RODOLFO inhibitor, hydrochlorothiazide and amlodipine. She likely has a parathyroid adenoma ( refer to recent Sestamibi). Her renal ultrasound was unremarkable. I discontinued her hydrochlorothiazide given hypercalcemia. She can continue lisinopril 30 mg daily. She should avoid calcium supplementation for now. She follows with Endocrine as well. If she continues to have proteinuria and or worsening renal function she may need a renal biopsy. All these have been explained in detail. Follow-up given Orders: Orders Protein Creatinine Ratio, Ur 3 Months I10 - Essential (primary) hypertension, R80.9 - Proteinuria, unspecified Blood Urea Nitrogen 3 Months I10 - Essential (primary) hypertension, R80.9 - Proteinuria, unspecified Creatinine 3 Months I10 - Essential (primary) hypertension, R80.9 - Proteinuria, unspecified Electrolytes 3 Months I10 - Essential (primary) hypertension, R80.9 - Proteinuria, unspecified Coding Level of Care Code Est Pt Level 4 (04455) Diagnoses Primary hypertension I10 Hypertension type: primary hypertension Hypercalcemia E83.52 Proteinuria, unspecified type R80.9 Proteinuria type: unspecified
[2025-02-26 11:00] VITALS: BP 120/80; PULSE 70; O2SAT 97; BMI 26.1
== END 2025-02-26 11:15 | disposition home or self-care (01) ==
LOC: HO.HKA 10:32
PROVIDERS: PCP Nurse Practitioner; Visit Provider Internal Medicine Nephrology
DX: I10 Essential (primary) hypertension (principal); E83.52 Hypercalcemia; R80.9 Proteinuria, unspecified
CPT/HCPCS: 99214

== ENCOUNTER → 2025-02-26 10:32 | Outpatient (BNVA) | payer OTHER, SELFPAY | PROVIDERS: PCP Nurse Practitioner; Visit Provider Internal Medicine Nephrology | DX: I10 Essential (primary) hypertension (principal); E83.52 Hypercalcemia; R80.9 Proteinuria, unspecified | CPT/HCPCS: 99212 ==

== ENCOUNTER 2025-03-11 12:51 | Outpatient (REF) | payer OTHER, SELFPAY ==
--- NOTE | ~2025-03-11 | US_ITS ---
EXAMINATION: US THYROID HISTORY: E04.1 - Nontoxic single thyroid nodule TECHNIQUE: Real-time grayscale ultrasound imaging was performed and images were reviewed. COMPARISON: There are no prior studies for comparison. FINDINGS: SIZE: The right thyroid lobe measures 4.1 x 1.7 x 1.1 cm. The left thyroid lobe measures 4.5 x 1.1 x 1.1 cm. The isthmus measures 2 mm. FLOW: Flow to the gland is normal. ECHOGENICITY: The echotexture of the gland is homogeneous. NODULES: Multiple small thyroid nodules are seen bilaterally as follows: Nodule #: 1 Location: Right upper pole measuring 10 x 6 x 8 mm Shape: Wider than tall (0 points) Margins: Smooth (0 points) Echotexture: Indeterminate (1 point) Composition: Mostly solid (2 points) Calcifications: None (0 points) Total points: 3 TIRADS: TR3: Mildly suspicious. Nodule #: 2 Location: Right mid to lower pole measuring 3 x 2 x 3 mm Shape: Round (0 points) Margins: Smooth (0 points) Echotexture: Indeterminate (1 point) Composition: Mixed (1 point) Calcifications: None (0 points) Total points: 2 TIRADS: TR2: Not suspicious Nodule #: 3 Location: Right lower pole measuring 6 x 5 x 7 mm Shape: Wider than tall (0 points) Margins: Lobulated (2 points) Echotexture: Hypoechoic (2 points) Composition: Solid (2 points) Calcifications: Comet tail (0 points) Total points: 6 TIRADS: TR4: Moderately suspicious. Nodule #: 4 Location: Right isthmus measuring 6 x 3 x 5 mm Shape: Wider than tall (0 points) Margins: Lobulated (2 points) Echotexture: Hypoechoic (2 points) Composition: Solid (2 points) Calcifications: None (0 points) Total points: 6 TIRADS: TR4: Moderately suspicious. Nodule #: 5 Location: Left upper pole measuring 6 x 3 x 5 mm Shape: Wider than tall (0 points) Margins: Ill-defined (0 points) Echotexture: Indeterminate (1 point) Composition: Mixed (1 point) Calcifications: None (0 points) Total points: 2 TIRADS: TR2: Not suspicious US/US thyroid IMPRESSION: Multiple subcentimeter thyroid nodules as described. ACR TI-RADS Guidelines TR1 (0 points): Benign, No follow-up or biopsy required TR2 (2 points): Not Suspicious, No biopsy or follow up indicated TR3 (3 points): Mildly Suspicious, FNA if >= 2.5 cm, Follow if >= 1.5 cm TR4 (4-6 points): Moderately Suspicious, FNA if >= 1.5 cm, Follow if >= 1.0 cm TR5 (>=7 points): Highly Suspicious, FNA if >= 1.0 cm, Follow if >= 0.5 cm Electronically signed by: Davy Grayson MD 03/11/2025 03:45 PM EDT
--- OUTSIDE RECORDS SUMMARY | 2025-03-11 15:24 | XMS_ITS | Encounter Summary ---
Author Organization [employer] [facility] Address [address] [place] [address] 7 [place] [address] Care Team Providers Care Game Breeding Farm Manager Name Role Phone Verenice Nixon RITA Primary Care Provider [phone] Reason for Visit * Reason Onset Date Comments unable to post insurance 02/23/2025 Encounter Details Date Type Department Care Team ([facility] st Contact Info) Description 02/23/2025 Telephone [facility] ADULT DENTAL [address] [place] [address] Loretta Jasso DDS [address] [place] [address] unable to post insurance Social History Tobacco Use Types Packs/Day Years [...] encounter Miscellaneous Notes * Telephone Encounter - Nataliya De - 02/23/2025 10:53 AM EDT Patient is coming in for 1:30 emergency dental appt. Unable to post insurance portal not [facility] [address] documented in this encounter Plan of Treatment Upcoming Encounters Date Type Department Care Team (Late st Contact Info) Description 05/13/2025 11:00 AM EDT Office Visit [facility] AD[facility] [address] [place] [address] Willow Eisenberg 05/14/2025 10:00 AM EDT Office Visit [facility] MEDIC[facility] [address] [place] [address] Verenice Nixon NP [address] [place] [address] documented as of this encounter Visit Diagnoses Not on filedocumented in this encounter Additional Health Concerns Assessment Noted Time PHQ-9 Depression Total Score: 0 01/17/20 24 10:02 AM EST documented as of this encounter Care Teams Game Breeding Farm Manager Relationship Specialty Start Date End Date Verenice Nixon NP [address] [place] [address] PCP - General Family Medicine 11/04/23 documented as of this encounter
--- OUTSIDE RECORDS SUMMARY | 2025-03-11 15:24 | XMS_ITS | Encounter Summary ---
Author Organization [employer] Address [address] [place] [address] 7t [place] [address] Care Team Providers Care Director Corporate Communications Name Role Phone Verenice Nixon NP Primary Care Provider [phone] Reason for Visit * Reason Onset Date Comments Med Refill 02/19/2024 Encounter Details Date Type Department Care Team ([facility] st Contact Info) Description 02/19/2024 Telephone [facility] MEDICINE [address] [place], [place] [phone] Verenice Nixon NP [address] [place], [place] [phone] Med Refill Social History Tobacco Use Types [...] 1:45 PM EDT Medication was sent to [id number] on 01/23/24 90 day supply. * Telephone Encounter - Harlan Colon - 02/19/2024 1:39 PM EDT TC from pt requesting medication refill. Medications needing refill : rosuvastatin (Crestor) 40 MG tablet To be sent to: [facility]/pharmacy #[id number] - [place], [place] - [address] [place] [address] documented in this encounter Plan of Treatment Upcoming Encounters Date Type Department Care Team (Late st Contact Info) Description 05/13/2025 11:00 AM EDT Office Visit [facility] ADULT DENTAL [address] [place] [address] Willow Eisenberg 05/14/2025 10:00 AM EDT Office Visit [facility] MEDICINE [address] [place] [address] Verenice Nixon NP [address] [place] [address] documented as of this encounter Visit Diagnoses Not on filedocumented in this encounter Additional Health Concerns Assessment Noted Time PHQ-9 Depression Total Score: 0 01/17/20 24 10:02 AM EST documented as of this encounter Care Teams Director Corporate Communications Relationship Specialty Start Date End Date Verenice Nixon NP [address] [place] [address] PCP - General Family Medicine 11/04/23 documented as of this encounter
--- OUTSIDE RECORDS SUMMARY | 2025-03-11 15:24 | XMS_ITS | Encounter Summary ---
Author Organization [email or web address] Address [address] [place] [address] 7[address] [place] [address] Care Team Providers Care Chairman Ceo Name Role Phone NaveedVerenice todd RITA Primary Care Provider [phone] Reason for Visit * Reason Comments Med Refill Encounter Details Date Type Department Care Team (Late st Contact Info) Description 12/09/2023 Refill [facility] [address] [place] [address] Tamara Siegel MD [address] [place] [address] Primary insomnia Social History Tobacco Use Types [...] Description 05/13/2025 11:00 AM EDT Office Visit [facility] ADULT DENTAL [address] [place] [address] Willow Eisenberg 05/14/2025 10:00 AM EDT Office Visit [facility] MEDICINE [address] [place] [address] Verenice Nixon NP [address] [place] [address] documented as of this encounter Visit Diagnoses Diagnosis Primary insomnia Persistent disorder of initiating or maintaining sleep documented in this encounter Additional Health Concerns Assessment Noted Time PHQ-9 Depression Total Score: 3 10/30/20 23 9:52 AM EST documented as of this encounter Care Teams Chairman Ceo Relationship Specialty Start Date End Date Verenice Nixon NP [address] [place] [address] PCP - General Family Medicine 11/04/23 documented as of this encounter
--- OUTSIDE RECORDS SUMMARY | 2025-03-11 15:24 | XMS_ITS | Encounter Summary ---
Author Organization [employer] [facility] Address [address] [place] [address] 7[address] [place] [address] Care Team Providers Care Audiovisual Librarian Name Role Phone LanceCarrie ponce Heidi SILVAP Primary Care Provider [phone] Verenice Nixon NP Primary Care Provider [phone] Verenice Nixon NP Primary Care Provider [phone] Encounter Details Date Type Department Care Team (Late st Contact Info) Description 03/11/2023 Orders Only [facility] [address] [place] [address] Beatriz Castillo LPN Social History Tobacco Use [...] Description 05/13/2025 11:00 AM EDT Office Visit [facility] ADULT DENTAL [address] [place] [address] Willow Eisenberg 05/14/2025 10:00 AM EDT Office Visit [facility] MEDICINE [address] [place] [address] Verenice Nixon NP [address] [place] [address] documented as of this encounter Visit Diagnoses Not on filedocumented in this encounter Care Teams Audiovisual Librarian Relationship Specialty Start Date End Date Carrie Lucas FNP PCP - General Family Medicine 11/20/21 09/05/23 Verenice Nixon NP [address] [place] [address] PCP - General Family Medicine 09/06/23 11/03/23 Verenice Nixon NP [address] [place] [address] PCP - General Family Medicine 11/04/23 documented as of this encounter
--- OUTSIDE RECORDS SUMMARY | 2025-03-11 15:24 | XMS_ITS | Encounter Summary ---
Author Organization [employer] [facility] Address [address] [place] [address] 7t [place] [address] Care Team Providers Care Skinner Pelts Name Role Phone LanceCarrie Heidi SILVAP Primary Care Provider [phone] Verenice Nixon NP Primary Care Provider [phone] Verenice Nixon NP Primary Care Provider [phone] Encounter Details Date Type Department Care Team (Late st Contact Info) Description 01/02/2023 Orders Only [facility] & PEDS [address] [place] [address] Beatriz Castillo LPN Social History Tobacco Use [...] Description 05/13/2025 11:00 AM EDT Office Visit [facility] ADULT DENTAL [address] [place] [address] Willow Eisenberg 05/14/2025 10:00 AM EDT Office Visit [facility] MEDICINE [address] [place] [address] Verenice Nixon NP [address] [place] [address] documented as of this encounter Visit Diagnoses Not on filedocumented in this encounter Care Teams Skinner Pelts Relationship Specialty Start Date End Date Carrie Lucas FNP PCP - General Family Medicine 11/20/21 09/05/23 Verenice Nixon NP [address] [place] [address] PCP - General Family Medicine 09/06/23 11/03/23 Verenice Nixon NP [address] [place] [address] PCP - General Family Medicine 11/04/23 documented as of this encounter
--- OUTSIDE RECORDS SUMMARY | 2025-03-11 15:24 | XMS_ITS | Encounter Summary ---
Author Organization [employer] [facility] Address [address] [place] [address] [address] [place] [address] Care Team Providers Care Contract Driver Name Role Phone LanceCarrie ponce CLINICAL RESOURCE MANAGER Primary Care Provider [phone] Verenice Nixon NP Primary Care Provider [phone] Verenice Nixon NP Primary Care Provider [phone] Encounter Details Date Type Department Care Team (Late st Contact Info) Description 12/07/2022 Orders Only [facility] MEDICINE [address] [place] [address] Maria G Jean RN [address] [place] [address] Social History Tobacco Use Types Packs/Day Years [...] Description 05/13/2025 11:00 AM EDT Office Visit [facility] ADULT DENTAL [address] [place] [address] Willow Eisenberg 05/14/2025 10:00 AM EDT Office Visit [facility] MEDICINE [address] [place] [address] Verenice Nixon NP [address] [place] [address] documented as of this encounter Visit Diagnoses Not on filedocumented in this encounter Care Teams Contract Driver Relationship Specialty Start Date End Date Carrie Lucas FNP PCP - General Family Medicine 11/20/21 09/05/23 Verenice Nixon NP [address] [place] [address] PCP - General Family Medicine 09/06/23 11/03/23 Verenice Nixon NP [address] [place] [address] PCP - General Family Medicine 11/04/23 documented as of this encounter
--- OUTSIDE RECORDS SUMMARY | 2025-03-11 15:24 | XMS_ITS | Encounter Summary ---
Author Organization [employer] [facility] Address [address] [place] [address] 7t [place] [address] Care Team Providers Care Service Learning Coordinator Name Role Phone Verenice Nixon FREIGHT COORDINATOR Primary Care Provider [phone] Verenice Nixon FREIGHT COORDINATOR Primary Care Provider [phone] Encounter Details Date Type Department Care Team (Late Contact Info) Description 11/01/2023 Orders Only [facility] MEDICINE [address] [place] [address] Regi Marsh FNP Social History Tobacco Use [...] Department Care Team (Late Contact Info) Description 05/13/2025 11:00 AM EDT Office Visit [facility] ADULT DENTAL [address] [place] [address] Willow Eisenberg 05/14/2025 10:00 AM EDT Office Visit [facility] MEDICINE [address] [place] [address] Verenice Nixon NP [address] [place] [address] documented as of this encounter Visit Diagnoses Not on filedocumented in this encounter Additional Health Concerns Assessment Noted Time PHQ-9 Depression Total Score: 3 10/30/20 23 9:52 AM EST documented as of this encounter Care Teams Service Learning Coordinator Relationship Specialty Start Date End Date Verenice Nixon NP [address] [place] [address] PCP - General Family Medicine 09/06/23 11/03/23 Verenice Nixon NP [address] [place] [address] PCP - General Family Medicine 11/04/23 documented as of this encounter
--- OUTSIDE RECORDS SUMMARY | 2025-03-11 15:24 | XMS_ITS | Clinical Summary ---
Author Organization [employer] Address [address] [place] [address] [address] [place] [address] Care Team Providers Care Cryptographic Machine Operator Name Role Phone Naveedpeyton Verenice RITA Primary Care Provider [phone] Allergies No known active allergies Medications ibuprofen 400 MG tabletIndications: Dysuria Take 1 tablet (400 mg) by mouth every 6 (six) hours if needed for moderate pain or fever for up to 30 doses. 30 tablet 01/07/20 23 Active rosuvastatin (Crestor) 40 MG tabletIndications: Hyperlipidemia, unspecified hyperlipidemia type TAKE 1 TABLET BY MOUTH EVERY DAY AT NIGHT 90 tablet 1 08/14/20 24 Active lisinopril 30 MG tablet Take 1 tablet by mouth Once per day. 11/18/20 24 Active ferrous gluconate (Fergon) 324 (38 Fe) MG tabletIndications: Anemia, unspecified type TAKE 1 TABLET BY MOUTH EVERY OTHER MORNING WITH VITAMIN C 45 tablet 12/18/19 25 Active omeprazole (PriLOSEC) [address] capsule TAKE 1 CAPSULE BY MOUTH EVERY DAY BEFORE A MEAL 90 capsule 1 02/09/20 25 Active zolpidem (Ambien) 10 MG tabletIndications: Primary insomnia TAKE 1 TABLET BY MOUTH EVERYDAY AT BEDTIME 28 tablet 02/18/20 25 Active D3-1000 25 MCG (1000 UT) capsule Take 1 capsule by mouth Once per day. 02/12/20 25 Active zolpidem (Ambien) 10 MG tabletIndications: Primary insomnia TAKE 1 TABLET BY MOUTH EVERYDAY AT BEDTIME DO NOT START BEFORE DECEMBER 20, 2024. 28 tablet 01/20/20 25 025 Discontinued amoxicillin (Amoxil) 500 MG capsule Take 1 capsule (500 mg) by mouth every 8 (eight) hours for 7 days. 21 capsule 02/24/20 25 025 ibuprofen 800 MG tablet Take 1 tablet (800 mg) by mouth every 8 (eight) hours if needed for mild pain for up to 10 days. 15 tablet 02/24/20 25 025 acetaminophen (Tylenol 8 Hour) 650 MG ER tablet Take 1 tablet (650 mg) by mouth every 8 (eight) hours if needed for moderate pain for up to 10 days. Do not crush, chew, or split. 15 tablet 02/24/20 25 025 Active Problems Problem Noted Date Diagnosed Date Open fracture of tooth 02/23/2025 Screening for colon cancer 02/08/2025 Assessment & [...] has been a long standing complaint of [facility] Assessment & Plan (06/23/2024 5:43 PM EDT): -may be due to venous insufficiency based on patient report -advised to continue elevation when possible -will benefit from use of compression stocking. encouraged to purchase a pair from [employer] as [facility] will not cover -consider venous US [...] Encounters Date Type Department Care Team Description 02/23/2025 2:00 PM EDT Office Visit [facility] ADULT D[facility] [address] [place] [address] Antonio Pedro DDS Open fracture of tooth, sequela (Primary Dx) 02/23/2025 1:30 PM EDT Office Visit [facility] [address] [place] [address] Ras-Loretta Edgar, DDS Open fracture of tooth, initial encounter (Primary Dx) 02/23/2025 Telephone [facility] [address] [place] [address] Mcginnis-EdgarJohnny bonnerfemia, DDS unable to post insurance 02/19/2025 Orders Only GENERIC EXTERNAL DATA DEPARTMENT Provider, Generic External Data 02/16/2025 Refill [facility] [address] [place] [address] Verenice Nixon NP Primary insomnia 02/11/2025 Orders Only GENERIC EXTERNAL DATA DEPARTMENT Provider, Generic External Data 02/09/2025 Telephone [facility] [address] [place] [address] Eugenia Mathur MA follow up appointment scheduled 02/08/2025 Telephone [facility] [address] [place] [address] Verenice Nixon NP 02/07/2025 Refill [facility] [address] [place] [phone] Verenice Nixon NP 02/04/2025 10:30 AM EST Office Visit [facility] [address] [place] [address] Taromer, Jo-Ann, OD 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); Presbyopia 02/04/2025 Travel 01/19/2025 Refill [facility] [address] [place] [address] Verenice Nixon NP Primary insomnia 01/15/2025 11:00 AM EST Office Visit [facility] [address] [place] [phone] Verenice Nixon NP Encounter for immunization 01/05/2025 Telephone [facility] [address] [place] [phone] Eugenia Mathur MA chartprep 01/04/2025 Orders Only GENERIC EXTERNAL DATA DEPARTMENT Provider, Generic External Data 12/18/2024 Refill [facility] [address] [place] [phone] Verenice Nixon NP Anemia, unspecified type 12/16/2024 9:45 AM EST Office Visit [facility] [address] [place] [phone] Verenice Nixon NP Primary hypertension (Primary Dx); Anemia, unspecified type; Primary insomnia; Screening for colon cancer; Pain in both lower extremities 12/16/2024 Travel from Last 3 Months Immunizations Name Administration [...] is your housing situation today? I have anpu lubin 01/17/[address] you [...] Sign Reading Time Taken Comments Blood Pressure 126/74 02/23/2025 2:21 PM EDT Pulse 70 01/15/2025 11:03 AM EST Temperature [...] Description 05/13/2025 11:00 AM EDT Office Visit [facility] [address] [place] [address] Willow Eisenberg 05/14/2025 10:00 AM EDT Office Visit [facility] [address] [place] [address] Verenice Nixon NP [address] [place] [address] Health Maintenance Due Date Last Done Comments CT Colonography 1960 Colonoscopy 1960 FIT 1960 FOBT 1960 Sigmoidoscopy 1960 Dental Oral Exam 02/08/2017 08/10/2016 Dental Prophylaxis 03/22/2017 09/20/2016 Dental X-Ray: Full Mouth 08/11/2019 08/10/2016 COVID-19 Vaccine ( season) 2024 01/29/2022, 01/19/2021, 12/29/2020 Influenza Vaccine (#1) 2024 , 10/02/2017, 09/06/2014, Additional history exists Depression Screening 01/17/2025 01/17/2024, 01/17/20 Alcohol/Substance Use Screening 12/16/2025 12/16/2024 SDOH Screening 01/15/2026 01/15/2025 Tobacco Screening 02/23/2026 02/23/2025 Dental X-Ray: Bitewings 02/24/2026 02/23/2025, 08/10 Mammogram 09/24/2026 09/24/2024, 09/01, 09/13/2022, Additional history [...] Procedure Name Priority Date/Time Associated Diagnosis Comments CASE PRESENTATION, DETAILED AND EXTENSIVE TREATMENT PLANNING Routine 02/23/2025 2:00 PM EDT 12 EXTRACTION, ERUPTED TOOTH REQ REMOVAL OF BONE AND/OR SECTIONING OF TOOTH Routine 02/23/2025 2:00 PM EDT CASE PRESENTATION, DETAILED AND EXTENSIVE TREATMENT PLANNING Routine 02/23/2025 1:30 PM EDT Open fracture of tooth, initial encounter CASE PRESENTATION, DETAILED AND EXTENSIVE TREATMENT PLANNING Routine 02/23/2025 1:30 PM EDT Open fracture of tooth, initial encounter BITEWING - SINGLE RADIOGRAPHIC IMAGE Routine 02/23/2025 1:30 PM EDT Open fracture of tooth, initial encounter PALLIATIVE (EMERGENCY) TREATMENT OF DENTAL PAIN - MINOR PROCEDURE Routine 02/23/2025 1:30 PM EDT Open fracture of tooth, initial encounter ALBUMIN Routine 02/19/2025 7:43 AM EDT BASIC METABOLIC PANEL Routine 02/19/2025 7:43 AM EDT CALCIUM, 24 HOUR URINE (W/ CREATININE) Routine 02/19/2025 6:45 AM EDT CREATININE, 24 HR GROUP Routine 02/19/2025 6:45 AM EDT CALCIUM, IONIZED Routine 02/11/2025 10:4 5 AM EDT PTH, INTACT WITHOUT CALCIUM Routine [...] Routine 12/16/2024 10:47 AM EST Primary hypertension BI MAMMOGRAM SCREENING TOMOSYNTHESIS BILATERAL Routine 09/24/2024 11:00 AM EDT HEPATITIS C AB W/REFL TO HCV RNA, QN, PCR Routine 10/30/2023 10:53 AM EST Routine adult health maintenance HIV 1/2 ANTIGEN/ANTIBODY, FOURTH GENERATION W/RFL Routine 10/30/2023 10:53 AM EST Routine adult health maintenance PROPHYLAXIS - ADULT Routine 09/20/2016 1 2:00 AM EDT INTRAORAL - COMPLETE SERIES OF RADIOGRAPHIC IMAGES Routine 08/10/2016 12:00 AM EDT COMPREHENSIVE ORAL EVALUATION - NEW OR ESTABLISHED PATIENT Routine 08/10/2016 12:00 AM EDT from Last 3 Months or Most Recently Relevant to Health Maintenance Results * Albumin (02/19/2025 7:43 AM EDT) Only the most recent of2 resultswithin the time period is included. Albumin Level 4.1 3.5 - 5.0 g/dL [facility] 02/19/2025 7:43 AM EDT 02/19/2025 10:13 AM EDT us Generic External Data Provider LAB BLOOD ORDERAB LES Final Result Performing Organization Address [facility]/ZIP Co de Phone Number [facility] [address] [place] [address] [phone] * (ABNORMAL) Basic Metabolic Panel (02/19/2025 7:43 AM EDT) Only the most recent of3 resultswithin the time period is included. Sodium 142 135 - 145 mmol/L [facility] Potassium 4.0 3.3 - 5.1 mmol/L [facility] Chloride 109(H) 96 - 108 mmol/L [facility] Carbon Dioxide 25 22 - 29 mmol/L [facility] Anion Gap 12 12 - 20 [facility] Urea Nitrogen (BUN) 22(H) 9 - 16 mg/dL [facility] Creatinine, Serum 0.89 0.5 - 1.4 mg/dL [facility] Estimated Glomerular Filt Rate >60 [facility] Comment:Chronic Kidney Disea se: Estimated GFR < 60 mL/min/1.64h5Kzxsbe Kidney Disease: Estimated GFR < 15 mL/min/1.73m2 Glucose 114 60 - 115 mg/dL [facility] Calcium 9.9 8.4 - 10.2 mg/dL [facility] 02/19/2025 7:43 AM EDT 02/19/2025 10:13 AM EDT us Generic External Data Provider LAB BLOOD ORDERAB LES Final Result Performing Organization Address [facility]/ZIP Co de Phone Number [facility] [address] [place] [address] [phone] * CREATININE, 24 HR GROUP (02/19/2025 6:45 AM EDT) Creatinine, 24 Hour Urine 1.1 1.0 - 2.0 G/Day [facility] Creatinine, Urine 64.24 [facility] Urine Total Volume 24 Hour 1,650 mL [facility] 02/19/2025 6:45 AM EDT 02/19/2025 10:06 AM EDT [facility] - 02/19/2025 10:57 AM EDT [id number] Generic External Data Provider LAB URINE ORDERAB LES Final Result Performing Organization Address [facility] Co de Phone Number [facility] [address] [place] [phone] * Calcium, 24 Hour Urine W/ Creatinine (02/19/2025 6:45 AM EDT) Calcium, 24 Hour Urine 83 mg/24 h [facility] Comment:Reference Range 35-2 50 Low calcium diet 35-200 Calcium/Creatini ne Ratio 83 30 - 275 mg/g creat [facility] Creatinine, 24 Hour Urine 0.99 0.50 - 2.15 g/24 h [facility] Comment:THIS TEST WAS PERFOR MED AT:[employer] [place] [phone] ESQUIVEL MD 02/19/2025 6:45 AM EDT 02/19/2025 10:06 AM EDT [facility] - 02/20/2025 4:43 PM EDT [id number] Generic External Data Provider LAB URINE ORDERAB LES Final Result Performing Organization Address [facility] Co de Phone Number [facility] [address] [place] [phone] * (ABNORMAL) Vitamin D, 25-Hydroxy, Total, Immunoassay (02/11/2025 10:45 AM EDT) Vitamin D 25-OH Total 25.9(L) >30 ng/mL [facility] Comment: Health Based Reference Values*< 20 ??ng/mL ??[id number] ng/mL ??Insufficient> 30 ??ng/mL ??Sufficient*Robin MCLAUGHLIN. N [...] ORDERAB LES Final Result Performing Organization Address [facility]/ZIP Co de Phone Number [facility] [address] [place] [phone] * TSH with Reflex to Free T4 (02/11/2025 10:45 AM EDT) TSH reflex Free T4 0.93 0.32 - 4.0 uIU/mL [facility] 02/11/2025 10:4 5 AM EDT 02/11/2025 11:32 AM EDT us Generic External Data Provider LAB BLOOD ORDERAB LES Final Result Performing Organization Address [facility]/ZIP Co de Phone Number [facility] [address] [place] [address] [phone] * Phosphate (As Phosphorus) (02/11/2025 10:45 AM EDT) Phosphorus 3.1 2.7 - 4.5 mg/dL [facility] 02/11/2025 10:4 5 AM EDT 02/11/2025 11:32 AM EDT us Generic External Data Provider LAB BLOOD ORDERAB LES Final Result Performing Organization Address [facility]/ZIP Co de Phone Number [facility] [address] [place] [phone] * PTH, Intact Without Calcium (02/11/2025 10:45 AM EDT) Parathyroid Hormone, Intact 56.8 8.7 - 77.1 pg/mL [facility] 02/11/2025 10:4 5 AM EDT 02/11/2025 11:40 AM EDT us Generic External Data Provider LAB BLOOD ORDERAB LES Final Result Performing Organization Address [facility] de Phone Number [facility] [address] [place] [phone] * Calcium, Ionized (02/11/2025 10:45 AM EDT) Calcium, Ionized 5.4 4.7 - 5.5 mg/dL [facility] Comment:THIS TEST WAS PERFOR MED AT:[employer] [address] [phone] ESQUIVEL MD 02/11/2025 10:4 5 AM EDT 02/11/2025 11:32 AM EDT us Generic External Data Provider LAB BLOOD ORDERAB LES Final Result Performing Organization Address [facility] Co de Phone Number [facility] [address] [place] [phone] * Calcium (02/11/2025 10:45 AM EDT) Calcium 10.2 8.4 - 10.2 mg/dL [facility] 02/11/2025 10:4 5 AM EDT 02/11/2025 11:32 AM EDT us Generic External Data Provider LAB BLOOD ORDERAB LES Final Result [facility] [address] [place] [phone] * (ABNORMAL) Urinalysis, Complete, with Reflex to Culture (01/04/2025 4:48 PM EST) Color Urine Yellow [facility] Appearance Urine Turbid [facility] PH 7.5 5.0 - 9.0 [facility] Glucose Urine UA Negative Negative mg/dL [facility] Urine Blood Large (3+)(A) Negative [facility] Specific [place] - Urine 1.010 1.005 - 1.025 [facility] Urine Protein 100 (2+)(A) Neg-Trace mg/dL [facility] Urine Ketones 15 Negative mg/dL [facility] Nitrite Urine Positive(A) Negative [facility] Leukocyte Esterase Urine Large (3+)(A) Negative [facility] RBC Urine 11-20(A) 0 - 2 /HPF [facility] Urine WBC >50(A) 0 - 5 /HPF [facility] Urine Squamous Epithelial Cell 3-5 0 - 2 /HPF [facility] Urine Bacteria 4+ None Seen [facility] Hyaline Casts, Urine 3-5 0 - 2 /LPF [facility] 01/04/2025 4:48 PM EST 01/04/2025 4:50 PM EST Narrative [facility] - 01/04/2025 5:07 PM EST Urine, Clean Catch us Generic External Data Provider LAB URINE ORDERAB LES Final Result Performing Organization Address [facility]/ZIP Co de Phone Number [facility] [address] [place] [phone] * Culture, Urine, Routine (01/04/2025 4:48 PM EST) Urine Urine specimen obtained by clean catch procedure / Unknown 01/04/2025 4:48 PM EST 01/04/2025 5:17 PM EST Comment:[facility] Narrative [facility] - 01/06/2025 7:49 AM EST [...] GENERAL ORDERABLES Final Result Performing Organization Address [facility] Co de Phone Number [facility] [address] [place] [phone] * SARS-CoV-2 RNA, Influenza A/B, and RSV RNA, Ql NAAT (01/04/2025 2:17 PM EST) Influenza A PCR NEGATIVE Negative [facility] Influenza B PCR NEGATIVE Negative [facility] Resp Syncy Virus RNA Qual PCR NEGATIVE Negative [facility] SARS COV2 PCR NEGATIVE Negative [facility] Comment:All test results mus t [...] use by authorized laboratories.Testing performed on the [employer] GeneXpert utilizingreal-time RT-PCR.All SARS CoV2 and positive influenza A/B results arereported to [facility]. 01/04/2025 2:17 PM EST 01/04/2025 2:20 PM EST us Generic External Data Provider LAB MICROBIOLOGY - GENERAL ORDERABLES Final Result [facility] [address] [place] [phone] * Cologuard?? colon cancer screening (12/29/2024 4:40 PM EST) Cologuard Result Negative Negative 01/06/20 8:01 PM EST [facility] (CLIA #:[id number]) Comment: NEGATIVE TEST RESULT. A negative Cologuard [...] screened with both Cologuard and colonoscopy. (Vinod Childress al, N Engl J Med 2014;370(14):1286- 1297) The normal value (reference range) for this assay is negative. COLOGUARD RE-SCREENING RECOMMENDATION: Periodic colorectal cancer screening is an important part of preventive healthcare for asymptomatic individuals at average risk for colorectal cancer. ??Following a negative Cologuard result, the [place] [employer] and U.S. Multi-Society Task Force screening guidelines recommend a Cologuard re-screening interval of 3 years. References: [place] [employer] Guideline for Colorectal Cancer Screening: https://www.cancer.org/cancer/szoqh-fbyjpc-hlbekm/deqvlvtxb-hlzlhcsnw-ltuverk/ac s-rec ommendations.html.; Arun DK, Jocelin CR, Cheikh VelázquezK, Colorectal Cancer Screening: Recommendations for Physicians and Patients from the U.S. Multi-Society Task Force on Colorectal Cancer Screening , Am J Gastroenterology 2017; 112:7611-2763. TEST DESCRIPTION: Composite algorithmic analysis of stool [...] screened with both Cologuard and colonoscopy. (Vinod Childress al, N Engl J Med 2014;370(14):1390-1526.) Cologuard may produce a false negative or false positive result (no colorectal cancer or precancerous polyp present at colonoscopy follow up). A negative Cologuard test result does not guarantee the absence of CRC or advanced adenoma (pre-cancer). The current Cologuard screening interval is every 3 years. ([place] [employer] and U.S. Multi-Society Task Force). Cologuard performance data in a 10,000 patient pivotal study using colonoscopy as the reference method can be accessed at the following location: www.[employer].Vite/results. Additional description of the Cologuard test process, warnings and precautions can be found at www.[employer] Networks[employer].com. Stool specimen (specimen) 12/29/2024 4:40 PM EST 12/31/2024 1:15 PM EST us Verenice Nixon [facility] SPECIAL[facility] LAB MOLECULAR DIAGNOSTICS ORDER [place]ALDEMAR Final Result [facility] (CLIA #:[id number]) [address] [place] [address] [place] [address], [place] [phone] * (ABNORMAL) CBC auto differential (12/16/2024 10:47 AM EST) White Blood Count 9.9 4.8 - 10.8 X10*3/uL [facility] Red Blood Count 4.15(L) 4.20 - 5.50 X10*6/uL [facility] Hemoglobin 11.8(L) 12.0 - 16.0 g/dl [facility] Hematocrit 35.3(L) 37.0 - 47.0 % [facility] Mean Corpuscular Volume 85.1 80.0 - 98.0 fL [facility] Mean Corpuscular Hemoglobin 28.4 27.0 - 33.0 pg [facility] Mean Corpuscular HGB Conc 33.4 31.0 - 35.0 g/dl [facility] Red Cell Distribution Width 14.5 11.0 - 16.0 % [facility] Platelet Count 260 160 - 400 X10*3/uL [facility] Mean Platelet Volume 11.2 9.4 - 12.3 fL [facility] Neutrophils Percent Auto 60.6 45 - 73 % [facility] Imm Gran Pct Auto 0.4 0.0 - 0.4 % [facility] Lymphocytes Percent Auto 26.5 20 - 40 % [facility] Monocytes Percent Auto 7.4 2 - 11 % [facility] Eosinophils Percent Auto 4.4(H) 0 - 4 % [facility] Basophils Percent Auto 0.7 0 - 2 % [facility] NRBC Pct Auto 0.0 0.0 - 0.2 /100WBC [facility] Neutrophils Absolute Auto 6.0 2.0 - 8.3 x10*3/uL [facility] Imm Gran Abs Auto 0.04(H) 0.00 - 0.03 X10*3/uL [facility] Lymphocytes Absolute Auto 2.6 1.2 - 4.9 X10*3/uL [facility] Monocytes Absolute Auto 0.7 0.1 - 1.2 X10*3/uL [facility] Eosinophils Absolute Auto 0.4 0.0 - 0.4 X10*3/uL [facility] Basophils Absolute Auto 0.1 0.0 - 0.2 X10*3/uL [facility] NRBC Abs Auto 0.000 0.0 - 0.012 X10*3/uL [facility] Blood Venous blood specimen / Unknown 12/16/2024 10:47 AM EST 12/16/2024 1:05 PM EST us Verenice Nixon [facility] SPECIALIST LAB BLOOD ORDERABLES Final Resu lt [facility] [address] [place] [phone] * (ABNORMAL) Lipid Panel, Standard (12/16/2024 10:47 AM EST) Triglycerides 112 <150 mg/dL [facility] Comment:Desirable Triglyceri de: less than 150 mg/dLBorderline High Triglyceride 150-199 mg/dLHigh Triglyceride: 200-499 mg/dLVery High Triglyceride: greater than or equal to 5OO mg/dL Cholesterol 198 <200 mg/dL [facility] Comment:Desirable Cholestero l: less than 200 mg/dLBorderline High Cholesterol: 200-239 mg/dLHigh Cholesterol: greater than 239 mg/dL LDL Cholesterol Calculated 119(H) <100 mg/dL [facility] Comment:Desirable LDL: less than 100 mg/dLNear Optimal/Above Optimal LDL: 110- 129 mg/dLBorderline High LDL: 130-159 mg/dLHigh LDL: 160-189 mg/dLVery High LDL: greater than or equal to 190 mg/dL HDL Cholesterol 57 >40 mg/dL [facility] Comment:Desirable HDL: great er than 40 mg/dL Note: This HDL assay may give artificially low results in patients with liver disease. Blood Venous blood specimen / Unknown 12/16/2024 10:47 AM EST 12/16/2024 1:05 PM EST us Verenice Nixon [facility] SPECIALIST LAB BLOOD ORDERABLES Final Resu lt [facility] [address] [place] [phone] * BI Mammogram Screening Tomosynthesis Bilateral (09/24/2024 11:00 AM EDT) Anatomical Region Laterality Modality Breast Bilateral Mammography 09/24/2024 11:0 0 AM EDT Narrative 10/03/2024 10:33 AM EDT ? [facility] [place] ? [address] ?[place] [address] ? Mammography Report ? Signed ? Patient: Spencer Metzgera ?MR#: [id number] ? : 1960 ?Acct:[id number] ? Age/Sex: 64 / F ?ADM Date: 10/24/24 ? Loc: HO.MAMMO ? Attending Dr: Verenice Appram ? Ordering Physician: Appram,Verenice ?Results: 1Negative ? Date of Service: 10/24/24 ?Follow Up: 1 Year From Orig ?? inal Mammogram ? Procedure(s): MM tomosynthesis screening BI ?? Accession Number(s): [id number] ? cc: Hussain,Verenice ? EXAMINATION: ?? MM SCREENING DIGITAL BREAST [...] DD/ 1100 ? TD/TT: 09/24/24 1118 ? Nba Player: ? Procedure Note Deejay, Image - 10/03/2024 [facility] [address] [place] [address] [place] [address] Mammography Report Signed Patient: Jerome Metzger#: [id number] : 1Acct:[id number] Age/Sex: 64 / FADM Date: 09/24/24 Loc: HO.MAMMO Attending Dr: Verenice Nixon Ordering Physician: Verenice NixonResults: 1Negative Date of Service: 09/24/24Follow Up: 1 Year From [facility] Mammogram Procedure(s): MM tomosynthesis screening BI Accession Number(s): [id number] cc: Verenice Nixon EXAMINATION: MM SCREENING DIGITAL [...] 10/03/24 1030 DD/ 1100 TD/TT: 09/24/24 1118 Nba Player: us Verenice Nixon [facility] SPECIALIST IMG BI PROCEDURES Final Result * Hepatitis C Antibody with Reflex to HCV, RNA, Quantitative, Real-Time PCR (10/30/2023 10:53 AM EST) Hepatitis C Antibody Nonreactive Nonreactive [facility] Comment:Antibodies to HCV no t detected; does not exclude early acuteHCV infection. Blood Venous blood specimen / Unknown 10/30/2023 10:53 AM EST 10/30/2023 11:19 AM EST us Tamara Siegel MD LAB BLOOD ORDERABLES Final Re sult Performing Organization Address [facility]/ZIP Co de Phone Number [facility] [address] [place] [phone] [phone] * HIV-1/2 Antigen and Antibodies, Fourth Generation, with Reflexes (10/30/2023 10:53 AM EST) HIV AB/AG Nonreactive Nonreactive [facility] Comment:HIV-1 p24 Ag and/or HIV-1/HIV-2 Ab not detected.A test result that is nonreactive does not exclude thepossibility of exposure to or infection with HIV-1 and/orHIV-2. Nonreactive results in this assay for individualswith prior exposure to HIV-1 and/or HIV-2 may be due toantigen and antibody levels that are below the limit ofdetection of this assay.The Symplified HIV Ag/Ab Combo assay result andsupplemental assay results should be interpreted inconjunction with the patient's clinical presentation,history and other laboratory results. If the results areinconsistent with clinical evidence, additional testing issuggested to confirm the result. Blood Venous blood specimen / Unknown 10/30/2023 10:53 AM EST 10/30/2023 11:19 AM EST us Tamara Siegel MD LAB BLOOD ORDERABLES Final Re sult Performing Organization Address [facility]/ZIP Co de Phone Number [facility] [address] [place] [address] [phone] from Last 3 Months or Most Recently Relevant to Health Maintenance Insurance [facility] - [facility] PARTIAL (MEDICAID) Care Teams Cryptographic Machine Operator Relationship Specialty Start Date End Date Verenice Nixon NP [address] [place] [address] PCP - General Family Medicine 11/04/23
--- OUTSIDE RECORDS SUMMARY | 2025-03-11 15:24 | XMS_ITS | Encounter Summary ---
Author Organization [facility] Address [address] [place] [address] 7[address] [place] [address] Care Team Providers Care High [employer] Biology Teacher Name Role Phone LanceCarrie ponce Heidi SILVAP Primary Care Provider [phone] Verenice Nixon NP Primary Care Provider [phone] Verenice Nixon NP Primary Care Provider [phone] Encounter Details Date Type Department Care Team (Late st Contact Info) Description 04/02/2023 Orders Only [facility] [address] [place] [address] Beatriz Castillo LPN Social History Tobacco Use [...] Description 05/13/2025 11:00 AM EDT Office Visit [facility] [address] [place] [address] Willow Eisenberg 05/14/2025 10:00 AM EDT Office Visit [facility] [address] [place] [address] Verenice Nixon NP [address] [place] [address] documented as of this encounter Visit Diagnoses Not on filedocumented in this encounter Care Teams High [employer] Biology Teacher Relationship Specialty Start Date End Date Carrei Lucas FNP PCP - General Family Medicine 11/20/21 09/05/23 Verenice Nixon NP [address] [place] [address] PCP - General Family Medicine 09/06/23 11/03/23 Verenice Nixon NP [address] [place] [address] PCP - General Family Medicine 11/04/23 documented as of this encounter
--- OUTSIDE RECORDS SUMMARY | 2025-03-11 15:24 | XMS_ITS | Encounter Summary ---
Author Organization [facility] [place] [facility] Address [address] [place] [address] Care Team Providers Care Siderographer Name Role Phone Carrie Lucas Primary Care Provider [phone] Verenice Nixon NP Primary Care Provider [phone] Verenice Nixon NP Primary Care Provider [phone] Reason for Visit * Reason Comments Med Refill Encounter Details Date Type Department Care Team (Late st Contact Info) Description 11/05/2022 Refill [facility] [address] [place] [phone] Carrie Lucas FNP [address] [place] [address] Dept [place] [address] Social History Tobacco Use Types Packs/Day Years [...] Description 05/13/2025 11:00 AM EDT Office Visit [facility] [address] [place] [address] Willow Eisenberg 05/14/2025 10:00 AM EDT Office Visit [facility] [address] [place] [address] Verenice Nixon NP [address] [place] [address] documented as of this encounter Visit Diagnoses Not on filedocumented in this encounter Care Teams Siderographer Relationship Specialty Start Date End Date Carrie Lucas FNP PCP - General Family Medicine 11/20/21 09/05/23 Verenice Nixon NP [address] [place] [address] PCP - General Family Medicine 09/06/23 11/03/23 Verenice Nixon NP [address] [place] [address] PCP - General Family Medicine 11/04/23 documented as of this encounter
--- OUTSIDE RECORDS SUMMARY | 2025-03-11 15:24 | XMS_ITS | Encounter Summary ---
Author Organization [employer] Address [address] [facility] [address] [place] [address] Care Team Providers Care Injection Molding Machine Operator Name Role Phone Verenice Nixon NP Primary Care Provider [phone] Reason for Visit * Reason Comments Med Refill Encounter Details Date Type Department Care Team ([facility] st Contact Info) Description 02/09/2024 Refill [facility] [address] [place] [address] Verenice Nixon NP [address] [place] [address] Primary insomnia Social History Tobacco Use Types [...] Description 05/13/2025 11:00 AM EDT Office Visit [facility] ADULT D[facility] [address] [place] [address] Willow Eisenberg 05/14/2025 10:00 AM EDT Office Visit [facility] [address] [place] [address] Verenice Nixon NP [address] [place] [address] documented as of this encounter Visit Diagnoses Diagnosis Primary insomnia Persistent disorder of initiating or maintaining sleep documented in this encounter Additional Health Concerns Assessment Noted Time PHQ-9 Depression Total Score: 0 01/17/20 24 10:02 AM EST documented as of this encounter Care Teams Injection Molding Machine Operator Relationship Specialty Start Date End Date Verenice Nixon NP [address] [place] [address] PCP - General Family Medicine 11/04/23 documented as of this encounter
== END 2025-03-11 12:52 | disposition home or self-care (01) ==
LOC: HO.US 12:51
PROVIDERS: Visit Provider Student in an Organized Health Care Education/Training Program
DX: E04.1 Nontoxic single thyroid nodule (principal)
CPT/HCPCS: 76536

== ENCOUNTER → 2025-03-11 12:53 | Outpatient (BNV) | payer OTHER, SELFPAY | PROVIDERS: Visit Provider Radiology Diagnostic Radiology | DX: E04.1 Nontoxic single thyroid nodule (principal) | CPT/HCPCS: 76536 ==

== ENCOUNTER 2025-04-08 10:50 | Outpatient (AMB) | payer OTHER, SELFPAY ==
[2025-04-08 10:52] VITALS: BP 138/74; PULSE 74; O2SAT 97; BMI 26.9
--- NOTE | 2025-04-08 10:52 | A.OFFVIS_ITS ---
Vital Signs 04/08/25 10:52 Height 5 ft 3 in Weight 152 lb 1.903 oz BMI 26.9 BP 138/74 Blood Pressure Location Lt brachial Position Sitting Pulse 74 Pulse Source Pulse Oximeter Pulse Oximetry (%) 97 Oxygen Delivery Method Room Air Intake Visit Reasons: Hypercalcemia Intake Note: Patient present today for Hypercalcemia office visit. 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 Chart review shows patient has had elevated calcium levels at least since 2022. Calcium level during 2022 and 2023 ranged anywhere from 10.5-10.8 with albumin level around 4.6, corrected calcium would be 9.9-10.2. Most recently after hydrochlorothiazide was discontinued by Nephrology, calcium level in December and January has come down to 9.8-9.9, no concurrent albumin done. Magnesium level of 1.7 from January 2025. Phosphorus was normal back in July 2020 for a 3.1. Vitamin-D level was 37 back in July 2024, 125 dihydroxy vitamin-D level was also normal at 51 at the same time. PTH level from that time was inappropriately normal at 41.1 with a calcium level of 10.7, consistent with PTH mediated hypercalcemia. No history of kidney stones, renin ultrasound 07/30/2024 did not show any kidney stones. No history of fragility fractures, no DEXA scan done. No 24 hour urine in the system. 11/05/2024: Parathyroid can nuclear medicine showed an asymmetric focal prominence in the inferior pole of the right lobe of the thyroid gland present on both iodine as well as sestamibi images, either representing thyroid nodule versus atypical parathyroid adenoma/intrathyroidal parathyroid adenoma. Vitamin-D intake: 2023 took supplements for a few months , stopped it end of the year Calcium intake: no supplements, Lactaid 1-2 times a month, no yogurt, cheese rarely doesnt really like these Denies any symptoms of hyper calcemia such constipation, brain fog, memory issues. Does report polyuria since 1 year. Has history of IBS and diverticulosis so intermittent abd pain. Family history of kidney stones:none Family history of hypercalcemia:none No history of pituitary tumors No history of GERD/diarrhea. Interval histoy Vitamin D 1000 units daily Milk and cheese: incorporating more Most recent blood work and urine test from 02/19/2025 showed calcium has come down to 9.9 with albumin of 4.1, corrected calcium would be 9.8, normal ionized calcium of 5.4. 24 hour urine calcium also does not show any hypercalciuria. MNG 11/05/2024: Parathyroid can nuclear medicine showed an asymmetric focal prominence in the inferior pole of the right lobe of the thyroid gland present on both iodine as well as sestamibi images, either representing thyroid nodule versus atypical parathyroid adenoma/intrathyroidal parathyroid adenoma. Patient currently denies heat or cold intolerance, , diarrhea or constipation,, palpitation, anxiety, weight changes, mood changes, low energy, changes in appearance of eyes or vision changes, tremors, increased diaphoresis or dry skin. ?Reports some hair loss Patient denies any difficulty swallowing, pain on swallowing or voice changes or difficulty breathing. Patient denies any history of childhood neck radiation. Denies having ever used lithium, amiodarone or biotin supplements. Patient denies any family history of thyroid cancer . sister has thyroid disease. Interval history Normal TSH from January 2025 Ultrasound thyroid 03/11/2025 I reviewed the images myself which showed bilateral subcentimeter low risk nodules. The right superior nodule is 1.1 cm in size, it appears mixed cystic solid, but I would like to repeat ultrasound in 1 year for this. Physical exam General: sitting comfortably in no acute distress HEENT: normocephalic/atraumatic, moist oral mucosa Neck: supple, palpable 1 cm thyroid nodule right side Cardiac: normal heart sounds Pulm: normal breath sounds B/L, no added breath sounds Abd: not distended, no tenderness Extremities: no edema, no signs of myxedema Laboratory Tests 01/12/20 11/03/20 11/04/20 10:15 21:53 05:11 BUN Creatinine Estim Creat Clear Calc Estimated GFR Calcium 9.6 9.0 8.4 D Phosphorus Magnesium Albumin 4.2 4.1 25-OH Vitamin D Total 1,25 Dihydroxy Vit D 1,25 Dihydroxy Vit D2 1,25 Dihydroxy Vit D3 PTH Intact 10/30/23 01/17/24 04/03/24 10:53 10:55 11:24 BUN Creatinine Estim Creat Clear Calc Estimated GFR Calcium 10.5 H D 10.5 H 10.8 H Phosphorus Magnesium Albumin 4.6 4.6 25-OH Vitamin D Total 1,25 Dihydroxy Vit D 1,25 Dihydroxy Vit D2 1,25 Dihydroxy Vit D3 PTH Intact 07/13/24 08/12/24 12/16/24 11:00 14:58 10:47 BUN Creatinine Estim Creat Clear Calc Estimated GFR Calcium 10.7 H 10.5 H 9.8 D Phosphorus 3.1 Magnesium Albumin 25-OH Vitamin D Total 37.0 1,25 Dihydroxy Vit D 51 1,25 Dihydroxy Vit D2 <8 1,25 Dihydroxy Vit D3 51 PTH Intact 41.1 01/04/25 14:17 BUN 14 Creatinine 0.94 Estim Creat Clear Calc 55.0 Estimated GFR > 60 Calcium 9.9 Phosphorus Magnesium 1.7 Albumin 25-OH Vitamin D Total 1,25 Dihydroxy Vit D 1,25 Dihydroxy Vit D2 1,25 Dihydroxy Vit D3 PTH Intact Laboratory Tests 02/11/25 02/19/25 02/19/25 10:45 06:45 07:43 Creatinine 0.87 0.89 Estimated GFR > 60 > 60 Calcium 10.2 9.9 Ionized Calcium 5.4 Phosphorus 3.1 Albumin 4.3 4.1 25-OH Vitamin D Total 25.9 L TSH 0.93 PTH Intact 56.8 Ur 24 Hour Volume 1650 Ur Creatinine mg/dL 64.24 Ur Creatinine 24 Hour 1.1 Ur Calcium 24 Hr 83 Calcium/Creat 24 Hr 83 EXAMINATION: US 03/11/25 THYROID HISTORY: E04.1 - Nontoxic single thyroid nodule TECHNIQUE: Real-time grayscale ultrasound imaging was performed and images were reviewed. COMPARISON: There are no prior studies for comparison. FINDINGS: SIZE: The right thyroid lobe measures 4.1 x 1.7 x 1.1 cm. The left thyroid lobe measures 4.5 x 1.1 x 1.1 cm. The isthmus measures 2 mm. FLOW: Flow to the gland is normal. ECHOGENICITY: The echotexture of the gland is homogeneous. NODULES: Multiple small thyroid nodules are seen bilaterally as follows: Nodule #: 1 Location: Right upper pole measuring 10 x 6 x 8 mm Shape: Wider than tall (0 points) Margins: Smooth (0 points) Echotexture: Indeterminate (1 point) Composition: Mostly solid (2 points) Calcifications: None (0 points) Total points: 3 TIRADS: TR3: Mildly suspicious. Nodule #: 2 Location: Right mid to lower pole measuring 3 x 2 x 3 mm Shape: Round (0 points) Margins: Smooth (0 points) Echotexture: Indeterminate (1 point) Composition: Mixed (1 point) Calcifications: None (0 points) Total points: 2 TIRADS: TR2: Not suspicious Nodule #: 3 Location: Right lower pole measuring 6 x 5 x 7 mm Shape: Wider than tall (0 points) Margins: Lobulated (2 points) Echotexture: Hypoechoic (2 points) Composition: Solid (2 points) Calcifications: Comet tail (0 points) Total points: 6 TIRADS: TR4: Moderately suspicious. Nodule #: 4 Location: Right isthmus measuring 6 x 3 x 5 mm Shape: Wider than tall (0 points) Margins: Lobulated (2 points) Echotexture: Hypoechoic (2 points) Composition: Solid (2 points) Calcifications: None (0 points) Total points: 6 TIRADS: TR4: Moderately suspicious. Nodule #: 5 Location: Left upper pole measuring 6 x 3 x 5 mm Shape: Wider than tall (0 points) Margins: Ill-defined (0 points) Echotexture: Indeterminate (1 point) Composition: Mixed (1 point) Calcifications: None (0 points) Total points: 2 TIRADS: TR2: Not suspicious US/US thyroid IMPRESSION: Multiple subcentimeter thyroid nodules as described. NM PARATHYROID SCAN 11/05/24 CLINICAL INFORMATION: Hypercalcemia. COMPARISON: None available. TECHNIQUE: A double radionuclide study of the thyroid bed region and upper chest in multiple projections was performed 4 hours after the oral administration of 940 microcuries I-123 sodium iodide and immediately following the intravenous administration of 30 mCi Tc-99m sestamibi. Repeat imaging was performed 2 hours later. The iodide images were electronically subtracted from the sestamibi images using different weighting factors. FINDINGS: There is homogeneous uptake of radioiodine throughout both lobes. The thyroid gland appears to be normal in size and shape. Note is made of asymmetric focal prominence at the inferior pole of the right lobe of the thyroid gland. There are no focal areas of increased or diminished uptake. Technetium 99m sestamibi images demonstrate homogeneous thyroid activity. Asymmetric focal prominence of the inferior pole of the right lobe of the thyroid gland is also noted on the sestamibi images. There are no focal areas of increased or decreased Technetium 99m sestamibi activity. Computer-generated digital subtraction images reveal no evidence of excess sestamibi activity. NM/NM parathyroid IMPRESSION: * No definite evidence of excess sestamibi activity suggestive of parathyroid adenoma or hyperplasia. There is homogeneous uptake of radioiodine in the thyroid gland which is also normal in size and shape. * Asymmetric focal prominence at the inferior pole of the right lobe of the thyroid gland is present on both iodine as well as an sestamibi images, likely represent asymmetric variable nodular thyroid tissue versus thyroid nodule. Possibility of atypical parathyroid adenoma/intrathyroidal parathyroid adenoma) may have similar appearance and cannot be absolutely excluded. * Alternative imaging modality including 4D CT scan of the soft tissue neck (with and without contrast) may be considered for further clarification. Electronically signed by: Adalberto Walker MD 11/09/2024 11:59 AM [facility] US RETROPERITONEAL COMPLETE (RENAL) 07/30/24 CLINICAL INFORMATION: Proteinuria. COMPARISON: CT abdomen and pelvis 11/03/2020, ultrasound kidneys 02/07/2023 TECHNIQUE: Real-time imaging of the kidneys and bladder. FINDINGS: RIGHT KIDNEY: 10.3 x 4.0 x 3.8 cm (SAG x AP x TRV). The kidney is normal in size, contour, and echogenicity. Renal cortical thickness is normal. No calculi . Again seen is some mild fullness in the right renal pelvis similar to the prior CT scan without gross hydronephrosis. A benign 1.7 cm Bosniak class II renal cyst with some mural calcification is noted in the lower pole which requires no additional imaging or follow up. Additional benign cysts were seen on the prior CT not appreciated on the current study No solid renal masses are seen.. LEFT KIDNEY: 10.1 x 5.0 x 4.5 cm (SAG x AP x TRV). The kidney is normal in size, contour, and echogenicity. Renal cortical thickness is normal. No calculi or focal parenchymal lesions. No hydronephrosis. US/US renal BI IMPRESSION: No significant abnormality is seen. Stable mild fullness in the right renal pelvis. Electronically signed by: Edilberto Mauricio MD 07/30/2024 11:28 AM EDT RP [facility] Medical History Irritable bowel syndrome with constipation Vaginal irritation UTI (urinary tract infection) History of Helicobacter pylori infection Colon cancer screening Frequent UTI Anemia Diverticulosis Colon cancer screening Hyperlipemia Hypertension Surgical History History of esophagogastroduodenoscopy (EGD) Hx of colonoscopy (09/16/20) History of ovarian cystectomy Hx of hysterectomy Family History Father Parkinson disease HTN (hypertension) Mother HTN (hypertension) Brother Cancer Social History Household Members: Significant Other Housing: Apartment Do you presently have visiting nurse or other home services: No Alcohol intake: current Alcohol intake frequency: holidays/special occasions only Patient Tobacco Use Status: Never used Tobacco Second Hand Smoke Exposure: Yes service: No Current occupational status: employed Sexual orientation: Straight/Heterosexual Gender identity: Female Physical Exam Vital Signs: Last Vital Signs Pulse 74 04/08/25 10:52 BP 138/74 04/08/25 10:52 Pulse Ox 97 04/08/25 10:52 Oxygen Delivery Method Room Air 04/08/25 10:52 BMI result Body Mass Index 26.9 Assessment & Plan Assessment & Plan (1) Multinodular goiter (nontoxic): Code(s): E04.2 - Nontoxic multinodular goiter Category: Medical Plan: 64-year-old female with no family history of thyroid cancer with no personal history of head or neck radiation coming in today for follow up. 11/05/2024: Parathyroid can nuclear medicine showed an asymmetric focal prominence in the inferior pole of the right lobe of the thyroid gland present on both iodine as well as sestamibi images, either representing thyroid nodule versus atypical parathyroid adenoma/intrathyroidal parathyroid adenoma. No compressive symptoms. Normal TSH from January 2025. Ultrasound thyroid 03/11/2025 I reviewed the images myself which showed bilateral subcentimeter low risk nodules. The right superior nodule is 1.1 cm in size, it appears mixed cystic solid, but I would like to repeat ultrasound in 1 year for this. Plan: -ordered repeat ultrasound of the thyroid in 1 year which would be sometime around April 2025. (2) Hypercalcemia: Code(s): E83.52 - Hypercalcemia Category: Medical Plan: 64-year-old female coming in today for follow up of PTH mediated hypercalcemia. Chart review shows patient has had elevated calcium levels at least since 2022. Calcium level during 2022 and 2023 ranged anywhere from 10.5-10.8 with albumin level around 4.6, corrected calcium would be 9.9-10.2. Most recently after hydrochlorothiazide was discontinued by Nephrology, calcium level in December and January has come down to 9.8-9.9, no concurrent albumin done. Magnesium level of 1.7 from January 2025. Phosphorus was normal back in July 2020 for a 3.1. Vitamin-D level was 37 back in July 2024, 125 dihydroxy vitamin-D level was also normal at 51 at the same time. PTH level from that time was inappropriately normal at 41.1 with a calcium level of 10.7, consistent with PTH mediated hypercalcemia. likely the hydrochlorothiazide unmasked a possible primary hyperparathyroidism. No history of kidney stones, renal ultrasound 07/30/2024 did not show any kidney stones. No history of fragility fractures, no DEXA scan done. 11/05/2024: Parathyroid can nuclear medicine showed an asymmetric focal prominence in the inferior pole of the right lobe of the thyroid gland present on both iodine as well as sestamibi images, either representing thyroid nodule versus atypical parathyroid adenoma/intrathyroidal parathyroid adenoma. Most recent blood work and urine test from 02/19/2025 showed calcium has come down to 9.9 with albumin of 4.1, corrected calcium would be 9.8, normal ionized calcium of 5.4. 24 hour urine calcium also does not show any hypercalciuria.she possibly has mild primary hyperparathyroidism /normocalcemic hyperPTH that does not meet criteria for surgery. We will continue to monitor. Plan: - discussed with her that patients with underlying hyperparathyroidism can have bone loss, continue vitamin-D 1000 units daily. - discussed with her that while she should not be taking any calcium supplements, her nutritional intake of calcium is very low, she should try to incorporate at least 2-3 servings of calcium rich foods daily - follow up in 6 months with blood work prior to the appointment Plan I spent 30 minutes in reviewing the record, seeing the patient and documenting in the medical record. Orders: Orders Parathyroid Hormone Intact 6 Months E83.52 - Hypercalcemia Phosphorus 6 Months E83.52 - Hypercalcemia Vitamin D 25-OH Total 6 Months E83.52 - Hypercalcemia Creatinine 6 Months E83.52 - Hypercalcemia Calcium, Ionized 6 Months E83.52 - Hypercalcemia US thyroid 1 Year E04.2 - Nontoxic multinodular goiter Calcium 6 Months E83.52 - Hypercalcemia Albumin Level 6 Months E83.52 - Hypercalcemia Coding Level of Care Code Est Pt Level 4 (23780) Diagnoses Multinodular goiter (nontoxic) E04.2 Hypercalcemia E83.52 Time Spent (min) 30
--- OUTSIDE RECORDS SUMMARY | 2025-04-08 12:21 | XMS_ITS | Encounter Summary ---
Author Organization [employer] Address [address] [place] [address] 7t [place] [address] Care Team Providers Care Operations Vice President Name Role Phone LanceCarrie Heidi HAWKINS Primary Care Provider [phone] Verenice Nixon NP Primary Care Provider [phone] Verenice Nixon NP Primary Care Provider [phone] Encounter Details Date Type Department Care Team (Late st Contact Info) Description 04/02/2023 Orders Only [facility] CHC MED & PEDS [address] [place] [address] Beatriz Castillo LPN Social History Tobacco Use [...] Description 05/13/2025 11:00 AM EDT Office Visit [facility] ADULT DENTAL [address] [place] [address] Willow Eisenberg 05/14/2025 10:00 AM EDT Office Visit [facility] MEDICINE [address] [place] [address] Verenice Nixon NP [address] [place] [address] documented as of this encounter Visit Diagnoses Not on filedocumented in this encounter Care Teams Operations Vice President Relationship Specialty Start Date End Date Carrie Lucas FNP PCP - General Family Medicine 11/20/21 09/05/23 Verenice Nixon NP [address] [place] [address] PCP - General Family Medicine 09/06/23 11/03/23 Verenice Nixon NP [address] [place] [address] PCP - General Family Medicine 11/04/23 documented as of this encounter
--- OUTSIDE RECORDS SUMMARY | 2025-04-08 12:21 | XMS_ITS | Encounter Summary ---
Author Organization [employer] Address [address] [place] [address] 7t [place] [address] Care Team Providers Care Clerical Warehouseman Name Role Phone Verenice Nixon RITA Primary Care Provider [phone] Reason for Visit * Reason Comments Med Refill Encounter Details Date Type Department Care Team ([facility] st Contact Info) Description 12/09/2023 Refill [facility] MEDICINE [address] [place] [address] Tamara Siegel MD [address] [place] [address] Primary insomnia Social History Tobacco Use Types [...] Miscellaneous Notes * Telephone Encounter - Verenice Appram, FIRST RESPONDER - 12/10/2023 11:23 AM EST Approving, but needs appt for additional refills. documented in this encounter Plan of Treatment Upcoming Encounters Date Type Department Care Team (Late st Contact Info) Description 05/13/2025 11:00 AM EDT Office Visit [facility] ADULT DENTAL [address] [place] [address] Willow Eisenberg 05/14/2025 10:00 AM EDT Office Visit [facility] MEDICINE [address] [place] [address] Verenice Nixon NP [address] [place] [address] documented as of this encounter Visit Diagnoses Diagnosis Primary insomnia Persistent disorder of initiating or maintaining sleep documented in this encounter Additional Health Concerns Assessment Noted Time PHQ-9 Depression Total Score: 3 10/30/20 23 9:52 AM EST documented as of this encounter Care Teams Clerical Warehouseman Relationship Specialty Start Date End Date Verenice Nixon NP [address] [place] [address] PCP - General Family Medicine 11/04/23 documented as of this encounter
--- OUTSIDE RECORDS SUMMARY | 2025-04-08 12:21 | XMS_ITS | Encounter Summary ---
Author Organization [employer] Address [address] [place] [address] 7 [place] [address] Care Team Providers Care Substance Abuse Nurse Name Role Phone Verenice Nixon RITA Primary Care Provider [phone] Reason for Visit * Reason Onset Date Comments unable to post insurance 02/23/2025 Encounter Details Date Type Department Care Team ([facility] st Contact Info) Description 02/23/2025 Telephone [facility] ADULT DENTAL [address] [place] [address] Loretta Jasso DDS [address] [place] [address] unable to post insurance Social History Tobacco [...] appt. Unable to post insurance portal not [facility] [address] documented in this encounter Plan of Treatment Upcoming Encounters Date Type Department Care Team (Late st Contact Info) Description 05/13/2025 11:00 AM EDT Office Visit [facility] ADULT DENTAL [address] [place] [address] Willow Eisenberg 05/14/2025 10:00 AM EDT Office Visit [facility] MEDICINE [address] [place] [address] Verenice Nixon NP [address] [place] [address] documented as of this encounter Visit Diagnoses Not on filedocumented in this encounter Additional Health Concerns Assessment Noted Time PHQ-9 Depression Total Score: 0 01/17/20 24 10:02 AM EST documented as of this encounter Care Teams Substance Abuse Nurse Relationship Specialty Start Date End Date Verenice Nixon NP [address] [place] [address] PCP - General Family Medicine 11/04/23 documented as of this encounter
--- OUTSIDE RECORDS SUMMARY | 2025-04-08 12:21 | XMS_ITS | Encounter Summary ---
Author Organization [employer] Address [address] [place] [address] Care Team Providers Care Supervisor Offset Plate Preparation Name Role Phone Carrie Lucas Primary Care Provider [phone] Verenice Nixon NP Primary Care Provider [phone] Verenice Nixon NP Primary Care Provider [phone] Reason for Visit * Reason Comments Med Refill Encounter Details Date Type Department Care Team (Late st Contact Info) Description 11/05/2022 Refill [facility] MEDICINE [address] [place] [id number] Carrie Lucas FNP [address] [place] [address] Dept [place] [address] Social History Tobacco Use Types Packs/Day Years [...] Description 05/13/2025 11:00 AM EDT Office Visit [facility] ADULT DENTAL [address] [place] [address] Willow Eisenberg 05/14/2025 10:00 AM EDT Office Visit [facility] MEDICINE [address] [place] [address] Verenice Nixon NP [address] [place] [address] documented as of this encounter Visit Diagnoses Not on filedocumented in this encounter Care Teams Supervisor Offset Plate Preparation Relationship Specialty Start Date End Date Carrie Lucas FNP PCP - General Family Medicine 11/20/21 09/05/23 Verenice Nixon NP [address] [place] [address] PCP - General Family Medicine 09/06/23 11/03/23 Verenice Nixon NP [address] [place] [address] PCP - General Family Medicine 11/04/23 documented as of this encounter
--- OUTSIDE RECORDS SUMMARY | 2025-04-08 12:21 | XMS_ITS | Encounter Summary ---
Author Organization [employer] Address [address] [place] [address] 7 [place] [address] Care Team Providers Care Assisted Living Care Manager Name Role Phone LanceCarrie Heidi HAWKINS Primary Care Provider [phone] Verenice Nixon NP Primary Care Provider [phone] Verenice Nixon NP Primary Care Provider [phone] Encounter Details Date Type Department Care Team (Late st Contact Info) Description 12/07/2022 Orders Only [facility] MEDICINE [address] [place] [address] Maria G Jean RN [address] [place] [address] Social History Tobacco Use Types Packs/Day Years [...] Description 05/13/2025 11:00 AM EDT Office Visit [facility] ADULT DENTAL [address] [place] [address] Willow Eisenberg 05/14/2025 10:00 AM EDT Office Visit [facility] MEDICINE [address] [place] [address] Verenice Nixon NP [address] [place] [address] documented as of this encounter Visit Diagnoses Not on filedocumented in this encounter Care Teams Assisted Living Care Manager Relationship Specialty Start Date End Date Carrie Lucas FNP PCP - General Family Medicine 11/20/21 09/05/23 Verenice Nixon NP [address] [place] [address] PCP - General Family Medicine 09/06/23 11/03/23 Verenice Nixon NP [address] [place] [address] PCP - General Family Medicine 11/04/23 documented as of this encounter
--- OUTSIDE RECORDS SUMMARY | 2025-04-08 12:21 | XMS_ITS | Encounter Summary ---
Author Organization [employer] Address [address] [place] [address] 7t [place] [address] Care Team Providers Care Surveillance Observer Name Role Phone Verenice Nixon MARINE GEAR KEEPER Primary Care Provider [phone] Verenice Nixon MARINE GEAR KEEPER Primary Care Provider [phone] Encounter Details Date Type Department Care Team (Late Contact Info) Description 11/01/2023 Orders Only [facility] MEDICINE [address] [place] [address] Regi Marsh FNP Social History Tobacco Use [...] 11:00 AM EDT Office Visit [facility] ADULT DENTAL [address] [place] [address] Willow Eisenberg 05/14/2025 10:00 AM EDT Office Visit [facility] MEDICINE [address] [place] [address] Verenice Nixon NP [address] [place] [address] documented as of this encounter Visit Diagnoses Not on filedocumented in this encounter Additional Health Concerns Assessment Noted Time PHQ-9 Depression Total Score: 3 10/30/20 9:52 AM EST documented as of this encounter Care Teams Surveillance Observer Relationship Specialty Start Date End Date Verenice Nixon NP [address] [place] [address] PCP - General Family Medicine 09/06/23 11/03/23 Verenice Nixon NP [address] [place] [address] PCP - General Family Medicine 11/04/23 documented as of this encounter
--- OUTSIDE RECORDS SUMMARY | 2025-04-08 12:21 | XMS_ITS | Encounter Summary ---
Author Organization [employer] Address [address] [facility] 7t [place] [address] Care Team Providers Care Progress Clerk Name Role Phone Verenice Nixon RITA Primary Care Provider [phone] Reason for Visit * Reason Comments Med Refill Encounter Details Date Type Department Care Team ([facility] st Contact Info) Description 03/27/2025 Refill [facility] MEDICINE [address] [place], [place] [phone] Name, MD Dimitri [address] [place] [address] Social History Tobacco Use Types Packs/Day Years [...] [facility] ADULT DENTAL [address] [place] [address] Willow Eisenberg 05/14/2025 10:00 AM EDT Office Visit [facility] MEDICINE [address] [place] [address] Verenice Nixon NP [address] [place] [address] documented as of this encounter Visit Diagnoses Not on filedocumented in this encounter Additional Health Concerns Assessment Noted Time PHQ-9 Depression Total Score: 0 01/17/20 24 10:02 AM EST documented as of this encounter Care Teams Progress Clerk Relationship Specialty Start Date End Date Verenice Nixon NP [address] [place] [address] PCP - General Family Medicine 11/04/23 documented as of this encounter
--- OUTSIDE RECORDS SUMMARY | 2025-04-08 12:21 | XMS_ITS | Encounter Summary ---
Author Organization [employer] Address [address] [place] [address] 7[address] [place] [address] Care Team Providers Care Landscape Contractor Name Role Phone LanceCarrie Heidi HAWKINS Primary Care Provider [phone] Verenice Nixon NP Primary Care Provider [phone] Verenice Nixon NP Primary Care Provider [phone] Encounter Details Date Type Department Care Team (Late st Contact Info) Description 01/02/2023 Orders Only [facility] CHC MED & PEDS [address] [place] [address] Beatriz Castillo LPN Social History Tobacco Use [...] Description 05/13/2025 11:00 AM EDT Office Visit [facility] ADULT DENTAL [address] [place] [address] Willow Eisenberg 05/14/2025 10:00 AM EDT Office Visit [facility] MEDICINE [address] [place] [address] Verenice Nixon NP [address] [place] [address] documented as of this encounter Visit Diagnoses Not on filedocumented in this encounter Care Teams Landscape Contractor Relationship Specialty Start Date End Date Carrie Lucas FNP PCP - General Family Medicine 11/20/21 09/05/23 Verenice Nixon NP [address] [place] [address] PCP - General Family Medicine 09/06/23 11/03/23 Verenice Nixon NP [address] [place] [address] PCP - General Family Medicine 11/04/23 documented as of this encounter
--- OUTSIDE RECORDS SUMMARY | 2025-04-08 12:21 | XMS_ITS | Encounter Summary ---
Author Organization [employer] Address [address] [place] [address] 7 [place] [address] Care Team Providers Care Dimension Quarry Supervisor Name Role Phone Verenice Nixon NP Primary Care Provider [phone] Reason for Visit * Reason Onset Date Comments Med Refill 02/19/2024 Encounter Details Date Type Department Care Team ([facility] st Contact Info) Description 02/19/2024 Telephone [facility] MEDICINE [address] [place], [place] [phone] Verenice Nixon NP [address] [place] [address] Med Refill Social History Tobacco Use Types [...] 1:45 PM EDT Medication was sent to [id number] on 01/23/24 90 day supply. * Telephone Encounter - Harlan Colon - 02/19/2024 1:39 PM EDT TC from pt requesting medication refill. Medications needing refill : rosuvastatin (Crestor) 40 MG tablet To be sent to: [facility]/pharmacy #[id number] - [place], [place] - [address] [place] [address] documented in this encounter Plan of Treatment Upcoming Encounters Date Type Department Care Team (Late st Contact Info) Description 05/13/2025 11:00 AM EDT Office Visit [facility] ADULT DENTAL [address] [place] [address] Willow Eisenberg 05/14/2025 10:00 AM EDT Office Visit [facility] MEDICINE [address] [place] [address] Verenice Nixon NP [address] [place] [address] documented as of this encounter Visit Diagnoses Not on filedocumented in this encounter Additional Health Concerns Assessment Noted Time PHQ-9 Depression Total Score: 0 01/17/20 24 10:02 AM EST documented as of this encounter Care Teams Dimension Quarry Supervisor Relationship Specialty Start Date End Date Verenice Nixon NP [address] [place] [address] PCP - General Family Medicine 11/04/23 documented as of this encounter
--- OUTSIDE RECORDS SUMMARY | 2025-04-08 12:21 | XMS_ITS | Encounter Summary ---
Author Organization [employer] Address [address] [facility] 7t [place] [address] Care Team Providers Care Outside Upholsterer Name Role Phone Verenice Nixon NP Primary Care Provider [phone] Reason for Visit * Reason Comments Med Refill Encounter Details Date Type Department Care Team ([facility] st Contact Info) Description 02/09/2024 Refill [facility] MEDICINE [address] [place] [address] Verenice Nixon NP [address] [place] [address] Primary insomnia Social History Tobacco Use Types [...] 11:00 AM EDT Office Visit [facility] ADULT DENTAL [address] [place] [address] Willow Eisenberg 05/14/2025 10:00 AM EDT Office Visit [facility] MEDICINE [address] [place] [address] Verenice Nixon NP [address] [place] [address] documented as of this encounter Visit Diagnoses Diagnosis Primary insomnia Persistent disorder of initiating or maintaining sleep documented in this encounter Additional Health Concerns Assessment Noted Time PHQ-9 Depression Total Score: 0 01/17/20 24 10:02 AM EST documented as of this encounter Care Teams Outside Upholsterer Relationship Specialty Start Date End Date Verenice Nixon NP [address] [place] [address] PCP - General Family Medicine 11/04/23 documented as of this encounter
--- OUTSIDE RECORDS SUMMARY | 2025-04-08 12:21 | XMS_ITS | Clinical Summary ---
Author Organization [employer] Address [address] [place] [address] [address] [place] [address] Care Team Providers Care Room Service Waiter/Waitress Name Role Phone Hussain Verenice RITA Primary Care Provider [phone] Allergies No known active allergies Medications ibuprofen [...] mouth Once per day. 11/18/20 24 Active omeprazole (PriLOSEC) [address] capsule TAKE 1 CAPSULE BY MOUTH EVERY DAY BEFORE A MEAL 90 capsule 1 02/09/20 25 Active D3-1000 25 MCG (1000 UT) capsule Take 1 capsule by mouth Once per day. 02/12/20 25 Active ferrous gluconate (Fergon) 324 (38 Fe) MG tabletIndications :Anemia, unspecified type TAKE 1 TABLET BY MOUTH EVERY OTHER MORNING (WITH VITAMIN C) 45 tablet 03/23/20 25 Active zolpidem (Ambien) 10 MG tabletIndications :Primary insomnia TAKE 1 TABLET BY MOUTH EVERYDAY AT BEDTIME 28 tablet 03/19/20 25 Active ferrous gluconate (Fergon) 324 (38 Fe) MG tabletIndications :Anemia, unspecified type TAKE 1 TABLET BY MOUTH EVERY OTHER MORNING WITH VITAMIN C 45 tablet 12/18/19 25 025 Discontinued(R eorder (will not trigger notification to Pharmacy)) zolpidem (Ambien) 10 MG tabletIndications :Primary insomnia TAKE 1 TABLET BY MOUTH EVERYDAY AT BEDTIME 28 tablet 02/18/20 25 025 Discontinued Active Problems Problem Noted [...] to purchase a pair from medical supply [employer] as [facility] will not cover -consider venous US [...] glucose 10/02/2017 Hypertension 07/29/2012 Assessment & Plan (03/30/2025 11:28 AM EDT): -stable -continue lisinopril 30 mg every day -diet and lifestyle modifications reinforced Assessment & Plan (02/08/2025 1:38 PM EDT): [...] Encounters Date Type Department Care Team Description 03/27/2025 Refill [facility] [place] [address] Name, MD Dimitri 03/18/2025 Refill [facility] [place] [address] Verenice Nixon NP Primary insomnia 03/18/2025 Refill [facility] MEDICINE [place], [place] [address] Verenice Nixon NP Anemia, unspecified type 02/23/2025 2:00 PM EDT Office Visit [facility] [place] [address] Antonio Pedro DDS Open fracture of tooth, sequela (Primary Dx) 02/23/2025 1:30 PM EDT Office Visit [facility] [place] [address] Loretta Jasso DDS Open fracture of tooth, initial encounter (Primary Dx) 02/23/2025 Telephone [facility] [place] [address] Loretta Jasso DDS unable to post insurance 02/19/2025 Orders Only GENERIC EXTERNAL DATA DEPARTMENT Provider, Generic External Data 02/16/2025 Refill [facility] MEDICINE [address] [place] [address] Verenice Nixon NP Primary insomnia 02/11/2025 Orders Only GENERIC EXTERNAL DATA DEPARTMENT Provider, Generic External Data 02/09/2025 Telephone [facility] MEDICINE [address] [place] [phone] Eugenia Mathur [place] follow up appointment scheduled 02/08/2025 Telephone [facility] MEDICINE [address] [place] [address] Verenice Nixon NP 02/07/2025 Refill [facility] MEDICINE [address] [place] [address] Verenice Nixon NP 02/04/2025 10:30 AM EST Office Visit [facility] OPTOMETRY [address] [place] [address] Jo-Ann Hinojosa, JAYDON 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 I have anup tristian 01/17/[address] you li [...] 11:00 AM EDT Office Visit [facility] ADULT DENTAL [address] [place] [address] Willow Eisenberg 05/14/2025 10:00 AM EDT Office Visit [facility] MEDICINE [address] [place] [address] Verenice Nixon NP [address] [place] [address] Health Maintenance Due Date Last Done Comments CT Colonography 1960 Colonoscopy 1960 FIT 1960 FOBT 1960 Sigmoidoscopy 1960 Dental Oral Exam 02/08/2017 08/10/2016 Dental Prophylaxis 03/22/2017 09/20/2016 Dental X-Ray: Full Mouth 08/11/2019 08/10/2016 COVID-19 Vaccine ( season) 2024 01/29/2022, 01/19/2021, 12/29/2020 Influenza Vaccine (#1) 2024 , 10/02/2017, 09/06/2014, Additional history exists Depression Screening 01/17/2025 01/17/2024, 01/17/20 24 Alcohol/Substance Use Screening 12/16/2025 12/16/2024 SDOH Screening [...] EDT CALCIUM Routine 02/11/2025 10:45 AM EDT LAB COLOGUARD?? COLON CANCER SCREEN Routine 12/29/2024 4:40 PM EST Screening for colon cancer LIPID PANEL, STANDARD Routine 12/16/2024 10:47 AM [...] Albumin Level 4.1 3.5 - 5.0 g/dL [facility] 02/19/2025 7:43 AM EDT 02/19/2025 10:13 AM EDT us Generic External Data Provider LAB BLOOD ORDERAB LES Final Result [facility] [address] [place] [phone] * (ABNORMAL) Basic Metabolic Panel (02/19/2025 7:43 AM EDT) Only the most recent of2 resultswithin the time period is included. Sodium 142 135 - 145 mmol/L [facility] Potassium 4.0 3.3 - 5.1 mmol/L [facility] Chloride 109(H) 96 - 108 mmol/L [facility] Carbon Dioxide 25 22 - 29 mmol/L [facility] Anion Gap 12 12 - 20 [facility] Urea Nitrogen (BUN) 22(H) 9 - 16 mg/dL [facility] Creatinine, Serum 0.89 0.5 - 1.4 mg/dL [facility] Estimated Glomerular Filt Rate >60 [facility] Comment:Chronic Kidney Disea se: Estimated GFR < 60 mL/min/1.63t3Tjgdro Kidney Disease: Estimated GFR < 15 mL/min/1.73m2 Glucose 114 60 - 115 mg/dL [facility] Calcium 9.9 8.4 - 10.2 mg/dL [facility] 02/19/2025 7:43 AM EDT 02/19/2025 10:13 AM EDT Generic External Data Provider LAB BLOOD ORDERAB LES Final Result Performing Organization Address [facility] Co de Phone Number [facility] [address] [place] [phone] * CREATININE, 24 HR GROUP (02/19/2025 6:45 AM EDT) Creatinine, 24 Hour Urine 1.1 1.0 - 2.0 G/Day [facility] Creatinine, Urine 64.24 [facility] Urine Total Volume 24 Hour 1,650 mL [facility] 02/19/2025 6:45 AM EDT 02/19/2025 10:06 AM EDT Narrative [facility] - 02/19/2025 10:57 AM EDT [id number] Generic External Data Provider LAB URINE ORDERAB LES Final Result Performing Organization Address [facility]/ZIP Co de Phone Number [facility] [address] [place] [phone] * Calcium, 24 Hour Urine W/ Creatinine (02/19/2025 6:45 AM EDT) Calcium, 24 Hour Urine 83 mg/24 h [facility] Comment:Reference Range 35-2 50 Low calcium diet 35-200 Calcium/Creatini ne Ratio 83 30 - 275 mg/g creat [facility] Creatinine, 24 Hour Urine 0.99 0.50 - 2.15 g/24 h [facility] Comment:THIS TEST WAS PERFOR MED AT:[facility] [place] [id number] ESQUIVEL MD 02/19/2025 6:45 AM EDT 02/19/2025 10:06 AM EDT Narrative [facility] - 02/20/2025 4:43 PM EDT [id number] us Generic External Data Provider LAB URINE ORDERAB LES Final Result [facility] [address] [place] [address] [phone] * (ABNORMAL) Vitamin D, 25-Hydroxy, Total, Immunoassay (02/11/2025 10:45 AM EDT) Vitamin D 25-OH Total 25.9(L) >30 ng/mL [facility] Comment: Health Based Reference Values*< 20 ??ng/mL ??Xruycakjk51-18 ng/mL ??Insufficient> 30 ??ng/mL ??Sufficient*Robin MCLAUGHLIN. N [...] ORDERAB LES Final Result Performing Organization Address [facility] Co de Phone Number [facility] [address] [place] [phone] * TSH with Reflex to Free T4 (02/11/2025 10:45 AM EDT) TSH reflex Free T4 0.93 0.32 - 4.0 uIU/mL [facility] 02/11/2025 10:4 5 AM EDT 02/11/2025 11:32 AM EDT Generic External Data Provider LAB BLOOD ORDERAB LES Final Result Performing Organization Address [facility] de Phone Number [facility] [address] [place] [phone] * Phosphate (As Phosphorus) (02/11/2025 10:45 AM EDT) Phosphorus 3.1 2.7 - 4.5 mg/dL [facility] 02/11/2025 10:4 5 AM EDT 02/11/2025 11:32 AM EDT Generic External Data Provider LAB BLOOD ORDERAB LES Final Result Performing Organization Address [facility] de Phone Number [facility] [address] [place] [phone] * PTH, Intact Without Calcium (02/11/2025 10:45 AM EDT) Parathyroid Hormone, Intact 56.8 8.7 - 77.1 pg/mL [facility] 02/11/2025 10:4 5 AM EDT 02/11/2025 11:40 AM EDT Generic External Data Provider LAB BLOOD ORDERAB LES Final Result Performing Organization Address [facility] Co de Phone Number [facility] [address] [place] [phone] * Calcium, Ionized (02/11/2025 10:45 AM EDT) Pathologist [facility] Calcium, Ionized 5.4 4.7 - 5.5 mg/dL [facility] Comment:THIS TEST WAS PERFOR MED AT:[facility] [place] [id number] ESQUIVEL MD 02/11/2025 10:4 5 AM EDT 02/11/2025 11:32 AM EDT Generic External Data Provider LAB BLOOD ORDERAB LES Final Result Performing Organization Address [facility] Co de Phone Number [facility] [address] [place] [phone] * Calcium (02/11/2025 10:45 AM EDT) [facility] Calcium 10.2 8.4 - 10.2 mg/dL [facility] 02/11/2025 10:4 5 AM EDT 02/11/2025 11:32 AM EDT Generic External Data Provider LAB BLOOD ORDERAB LES Final Result Performing Organization Address [facility] Co de Phone Number [facility] [address] [place] [phone] * Cologuard?? colon cancer screening (12/29/2024 4:40 PM EST) [facility] Cologuard Result Negative Negative 01/06/20 8:01 PM EST [facility] (CLIA #:[id number]) Comment: NEGATIVE TEST RESULT. A negative Cologuard [...] screened with both Cologuard and colonoscopy. (Vinod Cano et al, N Engl J Med 2014;370(14):1286- 1297) The normal value (reference range) for this assay is negative. COLOGUARD RE-SCREENING RECOMMENDATION: Periodic colorectal cancer screening is an important part of preventive healthcare for asymptomatic individuals at average risk for colorectal cancer. ??Following a negative Cologuard result, the [place] [employer] and U.S. Multi-Society Task Force screening guidelines recommend a Cologuard re-screening interval of 3 years. References: [place] [employer] Guideline for Colorectal Cancer Screening: https://www.cancer.org/cancer/aucov-zkycvz-ezxlvh/faqqwpmgn-ilispowhl-zrsnucn/ac s-rec ommendations.html.; Arun DK, Jocelin ORONA, Cheikh VelázquezK, Colorectal Cancer Screening: Recommendations for Physicians and Patients from the U.S. Multi-Society Task Force on Colorectal Cancer Screening , Am J Gastroenterology 2017; 112:5600-4277. TEST DESCRIPTION: Composite algorithmic analysis of stool [...] (Vinod Childress al, N Engl J Med 2014;370(14):6203-8854.) Cologuard may produce a false negative or false positive result (no colorectal cancer or precancerous polyp present at colonoscopy follow up). A negative Cologuard test result does not guarantee the absence of CRC or advanced adenoma (pre-cancer). The current Cologuard screening interval is every 3 years. ([place] [employer] and U.S. Multi-Society Task Force). Cologuard performance data in a 10,000 patient pivotal study using colonoscopy as the reference method can be accessed at the following location: www.[facility]/results. Additional description of the Cologuard test process, warnings and precautions can be found at www.[employer]orderTopia. Stool specimen (specimen) 12/29/2024 4:40 PM EST 12/31/2024 1:15 PM EST [facility] MANAGER DEPARTMENT LAB MOLECULAR DIAGNOSTICS ORDER WALDEMAR Final Result [employer] (CLIA #:[id number]) [place] [address], [place] [phone] * (ABNORMAL) Lipid Panel, Standard (12/16/2024 10:47 AM EST) Triglycerides 112 <150 mg/dL [facility] Comment:Desirable Triglyceri de: less than 150 mg/dLBorderline High Triglyceride 150-199 mg/dLHigh Triglyceride: 200-499 mg/dLVery High Triglyceride: greater than or equal to 5OO mg/dL Cholesterol 198 <200 mg/dL [facility] Comment:Desirable Cholestero l: less than 200 mg/dLBorderline High Cholesterol: 200-239 mg/dLHigh Cholesterol: greater than 239 mg/dL LDL Cholesterol Calculated 119(H) <100 mg/dL [facility] Comment:Desirable LDL: less than 100 mg/dLNear Optimal/Above Optimal LDL: 110- 129 mg/dLBorderline High LDL: 130-159 mg/dLHigh LDL: 160-189 mg/dLVery High LDL: greater than or equal to 190 mg/dL HDL Cholesterol 57 >40 mg/dL [facility] Comment:Desirable HDL: great er than 40 mg/dL Note: This HDL assay may give artificially low results in patients with liver disease. Blood Venous blood specimen / Unknown 12/16/2024 10:47 AM EST 12/16/2024 1:05 PM EST us Verenice Nixon MANAGER DEPARTMENT LAB BLOOD ORDERABLES Final Resu lt [facility] [address] [place] [phone] * BI Mammogram Screening Tomosynthesis Bilateral (09/24/2024 11:00 AM EDT) Anatomical Region Laterality Modality Breast Bilateral Mammography 09/24/2024 11:0 0 AM EDT Narrative 10/03/2024 10:33 AM EDT ? [facility] [place] ? [address] ?[place] [address] ? Mammography Report ? Signed ? Patient: Metzger,Neha ?MR#: [id number] ? : 1960 ?Acct:[id number] ? Age/Sex: 64 / F ?ADM Date: 10/24/24 ? Loc: HO.MAMMO ? Attending Dr: Verenice Appram ? Ordering Physician: Appram,Verenice ?Results: 1Negative ? Date of Service: 09/24/24 ?Follow Up: 1 Year From Orig ?? inal Mammogram ? Procedure(s): MM tomosynthesis screening BI ?? Accession Number(s): [id number] ? cc: Verenice Nixon ? EXAMINATION: ?? [...] DD/ 1100 ? TD/TT: 09/24/24 1118 ? Hvac Refrigeration Technician: ? Procedure Note Deejay, Image - 10/03/2024 [facility] [address] [place] [address] Mammography Report Signed Patient: Jerome Metzger#: [id number] : 1Acct:[id number] Age/Sex: 64 / FADM Date: 09/24/24 Loc: HO.MAMMO Attending Dr: Verenice Nixon Ordering Physician: Verenice NixonResults: 1Negative Date of Service: 09/24/24Follow Up: 1 Year From Orig ina Mammogram Procedure(s): MM tomosynthesis screening BI Accession Number(s): [id number] cc: Verenice Nixon EXAMINATION: MM SCREENING DIGITAL [...] 10/03/24 1030 DD/ 1100 TD/TT: 09/24/24 1118 Hvac Refrigeration Technician: Verenice Nixon MANAGER DEPARTMENT IM BI PROCEDURES Final Result * Hepatitis C Antibody with Reflex to HCV, RNA, Quantitative, Real-Time PCR (10/30/2023 10:53 AM EST) Hepatitis C Antibody Nonreactive Nonreactive [facility] Comment:Antibodies to HCV no t detected; does not exclude early acuteHCV infection. Blood Venous blood specimen / Unknown 10/30/2023 10:53 AM EST 10/30/2023 11:19 AM EST Tamara Siegel MD LAB BLOOD ORDERABLES Final Re sult Performing Organization Address [facility]/ZIP Co de Phone Number [facility] [address] [place] [phone] * HIV-1/2 Antigen and Antibodies, Fourth Generation, with Reflexes (10/30/2023 10:53 AM EST) [facility] HIV AB/AG Nonreactive Nonreactive [facility] Comment:HIV-1 p24 Ag and/or HIV-1/HIV-2 Ab not detected.A test result that is nonreactive does not exclude thepossibility of exposure to or infection with HIV-1 and/orHIV-2. Nonreactive results in this assay for individualswith prior exposure to HIV-1 and/or HIV-2 may be due toantigen and antibody levels that are below the limit ofdetection of this assay.The [employer] HIV Ag/Ab Combo assay result andsupplemental assay results should be interpreted inconjunction with the patient's clinical presentation,history and other laboratory results. If the results areinconsistent with clinical evidence, additional testing issuggested to confirm the result. Blood Venous blood specimen / Unknown 10/30/2023 10:53 AM EST 10/30/2023 11:19 AM EST Tamara Siegel MD LAB BLOOD ORDERABLES Final Re sult Performing Organization Address [facility]/ZIP Co de Phone Number [facility] [address] [place] [phone] [phone] from Last 3 Months or Most Recently Relevant to Health Maintenance Insurance [facility] E[facility] MED DENTAL - HSN PARTIAL (MEDICAID) Care Teams Room Service Waiter/Waitress Relationship Specialty Start Date End Date Appram, Verenice, MANAGER DEPARTMENT [address] [place] [address] PCP - General Family Medicine 11/04/23
--- OUTSIDE RECORDS SUMMARY | 2025-04-08 12:21 | XMS_ITS | Encounter Summary ---
Author Organization [employer] Address [address] [place] [address] [address] [place] [address] Care Team Providers Care Technical Agronomist Name Role Phone LanceCarrie Heidi HAWKINS Primary Care Provider [phone] Verenice Nixon NP Primary Care Provider [phone] Verenice Nixon NP Primary Care Provider [phone] Encounter Details Date Type Department Care Team (Late st Contact Info) Description 03/11/2023 Orders Only [facility] [address] [place] [address] Beatriz Castillo LPN Social History Tobacco Use [...] Description 05/13/2025 11:00 AM EDT Office Visit [facility] ADULT DENTAL [address] [place] [address] Willow Eisenberg 05/14/2025 10:00 AM EDT Office Visit [facility] MEDICINE [address] [place] [address] Verenice Nixon NP [address] [place] [address] documented as of this encounter Visit Diagnoses Not on filedocumented in this encounter Care Teams Technical Agronomist Relationship Specialty Start Date End Date Carrie Lucas FNP PCP - General Family Medicine 11/20/21 09/05/23 Verenice Nixon NP [address] [place] [address] PCP - General Family Medicine 09/06/23 11/03/23 Verenice Nixon NP [address] [place] [address] PCP - General Family Medicine 11/04/23 documented as of this encounter
== END 2025-04-08 11:22 | disposition home or self-care (01) ==
LOC: HO.ENCR 10:51
PROVIDERS: Visit Provider Student in an Organized Health Care Education/Training Program
DX: E04.2 Nontoxic multinodular goiter (principal); E83.52 Hypercalcemia
CPT/HCPCS: 99214

== ENCOUNTER → 2025-04-08 10:50 | Outpatient (BNVA) | payer OTHER, SELFPAY | PROVIDERS: Visit Provider Student in an Organized Health Care Education/Training Program | DX: E04.2 Nontoxic multinodular goiter (principal); E83.52 Hypercalcemia | CPT/HCPCS: 99212 ==

== ENCOUNTER 2025-04-22 11:31 | Emergency (ER) | payer OTHER, SELFPAY ==
--- NOTE | ~2025-04-22 | XR_ITS ---
EXAMINATION: XR LUMBOSACRAL SPINE CLINICAL INFORMATION: pain radiating down r leg COMPARISON: None available. TECHNIQUE: Three views of the lumbosacral spine. FINDINGS: There is no scoliosis. There is a normal lordosis. There is no subluxation. There is normal bone mineralization. There is no fracture, compression deformity, or suspicious bone lesion. Mild degenerative disc changes are present throughout the lumbar region. Facets are normally aligned. There are mild degenerative facet changes throughout the lumbar region. The sacrum is intact. Mild arthritis in the bilateral SI joints. Soft tissues demonstrate mild vascular calcifications. XR/XR lumbar spine 2-3V IMPRESSION: 1. No acute findings of the lumbar spine. 2. Mild multilevel degenerative spondylosis. Electronically signed by: Flakito Mueller MD 04/22/2025 12:24 PM EDT
--- NOTE | 2025-04-22 11:39 | ED_ITS ---
HPI - General Adult General Chief complaint: Back Pain/Injury Stated complaint: Lower back pain Time Seen by Provider: 04/22/25 13:16 Source: patient and educational sign language interpreter (all interactions with this patient were facilitated with an [facility] science interpreter) Mode of arrival: ambulatory Limitations: language barrier (all interactions with this patient were facilitated with an [facility] science interpreter) History of Present Illness ED Provider: Clarisse Mazariegos PA-C HPI narrative: Patient is a 64 year old assigned female at with a history of HTN, GERD, and diverticulitis presenting to the emergency department today with right sided low back pain. Patient states that that over the last 4 days she has had right sided low back pain that radiates down the back part of her right leg. Patient denies any dizziness, lightheadedness, abdominal pain, nausea, vomiting, fever, chills, blurry vision, double vision, loss of vision, chest pain, difficulty breathing, shortness of breath, night sweats, pain with urination, increased urinary frequency, increased urinary urgency, blood in her urine or stool, syncope or a near syncopal episode, recent trauma or falls, bowel incontinence, bladder incontinence, or any other complaints at this time. Onset (ago): day(s) (4) Location: back and right Radiation: extremity and distal Relieving factors: none Exacerbating factors: movement Associated symptoms: denies other symptoms Treatments prior to arrival: other (someone elses oxycodone) Related Data Home Medications ?Medication ?Instructions ?Recorded ?Confirmed zolpidem 10 mg tablet 1 tab PO BEDTIME PRN Insomnia 09/13/20 04/08/25 amlodipine 10 mg tablet 10 mg PO DAILY 11/22/22 04/08/25 ferrous gluconate 324 mg (38 mg 324 mg PO Q OTHER DAY 05/27/24 04/08/25 iron) tablet rosuvastatin 40 mg tablet 40 mg PO DAILY 05/27/24 04/08/25 omeprazole 20 mg capsule,delayed 20 mg PO DAILY PRN 07/13/24 04/08/25 release Previous Rx's ?Medication ?Instructions ?Recorded lisinopril 30 mg tablet 30 mg PO DAILY #90 tabs 11/18/24 cholecalciferol (vitamin D3) 25 25 mcg PO DAILY #30 caps 02/11/25 mcg (1,000 unit) capsule cyclobenzaprine 5 mg tablet 5 mg PO TID PRN low back pain 7 04/22/25 days #21 tabs prednisone 20 mg tablet 20 mg PO DAILY 7 days #7 tabs 04/22/25 Allergies Allergy/AdvReac Type Severity Reaction Status Date / Time No Known Allergies Allergy Verified 04/22/25 11:49 [No Known Allergies*] Review of Systems Constitutional: Constitutional: Reports no additional constitutional complaints, Denies chills, Denies fever(s) and Denies night sweats Eyes: Eyes: Reports no additional eye complaints, Denies blurry vision, Denies change in vision, Denies diplopia, Denies eye discharge, Denies loss of vision and Denies eye pain ENT: Denies dizziness Cardiovascular: Cardiovascular: Reports no additional cardiovascular complai nts, Denies chest pain, Denies lightheadedness, Denies Loss of Consciousness and Denies dyspnea Respiratory: Respiratory: Reports no additional respiratory complaints and Denies dyspnea Gastrointestinal: Gastrointestinal: Reports no additional gastrointestinal complaints, Denies abdominal pain, Denies melena, Denies hematochezia, Denies change in bowel habits and Denies change in stool character Genitourinary: Genitourinary: Denies hematuria, Denies urinary frequency, Denies dysuria, Denies urinary incontinence, Denies urinary hesitancy and Denies urinary urgency Musculoskeletal: Musculoskeletal: Reports no additional musculoskeletal complaints, Reports back pain, Denies numbness and Denies tingling Neurologic: Denies dizziness, Denies loss of vision, Denies numbness and Denies tingling Psychiatric: Psychiatric: Reports no additional psychiatric complaints Endocrine: Endocrine: Reports no additional endocrine complaints Hematologic/Lymphatic: Hematologic/Lymphatic: Reports no additional hematologic/lymphatic complaints Allergic/Immunologic: Allergic/Immunologic: Reports no additional allergic/immunologic complaints [facility] Past Medical History Attestation statement: The following information was validated with the patient. Source: old records reviewed and nursing notes reviewed Medical History Multinodular goiter (nontoxic) Irritable bowel syndrome with constipation Vaginal irritation UTI (urinary tract infection) History of Helicobacter pylori infection Colon cancer screening Frequent UTI Anemia Diverticulosis Colon cancer screening Hyperlipemia Hypertension Surgical History History of esophagogastroduodenoscopy (EGD) Hx of colonoscopy (09/16/20) History of ovarian cystectomy Hx of hysterectomy Family History Family History Father Parkinson disease HTN (hypertension) Mother HTN (hypertension) Brother Cancer Social History Social History Household Members: Significant Other Housing: Apartment Do you presently have visiting nurse or other home services: No Alcohol intake: current Alcohol intake frequency: holidays/special occasions only Patient Tobacco Use Status: Never used Tobacco Second Hand Smoke Exposure: Yes Advance Directives: No Advance Directives Information Provided: Yes service: No Current occupational status: employed Sexual orientation: Straight/Heterosexual Gender identity: Female Physical Exam ED Vital Signs: Vital Signs - 24 hr 04/22/25 11:46 04/22/25 13:55 Temperature 97.8 F 97.8 F Pulse Rate 71 71 Respiratory Rate 18 18 Blood Pressure 167/68 H 167/68 H Pulse Oximetry 100 100 Oxygen Delivery Method Room Air Room Air BMI result Body Mass Index 26.2 Const General: cooperative, no acute distress, alert and awake Nutritional Appearance: well nourished Orientation/consciousness: patient oriented x3 HENMT Head: Yes normal to inspection and Yes atraumatic Ears: hearing grossly normal bilaterally and external ears normal General nose exam: Normal external nose present, no nasal discharge noted and no epistaxis Face and sinus: Yes normal facial exam, No abrasion and No laceration Mouth: Normal oral and palatal mucosa present, no drooling and no muffled voice Eyes General: appearance normal, both eyes and all related structures Periorbital: periorbital findings normal Eyelids: Yes eyelids normal Conjunctivae: conjunctivae normal Pupils: Equal, round and reactive pupils present EOM: EOMs intact bilaterally Neck Neck: Yes normal visual inspection, Yes full ROM and Yes no lymphadenopathy Resp Effort & Inspection: normal respiratory effort and able to speak in complete sentences Neuro General: patient oriented x3, moves all extremities and CN's II-XI intact bilaterally Cranial nerves: Yes Equal, round and reactive pupils present Cognition (Neuro): normal cognition Extrem General: Yes normal to inspection, Yes full ROM and Yes capillary refill normal Psych Appearance: grossly normal Mental Status: mental status grossly normal Affect: normal affect Attitude: cooperative Thought process: Normal thought process present Thought content: Normal thought content present Insight: Good insight present (Psych) Course Course Course Narrative: This is a rapid medical exam performed by Donald Bull NP: Additional HPI, ROS, PE not included below will be deferred to primary provider. Patient is a 64-year-old female with history of GERD, HTN presenting with complaint of lower back pain since Saturday, progressively worsening. Denies fall or other trauma. Similar pain in the past but usually resolves spontaneously in 1-2 days. Pain radiates to right calf. Denies saddle anesthesia, b/b incontinence. Took half an oxycodone last night without relief. Plan: lumbar xray Medications Administered Discontinued Medications Generic Name Dose Route Start Last Admin Trade Name Freq PRN Reason Stop Dose Admin Cyclobenzaprine HCl 10 mg 04/22/25 13:27 04/22/25 13:44 Cyclobenzaprine Hcl 10 Mg Tablet PO 04/22/25 13:28 10 mg ONCE ONE Administration Prednisone 20 mg 04/22/25 13:27 04/22/25 13:43 Prednisone 20 Mg Tablet PO 04/22/25 13:28 20 mg ONCE ONE Administration Medical Decision Making Medical Decision Making [facility] Narrative: Patient is a 64 year old assigned female at with a history of HTN, GERD, and diverticulitis presenting to the emergency department today with right sided low back pain. Patient's physical exam was unremarkable. Patient's lumbar x-ray showed no acute process. Patient's clinical presentation is most consistent with lumbar radiculopathy vs. sciatica. I explained my physical exam findings as well as all test results to the patient. I answered all questions asked by the patient. I stressed the importance of the patient taking her medication as directed (either prescribed or as the over the counter packaging recommends). I stressed the importance of the patient following up with her primary care provider. I stressed the importance of the patient returning to the emergency department immediately if her symptoms were to worsen or if she were to develop any dizziness, shortness of breath, difficulty breathing, chest pain, blurry vision, loss of vision, nausea, vomiting, abdominal pain, fever, chills, back pain, or any other complaints. Patient verbalized agreement and understanding with this treatment plan and discharge. Differential Diagnosis Differential Diagnoses: The differential diagnosis associated with the presentation includes Low back pain Lumbar radiculopathy Sciatica Admission/Observation Consideration of admission/observation: Escalation of care including admission/observation considered Patient would have been admitted to the hospital had her work up had any findings where hospital admission was appropriate and her clinical presentation warranted hospital admission. Independent Interpretation I performed an independent interpretation of an: Plain X-Ray Interpretation: My interpretation is in agreement with the radiologist's impression of this imaging study. EXAMINATION: XR LUMBOSACRAL SPINE CLINICAL INFORMATION: pain radiating down r leg COMPARISON: None available. TECHNIQUE: Three views of the lumbosacral spine. FINDINGS: There is no scoliosis. There is a normal lordosis. There is no subluxation. There is normal bone mineralization. There is no fracture, compression deformity, or suspicious bone lesion. Mild degenerative disc changes are present throughout the lumbar region. Facets are normally aligned. There are mild degenerative facet changes throughout the lumbar region. The sacrum is intact. Mild arthritis in the bilateral SI joints. Soft tissues demonstrate mild vascular calcifications. XR/XR lumbar spine 2-3V IMPRESSION: 1. No acute findings of the lumbar spine. 2. Mild multilevel degenerative spondylosis. Electronically signed by: Flakito Mueller MD 04/22/2025 12:24 PM EDT RP Dictated By: Flakito Mueller MD Signed By: Electronically signed by Flakito Mueller MD 04/22/25 1224 Radiology Impression Discussion of test interpretation with radiology: I have reviewed the radiologist's reading. Discharge Plan Discharge Clinical Impression: Acute lumbar radiculopathy Patient Disposition: Home, Self-Care Instructions: Lumbar Radiculopathy (ED), Lower Back Exercises (ED) Additional Instructions: Your x-ray showed no acute process. Your clinical presentation is most consistent with lumbar radiculopathy vs. sciatic nerve pain. Follow up with your primary care provider. Return to the emergency department immediately if your symptoms worsen or if you develop any dizziness, shortness of breath, difficulty breathing, chest pain, blurry vision, loss of vision, nausea, vomiting, abdominal pain, fever, chills, back pain, or any other complaints. Trejo radiograf?a no mostr? un proceso william. Trejo cuadro cl?meir es m?s consistente con radiculopat?a lumbar que con dolor del nervio ci?radha. Quinton?seguimiento?con trejo m?dico de atenci?n primaria. Acuda inmediatamente al servicio de urgencias si ron s?ntomas empeoran o si presenta falta de aliento, dificultad para respirar, dolor tor?cico, mareos, aturdimiento, dolor de espalda, dolor abdominal, fiebre, escalofr?os o cualquier otro s?ntoma. Please see the information below about our Patient Portal. If you are not yet enrolled in the [facility] Patient Portal, you will receive an enrollment email invitation following your visit to any [facility] setting. You may also self-enroll in the Patient Portal by visiting our website: [email or web address] The following information is required to access the Patient Portal: - Your [facility] Medical Record Number - Your personal home email address (must match what is in your electronic medical record, Registration staff can assist with this) - Name - Date of Capabilities of the Patient Portal: - Message some providers - View upcoming appointments - Access your health summary, medical history, and visit history - View current conditions and allergies - View procedure and lab results - View your medications, including guidelines, side effects, and precautions - Complete pre-appointment questionnaires requested by your provider - Ready summary reports of your office visits and procedures To access the Patient Portal Mobile Ankit, follow these directions: - Search Busap in the Ankit Store or Bloglovin Store - Download the Ankit - Search for [facility] - Enter your login/password Portal del paciente Si usted no esta inscrito en el portal de pacientes de [facility], recibira greyson invitacion de inscripcion despues de trejo visita al [facility] o al [facility] via correo electronico. Tambien puede inscribirse voluntariamente en el portal de pacientes visitando nuestra pagina web: [email or web address] La siguiente informacion sera requerida para acceder al portal: - Trejo renetta de historia medica de [facility] - Trejo direccion de correo electronico personal - Nombre - Fecha de nacimiento Capacidades: Las siguientes capacidades estan disponibles en el portal de pacientes: - Enviar mensajes a algunos doctores - Verificar proximas citas - Acceso a trejo historial de clarence, registro medico e historial de visitas - Elio las condiciones actuales y alergias elio procedimientos y resultados del laboratorio - Elio ron medicamentos, incluyendo las pautas - Efectos secundarios y precauciones - Completar o llenar formularios / cuestionarios de - Citas solicitadas por trejo doctor - Leer los resumenes de reportes medicos de ron visitas y procedimientos Jorge acceder a la aplicacion movil: - Busque [employer] en la Ankit Store o Google [email or web address] Store - Descargue la aplicacion - Janina [facility] - Ingrese trejo nombre de usuario / Contrasena Prescriptions: New cyclobenzaprine 5 mg tablet 5 mg PO TID PRN (Reason: low back pain) 7 Days Qty: 21 0RF prednisone 20 mg tablet 20 mg PO DAILY 7 Days Qty: 7 0RF No Action zolpidem 10 mg tablet 1 tab PO BEDTIME PRN (Reason: Insomnia) amlodipine 10 mg tablet 10 mg PO DAILY rosuvastatin 40 mg tablet 40 mg PO DAILY ferrous gluconate 324 mg (38 mg iron) tablet 324 mg PO Q OTHER DAY lisinopril 30 mg tablet 30 mg PO DAILY Qty: 90 4RF omeprazole 20 mg capsule,delayed release(DR/EC) 20 mg PO DAILY PRN cholecalciferol (vitamin D3) 25 mcg (1,000 unit) capsule 25 mcg PO DAILY Qty: 30 5RF Ref[facility]: [facility] [Primary Care Provider] - Stand Alone Forms: Work/School Release Interventions: ED Discharge Assessment Last Done: 04/22/25 13:55 Discharge Date/Time: 04/22/25 13:55 Print Language: Arabic
[2025-04-22 11:46] VITALS: BP 167/68; PULSE 71; RESP 18; TEMP 36.6; O2SAT 100; BMI 26.2
[2025-04-22] MEDS: predniSONE 20 MG TABLET PO (13:43)
[2025-04-22] MEDS: Cyclobenzaprine HCl 10 MG TABLET PO (13:44)
[2025-04-22 13:55] VITALS: BP 167/68; PULSE 71; RESP 18; TEMP 36.6; O2SAT 100
== END 2025-04-22 13:55 | disposition home or self-care (01) ==
PROVIDERS: Emergency Provider Emergency Medicine
DX: M54.16 Radiculopathy, lumbar region (principal); M54.50 Low back pain, unspecified; I10 Essential (primary) hypertension; E78.5 Hyperlipidemia, unspecified; Z79.899 Other long term (current) drug therapy
CPT/HCPCS: 72100; 99283

== ENCOUNTER → 2025-04-22 11:49 | Outpatient (BNV) | payer OTHER, SELFPAY | PROVIDERS: Visit Provider Radiology Diagnostic Radiology | DX: M54.41 Lumbago with sciatica, right side (principal) | CPT/HCPCS: 72100 ==

== ENCOUNTER 2025-04-24 13:38 | Emergency (ER) | payer OTHER, SELFPAY ==
[2025-04-24 13:56] VITALS: BP 152/70; PULSE 74; RESP 16; TEMP 36.6; O2SAT 98; BMI 26.0
--- NOTE | 2025-04-24 14:18 | ED.GENADULT ---
HPI - General Adult General Chief complaint: Back Pain/Injury Stated complaint: lower back pain Time Seen by Provider: 04/24/25 15:10 Source: patient, RN notes reviewed and old records reviewed Mode of arrival: ambulatory History of Present Illness ED Provider: Elham Uriostegui PA-C HPI narrative: 64-year-old Luxembourger-speaking female with a past medical history HTN, GERD, diverticulitis, presenting to the ED complaining of acute on chronic right-sided low back pain radiating down RLE x1 week. Patient was seen and treated in our ED on 04/22/2025 for similar symptoms had negative x-rays, discharged on Prednisone and Cyclobenzaprine without relief. Admits to heavy lifting at work. Denies known injury, trauma, fall, numbness, tingling, weakness, incontinence, retention, fever, hematuria, dysuria Related Data Home Medications ?Medication ?Instructions ?Recorded ?Confirmed zolpidem 10 mg tablet 1 tab PO BEDTIME PRN Insomnia 09/13/20 04/08/25 amlodipine 10 mg tablet 10 mg PO DAILY 11/22/22 04/08/25 ferrous gluconate 324 mg (38 mg 324 mg PO Q OTHER DAY 05/27/24 04/08/25 iron) tablet rosuvastatin 40 mg tablet 40 mg PO DAILY 05/27/24 04/08/25 omeprazole 20 mg capsule,delayed 20 mg PO DAILY PRN 07/13/24 04/08/25 release Previous Rx's ?Medication ?Instructions ?Recorded lisinopril 30 mg tablet 30 mg PO DAILY #90 tabs 11/18/24 cholecalciferol (vitamin D3) 25 25 mcg PO DAILY #30 caps 02/11/25 mcg (1,000 unit) capsule cyclobenzaprine 5 mg tablet 5 mg PO TID PRN low back pain 7 04/22/25 days #21 tabs prednisone 20 mg tablet 20 mg PO DAILY 7 days #7 tabs 04/22/25 cefuroxime axetil 250 mg tablet 250 mg PO BID 7 days #14 tabs 04/24/25 lidocaine 5 % topical patch 1 patch topical DAILY PRN pain #30 04/24/25 (Lidoderm) ea morphine 15 mg immediate release 15 mg PO Q6H PRN pain (scale score 04/24/25 tablet 7-10) 3 days #5 tabs naproxen 500 mg tablet 500 mg PO BID PRN pain 10 days #20 04/24/25 tabs Allergies Allergy/AdvReac Type Severity Reaction Status Date / Time No Known Allergies Allergy Verified 04/24/25 13:58 [No Known Allergies*] Review of Systems Review of Systems: Yes all other systems are reviewed and are negative Constitutional: Constitutional: Reports as per HPI Neurologic: Denies Sensory deficit (Neuro) [facility] Past Medical History Attestation statement: The following information was validated with the patient. Source: old records reviewed Medical History Multinodular goiter (nontoxic) Irritable bowel syndrome with constipation Vaginal irritation UTI (urinary tract infection) History of Helicobacter pylori infection Colon cancer screening Frequent UTI Anemia Diverticulosis Colon cancer screening Hyperlipemia Hypertension Surgical History History of esophagogastroduodenoscopy (EGD) Hx of colonoscopy (09/16/20) History of ovarian cystectomy Hx of hysterectomy Family History Family History Father Parkinson disease HTN (hypertension) Mother HTN (hypertension) Brother Cancer Social History Social History Household Members: Significant Other Housing: Apartment Do you presently have visiting nurse or other home services: No Alcohol intake: current Alcohol intake frequency: holidays/special occasions only Patient Tobacco Use Status: Never used Tobacco Second Hand Smoke Exposure: Yes Advance Directives: No Advance Directives Information Provided: Yes Do you have a plan to hurt others: No Plan service: No Current occupational status: employed Sexual orientation: Straight/Heterosexual Gender identity: Female Physical Exam ED Vital Signs: Vital Signs - 24 hr 04/24/25 13:56 04/24/25 15:17 04/24/25 17:08 Temperature 97.9 F 97.7 F Pulse Rate 74 88 71 Respiratory Rate 16 14 20 Blood Pressure 152/70 H 161/79 H 146/5 H Pulse Oximetry 98 99 98 Oxygen Delivery Method Room Air Room Air Room Air BMI result Body Mass Index 26.0 Const General: cooperative, healthy appearing and no acute distress Orientation/consciousness: patient oriented x3 Limitations: no limitations HENMT Head: Yes normal to inspection and Yes atraumatic Ears: hearing grossly normal bilaterally General nose exam: Normal external nose present Face and sinus: Yes normal facial exam Eyes General: appearance normal, both eyes and all related structures EOM: EOMs intact bilaterally Neck Neck: Yes normal visual inspection and Yes no meningeal signs Resp Effort & Inspection: normal respiratory effort and no respiratory distress Cardio Rate: regular rate GI Inspection: Yes normal to inspection Palpation (GI): Soft to palpation, nontender, no guarding and not rigid General: Yes no CVA tenderness Back/Spine/Pelvis Other: No midline cervical/thoracic/lumbar spinous tenderness/step-off or deformity. + right-sided lower lumbar MSK reproducible tenderness to palpation. No erythema/ warmth or ecchymosis. No rash Back: no CVA tenderness Skin Rashes: no rashes Wounds: no wounds Neuro Other: Strength intact throughout. No saddle anesthesia. Sensation intact to light touch. Neurovascular intact distally General: patient oriented x3, gait normal, tone normal, moves all extremities, no meningeal signs and no focal motor deficits Cranial nerves: Yes CN's II-XII intact bilaterally Gait exam (Neuro): Normal gait present Motor exam (neuro): 5/5 motor strength present throughout Sensory Exam: No Sensory deficit (Neuro) Extrem General: Yes normal to inspection Course Course Course Narrative: RME, this is a rapid medical exam performed by Tashi Juarez please refer to primary provider for complete H&P- 64 year old female presents for evaluation of lower back pain. She was seen here a few days ago and discharged with cyclobenzaprine and prednisone. Her pain is worsening prompting her repeat visit today. She denies any new injury. > 1648-- Patient received IM Toradol and p.o. morphine in the ED nodules with symptomatic improvement, ambulating without difficulty. will add on medications to her current regimen with recommended close PCP follow-up Results discussed with patient including worrisome signs and symptoms and strict return precautions, and when to return to the emergency department. They verbalized understanding and feel safe for discharge at this time. -1739-- UA infected. Patient called and informed of results. P.o. Ceftin sent to the pharmacy > continued low suspicion for pyelo, no CVAT Medications Administered Discontinued Medications Generic Name Dose Route Start Last Admin Trade Name Freq PRN Reason Stop Dose Admin Ketorolac Tromethamine 30 mg 04/24/25 15:23 04/24/25 16:23 Ketorolac Tromethamine 30 Mg/Ml Vial IM 04/24/25 15:24 30 mg ONCE ONE Administration Morphine Sulfate 15 mg 04/24/25 15:23 04/24/25 16:23 Morphine Sulfate Immed Release 15 Mg Tablet PO 04/24/25 15:24 15 mg ONCE ONE Administration Medical Decision Making Medical Decision Making [facility] Narrative: 64-year-old [place]-speaking female with a past medical history HTN, GERD, diverticulitis, presenting to the ED complaining of acute on chronic right-sided low back pain radiating down RLE x1 week. on exam vital signs stable, NAD, nontoxic appearing, no midline spinous tenderness throughout or red flag symptoms. Ambulating with steady gait. No saddle anesthesia. Concern for MSK pain/ strain vs sciatica vs herniated disc. Lower suspicion for renal stone, pyelo, epidural abscess, cauda equina, cord compression or fracture plan: Pain control, re-evaluation Please refer to course for remaining clinical decision making, interpretation of labs/imaging results, and discussions with consultants and/or family members. Differential Diagnosis Differential Diagnoses: The differential diagnosis associated with the presentation includes As above Admission/Observation Consideration of admission/observation: Escalation of care including admission/observation considered Lab Data [facility] Lab Attestation statement: I reviewed the patient's lab results. Labs: Lab Results 04/24/25 Range/Units 15:32 Urine Color Yellow Urine Appearance Clear Urine pH 6.0 (5.0-9.0) Ur Specific [place] 1.015 (1.005-1.025) Urine Protein Negative (Neg-Trace) mg/dL Urine Glucose (UA) Negative (Negative) mg/dL Urine Ketones Negative (Negative) mg/dL Urine Blood Small (1+) H (Negative) Urine Nitrite Negative (Negative) Ur Leukocyte Esterase Large (3+) H (Negative) Urine RBC 3-5 H (0-2) /HPF Urine WBC >50 H (0-5) /HPF Ur Squamous Epith Cells 0-2 (0-2) /HPF Urine Bacteria Trace (None Seen) Hyaline Casts 0-2 (0-2) /LPF Independent Interpretation I performed an independent interpretation of an: Plain X-Ray Radiology Impression Discussion of test interpretation with radiology: I have reviewed the radiologist's reading. Independent Historian Clinical information obtained from an independent historian. History obtained from or confirmed by: Spouse External Record Review External record reviewed: Inpatient record, Office record, Outpatient record, Prior outpatient labs, Prior outpatient radiology, Primary care record and Outside ED record Tests considered The following testing was considered but not selected: As above Prescription Management I considered prescription management with: Pain Medication Chronic Conditions Patient?s care impacted by: Other Social Determinants Patient?s care significantly limited by Social Determinants of Health including: Other Social Determinant of Health Discharge Plan Discharge Clinical Impression: Lumbar radiculopathy, UTI (urinary tract infection) Patient Disposition: Home, Self-Care Instructions: Lumbar Radiculopathy (ED) Additional Instructions: Your pain is likely musculoskeletal. Continue taking previously prescribed cyclobenzaprine & prednisone Naproxen as an anti-inflammatory / pain medication, take with food Lidoderm patches are numbing patches, apply to painful area In addition take Tylenol at home morphine as an opiate pain medication, take only when pain is severe for the next 3 days If symptoms persist or worsen, pain becomes unbearable, you developed urinary retention or incontinence, or weakness return to the ED Prescriptions: New lidocaine [Lidoderm] 5 % adhesive patch,medicated 1 patch topical DAILY MDD remove after 12 hours PRN (Reason: pain) Qty: 30 0RF Rx Instructions: leave on most painful area for up to 12 hrs morphine 15 mg tablet 15 mg PO Q6H PRN (Reason: pain (scale score 7-10)) 3 Days Qty: 5 0RF Rx Instructions: Partial Fill upon patient request. naproxen 500 mg tablet 500 mg PO BID PRN (Reason: pain) 10 Days Qty: 20 0RF cefuroxime axetil 250 mg tablet 250 mg PO BID 7 Days Qty: 14 0RF No Action zolpidem 10 mg tablet 1 tab PO BEDTIME PRN (Reason: Insomnia) cyclobenzaprine 5 mg tablet 5 mg PO TID PRN (Reason: low back pain) 7 Days Qty: 21 0RF prednisone 20 mg tablet 20 mg PO DAILY 7 Days Qty: 7 0RF amlodipine 10 mg tablet 10 mg PO DAILY rosuvastatin 40 mg tablet 40 mg PO DAILY ferrous gluconate 324 mg (38 mg iron) tablet 324 mg PO Q OTHER DAY lisinopril 30 mg tablet 30 mg PO DAILY Qty: 90 4RF omeprazole 20 mg capsule,delayed release(DR/EC) 20 mg PO DAILY PRN cholecalciferol (vitamin D3) 25 mcg (1,000 unit) capsule 25 mcg PO DAILY Qty: 30 5RF Referrals: Verenice Nixon [Primary Care Provider] - 1 week Interventions: ED Discharge Assessment Last Done: 04/24/25 17:08 Discharge Date/Time: 04/24/25 17:09 Print Language: Luxembour[place]
--- OUTSIDE RECORDS SUMMARY | 2025-04-24 15:16 | XMS_ITS | Clinical Summary ---
Author Organization [employer] Address [address] [place] [address] 7[address] [place] [address] Care Team Providers Care Tobacco Stemmer Name Role Phone Naveedpeyton Verenice SALINAS Primary Care Provider [phone] Allergies No known active allergies Medications ibuprofen [...] 03/23/20 25 Active zolpidem (Ambien) 10 MG tabletIndications: Primary insomnia TAKE 1 TABLET BY MOUTH EVERYDAY AT BEDTIME 28 tablet 04/19/20 25 Active zolpidem (Ambien) 10 MG tabletIndications: Primary insomnia TAKE 1 TABLET BY MOUTH EVERYDAY AT BEDTIME 28 tablet 03/19/20 25 025 Discontinued Active Problems Problem Noted [...] to purchase a pair from medical supply [employer] as [facility] will not cover -consider venous US [...] Encounters Date Type Department Care Team Description 04/22/2025 Orders Only [facility] External Provider, [facility] 04/18/2025 Refill [facility] [address] [facility] [place] [address] NameDimitri MD Primary insomnia 03/27/2025 Refill [facility] [address] [place] [address] Name, MD Dimitri 03/18/2025 Refill [facility] [address] [place] [address] Verenice Nixon NP Primary insomnia 03/18/2025 Refill [facility] [address] [place] [address] Verenice Nixon NP Anemia, unspecified type 02/23/2025 2:00 PM EDT Office Visit [facility] [address] [place] [address] Antonio Pedro DDS Open fracture of tooth, sequela (Primary Dx) 02/23/2025 1:30 PM EDT Office Visit [facility] [address] [facility] [place] [address] Loretta Jasso DDS Open fracture of tooth, initial encounter (Primary Dx) 02/23/2025 Telephone [facility] [address] [facility] [place] [address] Loretta aJsso DDS unable to post insurance 02/19/2025 Orders Only GENERIC EXTERNAL DATA DEPARTMENT Provider, Generic External Data 02/16/2025 Refill [facility] [address] [place] [address] Verenice Nixon NP Primary insomnia 02/11/2025 Orders Only GENERIC EXTERNAL DATA DEPARTMENT Provider, Generic External Data 02/09/2025 Telephone [facility] [address] [place] [address] Eugenia Mathur MA follow up appointment scheduled 02/08/2025 Telephone [facility] [address] [place] [address] Verenice Nixon NP 02/07/2025 Refill [facility] [address] [place] [address] Verenice Nixon NP 02/04/2025 10:30 AM EST Office Visit [facility] [address] [place] [address] Jo-Ann Hinojosa, JAYDON 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); Presbyopia 02/04/2025 Travel from Last 3 Months Immunizations Immunization Administration Dates Next Due Hep A, Adult [...] 11:00 AM EDT Office Visit [facility] [address] [place] [address] Willow Eisenberg 05/14/2025 10:00 AM EDT Office Visit [facility] [address] [place] [address] Verenice Nixon NP [address] [place] [address] Health Maintenance Due Date Last Done Comments CT Colonography 1960 Colonoscopy 1960 FIT 1960 FOBT 1960 Sigmoidoscopy 1960 Disability Screening 1960 Dental Oral Exam 02/08/2017 08/10/2016 Dental [...] patient's age to complete this topic Meningococcal B Vaccine Aged Out No l onger eligible based on patient's age to complete [...] Procedure Name Priority Date/Time Associated Diagnosis Comments XR LUMBAR SPINE 2-3 VIEWS Routine 04/22/2025 11:49 AM EDT CASE PRESENTATION, DETAILED AND EXTENSIVE TREATMENT [...] Recently Relevant to Health Maintenance Results * XR Lumbar Spine 2-3 Views (04/22/2025 11:49 AM EDT) Anatomical Region Laterality Modality Spine, L-spine Radiographic Damaris ging 04/22/2025 11:4 9 AM EDT Narrative 04/22/2025 12:27 PM EDT ? [facility] ?[address] ?[place] [address] ?XRay Report ? Signed ? Patient: Metzger,Neha ?MR#: [id number] ? : 1960 ?Acct:[id number] ? Age/Sex: 64 / F ?ADM Date: 04/22/25 ? Loc: HO.ED ? Attending Dr: ? Ordering Physician: Tika Bull NP ?? Date of Service: 04/22/25 ?? Procedure(s): XR lumbar spine 2-3V ?? Accession Number(s): [id number] ? cc: [facility]; Tika Bull NP ? EXAMINATION: ?? XR LUMBOSACRAL SPINE ? CLINICAL INFORMATION: ?? pain radiating down r leg ? COMPARISON: ?? None available. ? TECHNIQUE: ?? Three views of the lumbosacral spine. ? FINDINGS: ?? There is no scoliosis. There is a normal lordosis. There is no ?? subluxation. There is normal bone mineralization. ?? There is no fracture, compression deformity, or suspicious bone lesion. ?? Mild degenerative disc changes are present throughout the lumbar region. ?? Facets are normally aligned. There are mild degenerative facet changes ?? throughout the lumbar region. ? The sacrum is intact. Mild arthritis in the bilateral SI joints. ? Soft tissues demonstrate mild vascular calcifications. ? XR/XR lumbar spine 2-3V ?? IMPRESSION: ?? 1. No acute findings of the lumbar spine. ?? 2. Mild multilevel degenerative spondylosis. ? Electronically signed by: ??Flakito Mueller MD ??04/22/2025 12:24 PM EDT RP ? Dictated By: ?Flakito Mueller MD ? Signed By: ?<Electronically signed by Flakito Mueller MD in OV> ?04/22/25 1224 ? DD/ 1149 ? TD/TT: 04/22/25 1210 ? Boxing Trainer: ? Procedure Note Donsongter, Image - 04/22/2025 [place] [id number] XRay Report Signed Patient: Jerome Metzger#: [id number] : 1960cct:[id number] Age/Sex: 64 / FADM Date: 04/22/25 Loc: HO.ED Attending Dr: Ordering Physician: Tika Bull NP Date of Service: 04/22/25 Procedure(s): XR lumbar spine 2-3V Accession Number(s): [id number] cc: [facility]; Tika Bull NP EXAMINATION: XR LUMBOSACRAL SPINE CLINICAL INFORMATION: pain radiating down r leg COMPARISON: None available. TECHNIQUE: Three views of the lumbosacral spine. FINDINGS: There is no scoliosis. There is a normal lordosis. There is no subluxation. There is normal bone mineralization. There is no fracture, compression deformity, or suspicious bone lesion. Mild degenerative disc changes are present throughout the lumbar region. Facets are normally aligned. There are mild degenerative facet changes throughout the lumbar region. The sacrum is intact. Mild arthritis in the bilateral SI joints. Soft tissues demonstrate mild vascular calcifications. XR/XR lumbar spine 2-3V IMPRESSION: 1. No acute findings of the lumbar spine. 2. Mild multilevel degenerative spondylosis. Electronically signed by: Flakito Mueller MD 04/22/2025 12:24 PM EDT RP Dictated By: Flakito Mueller MD Signed By: <Electronically signed by Flakito Mueller MD in OV> 04/22/25 1224 DD/ 1149 TD/TT: 04/22/25 1210 Boxing Trainer: [facility] External Provider IMG XR PROCEDURES Final Result * Albumin (02/19/2025 7:43 AM EDT) Only the most recent of2 resultswithin the time period is included. Albumin Level 4.1 3.5 - 5.0 g/dL [facility] 02/19/2025 7:43 AM EDT 02/19/2025 10:13 AM EDT Generic External Data Provider LAB BLOOD ORDERAB LES Final Result Performing Organization Address City/State/[facility] Co de Phone Number [facility] [address] [place] [phone] * (ABNORMAL) Basic Metabolic Panel (02/19/2025 7:43 AM EDT) Only the most recent of2 resultswithin the time period is included. Sodium 142 135 - 145 mmol/L [facility] Potassium 4.0 3.3 - 5.1 mmol/L [facility] Chloride 109(H) 96 - 108 mmol/L [facility] Carbon Dioxide 25 22 - 29 mmol/L [facility] Anion Gap 12 12 - 20 [facility] Urea Nitrogen (BUN) 22(H) 9 - 16 mg/dL [facility] Creatinine, Serum 0.89 0.5 - 1.4 mg/dL [facility] Estimated Glomerular Filt Rate >60 [facility] Comment:Chronic Kidney Disea se: Estimated GFR < 60 mL/min/1.43i7Xikenn Kidney Disease: Estimated GFR < 15 mL/min/1.73m2 Glucose 114 60 - 115 mg/dL [facility] Calcium 9.9 8.4 - 10.2 mg/dL [facility] 02/19/2025 7:43 AM EDT 02/19/2025 10:13 AM EDT Generic External Data Provider LAB BLOOD ORDERAB LES Final Result Performing Organization Address [facility] de Phone Number [facility] [address] [place] [phone] * CREATININE, 24 HR GROUP (02/19/2025 6:45 AM EDT) Creatinine, 24 Hour Urine 1.1 1.0 - 2.0 G/Day [facility] Creatinine, Urine 64.24 [facility] Urine Total Volume 24 Hour 1,650 mL [facility] 02/19/2025 6:45 AM EDT 02/19/2025 10:06 AM EDT Narrative [facility] - 02/19/2025 10:57 AM EDT [id number] Generic External Data Provider LAB URINE ORDERAB LES Final Result Performing Organization Address [facility] Co de Phone Number [facility] [address] [place] [phone] * Calcium, 24 Hour Urine W/ Creatinine (02/19/2025 6:45 AM EDT) Calcium, 24 Hour Urine 83 mg/24 h [facility] Comment:Reference Range 35-2 50 Low calcium diet 35-200 Calcium/Creatini ne Ratio 83 30 - 275 mg/g creat [facility] Creatinine, 24 Hour Urine 0.99 0.50 - 2.15 g/24 h [facility] Comment:THIS TEST WAS PERFOR MED AT:[facility] [place] [phone] ESQUIVEL MD 02/19/2025 6:45 AM EDT 02/19/2025 10:06 AM EDT Narrative [facility] - 02/20/2025 4:43 PM EDT [id number] Generic External Data Provider LAB URINE ORDERAB LES Final Result Performing Organization Address City/[facility]/ZIP Co de Phone Number [facility] [address] [place] [address] [phone] * (ABNORMAL) Vitamin D, 25-Hydroxy, Total, Immunoassay (02/11/2025 10:45 AM EDT) Vitamin D 25-OH Total 25.9(L) >30 ng/mL [facility] Comment: Health Based Reference Values*< 20 ??ng/mL ??Mbabmtaib24-02 ng/mL ??Insufficient> 30 ??ng/mL ??Sufficient*Robin MCLAUGHLIN. N [...] ORDERAB LES Final Result Performing Organization Address City/[facility]/ZIP Co de Phone Number [facility] [address] [place] [address] [phone] * TSH with Reflex to Free T4 (02/11/2025 10:45 AM EDT) TSH reflex Free T4 0.93 0.32 - 4.0 uIU/mL [facility] 02/11/2025 10:4 5 AM EDT 02/11/2025 11:32 AM EDT Generic External Data Provider LAB BLOOD ORDERAB LES Final Result Performing Organization Address City/[facility]/ZIP Co de Phone Number [facility] [address] [place] [phone] * Phosphate (As Phosphorus) (02/11/2025 10:45 AM EDT) Phosphorus 3.1 2.7 - 4.5 mg/dL [facility] 02/11/2025 10:4 5 AM EDT 02/11/2025 11:32 AM EDT Generic External Data Provider LAB BLOOD ORDERAB LES Final Result Performing Organization Address [facility]/ZIP Co de Phone Number [facility] [address] [place] [phone] * PTH, Intact Without Calcium (02/11/2025 10:45 AM EDT) Parathyroid Hormone, Intact 56.8 8.7 - 77.1 pg/mL [facility] 02/11/2025 10:4 5 AM EDT 02/11/2025 11:40 AM EDT Generic External Data Provider LAB BLOOD ORDERAB LES Final Result Performing Organization Address [facility] Co de Phone Number [facility] [address] [place] [phone] * Calcium, Ionized (02/11/2025 10:45 AM EDT) Calcium, Ionized 5.4 4.7 - 5.5 mg/dL [facility] Comment:THIS TEST WAS PERFOR MED AT:[facility] [place] [phone] ESQUIVEL MD 02/11/2025 10:4 5 AM EDT 02/11/2025 11:32 AM EDT Generic External Data Provider LAB BLOOD ORDERAB LES Final Result Performing Organization Address City/[facility]/ZIP Co de Phone Number [facility] [address] [place] [phone] * Calcium (02/11/2025 10:45 AM EDT) Pathologist [facility] Calcium 10.2 8.4 - 10.2 mg/dL [facility] 02/11/2025 10:4 5 AM EDT 02/11/2025 11:32 AM EDT Generic External Data Provider LAB BLOOD ORDERAB LES Final Result Performing Organization Address City/[facility] Co de Phone Number [facility] [address] [place] [phone] * Cologuard?? colon cancer screening (12/29/2024 4:40 PM EST) Cologuard Result Negative Negative 01/06/20 8:01 PM EST Entrec (CLIA #:[id number]) Comment: NEGATIVE TEST RESULT. A negative Cologuard [...] cancer. ??Following a negative Cologuard result, the [place] [employer] and U.S. Multi-Society Task Force screening guidelines recommend a Cologuard re-screening interval of 3 years. References: [place] [employer] Guideline for Colorectal Cancer Screening: https://www.cancer.org/cancer/ufuel-iuopox-fpxzep/oeugssfnq-oiqbfkutv-fxybtwz/ac s-rec ommendations.html.; Arun VILLALOBOS, Jocelin ORONA, Cheikh VelázquezK, Colorectal Cancer Screening: Recommendations for Physicians and Patients from the U.S. Multi-Society Task Force on Colorectal Cancer Screening , Am J Gastroenterology 2017; 112:8896-4253. TEST DESCRIPTION: Composite algorithmic analysis of stool [...] colonoscopy. (Vinod Malcolm, N Engl J Med 2014;370(14):8695-4265.) Cologuard may produce a false negative or false positive result (no colorectal cancer or precancerous polyp present at colonoscopy follow up). A negative Cologuard test result does not guarantee the absence of CRC or advanced adenoma (pre-cancer). The current Cologuard screening interval is every 3 years. ([place] [employer] and U.S. Multi-Society Task Force). Cologuard performance data in a 10,000 patient pivotal study using colonoscopy as the reference method can be accessed at the following location: www.Doculynx/results. Additional description of the Cologuard test process, warnings and precautions can be found at www.EasyQasaogOscilla Powerrd.com. Stool specimen (specimen) 12/29/2024 4:40 PM EST 12/31/2024 1:15 PM EST Verenice Nixon NP LAB MOLECULAR DIAGNOSTICS ORDER [place] Final Result Entrec (CLIA #:[id number]) [place] [address], * (ABNORMAL) Lipid Panel, Standard (12/16/2024 10:47 AM EST) Triglycerides 112 <150 mg/dL [facility] Comment:Desirable Triglyceri de: less than 150 mg/dLBorderline High Triglyceride 150-199 mg/dLHigh Triglyceride: 200-499 mg/dLVery High Triglyceride: greater than or equal to 5OO mg/dL Cholesterol 198 <200 mg/dL [facility] Comment:Desirable Cholestero l: less than 200 mg/dLBorderline High Cholesterol: 200-239 mg/dLHigh Cholesterol: greater than 239 mg/dL LDL Cholesterol Calculated 119(H) <100 mg/dL [facility] Comment:Desirable LDL: less than 100 mg/dLNear Optimal/Above Optimal LDL: 110- 129 mg/dLBorderline High LDL: 130-159 mg/dLHigh LDL: 160-189 mg/dLVery High LDL: greater than or equal to 190 mg/dL HDL Cholesterol 57 >40 mg/dL [facility] Comment:Desirable HDL: great er than 40 mg/dL Note: This HDL assay may give artificially low results in patients with liver disease. Blood Venous blood specimen / Unknown 12/16/2024 10:47 AM EST 12/16/2024 1:05 PM EST us Verenice Nixon INSURANCE OFFICE MANAGER LAB BLOOD ORDERABLES Final Resu lt Performing Organization Address [facility]/State/[facility] Co de Phone Number [facility] [address] [place] [address] [phone] * BI Mammogram Screening Tomosynthesis Bilateral (09/24/2024 11:00 AM EDT) Anatomical Region Laterality Modality Breast Bilateral Mammography 09/24/2024 11:0 0 AM EDT Narrative 10/03/2024 10:33 AM EDT ? [facility] ? [address] ?[place] [address] ? Mammography Report ? Signed ? Patient: Metzger,Neha ?MR#: [id number] ? : 1960 ?Acct:[id number] ? Age/Sex: 64 / F ?ADM Date: //24 ? Loc: HO.MAMMO ? Attending Dr: Verenice Appram ? Ordering Physician: Appram,Verenice ?Results: 1Negative ? Date of Service: //24 ?Follow Up: 1 Year From Orig ?? inal Mammogram ? Procedure(s): MM tomosynthesis screening BI ?? Accession Number(s): [id number] ? cc: Verenice Nixon ? EXAMINATION: ?? [...] ? Signed By: ?<Electronically signed by Sole Major DO in OV> ? 10/03/24 1030 ? DD/ 1100 ? TD/TT: 09/24/24 1118 ? Boxing Trainer: ? Procedure Note Deejay, Image - 10/03/2024 [facility] [address] [place] [address] Dr. [place], [place] [address] Mammography Report Signed Patient: Jerome Metzger#: [id number] : 1Acct:[id number] Age/Sex: 64 / FADM Date: 09/24/24 Loc: HO.MAMMO Attending Dr: Verenice Nixon Ordering Physician: Verenice NixonResults: 1Negative Date of Service: 09/24/24Follow Up: 1 Year From [facility] ina Mammogram Procedure(s): MM tomosynthesis screening BI Accession Number(s): [id number] cc: Verenice Nixon EXAMINATION: MM SCREENING DIGITAL [...] 10/03/24 1030 DD/ 1100 TD/TT: 09/24/24 1118 Boxing Trainer: us Verenice Nixon NP IMG BI PROCEDURES Final Result * Hepatitis C Antibody with Reflex to HCV, RNA, Quantitative, Real-Time PCR (10/30/2023 10:53 AM EST) Hepatitis C Antibody Nonreactive Nonreactive [facility] Comment:Antibodies to HCV no t detected; does not exclude early acuteHCV infection. Blood Venous blood specimen / Unknown 10/30/2023 10:53 AM EST 10/30/2023 11:19 AM EST us Tamara Siegel MD LAB BLOOD ORDERABLES Final Re sult [facility] [address] [place] [phone] [phone] * HIV-1/2 Antigen and Antibodies, Fourth Generation, with Reflexes (10/30/2023 10:53 AM EST) HIV AB/AG Nonreactive Nonreactive [facility] Comment:HIV-1 p24 Ag and/or HIV-1/HIV-2 Ab not detected.A test result that is nonreactive does not exclude thepossibility of exposure to or infection with HIV-1 and/orHIV-2. Nonreactive results in this assay for individualswith prior exposure to HIV-1 and/or HIV-2 may be due toantigen and antibody levels that are below the limit ofdetection of this assay.The Buru Buru HIV Ag/Ab Combo assay result andsupplemental assay results should be interpreted inconjunction with the patient's clinical presentation,history and other laboratory results. If the results areinconsistent with clinical evidence, additional testing issuggested to confirm the result. Blood Venous blood specimen / Unknown 10/30/2023 10:53 AM EST 10/30/2023 11:19 AM EST us Tamara Siegel MD LAB BLOOD ORDERABLES Final Re sult [facility] [address] [place] [address] [phone] from Last 3 Months or Most Recently Relevant to Health Maintenance Insurance [facility] - [facility] PARTIAL (MEDICAID) Care Teams Tobacco Stemmer Relationship Specialty Start Date End Date Verenice Nixon NP [address] [place] [address] PCP - General Family Medicine 11/04/23
[2025-04-24 15:17] VITALS: BP 161/79; PULSE 88; RESP 14; O2SAT 99
[2025-04-24 15:38] LABS: Appearance Urine Clear; Color Urine Yellow; Glucose Urine UA Negative (Negative); Leukocyte Esterase Urine Large (3+) (Negative); Nitrite Urine Negative (Negative); Specific Gravity - Urine 1.015 (1.005-1.025); UMIC TRIGGER UACC YES; Urine Blood Small (1+) (Negative); Urine Ketones Negative (Negative); Urine Protein Negative (Neg-Trace)
[2025-04-24 16:01] LABS: Bacteria Urine Trace (None Seen); Hyaline Casts Urine 0-2 /LPF (0-2); Squamous Epithelial Cell Urine 0-2 /HPF (0-2); UACC Culture Trigger YES; WBC Urine >50 /HPF (0-5)
[2025-04-24] MEDS: Ketorolac Tromethamine 30 MG/ML VIAL IM (16:23)
[2025-04-24] MEDS: Morphine Sulfate Immed Release 15 MG TABLET PO (16:23)
[2025-04-24 17:08] VITALS: BP 146/5; PULSE 71; RESP 20; TEMP 36.5; O2SAT 98
== END 2025-04-24 17:09 | disposition home or self-care (01) ==
PROVIDERS: Physician Assistant; Emergency Provider Emergency Medicine; PCP Nurse Practitioner
DX: M54.16 Radiculopathy, lumbar region (principal); N39.0 Urinary tract infection, site not specified; Z79.899 Other long term (current) drug therapy
CPT/HCPCS: 81001; 87086; 87088; 87186; 96372; 99283; 99284; J1885

== ENCOUNTER 2025-05-21 13:10 | Outpatient (REF) | payer OTHER, SELFPAY ==
--- OUTSIDE RECORDS SUMMARY | 2025-05-21 13:13 | XMS_ITS | Clinical Summary ---
Author Organization [employer] Address [address] [place] [address] [address] [place] [address] Care Team Providers Care Coal Picker Name Role Phone Naveed[place]yton Verenice SALINAS Primary Care Provider [phone] Allergies No known active allergies Medications ibuprofen 400 MG tabletIndications: Dysuria Take 1 tablet (400 mg) by mouth every 6 (six) hours if needed for moderate pain or fever for up to 30 doses. 30 tablet 01/07/20 23 Active lisinopril 30 MG tablet Take 1 [...] VITAMIN C) 45 tablet 03/23/20 25 Active Multiple Vitamins-Minerals (multivitamin with minerals) tablet Take 1 tablet by mouth Once per day. Active rosuvastatin (Crestor) 40 MG tabletIndications: Hyperlipidemia, unspecified hyperlipidemia type TAKE 1 TABLET BY MOUTH EVERY DAY AT NIGHT 90 tablet 1 05/17/20 25 Active zolpidem (Ambien) 10 MG tabletIndications: Primary insomnia TAKE 1 TABLET BY MOUTH EVERYDAY AT BEDTIME 28 tablet 05/21/20 25 Active rosuvastatin (Crestor) 40 MG tabletIndications: Hyperlipidemia, unspecified hyperlipidemia type TAKE 1 TABLET BY MOUTH EVERY DAY AT NIGHT 90 tablet 1 08/14/20 24 025 Discontinued zolpidem (Ambien) 10 MG tabletIndications: Primary insomnia TAKE 1 TABLET BY MOUTH EVERYDAY AT BEDTIME 28 tablet 04/19/20 25 025 Discontinued Active Problems Problem Noted [...] to purchase a pair from medical supply [employer] as [facility] will not cover -consider venous US [...] Encounters Date Type Department Care Team Description 05/21/2025 11:00 AM EDT Office Visit [facility] [address] [place] [phone] Verenice Nixon NP Urinary tract infection symptoms (Primary Dx); Hematuria, unspecified type; Dietary counseling; Exercise counseling 05/21/2025 Travel 05/19/2025 Refill [facility] [address] [place] [phone] Dimitri Ramirez MD Primary insomnia 05/16/2025 Refill [facility] [address] [place] [phone] Verenice Nixon NP Hyperlipidemia, unspecified hyperlipidemia type 05/13/2025 11:00 AM EDT Office Visit [facility] ADULT DENTAL [address] [place] [address] Willow Eisenberg Subgingival dental calculus (Primary Dx); Supragingival dental calculus; Dental plaque 05/13/2025 Patient Outreach [facility] [address] [place] [address] Verenice Nixon NP Pre-visit Planning (SDOH was already completed ) 05/04/2025 Telephone [facility] [address] [place] [phone] Verenice Nixon NP Referral 04/24/2025 Orders Only GENERIC EXTERNAL DATA DEPARTMENT Provider, Generic External Data 04/22/2025 Orders Only [facility] External Provider, [facility] 04/18/2025 Refill [facility] [address] [place] [address] Name, MD Dimitri Primary insomnia 03/27/2025 Refill [facility] [address] [place] [address], [place] [address] Name, MD Dimitri 03/18/2025 Refill [facility] [address] [place] [address], [place] [address] Verenice Nixon NP Primary insomnia 03/18/2025 Refill [facility] [address] [place] [address], [place] [address] Verenice Nixon NP Anemia, unspecified type 02/23/2025 2:00 PM EDT Office Visit [facility] ADULT DENTAL [address] [place] [address] Antonio Pedro DDS Open fracture of tooth, sequela (Primary Dx) 02/23/2025 1:30 PM EDT Office Visit [facility] ADULT DENTAL [address] [place] [address] Loretta Jasso DDS Open fracture of tooth, initial encounter (Primary Dx) 02/23/2025 Telephone [facility] ADULT DENTAL [address] [place] [address], [place] [address] Loretta Jasso DDS unable to post insurance 02/19/2025 Orders Only GENERIC EXTERNAL DATA DEPARTMENT Provider, Generic External Data from Last 3 Months Immunizations Immunization Administration [...] Answer Date Recorded Patient Health Questionnaire-9 Score 5 05/21/2025 Patient Health Questionnaire-9 Score 5 05/21/2025 Last PHQ-9: Questionnaire Data Not on file 0 05/21/2025 Housing Stability Answer Date Recorded What is [...] Answer Date Recorded Patient Health Questionnaire-2 Score 1 05/21/2025 Internet Access Answer Date Recorded Internet Access [...] Sign Reading Time Taken Comments Blood Pressure 130/82 05/21/2025 11:05 AM EDT Pulse 94 05/21/2025 11:05 AM EDT Temperature 36.9 C (98.5 F) 05/21/2025 11:05 AM EDT Respiratory Rate 23 05/21/2025 11:0 5 AM EDT Oxygen Saturation 99% 05/21/2025 11: 05 AM EDT Inhaled Oxygen Concentration - - Weight 68.9 kg (151 lb 12.8 oz) 025 11:05 AM EDT Height 160 cm (5' 3 ) 05/21/2025 11:05 AM EDT Body Mass Index 26.89 05/21/2025 11:05 AM EDT Plan of Treatment Upcoming Encounters Date Type Department Care Team (Late st Contact Info) Description 06/10/2025 10:30 AM EDT Office Visit [facility] ADULT DENTAL [address] [place] [address] Steven Velasquez, DMD [address] [place] [address] Health Maintenance Due Date Last Done Comments CT Colonography 1960 Colonoscopy 1960 FIT 1960 FOBT 1960 Sigmoidoscopy 1960 COVID-19 Vaccine ( season) 2024 01/29/2022, 01/19/2021, 12/29/2020 Influenza Vaccine (Season Ended) 2025 10/30/2023, 10/02/2017, 09/06/2014, Additional history exists Dental Oral Exam 11/13/2025 05/13/2025, 08/10/2016 Dental Prophylaxis 11/13/2025 05/13/2025, 09/20/2016 Alcohol/Substance Use Screening 12/16/2025 12/16/2024 SDOH Screening 01/15/2026 01/15/2025 Dental X-Ray: Bitewings 05/14/2026 05/13/20, 02/23/2025, 08/10/2016 Depression Screening 05/21/2026 05/21/2025, 05/21/20 Disability Screening 05/21/2026 05/21/2025 Tobacco Screening 05/21/2026 05/21/2025 Mammogram 09/24/2026 09/24/2024, 09/01, 09/13/2022, Additional history exists Colorectal Cancer Screening 12/29/2027 FIT DNA/Cologuard 12/29/2027 12/29/2024 Dental X-Ray: Full Mouth 05/14/2028 05/13/2025, 09/08/2016 Lipid Panel 12/16/2029 12/16/2024, 01/02, 10/30/2023, Additional [...] Procedure Name Priority Date/Time Associated Diagnosis Comments POCT URINALYSIS DIPSTICK Routine 05/21/2025 11:24 AM EDT Urinary tract infection symptoms PERIODIC ORAL EVALUATION - ESTABLISHED PATIENT Routine 05/13/2025 11:00 AM EDT ORAL HYGIENE INSTRUCTIONS Routine 05/13/2025 11:00 AM EDT Subgingival dental calculus Supragingival dental calculus Dental plaque INTRAORAL - COMPLETE SERIES OF RADIOGRAPHIC IMAGES Routine 05/13/2025 11:00 AM EDT PROPHYLAXIS - ADULT Routine 05/13/2025 1 1:00 AM EDT Subgingival dental calculus Supragingival dental calculus Dental plaque CASE PRESENTATION, DETAILED AND EXTENSIVE TREATMENT PLANNING Routine 05/13/2025 11:00 AM EDT FULL MOUTH DEBRIDEMENT TO ENABLE A COMPREHENSIVE ORAL EVALUATION AND DIAGNOSIS ON A SUBSEQUENT VISIT Routine 05/13/2025 11:00 AM EDT Subgingival dental calculus Supragingival dental calculus Dental plaque URINALYSIS, COMPLETE, WITH REFLEX TO CULTURE Routine 04/24/2025 3:32 PM EDT CULTURE, URINE, ROUTINE Routine 04/24/2025 3:32 PM EDT XR LUMBAR SPINE 2-3 VIEWS Routine 04/22/2025 [...] HR GROUP Routine 02/19/2025 6:45 AM EDT LAB COLOGUARD COLON CANCER SCREEN Routine 12/29/2024 4:40 PM [...] Relevant to Health Maintenance Results * (ABNORMAL) POCT Urinalysis (05/21/2025 11:24 AM EDT) Color, UA Yellow Clarity, UA Clear Glucose, UA Negative Bilirubin, UA Negative Ketones, UA Negative Spec Grav, UA 1.025 Blood, UA Positive(A) Negative, None Detected Comment:moderate pH, UA 6.0 Protein, UA Trace Comment:30mg/dL Urobilinogen, UA 1.0 Leukocytes, UA Trace Negative, Rare, Trace Nitrite, UA Negative Negative, None Detected Comment:small Appearance, UA clear QC Media Lot # [id number] Lot# Expiration Date [id number] Urine 05/21/2025 11:2 4 AM EDT us Verenice Nixon NP POINT OF CARE TEST ENTER/EDIT O RDERABLES Final Result * (ABNORMAL) Urinalysis, Complete, with Reflex to Culture (04/24/2025 3:32 PM EDT) Color Urine Yellow [facility] Appearance Urine Clear [facility] PH 6.0 5.0 - 9.0 [facility] Glucose Urine UA Negative Negative mg/dL [facility] Urine Blood Small (1+)(A) Negative [facility] Specific [place] - Urine 1.015 1.005 - 1.025 [facility] Urine Protein Negative Neg-Trace mg/dL [facility] Urine Ketones Negative Negative mg/dL [facility] Nitrite Urine Negative Negative [facility] Leukocyte Esterase Urine Large (3+)(A) Negative [facility] RBC Urine 3-5(A) 0 - 2 /HPF [facility] Urine WBC >50(A) 0 - 5 /HPF [facility] Urine Squamous Epithelial Cell 0-2 0 - 2 /HPF [facility] Urine Bacteria Trace None Seen [facility] Hyaline Casts, Urine 0-2 0 - 2 /LPF [facility] 04/24/2025 3:32 PM EDT 04/24/2025 3:34 PM EDT Narrative [facility] - 04/24/2025 4:03 PM EDT Urine, Clean Catch us Generic External Data Provider LAB URINE ORDERAB LES Final Result [facility] [address] [place] [phone] * Culture, Urine, Routine (04/24/2025 3:32 PM EDT) Urine Urine specimen obtained by clean catch procedure / Unknown 04/24/2025 3:32 PM EDT 04/24/2025 7:01 PM EDT Comment:UACC Narrative [facility] - 04/26/2025 7:29 AM EDT Escherichia coli Quant 50,000 to 100,000 cfu/mL Escherichia coli: Ampicillin <=2(S) Escherichia coli: Cefazolin (Urine) <=1(S) Escherichia coli: Cefepime <=0.12(S) Escherichia coli: Ceftriaxone <=0.25(S) Escherichia coli: Ciprofloxacin >=4(R) Escherichia coli: Gentamicin <=1(S) Escherichia coli: Nitrofurantoin <=16(S) Escherichia coli: Trimethoprim/Sulfamethoxazole <=20(S) Specimen Source: Urine clean catch us Generic External Data Provider LAB MICROBIOLOGY - GENERAL ORDERABLES Final Result Performing Organization Address City/State/[facility] Co de Phone Number [facility] [address] [place] [phone] * XR Lumbar Spine 2-3 Views (04/22/2025 11:49 AM EDT) Anatomical Region Laterality Modality Spine, L-spine Radiographic Damaris ging 04/22/2025 11:4 9 AM EDT Narrative 04/22/2025 12:27 PM EDT [address] [address] XRay Report Signed Patient: Neha Metzger MR#: [id number] : 1960 Acct:[id number] Age/Sex: 64 / F ADM Date: 04/22/25 Loc: HO.ED Attending Dr: Ordering Physician: Tika Bull NP Date of Service: 04/22/25 Procedure(s): XR lumbar spine 2-3V Accession Number(s): [id number] cc: [facility]; Tika Bull NP EXAMINATION: XR LUMBOSACRAL [...] 04/22/25 1224 DD/ 1149 TD/TT: 04/22/25 1210 Camper Assembler: Procedure Note Donotuseinterpreter, Image - 04/22/[address] [address] XRay Report Signed Patient: Jerome Metzger#: [id number] : 1960cct:[id number] Age/Sex: 64 / FADM Date: 04/22/25 Loc: .ED Attending Dr: Ordering Physician: Tika Bull NP Date of Service: 04/22/25 Procedure(s): XR lumbar spine 2-3V Accession Number(s): [id number] cc: [facility]; Tika Bull COMMERCIAL APPRAISER EXAMINATION: XR LUMBOSACRAL SPINE CLINICAL INFORMATION: pain [...] 04/22/25 1224 DD/ 1149 TD/TT: 04/22/25 1210 Camper Assembler: [facility] External Provider IMG XR PROCEDURES Final Result * Albumin (02/19/2025 7:43 AM EDT) Albumin Level 4.1 3.5 - 5.0 g/dL [facility] 02/19/2025 7:43 AM EDT 02/19/2025 10:13 AM EDT Generic External Data Provider LAB BLOOD ORDERAB LES Final Result Performing Organization Address [facility] Co de Phone Number [facility] [address] [place] [phone] * (ABNORMAL) Basic Metabolic Panel (02/19/2025 7:43 AM EDT) Sodium 142 135 - 145 mmol/L [facility] Potassium 4.0 3.3 - 5.1 mmol/L [facility] Chloride 109(H) 96 - 108 mmol/L [facility] Carbon Dioxide 25 22 - 29 mmol/L [facility] Anion Gap 12 12 - 20 [facility] Urea Nitrogen (BUN) 22(H) 9 - 16 mg/dL [facility] Creatinine, Serum 0.89 0.5 - 1.4 mg/dL [facility] Estimated Glomerular Filt Rate >60 [facility] Comment:Chronic Kidney Disea se: Estimated GFR < 60 mL/min/[id number] Kidney Disease: Estimated GFR < 15 mL/min/1.73m2 Glucose 114 60 - 115 mg/dL [facility] Calcium 9.9 8.4 - 10.2 mg/dL [facility] 02/19/2025 7:43 AM EDT 02/19/2025 10:13 AM EDT Generic External Data Provider LAB BLOOD ORDERAB LES Final Result Performing Organization Address City/[facility]/ZIP Co de Phone Number [facility] [address] [place] [address] [phone] * CREATININE, 24 HR GROUP (02/19/2025 6:45 AM EDT) Creatinine, 24 Hour Urine 1.1 1.0 - 2.0 G/Day [facility] Creatinine, Urine 64.24 [facility] Urine Total Volume 24 Hour 1,650 mL [facility] 02/19/2025 6:45 AM EDT 02/19/2025 10:06 AM EDT [facility] - 02/19/2025 10:57 AM EDT [id number] us Generic External Data Provider LAB URINE ORDERAB LES Final Result Performing Organization Address [facility]/ZIP Co de Phone Number [facility] [address] [place] [phone] * Calcium, 24 Hour Urine W/ Creatinine (02/19/2025 6:45 AM EDT) Calcium, 24 Hour Urine 83 mg/24 h [facility] Comment:Reference Range 35-2 50 Low calcium diet 35-200 Calcium/Creatini ne Ratio 83 30 - 275 mg/g creat [facility] Creatinine, 24 Hour Urine 0.99 0.50 - 2.15 g/24 h [facility] Comment:THIS TEST WAS PERFOR MED AT:[employer] [address] [phone] ESQUIVEL MD 02/19/2025 6:45 AM EDT 02/19/2025 10:06 AM EDT [facility] - 02/20/2025 4:43 PM EDT [id number] us Generic External Data Provider LAB URINE ORDERAB LES Final Result Performing Organization Address [facility]/ZIP Co de Phone Number [facility] [address] [place] [phone] * Cologuard?? colon cancer screening (12/29/2024 4:40 PM EST) Cologuard Result Negative Negative 01/06/20 8:01 PM EST [employer] (CLIA #:[id number]) Comment: NEGATIVE TEST RESULT. A negative Cologuard result indicates a low likelihood that a colorectal cancer (CRC) or advanced adenoma (adenomatous polyps with more advanced pre-malignant features) is present. The chance that a person with a negative Cologuard test has a colorectal cancer is less than 1 in 1500 (negative predictive value >99.9%) or has an advanced adenoma is less than 5.3% (negative predictive value 94.7%). These data are based on a prospective cross-sectional study of 10,000 individuals at average risk for colorectal cancer who were screened with both Cologuard and colonoscopy. (Vinod Cano et al, N Engl J Med 2014;370(14):3112-6433) The normal value (reference range) for this assay is negative. COLOGUARD RE-SCREENING RECOMMENDATION: Periodic colorectal cancer screening is an important part of preventive healthcare for asymptomatic individuals at average risk for colorectal cancer. Following a negative Cologuard result, the [place] [employer] Society and U.S. Multi-Society Task Force screening guidelines recommend a Cologuard re-screening interval of 3 years. References: [place] [employer] Guideline for Colorectal Cancer Screening: https://www.cancer.org/cancer/iygig-hvafyh-jswmfo/pgevoawtf-ndpbrbigw-hvcaruc/ac s-rec ommendations.html.; Arun VILLALOBOS, Jocelin ORONA, Cheikh VelázquezK, Colorectal Cancer Screening: Recommendations for Physicians and Patients from the U.S. Multi-Society Task Force on Colorectal Cancer Screening , Am J Gastroenterology 2017; 112:7989-7713. TEST DESCRIPTION: Composite algorithmic analysis of stool DNA-biomarkers with hemoglobin immunoassay. Quantitative values of individual biomarkers are not [...] with both Cologuard and colonoscopy. (Vinod Robles. et al, N Engl J Med 2014;370(14):4209-3364.) Cologuard may produce a false negative or false positive result (no colorectal cancer or precancerous polyp present at colonoscopy follow up). A negative Cologuard test result does not guarantee the absence of CRC or advanced adenoma (pre-cancer). The current Cologuard screening interval is every 3 years. ([place] [employer] and U.S. Multi-Society Task Force). Cologuard performance data in a 10,000 patient pivotal study using colonoscopy as the reference method can be accessed at the following location: www.[employer]/results. Additional description of the Cologuard test process, warnings and precautions can be found at www.[employer]. Stool specimen (specimen) 12/29/2024 4:40 PM EST 12/31/2024 1:15 PM EST [facility] COMMERCIAL APPRAISER LAB MOLECULAR DIAGNOSTICS ORDER WALDEMAR Final Result [facility] [facility] (CLIA #:[id number]) [address] [place] [address], * (ABNORMAL) Lipid Panel, Standard (12/16/2024 10:47 AM EST) Triglycerides 112 <150 mg/dL [facility] Comment:Desirable Triglyceri de: less than 150 mg/dLBorderline High Triglyceride 150-199 mg/dLHigh Triglyceride: 200-499 mg/dLVery High Triglyceride: greater than or equal to 5OO mg/dL Cholesterol 198 <200 mg/dL [facility] Comment:Desirable Cholestero l: less than 200 mg/dLBorderline High Cholesterol: 200-239 mg/dLHigh Cholesterol: greater than 239 mg/dL LDL Cholesterol Calculated 119(H) <100 mg/dL [facility] Comment:Desirable LDL: less than 100 mg/dLNear Optimal/Above Optimal LDL: 110- 129 mg/dLBorderline High LDL: 130-159 mg/dLHigh LDL: 160-189 mg/dLVery High LDL: greater than or equal to 190 mg/dL HDL Cholesterol 57 >40 mg/dL [facility] Comment:Desirable HDL: great er than 40 mg/dL Note: This HDL assay may give artificially low results in patients with liver disease. Blood Venous blood specimen / Unknown 12/16/2024 10:47 AM EST 12/16/2024 1:05 PM EST Verenice Nixon COMMERCIAL APPRAISER LAB BLOOD ORDERABLES Final Resu lt [facility] [address] [place] [phone] * BI Mammogram Screening Tomosynthesis Bilateral (09/24/2024 11:00 AM EDT) Anatomical Region Laterality Modality Breast Bilateral Mammography 09/24/2024 11:0 0 AM EDT Narrative 10/03/2024 10:33 AM EDT [facility] [address] [place] [address] [place] [address] Mammography Report Signed Patient: Neha Metzger MR#: [id number] : 1960 Acct:[id number] Age/Sex: 64 / F ADM Date: 09/24/24 Loc: HO.MAMMO Attending Dr: Verenice Nixon Ordering Physician: Verenice Nixon Results: 1Negative Date of Service: 09/24/24 Follow Up: 1 Year From Orig inal Mammogram Procedure(s): MM tomosynthesis screening BI Accession Number(s): [id number] cc: Verenice Nixon EXAMINATION: MM SCREENING DIGITAL [...] 10/03/24 1030 DD/ 1100 TD/TT: 09/24/24 1118 Camper Assembler: Procedure Note Donrobert, Image - 10/03/2024 [facility] [address] [place], [place] [address] Mammography Report Signed Patient: Jerome Metzger#: [id number] : 1960cct:[id number] Age/Sex: 64 / FADM Date: 09/24/24 Loc: MAMMO Attending Dr: Verenice Nixon Ordering Physician: Verenice NixonResults: 1Negative Date of Service: 09/24/24Follow Up: 1 Year From Orig inal Mammogram Procedure(s): MM tomosynthesis screening BI Accession Number(s): [id number] cc: Verenice Nixon EXAMINATION: MM SCREENING DIGITAL [...] 10/03/24 1030 DD/ 1100 TD/TT: 09/24/24 1118 Camper Assembler: us Verenice Nixon NP IMG BI PROCEDURES Final Result * Hepatitis C Antibody with Reflex to HCV, RNA, Quantitative, Real-Time PCR (10/30/2023 10:53 AM EST) Hepatitis C Antibody Nonreactive Nonreactive [facility] Comment:Antibodies to HCV no t detected; does not exclude early acuteHCV infection. Blood Venous blood specimen / Unknown 10/30/2023 10:53 AM EST 10/30/2023 11:19 AM EST us Tamara Siegel MD LAB BLOOD ORDERABLES Final Re sult [facility] [address] [place] [phone] * HIV-1/2 Antigen and Antibodies, Fourth Generation, with Reflexes (10/30/2023 10:53 AM EST) HIV AB/AG Nonreactive Nonreactive [facility] Comment:HIV-1 p24 Ag and/or HIV-1/HIV-2 Ab not detected.A test result that is nonreactive does not exclude thepossibility of exposure to or infection with HIV-1 and/orHIV-2. Nonreactive results in this assay for individualswith prior exposure to HIV-1 and/or HIV-2 may be due toantigen and antibody levels that are below the limit ofdetection of this assay.[employer] HIV Ag/Ab Combo assay result andsupplemental assay results should be interpreted inconjunction with the patient's clinical presentation,history and other laboratory results. If the results areinconsistent with clinical evidence, additional testing issuggested to confirm the result. Blood Venous blood specimen / Unknown 10/30/2023 10:53 AM EST 10/30/2023 11:19 AM EST us Tamara Siegel MD LAB BLOOD ORDERABLES Final Re sult [facility] [address] [place] [phone] [phone] from Last 3 Months or Most Recently Relevant to Health Maintenance Insurance [facility] - [place] PARTIAL (MEDICAID) Care Teams Coal Picker Relationship Specialty Start Date End Date Verenice Nixon NP [address] [place] [address] PCP - General Family Medicine 11/04/23
== END 2025-05-21 13:11 | disposition home or self-care (01) ==
LOC: HO.HHCLNP 13:10
PROVIDERS: Visit Provider Nurse Practitioner
DX: R39.9 Unspecified symptoms and signs involving the genitourinary system (principal)
CPT/HCPCS: 87086

== ENCOUNTER 2025-06-10 11:44 | Outpatient (REF) | payer OTHER, SELFPAY ==
[2025-06-10 13:20] LABS: Anion Gap 11 (12-20); Blood Urea Nitrogen 11 mg/dL (9-16); Carbon Dioxide 26 mmol/L (22-29); Chloride 106 mmol/L (96-108); Estimated Glomerular Filt Rate > 60; Potassium 4.3 mmol/L (3.3-5.1); Sodium 139 mmol/L (135-145)
[2025-06-10 13:29] LABS: Protein/Creatinine Ratio, Ur 0.35 (<0.2); Total Protein Urine Random 22 mg/dL (<12)
== END 2025-06-10 11:45 | disposition home or self-care (01) ==
LOC: HO.10HDL 11:44
PROVIDERS: Visit Provider Internal Medicine Nephrology
DX: I10 Essential (primary) hypertension (principal); R80.9 Proteinuria, unspecified
CPT/HCPCS: 36415; 80051; 82565; 82570; 84156; 84520

== ENCOUNTER 2025-06-18 11:57 | Outpatient (AMB) | payer OTHER, SELFPAY ==
[2025-06-18 12:04] VITALS: BP 132/70; PULSE 81; O2SAT 97; BMI 26.6
--- NOTE | 2025-06-18 12:04 | HO.NEPHOV ---
Vital Signs 06/18/25 12:04 Height 5 ft 3 in Weight 150 lb BMI 26.6 BP 132/70 Blood Pressure Location Rt brachial Position Sitting Pulse 81 Pulse Source Pulse Oximeter Pulse Oximetry (%) 97 Oxygen Delivery Method Room Air Intake Visit Reasons: FU-Conf Biochemistry Technologist Required: No Biochemistry Technologist Services: Biochemistry Technologist Offered & Declined Accompanied by: Self / Same As Patient Allergies No Known Allergies (No Known Allergies*) Allergy (Verified 06/18/25 12:06) HPI Comments Details: Neha was seen in follow up for proteinuria, hypertension and H/O hypercalcemia. 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 She is not a diabetic. She has longstanding hypertension. She has no epistaxis, joint swellings, photosensitivity, new skin rashes, hematemesis, melena, hematuria, nephrolithiasis, new bone or back pain. She has H/O high calcium but denies taking any excessive all calcium or vitamin-D. Her PTH was disproportionately high in the past. She had sestamibi scan which showed possibility of atypical parathyroid adenoma/intrathyroidal parathyroid adenoma). She does not take any excessive nonsteroidal anti-inflammatories and tries to maintain good hydration. She has no hearing loss. She is compliant with her medications. She has been on PPI. She does not have any nausea or or vomiting. There were no other new active complaints at the time of this office visit [facility] Medical History Multinodular goiter (nontoxic) Irritable bowel syndrome with constipation Vaginal irritation UTI (urinary tract infection) History of Helicobacter pylori infection Colon cancer screening Frequent UTI Anemia Diverticulosis Colon cancer screening Hyperlipemia Hypertension Surgical History History of esophagogastroduodenoscopy (EGD) Hx of colonoscopy (09/16/20) History of ovarian cystectomy Hx of hysterectomy Family History Father Parkinson disease HTN (hypertension) Mother HTN (hypertension) Brother Cancer Social History Household Members: Significant Other Housing: Apartment Do you presently have visiting nurse or other home services: No Alcohol intake: current Alcohol intake frequency: holidays/special occasions only Patient Tobacco Use Status: Never used Tobacco Second Hand Smoke Exposure: Yes service: No Current occupational status: employed Sexual orientation: Straight/Heterosexual Gender identity: Female Review of Systems Const All systems reviewed & are unremarkable except as noted in HPI and below Physical Exam Vital Signs: Last Vital Signs Pulse 81 06/18/25 12:04 BP 132/70 06/18/25 12:04 Pulse Ox 97 06/18/25 12:04 Oxygen Delivery Method Room Air 06/18/25 12:04 BMI result Body Mass Index 26.6 Const General: comfortable and no acute distress Orientation/consciousness: patient oriented x3 HEENT Head: Yes normocephalic Mouth: Normal oral and palatal mucosa present Eyes EOM: EOMs intact bilaterally Neck Neck: Yes supple Resp Auscultation: clear to auscultation bilaterally Cardio Jugular venous distension: no JVD Rate: regular rate GI Palpation (GI): Soft to palpation Auscultation: normal bowel sounds General: Yes no CVA tenderness Back/Spine/Pelvis Back: no CVA tenderness Skin General skin exam: no rashes or lesions noted Neuro General: patient oriented x3 and moves all extremities Extrem General: Yes no pedal edema Results Reviewed Nephrology Results: Sodium, (135-145) 139 mmol/L 06/10/25 Potassium, (3.3-5.1) 4.3 mmol/L 06/10/25 Chloride, (96-108) 106 mmol/L 06/10/25 Carbon Dioxide, (22-29) 26 mmol/L 06/10/25 BUN, (9-16) 11 mg/dL 06/10/25 Creatinine, (0.5-1.4) 0.77 mg/dL 06/10/25 Calcium, (8.4-10.2) 9.9 mg/dL 02/19/25 Phosphorus, (2.7-4.5) 3.1 mg/dL 02/11/25 PTH Intact, (8.7-77.1) 56.8 pg/mL 02/11/25 Urine Protein, (Neg-Trace) Negative mg/dL 04/24/25 Urine Creatinine 62.88 mg/dL 06/10/25 Protein/Creatinin Ratio, (<0.2) 0.35 H 06/10/25 Renal US 07/30/24 Assessment & Plan Assessment & Plan (1) Hypertension: Code(s): I10 - Essential (primary) hypertension Category: Medical Qualifiers: Hypertension type: primary hypertension Qualified Code(s): I10 - Essential (primary) hypertension (2) Proteinuria: Code(s): R80.9 - Proteinuria, unspecified Category: Medical Qualifiers: Proteinuria type: unspecified Qualified Code(s): R80.9 - Proteinuria, unspecified Plan Neha has longstanding hypertension and proteinuria. Her renal functions are stable and urine output is good. She is on RODOLFO inhibitor and amlodipine. Her renal ultrasound was unremarkable. I discontinued her hydrochlorothiazide in the past given hypercalcemia. She can continue lisinopril 30 mg daily which I shall consider increasing to 40 mg daily based on her BP and proteinuria. She should avoid calcium supplementation for now. She follows with Endocrine as well. All these have been explained in detail. Follow-up given Coding Level of Care Code Est Pt Level 4 (19548) Diagnoses Primary hypertension I10 Hypertension type: primary hypertension Proteinuria, unspecified type R80.9 Proteinuria type: unspecified
--- OUTSIDE RECORDS SUMMARY | 2025-06-18 12:06 | XMS_ITS | Clinical Summary ---
Author Organization [email or web address] Address [address] [place] [address] [address] [place] [address] Care Team Providers Care Biodiesel Process Control Technician Name Role Phone Naveedpeyton Verenice SALINAS Primary [...] AT BEDTIME 28 tablet 05/21/20 25 Active zolpidem (Ambien) 10 MG tabletIndications: Primary insomnia TAKE 1 TABLET BY MOUTH EVERYDAY AT BEDTIME 28 tablet 04/19/20 25 025 Discontinued Active Problems Problem Noted Date Diagnosed Date Overweight (BMI 25.0-29.9) 05/21/2025 Assessment & Plan (05/21/2025 1:37 PM EDT): Dietary Recommendations: Fruits, vegetables, whole grains, protein foods, and fat-free or low-fat dairy products are healthy choices. Eat different types of protein foods in your diet. This can include seafood, lean meats, poultry, beans, peas, lentils, nuts, seeds, soy products, and eggs. Limit foods and beverages higher in added sugars, saturated fat, and sodium. Exercise Recommendations: At least 150 minutes of moderate-intensity physical activity per week, or an equivalent combination of moderate- and vigorous-intensity activity Hypercalcemia 05/21/2025 Overview (05/21/2025): -following with Dr. Kurt Augustin @ [facility] [place], [place] Assessment & Plan (05/21/2025 1:40 PM EDT): -following with Dr. Kurt Augustin @ [facility] [place] [place] -likely r/t hyperparathyroid -reinforced Dr. Hicks's caution against take calcium supplements and encouraged dietary sources. Examples of non dairy calcium sources provided. Open fracture of tooth 02/23/2025 Pain in both lower extremities 06/23/2024 Assessment [...] stocking. encouraged to purchase a pair from [email or web address] as [facility] will not cover -consider venous US and [...] readings, consider renal imaging for structural causes Primary insomnia 10/30/2023 10/30/2023 Assessment & Plan [...] glucose 10/02/2017 Hypertension 07/29/2012 Assessment & Plan (05/21/2025 1:37 PM EDT): -stable -continue lisinopril 30 mg every day -diet and lifestyle modifications reinforced Assessment & Plan (03/30/2025 11:28 AM EDT): [...] -diet and exercise reviewed as outlined above Resolved Problems Problem Noted Date Diagnosed Date Resolved Date Screening for colon cancer 02/08/2025 0 05/21/2025 Assessment & Plan (02/08/2025 1:41 PM EDT): -patient agreeable to screening with cologuard -counseled on 13% false positive and 8% false negative rate and is aware that if the test is positive a diagnostic colonoscopy should be pursued within 3-6 months. -patient informed of need to repeat test in 3 years if negative result -cologuard order placed H/O: hysterectomy 01/16/2024 05/21/2025 Encounters Date Type Department Care Team Description 06/10/2025 10:30 AM EDT Office Visit [facility] [address] [place] [phone] Steven Velasquez DMD 05/21/2025 11:00 AM EDT Office Visit [facility] [address] [place] [address] Verenice Nixon NP Primary hypertension (Primary Dx); Urinary tract infection symptoms; Hematuria, unspecified type; Dietary counseling; Exercise counseling; Hypovitaminosis D; Hypercalcemia; Primary insomnia; Overweight (BMI 25.0-29.9) 05/21/2025 Travel 05/19/2025 Refill [facility] [address] [place] [address] Dimitri Ramirez MD Primary insomnia 05/16/2025 Refill [facility] [address] [place] [address] Verenice Nixon NP Hyperlipidemia, unspecified hyperlipidemia type 05/13/2025 11:00 AM EDT Office Visit [facility] [address] [place] [address] Willow Eisenberg Subgingival dental calculus (Primary Dx); Supragingival dental calculus; Dental plaque 05/13/2025 Patient Outreach [facility] [address] [place] [address] Verenice Nixon NP Pre-visit Planning (SDOH was already completed ) 05/04/2025 Telephone [facility] [address] [place] [phone] Verenice Nixon NP Referral 04/24/2025 Orders Only GENERIC EXTERNAL DATA DEPARTMENT Provider, Generic External Data 04/22/2025 Orders Only [facility] External Provider, [facility] 04/18/2025 Refill [facility] [address] [place] [phone] Dimitri Ramirez MD Primary insomnia 03/27/2025 Refill [facility] [address] [place] [phone] Dimitri Ramirez MD from Last 3 Months Immunizations Immunization Administration [...] Care Team (Late st Contact Info) Description 07/22/2025 10:30 AM EDT Office Visit [facility] [address] [place] [address] Steven Velasquez, LUBNA [address] [place] [address] Health Maintenance Due Date Last Done Comments CT Colonography 1960 Colonoscopy 1960 FIT 1960 FOBT 1960 Sigmoidoscopy 1960 COVID-19 Vaccine ( season) 2024 01/29/2022, 01/19/2021, 12/29/2020 Influenza Vaccine (#1) 2025 3, 10/02/2017, 09/06/2014, Additional history exists Dental Oral Exam 11/13/2025 05/13/2025, 08/10/2016 Dental Prophylaxis 11/13/2025 05/13/2025, 09/20/2016 Alcohol/Substance Use Screening 12/16/2025 12/16/2024 SDOH Screening 01/15/2026 01/15/2025 Dental X-Ray: Bitewings 05/14/2026 05/13/20, 02/23/2025, 08/10/2016 Depression Screening 05/21/2026 05/21/2025, 05/21/20 Disability Screening 05/21/2026 05/21/2025 Tobacco Screening 06/10/2026 06/10/2025 Mammogram 09/24/2026 09/24/2024, 09/01, 09/13/2022, Additional history exists Colorectal Cancer Screening 12/29/2027 FIT DNA/Cologuard 12/29/2027 12/29/2024 Dental X-Ray: Full Mouth 05/14/2028 05/13/2025, 08/2016 Lipid Panel 12/16/2029 12/16/2024, 01/02, 10/30/2023, Additional [...] PRESENTATION, DETAILED AND EXTENSIVE TREATMENT PLANNING Routine 06/10/2025 10:30 AM EDT 29 DO RESIN-BASED COMPOSITE - 2 SURF, POSTERIOR Routine 06/10/2025 10:30 AM EDT CULTURE, URINE, ROUTINE Routine 05/21/2025 11:31 AM EDT Urinary tract infection symptoms POCT URINALYSIS DIPSTICK Routine 05/21/2025 11:24 AM [...] 2-3 VIEWS Routine 04/22/2025 11:49 AM EDT LAB COLOGUARD COLON CANCER SCREEN [...] Recently Relevant to Health Maintenance Results * Culture, Urine, Routine (05/21/2025 11:31 AM EDT) Only the most recent of2 resultswithin the time period is included. Urine Urine specimen obtained by clean catch procedure / Unknown 05/21/2025 11:31 AM EDT 05/21/2025 1:11 PM EDT Comment:UACC Narrative [facility] - 05/22/2025 11:22 AM EDT Urine Culture Report Result Urine Culture < 10,000 cfu/ml Specimen Source: Urine clean catch Verenice Nixon NP LAB MICROBIOLOGY - GENERAL MARITA RANDALL Final Result [facility] [address] [place] [phone] * (ABNORMAL) POCT Urinalysis (05/21/2025 11:24 AM [...] 05/21/2025 11:2 4 AM EDT us Verenice Appram TRADE FACILITATOR POINT OF CARE TEST ENTER/EDIT O RDERABLES Final Result * (ABNORMAL) Urinalysis, Complete, with Reflex to Culture (04/24/2025 3:32 PM EDT) Color Urine Yellow [facility] Appearance Urine Clear [facility] PH 6.0 5.0 - 9.0 [facility] Glucose Urine UA Negative Negative mg/dL [facility] Urine Blood Small (1+)(A) Negative [facility] Specific [place] - Urine 1.015 1.005 - 1.025 [facility] Urine Protein Negative Neg-Trace mg/dL [facility] Urine Ketones Negative Negative mg/dL [facility] Nitrite Urine Negative Negative [facility] Leukocyte Esterase Urine Large (3+)(A) Negative [facility] RBC Urine 3-5(A) 0 - 2 /HPF [facility] Urine WBC >50(A) 0 - 5 /HPF [facility] Urine Squamous Epithelial Cell 0-2 0 - 2 /HPF [facility] Urine Bacteria Trace None Seen [facility] Hyaline Casts, Urine 0-2 0 - 2 /LPF [facility] 04/24/2025 3:32 PM EDT 04/24/2025 3:34 PM EDT Narrative [facility] - 04/24/2025 4:03 PM EDT Urine, Clean Catch us Generic External Data Provider LAB URINE ORDERAB LES Final Result [facility] [address] [place] [phone] * XR Lumbar Spine 2-3 Views (04/22/2025 11:49 AM EDT) Anatomical Region Laterality Modality Spine, L-spine Radiographic Damaris ging 04/22/2025 11:4 9 AM EDT Narrative 04/22/2025 12:27 PM EDT [address] [address] XRay Report Signed Patient: Neha Metzger MR#: [id number] : 1960 Acct:[id number] Age/Sex: 64 / F ADM Date: 04/22/25 Loc: HO.ED Attending Dr: Ordering Physician: Tika Bull NP Date of Service: 04/22/25 Procedure(s): XR lumbar spine 2-3V Accession Number(s): [id number] cc: [facility]; Tika Bull NP EXAMINATION: XR LUMBOSACRAL [...] Flakito Mueller MD 04/22/2025 12:24 PM EDT Dictated By: Flakito Mueller MD Signed By: <Electronically signed by Flakito Mueller MD in OV> 04/22/25 1224 DD/ 1149 TD/TT: 04/22/25 1210 Neurology Stroke Physician: Procedure Note Anetteter, Image - 04/22/[address] [address] XRay Report Signed Patient: Roberto MetzgerR#: [id number] : 1960cct:[id number] Age/Sex: 64 / FADM Date: 04/22/25 Loc: HO.ED Attending Dr: Ordering Physician: Tika Bull NP Date of Service: 04/22/25 Procedure(s): XR lumbar spine 2-3V Accession Number(s): [id number] cc: [facility]; Tika Bull NP EXAMINATION: XR LUMBOSACRAL [...] Flakito Mueller MD 04/22/2025 12:24 PM EDT Dictated By: Flakiot Mueller MD Signed By: <Electronically signed by Flakito Mueller MD in OV> 04/22/25 1224 DD/ 1149 TD/TT: 04/22/25 1210 Neurology Stroke Physician: [facility] External Provider IMG XR PROCEDURES Final Result * Cologuard?? colon cancer screening (12/29/2024 4:40 PM EST) Cologuard Result Negative Negative 01/06/20 8:01 PM EST [employer] (CLIA #:[id number]) Comment: NEGATIVE TEST RESULT. A negative Cologuard [...] (Vinod Childress al, N Engl J Med 2014;370(14):3012-6186) The normal value (reference range) for this assay is negative. COLOGUARD RE-SCREENING RECOMMENDATION: Periodic colorectal cancer screening is an important part of preventive healthcare for asymptomatic individuals at average risk for colorectal cancer. Following a negative Cologuard result, the [place] [employer] Society and U.S. Multi-Society Task Force screening guidelines recommend a Cologuard re-screening interval of 3 years. References: [place] [employer] Guideline for Colorectal Cancer Screening: https://www.cancer.org/cancer/rmnxc-rgacwq-vmtrsq/moswfxugn-zphzdtjeu-fnncbrh/ac s-rec ommendations.html.; Arun DK, Jocelin ORONA, Cheikh VelázquezK, Colorectal Cancer Screening: Recommendations for Physicians and Patients from the U.S. Multi-Society Task Force on Colorectal Cancer Screening , Am J Gastroenterology 2017; 112:5910-5302. TEST DESCRIPTION: Composite algorithmic analysis of stool [...] were screened with both Cologuard and colonoscopy. (Imperiale T. et al, N Engl J Med 2014;370(14):7658-6143.) Cologuard may produce a false negative or false positive result (no colorectal cancer or precancerous polyp present at colonoscopy follow up). A negative Cologuard test result does not guarantee the absence of CRC or advanced adenoma (pre-cancer). The current Cologuard screening interval is every 3 years. ([place] [employer] and U.S. Multi-Society Task Force). Cologuard performance data in a 10,000 patient pivotal study using colonoscopy as the reference method can be accessed at the following location: www.[employer].Vennli/results. Additional description of the Cologuard test process, warnings and precautions can be found at www.Task Messengerrd.Vennli. Stool specimen (specimen) 12/29/2024 4:40 PM EST 12/31/2024 1:15 PM EST Verenice Lucio TRADE FACILITATOR LAB MOLECULAR DIAGNOSTICS ORDER WALDEMAR Final Result [employer] (CLIA #:[id number]) [place] [address], [place] [phone] * (ABNORMAL) Lipid Panel, Standard (12/16/2024 10:47 AM EST) Triglycerides 112 <150 mg/dL [facility] Comment:Desirable Triglyceri de: less than 150 mg/dLBorderline High Triglyceride 150-199 mg/dLHigh Triglyceride: 200-499 mg/dLVery High Triglyceride: greater than or equal to 5OO mg/dL Cholesterol 198 <200 mg/dL [facility] Comment:Desirable Cholestero l: less than 200 mg/dLBorderline High Cholesterol: 200-239 mg/dLHigh Cholesterol: greater than 239 mg/dL LDL Cholesterol Calculated 119(H) <100 mg/dL [facility] Comment:Desirable LDL: less than 100 mg/dLNear Optimal/Above Optimal LDL: 110- 129 mg/dLBorderline High LDL: 130-159 mg/dLHigh LDL: 160-189 mg/dLVery High LDL: greater than or equal to 190 mg/dL HDL Cholesterol 57 >40 mg/dL [facility] Comment:Desirable HDL: great er than 40 mg/dL Note: This HDL assay may give artificially low results in patients with liver disease. Blood Venous blood specimen / Unknown 12/16/2024 10:47 AM EST 12/16/2024 1:05 PM EST Verenice Nixon TRADE FACILITATOR LAB BLOOD ORDERABLES Final Resu lt [facility] [address] [place] [phone] * BI Mammogram Screening Tomosynthesis Bilateral (09/24/2024 11:00 AM EDT) Anatomical Region Laterality Modality Breast Bilateral Mammography 09/24/2024 11:0 0 AM EDT Narrative 10/03/2024 10:33 AM EDT [address] [place] [address] Mammography Report Signed Patient: Neha Metzger MR#: [id number] : 1960 Acct:[id number] Age/Sex: 64 / F ADM Date: 09/24/24 Loc: HO.MAMMO Attending Dr: Verenice Nixon Ordering Physician: Verenice Nixon Results: 1Negative Date of Service: 09/24/24 Follow Up: 1 [facility] From [facility] Mammogram Procedure(s): MM tomosynthesis screening BI Accession Number(s): [id number] cc: Verenice Nixon EXAMINATION: MM SCREENING DIGITAL [...] Sole Major DO 10/03/2024 10:30 AM EDT RP Dictated By: Sole Major DO Signed By: <Electronically signed by Sole Major DO in OV> 10/03/24 1030 DD/ 1100 TD/TT: 09/24/24 1118 Neurology Stroke Physician: Procedure Note Donotuseinterpreter, Image - 10/03/2024 [facility] [address] [place] [address] Mammography Report Signed Patient: Jerome Metzger#: [id number] : 1Acct:[id number] Age/Sex: 64 / FADM Date: 09/24/24 Loc: HO.MAMMO Attending Dr: Verenice Nixon Ordering Physician: Verenice NixonResults: 1Negative Date of Service: 09/24/24Follow Up: 1 Year From Orig inal Mammogram Procedure(s): MM tomosynthesis screening BI Accession Number(s): [id number] cc: Verenice Nixon EXAMINATION: MM SCREENING DIGITAL [...] 10/03/24 1030 DD/ 1100 TD/TT: 09/24/24 1118 Neurology Stroke Physician: us Verenice Nixon NP IMG BI PROCEDURES Final Result * Hepatitis C Antibody with Reflex to HCV, RNA, Quantitative, Real-Time PCR (10/30/2023 10:53 AM EST) Hepatitis C Antibody Nonreactive Nonreactive [facility] Comment:Antibodies to HCV no t detected; does not exclude early acuteHCV infection. Blood Venous blood specimen / Unknown 10/30/2023 10:53 AM EST 10/30/2023 11:19 AM EST Tamara Siegel MD LAB BLOOD ORDERABLES Final Re sult [facility] [address] [place] [phone] * HIV-1/2 Antigen and Antibodies, Fourth Generation, with Reflexes (10/30/2023 10:53 AM EST) HIV AB/AG Nonreactive Nonreactive [facility] Comment:HIV-1 p24 Ag and/or HIV-1/HIV-2 Ab not detected.A test result that is nonreactive does not exclude thepossibility of exposure to or infection with HIV-1 and/orHIV-2. Nonreactive results in this assay for individualswith prior exposure to HIV-1 and/or HIV-2 may be due toantigen and antibody levels that are below the limit ofdetection of this assay.The [employer] HIV Ag/Ab Combo assay result andsupplemental assay results should be interpreted inconjunction with the patient's clinical presentation,history and other laboratory results. If the results areinconsistent with clinical evidence, additional testing issuggested to confirm the result. Blood Venous blood specimen / Unknown 10/30/2023 10:53 AM EST 10/30/2023 11:19 AM EST us Tamara Siegel MD LAB BLOOD ORDERABLES Final Re sult [facility] [address] [place] [phone] from Last 3 Months or Most Recently Relevant to Health Maintenance Insurance [facility] - [place] PARTIAL (MEDICAID) Care Teams Biodiesel Process Control Technician Relationship Specialty Start Date End Date Verenice Nixon NP [address] [place] [phone] PCP - General Family Medicine 11/04/23
== END 2025-06-18 12:16 | disposition home or self-care (01) ==
LOC: HO.HKA 11:58
PROVIDERS: PCP Nurse Practitioner; Visit Provider Internal Medicine Nephrology
DX: I10 Essential (primary) hypertension (principal); R80.9 Proteinuria, unspecified
CPT/HCPCS: 99214

== ENCOUNTER → 2025-06-18 11:57 | Outpatient (BNVA) | payer OTHER, SELFPAY | PROVIDERS: PCP Nurse Practitioner; Visit Provider Internal Medicine Nephrology | DX: I10 Essential (primary) hypertension (principal); R80.9 Proteinuria, unspecified | CPT/HCPCS: 99212 ==

== ENCOUNTER → 2025-11-11 10:30 | Outpatient (BNV) | payer OTHER, SELFPAY | PROVIDERS: PCP Nurse Practitioner; Visit Provider Radiology Body Imaging | DX: Z12.31 Encounter for screening mammogram for malignant neoplasm of breast (principal) | CPT/HCPCS: 77063; 77067 ==

== ENCOUNTER 2025-11-11 10:34 | Outpatient (REF) | payer OTHER, SELFPAY ==
--- NOTE | ~2025-11-11 | MM_ITS ---
EXAMINATION: MM SCREENING DIGITAL BREAST TOMOSYNTHESIS, BILATERAL CLINICAL INFORMATION: Screening. Asymptomatic. COMPARISON: Comparison made to multiple prior, most recent September 24, 2024, and most remote March 19, 2018. TECHNIQUE: Digital breast tomosynthesis is performed in mediolateral oblique and craniocaudal views along with computer-aided detection (CAD). Synthesized 2D images are generated from the tomosynthesis. FINDINGS: BREAST COMPOSITION: The breasts are heterogeneously dense, which may obscure small masses. BILATERAL BREASTS: No significant masses, suspicious calcifications or other abnormalities are seen in either breast. MM/MM tomosynthesis screening BI IMPRESSION: BILATERAL BREASTS: Negative, no mammographic evidence of malignancy. Normal interval follow-up is recommended in 12 months. ASSESSMENT: BI-RADS: Category 1: Negative RECOMMENDATION: Routine annual mammography screening. FOLLOW-UP: 1 year F/U This examination should not preclude the clinical evaluation of a suspicious palpable abnormality. This patient's information was entered into a reminder system with a target due date for their next mammogram. Electronically signed by: Cyndee Riley MD 11/11/2025 07:30 PM [place]
== END 2025-11-11 10:35 | disposition home or self-care (01) ==
LOC: HO.MAMMO 10:34
PROVIDERS: PCP Nurse Practitioner; Visit Provider Nurse Practitioner
DX: Z12.31 Encounter for screening mammogram for malignant neoplasm of breast (principal)
CPT/HCPCS: 77063; 77067

== ENCOUNTER 2025-11-15 15:27 | Outpatient (REF) | payer OTHER, SELFPAY ==
[2025-11-15 15:45] LABS: MANUAL DIFF FLAG NO
[2025-11-15 17:10] LABS: Hematocrit 33.6 % (37.0-47.0); Hemoglobin 11.2 g/dl (12.0-16.0); Imm Gran Abs Auto 0.06 X10*3/uL (0.00-0.03); Imm Gran Pct Auto 0.6 % (0.0-0.4); Lymphocytes Absolute Auto 3.0 X10*3/uL (1.2-4.9); Mean Corpuscular HGB Conc 33.3 g/dl (31.0-35.0); Mean Corpuscular Hemoglobin 27.9 pg (27.0-33.0); Mean Corpuscular Volume 83.6 fL (80.0-98.0); NRBC Abs Auto 0.000 X10*3/uL (0.0-0.012); NRBC Pct Auto 0.0 /100WBC (0.0-0.2); Platelet Count 232 X10*3/uL (160-400); Red Blood Count 4.02 X10*6/uL (4.20-5.50); White Blood Count 10.6 X10*3/uL (4.8-10.8)
[2025-11-15 17:42] LABS: Albumin Level 4.4 g/dL (3.5-5.0); Anion Gap 12 (12-20); Blood Urea Nitrogen 20 mg/dL (9-16); Calcium 9.7 mg/dL (8.4-10.2); Carbon Dioxide 27 mmol/L (22-29); Chloride 108 mmol/L (96-108); Estimated Glomerular Filt Rate > 60; Potassium 4.0 mmol/L (3.3-5.1); Sodium 143 mmol/L (135-145)
[2025-11-15 17:49] LABS: Parathyroid Hormone Intact 78.3 pg/mL (8.7-77.1)
[2025-11-15 18:05] LABS: Protein/Creatinine Ratio, Ur 0.26 (<0.2); Total Protein Urine Random 28 mg/dL (<12)
--- OUTSIDE RECORDS SUMMARY | 2025-11-15 21:55 | XMS_ITS | Encounter Summary ---
Author Organization [employer] Address [address] [facility] 7t [place] [address] Care Team Providers Care Principal Secretary Name Role Phone Verenice Nixon NP Primary Care Provider [phone] Reason for Visit * Reason Comments Med Refill Encounter Details Date Type Department Care Team ([facility] st Contact Info) Description 02/09/2024 Refill [facility] MEDICINE [address] [place] [address] Verenice Nixon NP [address] [place] [address] Primary insomnia Social History Tobacco Use Types [...] Care Team (Late st Contact Info) Description 01/13/2026 11:00 AM EST Office Visit [facility] MEDICINE [address] [place] [address] Verenice Nixon NP [address] [place] [address] 01/20/2026 2:15 PM EST Office Visit [facility] ADULT DENTAL [address] [place] [address] Willow Eisenberg 02/24/2026 11:00 AM EDT Office Visit [facility] OPTOMETRY [address] [place] [address] Jo-Ann Hinojosa OD [address] [place] [address] documented as of this encounter Visit Diagnoses Diagnosis Primary insomnia Persistent disorder of initiating or maintaining sleep documented in this encounter Additional Health Concerns Assessment Noted Time PHQ-9 Depression Total Score: 0 01/17/20 24 10:02 AM EST documented as of this encounter Care Teams Principal Secretary Relationship Specialty Start Date End Date Verenice Nixon NP [address] [place] [address] PCP - General Family Medicine 11/04/23 documented as of this encounter
--- OUTSIDE RECORDS SUMMARY | 2025-11-15 21:55 | XMS_ITS | Encounter Summary ---
Author Organization [employer] Address [address] [facility] 7t [place] [address] Care Team Providers Care Guard Chief Name Role Phone Verenice Nixon NP Primary Care Provider [phone] Reason for Visit * Reason Onset Date Comments Med Refill 11/04/2025 Encounter Details Date Type Department Care Team ([facility] Contact Info) Description 11/04/2025 Telephone [facility] MEDICINE [address] [place], [place] [phone] Verenice Nixon NP [address] [place] [address] Med Refill Social History Tobacco Use Types [...] encounter Miscellaneous Notes * Telephone Encounter - Nery Oliveira LPN - 11/04/2025 9:07 AM EST Please review requests,unclear if prescribed by pcp * Telephone Encounter - Dimitri Haque - 11/04/2025 9:00 AM EST TC from pt requesting medication refill. Medications needing refill : D3-1000 25 MCG (1000 UT) capsule lisinopril 30 MG tablet To be sent to: [facility]/pharmacy #[id number] [place] [address] documented in this encounter Plan of Treatment Upcoming Encounters Date Type Department Care Team (Late st Contact Info) Description 01/13/2026 11:00 AM EST Office Visit [facility] MEDICINE [address] [place], [place] [phone] Verenice Nixon NP [address] [place] [address] 01/20/2026 2:15 PM EST Office Visit [facility] ADULT DENTAL [address] [place] [address] Faina Willow 02/24/2026 11:00 AM EDT Office Visit [facility] OPTOMETRY [address] [place] [address] Jo-Ann Hinojosa, OD [address] [place] [address] documented as of this encounter Visit Diagnoses Not on filedocumented in this encounter Additional Health Concerns Assessment Noted Time PHQ-9 Depression Total Score: 5 05/21/20 25 11:43 AM EDT documented as of this encounter Care Teams Guard Chief Relationship Specialty Start Date End Date Verenice Nixon NP [address] [place] [address] PCP - General Family Medicine 11/04/23 documented as of this encounter
--- OUTSIDE RECORDS SUMMARY | 2025-11-15 21:55 | XMS_ITS | Encounter Summary ---
Author Organization [employer] Address [address] [facility] 7t [place] [address] Care Team Providers Care Cleaner Wall Name Role Phone Verenice Nixon NP Primary Care Provider [phone] Reason for Visit * Reason Onset Date Comments Med Refill 02/19/2024 Encounter Details Date Type Department Care Team ([facility] Contact Info) Description 02/19/2024 Telephone [facility] MEDICINE [address] [place], [place] [phone] Verenice Nixon NP [address] [place] [address] Med Refill Social History Tobacco Use Types [...] 1:45 PM EDT Medication was sent to [facility] #[id number] on 01/23/24 90 day supply. * Telephone Encounter - Harlan Colon - 02/19/2024 1:39 PM EDT TC from pt requesting medication refill. Medications needing refill : rosuvastatin (Crestor) 40 MG tablet To be sent to: [facility]/pharmacy #[id number] - [place], [place] - [address] [place] [address] documented in this encounter Plan of Treatment Upcoming Encounters Date Type Department Care Team (Late st Contact Info) Description 01/13/2026 11:00 AM EST Office Visit [facility] MEDICINE [address] [place] [address] Verenice Nixon NP [address] [place] [address] 01/20/2026 2:15 PM EST Office Visit [facility] ADULT DENTAL [address] [place] [address] Willow Eisenberg 02/24/2026 11:00 AM EDT Office Visit [facility] OPTOMETRY [address] [place] [address] Agustinaomer Jo-Ann, OD [address] [place] [address] documented as of this encounter Visit Diagnoses Not on filedocumented in this encounter Additional Health Concerns Assessment Noted Time PHQ-9 Depression Total Score: 0 01/17/20 24 10:02 AM EST documented as of this encounter Care Teams Cleaner Wall Relationship Specialty Start Date End Date Verenice Nixon NP [address] [place] [address] PCP - General Family Medicine 11/04/23 documented as of this encounter
--- OUTSIDE RECORDS SUMMARY | 2025-11-15 21:55 | XMS_ITS | Encounter Summary ---
Author Organization [employer] Address [address] [facility] 7t [place] [address] Care Team Providers Care Prototype Special Build Name Role Phone NaveedVerenice todd RITA Primary Care Provider [phone] Reason for Visit * Reason Onset Date Comments unable to post insurance 02/23/2025 Encounter Details Date Type Department Care Team ([facility] Contact Info) Description 02/23/2025 Telephone [facility] ADULT DENTAL [address] [place] [address] Loretta Jasso DDS [address] [place] [address] unable to post insurance Social History Tobacco [...] appt. Unable to post insurance portal not [facility] [address] documented in this encounter Plan of Treatment Upcoming Encounters Date Type Department Care Team (Late st Contact Info) Description 01/13/2026 11:00 AM EST Office Visit [facility] MEDICINE [address] [place] [address] Verenice Nixon NP [address] [place] [address] 01/20/2026 2:15 PM EST Office Visit [facility] ADULT DENTAL [address] [place] [address] Willow Eisenberg 02/24/2026 11:00 AM EDT Office Visit [facility] OPTOMETRY [address] [place] [address] Jo-Ann Hinojosa, OD [address] [place] [address] documented as of this encounter Visit Diagnoses Not on filedocumented in this encounter Additional Health Concerns Assessment Noted Time PHQ-9 Depression Total Score: 0 01/17/20 24 10:02 AM EST documented as of this encounter Care Teams Prototype Special Build Relationship Specialty Start Date End Date Verenice Nixon NP [address] [place] [id number] PCP - General Family Medicine 11/04/23 documented as of this encounter
--- OUTSIDE RECORDS SUMMARY | 2025-11-15 21:55 | XMS_ITS | Encounter Summary ---
Author Organization [employer] Address [address] [facility] [address] [place] [address] Care Team Providers Care Storage Garage Attendant Name Role Phone Verenice Nixon RITA Primary Care Provider [phone] Reason for Visit * Reason Comments Med Refill Encounter Details Date Type Department Care Team ([facility] st Contact Info) Description 12/09/2023 Refill [facility] MEDICINE [address] [place] [address] Tamara Siegel MD [address] [place] [address] Primary insomnia Social History Tobacco Use Types [...] Description 01/13/2026 11:00 AM EST Office Visit [facility] MEDICINE [address] [place] [address] Verenice Nixon NP [address] [place] [address] 01/20/2026 2:15 PM EST Office Visit [facility] ADULT DENTAL [address] [place] [address] Willow Eisenberg 02/24/2026 11:00 AM EDT Office Visit [facility] OPTOMETRY [address] [place] [address] TarJo-Ann tello, OD [address] [place] [address] documented as of this encounter Visit Diagnoses Diagnosis Primary insomnia Persistent disorder of initiating or maintaining sleep documented in this encounter Additional Health Concerns Assessment Noted Time PHQ-9 Depression Total Score: 3 10/30/20 23 9:52 AM EST documented as of this encounter Care Teams Storage Garage Attendant Relationship Specialty Start Date End Date Verenice Nixon NP [address] [place] [address] PCP - General Family Medicine 11/04/23 documented as of this encounter
--- OUTSIDE RECORDS SUMMARY | 2025-11-15 21:55 | XMS_ITS | Clinical Summary ---
Author Organization [employer] Address [address] [facility] 7[address] [place] [address] Care Team Providers Care Waitstaff Name Role Phone Verenice Nixon NP Primary Care Provider [phone] Allergies No known active allergies Medications Multiple Vitamins-Minerals (multivitamin with minerals) tablet Take 1 tablet by mouth Once per day. Active rosuvastatin (Crestor) 40 MG tabletIndications :Hyperlipidemia, unspecified hyperlipidemia type TAKE 1 TABLET BY MOUTH EVERY DAY AT NIGHT 90 tablet 1 05/17/20 25 Active omeprazole (PriLOSEC) [address] capsule TAKE 1 CAPSULE BY MOUTH EVERY DAY BEFORE A MEAL 90 capsule 1 08/06/20 25 Active ferrous gluconate (Fergon) 324 (38 Fe) MG tabletIndications :Anemia, unspecified type TAKE 1 TABLET BY MOUTH EVERY OTHER MORNING (WITH VITAMIN C) 45 tablet 09/20/20 25 Active zolpidem (Ambien) 5 MG tabletIndications :Primary insomnia TAKE 1 TABLET (5 MG) BY MOUTH IF NEEDED AT BEDTIME FOR SLEEP FOR UP TO 28 DAYS. NOTE DOSE CHANGE 28 tablet 10/21/20 25 025 Active lisinopril 30 MG tabletIndications :Primary hypertension Take 1 tablet (30 mg) by mouth Once per day. 30 tablet 1 11/04/20 25 Active D3-1000 25 MCG (1000 UT) capsule Take 1 capsule (25 mcg) by mouth Once per day. 90 capsule 11/04/20 25 026 Active lisinopril 30 MG tablet Take 1 tablet by mouth Once per day. 11/18/20 24 025 Discontinued(Re order (will not trigger notification to Pharmacy)) D3-1000 25 MCG (1000 UT) capsule Take 1 capsule by mouth Once per day. 02/12/20 25 025 Discontinued(Re order (will not trigger notification to Pharmacy)) zolpidem (Ambien) 5 MG tabletIndications :Primary insomnia TAKE 1 TABLET (5 MG) BY MOUTH IF NEEDED AT BEDTIME FOR SLEEP FOR UP TO 28 DAYS. NOTE DOSE CHANGE 28 tablet 09/16/20 25 025 Discontinued Active Problems Problem Noted [...] (05/21/2025): [place] [facility] [place] Plan (05/21/2025 1:40 PM EDT): -[place] Kurt August[place] [facility] [place]likely r/t hyperparathyroid -reinforced Dr. iHcks's caution against take calcium supplements and encouraged [...] stocking. encouraged to purchase a pair from [employer] as [facility] will not cover -consider venous US and [...] Encounters Date Type Department Care Team Description 11/15/2025 Orders Only GENERIC EXTERNAL DATA DEPARTMENT Provider, Generic External Data 11/04/2025 Orders Only [facility] [place] [address] Verenice Nixon NP Primary hypertension (Primary Dx) 11/04/2025 Telephone [facility] [address] [place] [address] Verenice Nixon NP Med Refill 10/21/2025 Telephone [facility] [place] [address] Verenice Nixon NP February recall 10/20/2025 Telephone [facility] [place] [address] Verenice Nixon NP Med Refill 10/18/2025 Refill [facility] [place] [address] Verenice Nixon NP Primary insomnia 10/11/2025 10:15 AM EST Office Visit [facility] [place] [address] Verenice Nixon NP Lymphadenopathy (Primary Dx) 10/11/2025 Travel 10/08/2025 Telephone [facility] [place] [address] Monica Maria MA chart prep 09/19/2025 Refill [facility] [place] [address] Verenice Nixon NP Anemia, unspecified type 09/16/2025 Refill [facility] [place] [address] Verenice Nixon NP Primary insomnia 08/18/2025 Refill [facility] [address] [place] [address] Verenice Nixon NP Primary insomnia from Last 3 Months Immunizations Immunization Administration [...] is your housing situation today? I have anuphitesh lubin 01/17/[address] you [...] Sign Reading Time Taken Comments Blood Pressure 130/84 10/11/2025 10:38 AM EST Pulse 74 10/11/2025 10:38 AM EST Temperature 37.2 C (99 F) 10/11/2025 10:38 AM EST Respiratory Rate 17 10/11/2025 10:3 8 AM EST Oxygen Saturation 98% 10/11/2025 10: 38 AM EST Inhaled Oxygen Concentration - - Weight 71.1 kg (156 lb 12.8 oz) 025 10:38 AM EST Height 160 cm (5' 3 ) 10/11/2025 10:38 AM EST Body Mass Index 27.78 10/11/2025 10:38 AM EST Plan of Treatment Upcoming Encounters Date Type Department Care Team (Late st Contact Info) Description 01/13/2026 11:00 AM EST Office Visit [facility] [address] [place] [address] Verenice Nixon NP [address] [place] [address] 01/20/2026 2:15 PM EST Office Visit [facility] ADULT DENTAL [address] [place] [address] Willow Eisenberg 02/24/2026 11:00 AM EDT Office Visit [facility] OPTOMETRY [address] [place] [address] Jo-Ann Hinojosa, OD [address] [place] [address] Health Maintenance Due Date Last Done Comments CT Colonography 1960 Colonoscopy 1960 FIT 1960 Sigmoidoscopy 1960 COVID-19 Vaccine ( season) 2025 01/29/2022, 01/19/2021, 12/29/2020 Influenza Vaccine (#1) 2025 , 10/02/2017, 09/06/2014, Additional history exists Dental Oral Exam 11/13/2025 05/13/2025, 08/10/2016 Dental Prophylaxis 11/13/2025 05/13/2025, 09/20/2016 Alcohol/Substance Use Screening 12/16/2025 12/16/2024 FOBT 12/29/2025 12/29/2024 SDOH Screening 01/15/2026 01/15/2025 Dental X-Ray: Bitewings 05/14/2026 05/13/20, 02/23/2025, 08/10/2016 Depression Screening 05/21/2026 05/21/2025, 05/21/20 Disability Screening 05/21/2026 05/21/2025 Tobacco Screening 10/11/2026 10/11/2025 Mammogram 11/11/2027 11/11/2025, 09/02, 09/19/2023, Additional history exists Colorectal Cancer Screening 12/29/2027 [...] Procedure Name Priority Date/Time Associated Diagnosis Comments PROTEIN CREATININE RATIO, URINE Routine 11/15/2025 3:43 PM EST VITAMIN D,25-OH,TOTAL,IA Routine 11/15/2025 3:42 PM EST PTH, INTACT WITHOUT CALCIUM Routine 11/15/2025 3:42 PM EST CBC WITH AUTO DIFFERENTIAL Routine 11/15/2025 3:42 PM EST Lymphadenopathy BI MAMMOGRAM SCREENING TOMOSYNTHESIS BILATERAL Routine 11/11/2025 10:40 AM EST PROPHYLAXIS - ADULT Routine 05/13/2025 1 1:00 AM EDT Subgingival dental calculus Supragingival dental calculus Dental plaque INTRAORAL - COMPLETE SERIES OF RADIOGRAPHIC IMAGES Routine 05/13/2025 11:00 AM EDT PERIODIC ORAL EVALUATION - ESTABLISHED PATIENT Routine 05/13/2025 11:00 AM EDT LAB COLOGUARD COLON CANCER SCREEN Routine 12/29/2024 4:40 PM EST Screening for colon cancer LIPID PANEL, STANDARD Routine 12/16/2024 10:47 AM EST Primary hypertension HEPATITIS C AB W/REFL TO HCV RNA, QN, PCR Routine 10/30/2023 10:53 AM EST Routine adult health maintenance HIV 1/2 ANTIGEN/ANTIBODY, FOURTH GENERATION W/RFL Routine 10/30/2023 10:53 AM EST Routine adult health maintenance from Last 3 Months or Most Recently Relevant to Health Maintenance Results * (ABNORMAL) Protein Creatinine Ratio, Urine (11/15/2025 3:43 PM EST) Creatinine, Urine 106.94 mg/dL [facility] Protein, Total, Random Urine 28(H) <12 mg/dL [facility] Protein/Creati nine Ratio, Ur 0.26(H) <0.2 [facility] Comment:The spot urine prote in:creatinine ratio may increase to 0.3during normal . 11/15/2025 3:43 PM EST 11/15/2025 5:15 PM EST us Generic External Data Provider LAB URINE ORDERAB LES Final Result [facility] [address] [place] [address] [phone] * Vitamin D, 25-Hydroxy, Total, Immunoassay (11/15/2025 3:42 PM EST) Vitamin D 25-OH Total 37.2 >30 ng/mL [facility] Comment: Health Based Reference Values*< 20 ng/mL Kxtogyklq94-56 ng/mL Insufficient> 30 ng/mL Sufficient*Robin MCLAUGHLIN. N Engl J Med. 2007;357:266-280There is [...] Vitamin D results fromdifferent laboratories and methodologies. Published datademonstrated that results from patients undergoinghemodialysis may show a negative bias when tested withvarious automated 25-OH vitamin D assays when compared toLC-MS/MS.When testing samples from patients whose predominant form ofVitamin D is Vitamin D2, such as patients receiving VitaminD2 supplementation, results that are subtherapeutic shouldbe confirmed with another method such as LC-MS/MS. 11/15/2025 3:42 PM EST 11/15/2025 3:42 PM EST us Generic External Data Provider LAB BLOOD ORDERAB LES Final Result [facility] [address] [place] [address] [phone] * (ABNORMAL) CBC auto differential (11/15/2025 3:42 PM EST) White Blood Count 10.6 4.8 - 10.8 X10*3/uL [facility] Red Blood Count 4.02(L) 4.20 - 5.50 X10*6/uL [facility] Hemoglobin 11.2(L) 12.0 - 16.0 g/dl [facility] Hematocrit 33.6(L) 37.0 - 47.0 % [facility] Mean Corpuscular Volume 83.6 80.0 - 98.0 fL [facility] Mean Corpuscular Hemoglobin 27.9 27.0 - 33.0 pg [facility] Mean Corpuscular HGB Conc 33.3 31.0 - 35.0 g/dl [facility] Red Cell Distribution Width 14.7 11.0 - 16.0 % [facility] Platelet Count 232 160 - 400 X10*3/uL [facility] Mean Platelet Volume 11.4 9.4 - 12.3 fL [facility] Neutrophils Percent Auto 57.7 45 - 73 % [facility] Imm Gran Pct Auto 0.6(H) 0.0 - 0.4 % [facility] Lymphocytes Percent Auto 28.1 20 - 40 % [facility] Monocytes Percent Auto 8.8 2 - 11 % [facility] Eosinophils Percent Auto 4.3(H) 0 - 4 % [facility] Basophils Percent Auto 0.5 0 - 2 % [facility] NRBC Pct Auto 0.0 0.0 - 0.2 /100WBC [facility] Neutrophils Absolute Auto 6.1 2.0 - 8.3 x10*3/uL [facility] Imm Gran Abs Auto 0.06(H) 0.00 - 0.03 X10*3/uL [facility] Lymphocytes Absolute Auto 3.0 1.2 - 4.9 X10*3/uL [facility] Monocytes Absolute Auto 0.9 0.1 - 1.2 X10*3/uL [facility] Eosinophils Absolute Auto 0.5(H) 0.0 - 0.4 X10*3/uL [facility] Basophils Absolute Auto 0.1 0.0 - 0.2 X10*3/uL [facility] NRBC Abs Auto 0.000 0.0 - 0.012 X10*3/uL [facility] Blood Venous blood specimen / Unknown 11/15/2025 3:42 PM EST 11/15/2025 3:42 PM EST Verenice Nixon GAS COLLECTION SYSTEM OPERATOR LAB BLOOD ORDERABLES Final Resu lt [facility] [address] [place] [address] [phone] * (ABNORMAL) PTH, Intact Without Calcium (11/15/2025 3:42 PM EST) Parathyroid Hormone, Intact 78.3(H) 8.7 - 77.1 pg/mL [facility] 11/15/2025 3:42 PM EST 11/15/2025 3:42 PM EST us Generic External Data Provider LAB BLOOD ORDERAB LES Final Result [facility] [address] [facility] [place] [address] [phone] * BI Mammogram Screening Tomosynthesis Bilateral (11/11/2025 10:40 AM EST) Anatomical Region Laterality Modality Breast Bilateral Mammography 11/11/2025 10:4 0 AM EST Narrative 11/11/2025 7:34 PM EST [facility] [address] [place], [place] [address] Mammography Report Signed Patient: Neha Metzger MR#: [id number] : 1960 Acct:[id number] Age/Sex: 65 / F ADM Date: 11/11/25 Loc: HO.MAMMO Attending Dr: Verenice Nixon Ordering Physician: Verenice Nixon Results: 1Negative Date of Service: 11/11/25 Follow Up: 1 Year From Orig ina Mammogram Procedure(s): MM tomosynthesis screening BI Accession Number(s): [id number] cc: Verenice Nixon Reason For Exam: SCREENING EXAMINATION: MM SCREENING DIGITAL BREAST TOMOSYNTHESIS, BILATERAL CLINICAL INFORMATION: Screening. Asymptomatic. COMPARISON: Comparison made to multiple prior, most recent September 24, 2024, and most remote March 19, 2018. TECHNIQUE: Digital breast tomosynthesis is performed in mediolateral oblique and craniocaudal views along with computer-aided detection (CAD). Synthesized 2D images are generated from the tomosynthesis. FINDINGS: BREAST COMPOSITION: The breasts are heterogeneously dense, which may obscure small masses. BILATERAL BREASTS: No significant masses, suspicious calcifications or other abnormalities are seen in either breast. MM/MM tomosynthesis screening BI IMPRESSION: BILATERAL BREASTS: Negative, no mammographic evidence of malignancy. Normal interval follow-up is recommended in 12 months. ASSESSMENT: BI-RADS: Category 1: Negative RECOMMENDATION: Routine annual mammography screening. FOLLOW-UP: 1 year F/U This examination should not preclude the clinical evaluation of a suspicious palpable abnormality. This patient's information was entered into a reminder system with a target due date for their next mammogram. Electronically signed by: Cyndee Riley MD 11/11/2025 07:30 PM EST Dictated By: Cyndee Riley MD Signed By: <Electronically signed by Cyndee Riley MD in OV> 11/11/25 1930 DD/ 1040 TD/TT: 11/11/25 1104 Risk Consultant: Procedure Note Donotuseinterpreter, Image - 11/11/2025 [facility] [address] [place] [address] Mammography Report Signed Patient: Jerome Metzger#: [id number] : 1960cct:[id number] Age/Sex: 65 / FADM Date: 11/11/25 Loc: HO.MAMMO Attending Dr: Verenice Nixon Ordering Physician: Verenice NixonResults: 1Negative Date of Service: 11/11/25Follow Up: 1 Year From Orig inal Mammogram Procedure(s): MM tomosynthesis screening BI Accession Number(s): [id number] cc: Verenice Nixon Reason For Exam: SCREENING EXAMINATION: MM SCREENING DIGITAL BREAST TOMOSYNTHESIS, BILATERAL CLINICAL INFORMATION: Screening. Asymptomatic. COMPARISON: Comparison made to multiple prior, most recent September 24, 2024, and most remote March 19, 2018. TECHNIQUE: Digital breast tomosynthesis is performed in mediolateral oblique and craniocaudal views along with computer-aided detection (CAD). Synthesized 2D images are generated from the tomosynthesis. FINDINGS: BREAST COMPOSITION: The breasts are heterogeneously dense, which may obscure small masses. BILATERAL BREASTS: No significant masses, suspicious calcifications or other abnormalities are seen in either breast. MM/MM tomosynthesis screening BI IMPRESSION: BILATERAL BREASTS: Negative, no mammographic evidence of malignancy. Normal interval follow-up is recommended in 12 months. ASSESSMENT: BI-RADS: Category 1: Negative RECOMMENDATION: Routine annual mammography screening. FOLLOW-UP: 1 year F/U This examination should not preclude the clinical evaluation of a suspicious palpable abnormality. This patient's information was entered into a reminder system with a target due date for their next mammogram. Electronically signed by: Cyndee Riley MD 11/11/2025 07:30 PM EST Dictated By: Cyndee Riley MD Signed By: <Electronically signed by Cyndee Riley MD in OV> 11/11/25 1930 DD/ 1040 TD/TT: 11/11/25 1104 Risk Consultant: Verenice Nixon GAS COLLECTION SYSTEM OPERATOR IMG BI PROCEDURES Edited Result - Final * Cologuard?? colon cancer screening (12/29/2024 4:40 PM EST) Cologuard Result Negative Negative 01/06/20 8:01 PM EST [facility] (CLIA #:[id number]) Comment: NEGATIVE TEST RESULT. A negative Cologuard [...] Cano et al, N Engl J Med 2014;370(14):9171-0054) The normal value (reference range) for this assay is negative. COLOGUARD RE-SCREENING RECOMMENDATION: Periodic colorectal cancer screening is an important part of preventive healthcare for asymptomatic individuals at average risk for colorectal cancer. Following a negative Cologuard result, the [place] [employer] Society and U.S. Multi-Society Task Force screening guidelines recommend a Cologuard re-screening interval of 3 years. References: [place] [employer] Guideline for Colorectal Cancer Screening: https://www.cancer.org/cancer/xomsd-zlqfwl-kyojhw/oavuylxbd-rxdnmfubn-hxbxhxk/ac s-rec ommendations.html.; Arun VILLALOBOS, Jocelin CR, Cheikh VelázquezK, Colorectal Cancer Screening: Recommendations for Physicians and Patients from the U.S. Multi-Society Task Force on Colorectal Cancer Screening , Am J Gastroenterology 2017; 112:1562-8861. TEST DESCRIPTION: Composite algorithmic analysis of stool [...] (Vinod Childress al, N Engl J Med 2014;370(14):4265-2478.) Cologuard may produce a false negative or false positive result (no colorectal cancer or precancerous polyp present at colonoscopy follow up). A negative Cologuard test result does not guarantee the absence of CRC or advanced adenoma (pre-cancer). The current Cologuard screening interval is every 3 years. ([place] [employer] and U.S. Multi-Society Task Force). Cologuard performance data in a 10,000 patient pivotal study using colonoscopy as the reference method can be accessed at the following location: www.[employer]4objects.[employer]/results. Additional description of the Cologuard test process, warnings and precautions can be found at www.[employer].com. Stool specimen (specimen) 12/29/2024 4:40 PM EST 12/31/2024 1:15 PM EST [facility] MOLECULAR DIAGNOSTICS ORDER WALDEMAR Final Result [facility] (CLIA #:[id number]) [place] [address], [place] [phone] * (ABNORMAL) Lipid Panel, Standard (12/16/2024 10:47 AM EST) Triglycerides 112 <150 mg/dL [facility] Comment:Desirable Triglyceri de: less than 150 mg/dLBorderline High Triglyceride 150-199 mg/dLHigh Triglyceride: 200-499 mg/dLVery High Triglyceride: greater than or equal to 5OO mg/dL Cholesterol 198 <200 mg/dL [facility] Comment:Desirable Cholestero l: less than 200 mg/dLBorderline High Cholesterol: 200-239 mg/dLHigh Cholesterol: greater than 239 mg/dL LDL Cholesterol Calculated 119(H) <100 mg/dL [facility] Comment:Desirable LDL: less than 100 mg/dLNear Optimal/Above Optimal LDL: 110- 129 mg/dLBorderline High LDL: 130-159 mg/dLHigh LDL: 160-189 mg/dLVery High LDL: greater than or equal to 190 mg/dL HDL Cholesterol 57 >40 mg/dL [facility] Comment:Desirable HDL: great er than 40 mg/dL Note: This HDL assay may give artificially low results in patients with liver disease. Blood Venous blood specimen / Unknown 12/16/2024 10:47 AM EST 12/16/2024 1:05 PM EST [facility] BLOOD ORDERABLES Final Resu lt [facility] [address] [place] [phone] * Hepatitis C Antibody with Reflex to HCV, RNA, Quantitative, Real-Time PCR (10/30/2023 10:53 AM EST) Hepatitis C Antibody Nonreactive Nonreactive [facility] Comment:Antibodies to HCV no t detected; does not exclude early acuteHCV infection. Blood Venous blood specimen / Unknown 10/30/2023 10:53 AM EST 10/30/2023 11:19 AM EST us Tamara Siegel MD LAB BLOOD ORDERABLES Final Re sult Performing Organization Address City/[facility]/ZIP Co de Phone Number [facility] [address] [place] [address] [phone] * HIV-1/2 Antigen and Antibodies, Fourth Generation, with Reflexes (10/30/2023 10:53 AM EST) [facility] HIV AB/AG Nonreactive Nonreactive [facility] Comment:HIV-1 p24 Ag and/or HIV-1/HIV-2 Ab not detected.A test result that is nonreactive does not exclude thepossibility of exposure to or infection with HIV-1 and/orHIV-2. Nonreactive results in this assay for individualswith prior exposure to HIV-1 and/or HIV-2 may be due toantigen and antibody levels that are below the limit ofdetection of this assay.The [employer] HIV Ag/Ab Combo assay result andsupplemental assay results should be interpreted inconjunction with the patient's clinical presentation,history and other laboratory results. If the results areinconsistent with clinical evidence, additional testing issuggested to confirm the result. Blood Venous blood specimen / Unknown 10/30/2023 10:53 AM EST 10/30/2023 11:19 AM EST us Tamara Siegel MD LAB BLOOD ORDERABLES Final Re sult Performing Organization Address City/[facility]/ZIP Co de Phone Number [facility] [address] [place] [address] [phone] from Last 3 Months or Most Recently Relevant to Health Maintenance Insurance [facility] Care Teams Waitstaff Relationship Specialty Start Date End Date Verenice Nixon NP [address] [place] [phone] PCP - General Family Medicine 11/04/23
--- OUTSIDE RECORDS SUMMARY | 2025-11-15 21:55 | XMS_ITS | Encounter Summary ---
Author Organization [employer] Address [address] [facility] [address] [place] [address] Care Team Providers Care Regulatory Affairs Associate Name Role Phone Verenice Nixon RITA Primary Care Provider [phone] Encounter Details Date Type Department Care Team ([facility] Contact Info) Description 11/15/2025 Orders Only GENERIC EXTERNAL DATA [...] Description 01/13/2026 11:00 AM EST Office Visit [facility] [address] [place] [address] Verenice Nixon NP [address] [place] [address] 01/20/2026 2:15 PM EST Office Visit [facility] ADULT DENTAL [address] [place] [address] Willow Eisenberg 02/24/2026 11:00 AM EDT Office Visit [facility] OPTOMET[facility] [address] [place] [address] Jo-Ann Hinojosa, OD [address] [place] [address] documented as of this encounter Procedures Procedure Name Priority Date/Time Associated Diagnosis Comments PROTEIN CREATININE RATIO, URINE Routine 11/15/2025 3:43 PM EST VITAMIN D,25-OH,TOTAL,IA Routine 11/15/2025 3:42 PM EST PTH, INTACT WITHOUT CALCIUM Routine 11/15/2025 3:42 PM EST documented in this encounter Results * (ABNORMAL) Protein Creatinine Ratio, Urine (11/15/2025 3:43 PM EST) Creatinine, Urine 106.94 mg/dL [facility] Protein, Total, Random Urine 28(H) <12 mg/dL [facility] Protein/Creati nine Ratio, Ur 0.26(H) <0.2 [facility] Comment:The spot urine prote in:creatinine ratio may increase to 0.3during normal . 11/15/2025 3:43 PM EST 11/15/2025 5:15 PM EST us Generic External Data Provider LAB URINE ORDERAB LES Final Result [facility] [address] [place] [address] [phone] * Vitamin D, 25-Hydroxy, Total, Immunoassay (11/15/2025 3:42 PM EST) Vitamin D 25-OH Total 37.2 >30 ng/mL [facility] Comment: Health Based Reference Values*< 20 ng/mL Elkgawtnj05-02 ng/mL Insufficient> 30 ng/mL Sufficient*Robin MCLAUGHLIN. N [...] ORDERAB LES Final Result Performing Organization Address [facility] Co de Phone Number [facility] [address] [place] [address] [phone] * (ABNORMAL) PTH, Intact Without Calcium (11/15/2025 3:42 PM EST) Parathyroid Hormone, Intact 78.3(H) 8.7 - 77.1 pg/mL [facility] 11/15/2025 3:42 PM EST 11/15/2025 3:42 PM EST us Generic External Data Provider LAB BLOOD ORDERAB LES Final Result Performing Organization Address [facility] de Phone Number [facility] [address] [place] [phone] documented in this encounter Visit Diagnoses Not on filedocumented in this encounter Additional Health Concerns Assessment Noted Time PHQ-9 Depression Total Score: 5 05/21/20 25 11:43 AM EDT documented as of this encounter Care Teams Regulatory Affairs Associate Relationship Specialty Start Date End Date Verenice Nixon NP [address] [place] [phone] PCP - General Family Medicine 11/04/23 documented as of this encounter
--- OUTSIDE RECORDS SUMMARY | 2025-11-15 21:55 | XMS_ITS | Encounter Summary ---
Author Organization [employer] Address [address] [place] [address] 7 [place] [address] Care Team Providers Care Head Housekeeper Name Role Phone Carrie Lucas PROGRAM OFFICER Primary Care Provider Christina Verenice Gonzalez NP Primary Care Provider [phone] Verenice Nixon NP Primary Care Provider [phone] Encounter Details Date Type Department Care Team (Late st Contact Info) Description 12/07/2022 Orders Only [facility] MEDICINE [address] [place] [address] Maria G Jean, [place] Social History Tobacco Use Types Packs/Day Years [...] Upcoming Encounters Date Type Department Care Team ([facility] [address] Contact Info) Description 01/13/2026 11:00 AM EST Office Visit [facility] MEDICINE [address] [place] [address] Verenice Nixon NP [address] [place] [address] 01/20/2026 2:15 PM EST Office Visit [facility] ADULT DENTAL [address] [place] [address] Willow Eisenberg 02/24/2026 11:00 AM EDT Office Visit [facility] OPTOMETRY [address] [place] [address] TarJo-Ann tello, OD [address] [place] [address] documented as of this encounter Visit Diagnoses Not on filedocumented in this encounter Care Teams Head Housekeeper Relationship Specialty Start Date End Date Carrie Lucas FNP PCP - General Family Medicine 11/20/21 09/05/23 Verenice Nixon NP [address] [place] [address] PCP - General Family Medicine 09/06/23 11/03/23 Verenice Nixon NP [address] [place] [address] PCP - General Family Medicine 11/04/23 documented as of this encounter
--- OUTSIDE RECORDS SUMMARY | 2025-11-15 21:55 | XMS_ITS | Encounter Summary ---
Author Organization [employer] Address [address] [place] [address] 7t [place] [address] Care Team Providers Care Hydraulics Engineer Name Role Phone Verenice Nixon RELIEF CAPTAIN Primary Care Provider [phone] Verenice Nixon RELIEF CAPTAIN Primary Care Provider [phone] Encounter Details Date Type Department Care Team ([facility] Contact Info) Description 11/01/2023 Orders Only [facility] MEDICINE [address] [place] [address] Regi Marsh FNP Social History Tobacco Use [...] Upcoming Encounters Date Type Department Care Team ([facility] Contact Info) Description 01/13/2026 11:00 AM EST Office Visit [facility] MEDICINE [address] [place] [address] Verenice Nixon NP [address] [place] [address] 01/20/2026 2:15 PM EST Office Visit [facility] ADULT DENTAL [address] [place] [address] Willow Eisenberg 02/24/2026 11:00 AM EDT Office Visit [facility] OPTOMETRY [address] [place] [address] TarkaJo-Ann, OD [address] [place] [address] documented as of this encounter Visit Diagnoses Not on filedocumented in this encounter Additional Health Concerns Assessment Noted Time PHQ-9 Depression Total Score: 3 10/30/20 9:52 AM EST documented as of this encounter Care Teams Hydraulics Engineer Relationship Specialty Start Date End Date Verenice Nixon NP [address] [place] [address] PCP - General Family Medicine 09/06/23 11/03/23 Verenice Nixon NP [address] [place] [address] PCP - General Family Medicine 11/04/23 documented as of this encounter
--- OUTSIDE RECORDS SUMMARY | 2025-11-15 21:55 | XMS_ITS | Encounter Summary ---
Author Organization [employer] Address [address] [place] [address] Care Team Providers Care Tyre Retreader Name Role Phone Carrie Lucas Primary Care Provider Christina vailable Verenice Nixon NP Primary Care Provider [phone] Verenice Nixon NP Primary Care Provider [phone] Reason for Visit * Reason Comments Med Refill Encounter Details Date Type Department Care Team (Late st Contact Info) Description 11/05/2022 Refill [facility] MEDICINE [address] [place] [address] Carrie Lucas FNP Social History Tobacco Use Types Packs/Day [...] Department Care Team (Late Contact Info) Description 01/13/2026 11:00 AM EST Office Visit [facility] MEDICINE [address] [place] [address] Verenice Nixon NP [address] [place] [address] 01/20/2026 2:15 PM EST Office Visit [facility] ADULT DENTAL [address] [place] [address] Willow Eisenberg 02/24/2026 11:00 AM EDT Office Visit [facility] [address] [place] [address] [place] [address] Jo-Ann Hinojosa, OD [address] [place] [address] documented as of this encounter Visit Diagnoses Not on filedocumented in this encounter Care Teams Tyre Retreader Relationship Specialty Start Date End Date Carrie Lucas FNP PCP - General Family Medicine 11/20/21 09/05/23 Verenice Nixon NP [address] [place] [address] PCP - General Family Medicine 09/06/23 11/03/23 Verenice Nixon NP [address] [place] [address] PCP - General Family Medicine 11/04/23 documented as of this encounter
--- OUTSIDE RECORDS SUMMARY | 2025-11-15 21:55 | XMS_ITS | Encounter Summary ---
Author Organization [employer] Address [address] [place] [address] 7t [place] [address] Care Team Providers Care Painter Set Name Role Phone LanceCarrie MICROBIOLOGICAL LAB TECHNICIAN Primary Care Provider Christina Verenice Gonzalez NP Primary Care Provider [phone] Verenice Nixon NP Primary Care Provider [phone] Encounter Details Date Type Department Care Team (Late st Contact Info) Description 03/11/2023 Orders Only [facility] MED & PEDS [address] [place] [address] Beatriz Castillo LPN Social History Tobacco Use [...] 01/13/2026 11:00 AM EST Office Visit [facility] MEDICINE [address] [place] [address] Verenice Nixon NP [address] [place], [place] [phone] 01/20/2026 2:15 PM EST Office Visit [facility] ADULT DENTAL [address] [place] [address] Willow Eisenberg 02/24/2026 11:00 AM EDT Office Visit [facility] OPTOMETRY [address] [place] [address] Jo-Ann Hinojosa, OD [address] [place] [address] documented as of this encounter Visit Diagnoses Not on filedocumented in this encounter Care Teams Painter Set Relationship Specialty Start Date End Date Carrie Lucas FNP PCP - General Family Medicine 11/20/21 09/05/23 Verenice Nixon NP [address] [place] [address] PCP - General Family Medicine 09/06/23 11/03/23 Verenice Nixon NP [address] [place] [address] PCP - General Family Medicine 11/04/23 documented as of this encounter
--- OUTSIDE RECORDS SUMMARY | 2025-11-15 21:55 | XMS_ITS | Encounter Summary ---
Author Organization [employer] Address [address] [facility] 7t [place] [address] Care Team Providers Care Erp Consultant Name Role Phone Verenice Nixon NP Primary Care Provider [phone] Encounter Details Date Type Department Care Team ([facility] Contact Info) Description 11/04/2025 Orders Only [facility] MEDICINE [address] [place] [address] Verenice Nixon NP [address] [place] [address] Primary hypertension (Primary Dx) Social History Tobacco Use Types Packs/Day Years [...] Description 01/13/2026 11:00 AM EST Office Visit [facility] MEDICINE [address] [place] [address] Verenice Nixon NP [address] [place] [address] 01/20/2026 2:15 PM EST Office Visit [facility] ADULT DENTAL [address] [place] [address] Willow Eisenberg 02/24/2026 11:00 AM EDT Office Visit [facility] OPTOMETRY [address] [place] [address] Jo-Ann Hinojosa, JAYDON [address] [place] [address] documented as of this encounter Procedures Procedure Name Priority Date/Time Associated Diagnosis Comments BI MAMMOGRAM SCREENING TOMOSYNTHESIS BILATERAL Routine 11/11/2025 10:40 AM EST documented in this encounter Results * BI Mammogram Screening Tomosynthesis Bilateral (11/11/2025 10:40 AM EST) Anatomical Region Laterality Modality Breast Bilateral Mammography 11/11/2025 10:4 0 AM EST Narrative 11/11/2025 7:34 PM EST [facility] [address] [place] [address] Mammography Report Signed Patient: Neha Metzger MR#: [id number] : 1960 Acct:[id number] Age/Sex: 65 / F ADM Date: 11/11/25 Loc: HO.MAMMO Attending Dr: Verenice Nixon Ordering Physician: Verenice Nixon Results: 1Negative Date of Service: 11/11/25 Follow Up: 1 Year From Orig inal Mammogram Procedure(s): MM tomosynthesis screening BI Accession Number(s): [id number] cc: Verenice Nixon Reason For Exam: SCREENING [...] 11/11/25 1930 DD/ 1040 TD/TT: 11/11/25 1104 Big Data Platform Architect: Procedure Note Donotdoriinterpreter, Image - 11/11/2025 [facility] [address] [place] [address] Mammography Report Signed Patient: Jerome Metzger#: [id number] : [id number]:[id number] Age/Sex: 65 / FADM Date: 11/11/25 Loc: HO.MAMMO Attending Dr: Verenice Nixon Ordering Physician: Verenice NixonResults: 1Negative Date of Service: 11/11/25Follow Up: 1 Year From Orig inal Mammogram Procedure(s): MM tomosynthesis screening BI Accession Number(s): [id number] cc: Verenice Nixon Reason For Exam: SCREENING [...] by: Cyndee Riley MD 11/11/2025 07:30 PM [facility] Dictated By: Cyndee Riley MD Signed By: <Electronically signed by Cyndee Riley MD in OV> 11/11/25 1930 DD/ 1040 TD/TT: 11/11/25 1104 Big Data Platform Architect: Verenice Nixon NP IMG BI PROCEDURES Edited Result - Final documented in this encounter Visit Diagnoses Diagnosis Primary hypertension- Primary Unspecified essential hypertension documented in this encounter Additional Health Concerns Assessment Noted Time PHQ-9 Depression Total Score: 5 05/21/20 11:43 AM EDT documented as of this encounter Care Teams Erp Consultant Relationship Specialty Start Date End Date Verenice Nixon NP [address] [place] [address] PCP - General Family Medicine 11/04/23 documented as of this encounter
--- OUTSIDE RECORDS SUMMARY | 2025-11-15 21:55 | XMS_ITS | Encounter Summary ---
Author Organization [employer] Address [address] [facility] 7t [place] [address] Care Team Providers Care Sql Report Writer Name Role Phone Verenice Nixon RITA Primary Care Provider [phone] Reason for Visit * Reason Comments Med Refill Encounter Details Date Type Department Care Team ([facility] st Contact Info) Description 03/27/2025 Refill [facility] MEDICINE [address] [place] [address] [phone] Name, MD Dimitri [address] [place] [address] Social History Tobacco Use Types Packs/Day Years [...] 11:00 AM EST Office Visit [facility] MEDICINE [address] [place] [address] Verenice Nixon NP [address] [place] [address] 01/20/2026 2:15 PM EST Office Visit [facility] ADULT DENTAL [address] [place] [address] Willow Eisenberg 02/24/2026 11:00 AM EDT Office Visit [facility] OPTOMETRY [address] [place] [address] Jo-Ann Hinojosa OD [address] [place] [address] documented as of this encounter Visit Diagnoses Not on filedocumented in this encounter Additional Health Concerns Assessment Noted Time PHQ-9 Depression Total Score: 0 01/17/20 24 10:02 AM EST documented as of this encounter Care Teams Sql Report Writer Relationship Specialty Start Date End Date Verenice Nixon NP [address] [place] [address] PCP - General Family Medicine 11/04/23 documented as of this encounter
--- OUTSIDE RECORDS SUMMARY | 2025-11-15 21:55 | XMS_ITS | Encounter Summary ---
Author Organization [employer] Address [address] [place] [address] 7t [place] [address] Care Team Providers Care Digital Print Operator Name Role Phone LanceCarrie NOCTURNIST Primary Care Provider Christina roopailaVerenice Doran NP Primary Care Provider [phone] Verenice Nixon NP Primary Care Provider [phone] Encounter Details Date Type Department Care Team (Late st Contact Info) Description 04/02/2023 Orders Only [facility] CHC MED & PEDS [address] [place] [address] Beatriz Castillo LPN Social History Tobacco Use [...] 11:00 AM EST Office Visit [facility] MEDICINE [address] [place] [address] Verenice Nixon NP [address] [place], [place] [phone] 01/20/2026 2:15 PM EST Office Visit [facility] ADULT DENTAL [address] [place] [address] Willow Eisenberg 02/24/2026 11:00 AM EDT Office Visit [facility] OPTOMETRY [address] [place] [address] Jo-Ann Hinojosa, OD [address] [place] [address] documented as of this encounter Visit Diagnoses Not on filedocumented in this encounter Care Teams Digital Print Operator Relationship Specialty Start Date End Date Carrie Lucas FNP PCP - General Family Medicine 11/20/21 09/05/23 Verenice Nixon NP [address] [place] [address] PCP - General Family Medicine 09/06/23 11/03/23 Verenice Nixon NP [address] [place] [address] PCP - General Family Medicine 11/04/23 documented as of this encounter
--- OUTSIDE RECORDS SUMMARY | 2025-11-15 21:55 | XMS_ITS | Encounter Summary ---
Author Organization [employer] Address [address] [place] [address] 7t [place] [address] Care Team Providers Care Applications Programmer Analyst Name Role Phone LanceCarrie EARTH OBSERVATIONS CHIEF SCIENTIST Primary Care Provider Christina vailable Verenice Nixon METER SUPERVISOR Primary Care Provider [phone] Verenice Nixon NP Primary Care Provider [phone] Encounter Details Date Type Department Care Team (Late st Contact Info) Description 01/02/2023 Orders Only [facility] CHC MED & PEDS [address] [place] [address] Beatriz Castillo LPN Social History Tobacco Use [...] Description 01/13/2026 11:00 AM EST Office Visit [facility] MEDICINE [address] [place] [address] Verenice Nixon NP [address] [place] [address] 01/20/2026 2:15 PM EST Office Visit [facility] ADULT DENTAL [address] [place] [address] Willow Eisenberg 02/24/2026 11:00 AM EDT Office Visit [facility] OPTOMETRY [address] [place] [address] Jo-Ann Hinojosa, OD [address] [place] [address] documented as of this encounter Visit Diagnoses Not on filedocumented in this encounter Care Teams Applications Programmer Analyst Relationship Specialty Start Date End Date Carrie Lucas FNP PCP - General Family Medicine 11/20/21 09/05/23 Verenice Nixon NP [address] [place] [address] PCP - General Family Medicine 09/06/23 11/03/23 Verenice Nixon NP [address] [place] [address] PCP - General Family Medicine 11/04/23 documented as of this encounter
[2025-11-16 11:34] LABS: Calcium, Ionized 5.4 mg/dL (4.7-5.5)
== END 2025-11-15 15:28 | disposition home or self-care (01) ==
LOC: HO.LAB 15:27
PROVIDERS: Internal Medicine Nephrology; PCP Nurse Practitioner; Visit Provider Student in an Organized Health Care Education/Training Program
DX: E83.52 Hypercalcemia (principal); I10 Essential (primary) hypertension; R80.9 Proteinuria, unspecified; R59.1 Generalized enlarged lymph nodes
CPT/HCPCS: 36415; 80051; 82040; 82306; 82310; 82330; 82565; 82570; 83970; 84100; 84156; 84520; 85025

== ENCOUNTER 2025-11-18 10:27 | Outpatient (AMB) | payer OTHER, SELFPAY ==
--- NOTE | 2025-11-18 10:28 | A.OFFVIS_ITS ---
Vital Signs 11/18/25 10:29 Height 5 ft 3 in Weight 158 lb 15.253 oz BMI 28.2 BP 168/90 H Blood Pressure Location Lt brachial Position Sitting Pulse 82 Pulse Source Pulse Oximeter Pulse Oximetry (%) 97 Oxygen Delivery Method Room Air Intake Visit Reasons: Hypercalcemia Intake Note: Patient present here today for Hypercalcemia follow-up visit. 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 Chart review shows patient has had elevated calcium levels at least since 2022. Calcium level during 2022 and 2023 ranged anywhere from 10.5-10.8 with albumin level around 4.6, corrected calcium would be 9.9-10.2. Most recently after hydrochlorothiazide was discontinued by Nephrology, calcium level in December and January has come down to 9.8-9.9, no concurrent albumin done. Magnesium level of 1.7 from January 2025. Phosphorus was normal back in July 2020 for a 3.1. Vitamin-D level was 37 back in July 2024, 125 dihydroxy vitamin-D level was also normal at 51 at the same time. PTH level from that time was inappropriately normal at 41.1 with a calcium level of 10.7, consistent with PTH mediated hypercalcemia. No history of kidney stones, renin ultrasound 07/30/2024 did not show any kidney stones. No history of fragility fractures, no DEXA scan done. No 24 hour urine in the system. 11/05/2024: Parathyroid can nuclear medicine showed an asymmetric focal prominence in the inferior pole of the right lobe of the thyroid gland present on both iodine as well as sestamibi images, either representing thyroid nodule versus atypical parathyroid adenoma/intrathyroidal parathyroid adenoma. Vitamin-D intake: 2023 took supplements for a few months , stopped it end of the year Calcium intake: no supplements, Lactaid 1-2 times a month, no yogurt, cheese rarely doesnt really like these Denies any symptoms of hyper calcemia such constipation, brain fog, memory issues. Does report polyuria since 1 year. Has history of IBS and diverticulosis so intermittent abd pain. Family history of kidney stones:none Family history of hypercalcemia:none No history of pituitary tumors No history of GERD/diarrhea. Most recent blood work and urine test from 02/19/2025 showed calcium has come down to 9.9 with albumin of 4.1, corrected calcium would be 9.8, normal ionized calcium of 5.4. 24 hour urine calcium also does not show any hypercalciuria. MNG 11/05/2024: Parathyroid can nuclear medicine showed an asymmetric focal prominence in the inferior pole of the right lobe of the thyroid gland present on both iodine as well as sestamibi images, either representing thyroid nodule versus atypical parathyroid adenoma/intrathyroidal parathyroid adenoma. Patient currently denies heat or cold intolerance, , diarrhea or constipation,, palpitation, anxiety, weight changes, mood changes, low energy, changes in appearance of eyes or vision changes, tremors, increased diaphoresis or dry skin. ?Reports some hair loss Patient denies any difficulty swallowing, pain on swallowing or voice changes or difficulty breathing. Patient denies any history of childhood neck radiation. Denies having ever used lithium, amiodarone or biotin supplements. Patient denies any family history of thyroid cancer . sister has thyroid disease. Normal TSH from January 2025 Ultrasound thyroid 03/11/2025 I reviewed the images myself which showed bilateral subcentimeter low risk nodules. The right superior nodule is 1.1 cm in size, it appears mixed cystic solid, but I would like to repeat ultrasound in 1 year for this. Interval history: Reports feeling overall well She is trying to increase her calcium intake by increasing milk and cheese Takes Vit D 1000 IU daily no falls or fracture She has schedule DXA for next year No nephrolithiasis Physical exam: General: Well appearing. NAD. Not Cushingoid or Acromegalic Neck/Thyroid: Thyroid not palpable, no nodules. CV: RRR, no murmur. No edema. Resp:Lungs clear to auscultation bilaterally Abdomen: Soft, nontender. nondistended Extremities/Neuro: No weakness or tremor of outstretched hands Laboratory Tests 11/15/25 15:42 Creatinine 0.93 Estimated GFR > 60 Calcium 9.7 Ionized Calcium 5.4 Phosphorus 2.8 Albumin 4.4 25-OH Vitamin D Total 37.2 PTH Intact 78.3 H Laboratory Tests 01/12/20 11/03/20 11/04/20 10:15 21:53 05:11 BUN Creatinine Estim Creat Clear Calc Estimated GFR Calcium 9.6 9.0 8.4 D Phosphorus Magnesium Albumin 4.2 4.1 25-OH Vitamin D Total 1,25 Dihydroxy Vit D 1,25 Dihydroxy Vit D2 1,25 Dihydroxy Vit D3 PTH Intact 10/30/23 01/17/24 04/03/24 10:53 10:55 11:24 BUN Creatinine Estim Creat Clear Calc Estimated GFR Calcium 10.5 H D 10.5 H 10.8 H Phosphorus Magnesium Albumin 4.6 4.6 25-OH Vitamin D Total 1,25 Dihydroxy Vit D 1,25 Dihydroxy Vit D2 1,25 Dihydroxy Vit D3 PTH Intact 07/13/24 08/12/24 12/16/24 11:00 14:58 10:47 BUN Creatinine Estim Creat Clear Calc Estimated GFR Calcium 10.7 H 10.5 H 9.8 D Phosphorus 3.1 Magnesium Albumin 25-OH Vitamin D Total 37.0 1,25 Dihydroxy Vit D 51 1,25 Dihydroxy Vit D2 <8 1,25 Dihydroxy Vit D3 51 PTH Intact 41.1 01/04/25 14:17 BUN 14 Creatinine 0.94 Estim Creat Clear Calc 55.0 Estimated GFR > 60 Calcium 9.9 Phosphorus Magnesium 1.7 Albumin 25-OH Vitamin D Total 1,25 Dihydroxy Vit D 1,25 Dihydroxy Vit D2 1,25 Dihydroxy Vit D3 PTH Intact Laboratory Tests 02/11/25 02/19/25 02/19/25 10:45 06:45 07:43 Creatinine 0.87 0.89 Estimated GFR > 60 > 60 Calcium 10.2 9.9 Ionized Calcium 5.4 Phosphorus 3.1 Albumin 4.3 4.1 25-OH Vitamin D Total 25.9 L TSH 0.93 PTH Intact 56.8 Ur 24 Hour Volume 1650 Ur Creatinine mg/dL 64.24 Ur Creatinine 24 Hour 1.1 Ur Calcium 24 Hr 83 Calcium/Creat 24 Hr 83 EXAMINATION: US 03/11/25 THYROID HISTORY: E04.1 - Nontoxic single thyroid nodule TECHNIQUE: Real-time grayscale ultrasound imaging was performed and images were reviewed. COMPARISON: There are no prior studies for comparison. FINDINGS: SIZE: The right thyroid lobe measures 4.1 x 1.7 x 1.1 cm. The left thyroid lobe measures 4.5 x 1.1 x 1.1 cm. The isthmus measures 2 mm. FLOW: Flow to the gland is normal. ECHOGENICITY: The echotexture of the gland is homogeneous. NODULES: Multiple small thyroid nodules are seen bilaterally as follows: Nodule #: 1 Location: Right upper pole measuring 10 x 6 x 8 mm Shape: Wider than tall (0 points) Margins: Smooth (0 points) Echotexture: Indeterminate (1 point) Composition: Mostly solid (2 points) Calcifications: None (0 points) Total points: 3 TIRADS: TR3: Mildly suspicious. Nodule #: 2 Location: Right mid to lower pole measuring 3 x 2 x 3 mm Shape: Round (0 points) Margins: Smooth (0 points) Echotexture: Indeterminate (1 point) Composition: Mixed (1 point) Calcifications: None (0 points) Total points: 2 TIRADS: TR2: Not suspicious Nodule #: 3 Location: Right lower pole measuring 6 x 5 x 7 mm Shape: Wider than tall (0 points) Margins: Lobulated (2 points) Echotexture: Hypoechoic (2 points) Composition: Solid (2 points) Calcifications: Comet tail (0 points) Total points: 6 TIRADS: TR4: Moderately suspicious. Nodule #: 4 Location: Right isthmus measuring 6 x 3 x 5 mm Shape: Wider than tall (0 points) Margins: Lobulated (2 points) Echotexture: Hypoechoic (2 points) Composition: Solid (2 points) Calcifications: None (0 points) Total points: 6 TIRADS: TR4: Moderately suspicious. Nodule #: 5 Location: Left upper pole measuring 6 x 3 x 5 mm Shape: Wider than tall (0 points) Margins: Ill-defined (0 points) Echotexture: Indeterminate (1 point) Composition: Mixed (1 point) Calcifications: None (0 points) Total points: 2 TIRADS: TR2: Not suspicious IMPRESSION: Multiple subcentimeter thyroid nodules as described. NM PARATHYROID SCAN 11/05/24 CLINICAL INFORMATION: Hypercalcemia. COMPARISON: None available. TECHNIQUE: A double radionuclide study of the thyroid bed region and upper chest in multiple projections was performed 4 hours after the oral administration of 940 microcuries I-123 sodium iodide and immediately following the intravenous administration of 30 mCi Tc-99m sestamibi. Repeat imaging was performed 2 hours later. The iodide images were electronically subtracted from the sestamibi images using different weighting factors. FINDINGS: There is homogeneous uptake of radioiodine throughout both lobes. The thyroid gland appears to be normal in size and shape. Note is made of asymmetric focal prominence at the inferior pole of the right lobe of the thyroid gland. There are no focal areas of increased or diminished uptake. Technetium 99m sestamibi images demonstrate homogeneous thyroid activity. Asymmetric focal prominence of the inferior pole of the right lobe of the thyroid gland is also noted on the sestamibi images. There are no focal areas of increased or decreased Technetium 99m sestamibi activity. Computer-generated digital subtraction images reveal no evidence of excess sestamibi activity. NM/NM parathyroid IMPRESSION: * No definite evidence of excess sestamibi activity suggestive of parathyroid adenoma or hyperplasia. There is homogeneous uptake of radioiodine in the thyroid gland which is also normal in size and shape. * Asymmetric focal prominence at the inferior pole of the right lobe of the thyroid gland is present on both iodine as well as an sestamibi images, likely represent asymmetric variable nodular thyroid tissue versus thyroid nodule. Possibility of atypical parathyroid adenoma/intrathyroidal parathyroid adenoma) may have similar appearance and cannot be absolutely excluded. * Alternative imaging modality including 4D CT scan of the soft tissue neck (with and without contrast) may be considered for further clarification. Electronically signed by: Adalberto Walker MD 11/09/2024 11:59 AM [facility] US RETROPERITONEAL COMPLETE (RENAL) 07/30/24 CLINICAL INFORMATION: Proteinuria. COMPARISON: CT abdomen and pelvis 11/03/2020, ultrasound kidneys 02/07/2023 TECHNIQUE: Real-time imaging of the kidneys and bladder. FINDINGS: RIGHT KIDNEY: 10.3 x 4.0 x 3.8 cm (SAG x AP x TRV). The kidney is normal in size, contour, and echogenicity. Renal cortical thickness is normal. No calculi . Again seen is some mild fullness in the right renal pelvis similar to the prior CT scan without gross hydronephrosis. A benign 1.7 cm Bosniak class II renal cyst with some mural calcification is noted in the lower pole which requires no additional imaging or follow up. Additional benign cysts were seen on the prior CT not appreciated on the current study No solid renal masses are seen.. LEFT KIDNEY: 10.1 x 5.0 x 4.5 cm (SAG x AP x TRV). The kidney is normal in size, contour, and echogenicity. Renal cortical thickness is normal. No calculi or focal parenchymal lesions. No hydronephrosis. IMPRESSION: No significant abnormality is seen. Stable mild fullness in the right renal pelvis. Electronically signed by: Edilberto Mauricio MD 07/30/2024 11:28 AM EDT [facility] Medical History Multinodular goiter (nontoxic) Irritable bowel syndrome with constipation Vaginal irritation UTI (urinary tract infection) History of Helicobacter pylori infection Colon cancer screening Frequent UTI Anemia Diverticulosis Colon cancer screening Hyperlipemia Hypertension Surgical History History of esophagogastroduodenoscopy (EGD) Hx of colonoscopy (09/16/20) History of ovarian cystectomy Hx of hysterectomy Family History Father Parkinson disease HTN (hypertension) Mother HTN (hypertension) Brother Cancer Social History Household Members: Significant Other Housing: Apartment Do you presently have visiting nurse or other home services: No Alcohol intake: current Alcohol intake frequency: holidays/special occasions only Patient Tobacco Use Status: Never used Tobacco Second Hand Smoke Exposure: Yes service: No Current occupational status: employed Sexual orientation: Straight/Heterosexual Gender identity: Female Physical Exam Vital Signs: Last Vital Signs Pulse 82 11/18/25 10:29 BP 168/90 H 11/18/25 10:29 Pulse Ox 97 11/18/25 10:29 Oxygen Delivery Method Room Air 11/18/25 10:29 BMI result Body Mass Index 28.2 Assessment & Plan Assessment & Plan (1) Multinodular goiter (nontoxic): Code(s): E04.2 - Nontoxic multinodular goiter Category: Medical Plan: 64-year-old female with no family history of thyroid cancer with no personal his tory of head or neck radiation coming in today for follow up. 11/05/2024: Parathyroid can nuclear medicine showed an asymmetric focal prominence in the inferior pole of the right lobe of the thyroid gland present on both iodine as well as sestamibi images, either representing thyroid nodule versus atypical parathyroid adenoma/intrathyroidal parathyroid adenoma. No compressive symptoms. Normal TSH from January 2025. Ultrasound thyroid 03/11/2025 I reviewed the images myself which showed bilateral subcentimeter low risk nodules. The right superior nodule is 1.1 cm in size, it appears mixed cystic solid, but I would like to repeat ultrasound in 1 year for this. Plan: -ordered repeat ultrasound of the thyroid in 1 year which would be sometime around April 2025. (2) Hypercalcemia: Code(s): E83.52 - Hypercalcemia Category: Medical Plan: 64-year-old female coming in today for follow up of PTH mediated hypercalcemia. Chart review shows patient has had elevated calcium levels at least since 2022. Calcium level during 2022 and 2023 ranged anywhere from 10.5-10.8 with albumin level around 4.6, corrected calcium would be 9.9-10.2. Most recently after hydrochlorothiazide was discontinued by Nephrology, calcium level in December and January has come down to 9.8-9.9, no concurrent albumin done. Magnesium level of 1.7 from January 2025. Phosphorus was normal back in July 2020 for a 3.1. Vitamin-D level was 37 back in July 2024, 125 dihydroxy vitamin-D level was also normal at 51 at the same time. PTH level from that time was inappropriately normal at 41.1 with a calcium level of 10.7, consistent with PTH mediated hypercalcemia. likely the hydrochlorothiazide unmasked a possible primary hyperparathyroidism. No history of kidney stones, renal ultrasound 07/30/2024 did not show any kidney stones. No history of fragility fractures, no DEXA scan done. 11/05/2024: Parathyroid can nuclear medicine showed an asymmetric focal prominence in the inferior pole of the right lobe of the thyroid gland present on both iodine as well as sestamibi images, either representing thyroid nodule versus atypical parathyroid adenoma/intrathyroidal parathyroid adenoma. Most recent blood work and urine test from 02/19/2025 showed calcium has come down to 9.9 with albumin of 4.1, corrected calcium would be 9.8, normal ionized calcium of 5.4. 24 hour urine calcium also does not show any hypercalciuria.she possibly has mild primary hyperparathyroidism /normocalcemic hyperPTH that does not meet criteria for surgery. We will continue to monitor. Labs showed mildly elevated PTH 78.3, Ca 9.7, iCa 5.4, likely consistent with normocalcemic hyperparathyroidism. Current guidelines and expert consensus recommend maintaining normal calcium intake (about 1,000?1,200 mg/day from diet plus supplements, the same as the general population) and ensuring adequate vitamin D status with a 25-OH vitamin D level of at least 30 ng/mL, as vitamin D repletion is required before confirming the diagnosis; neither calcium nor vitamin D should be withheld unless hypercalcemia develops. Calcium supplementation should be used thoughtfully rather than reflexively avoided, with caution in patients who have a history of kidney stones, hypercalciuria, borderline or rising serum calcium, or other risk factors?in such cases dietary calcium is preferred, supplements can be divided with meals, and excessive intake (>1,500 mg/day) should be avoided. I NPHPT is not benign and is associated with adverse skeletal outcomes such as osteopenia, osteoporosis, and vertebral fractures, as well as a lower but real risk of kidney stones. Plan: Advised to take the equivalent of 0025-0769 mg of calcium from diet Advised to continue vitamin D supplementation Repeat urine 24h calcium, Vit D, comp Met Panel, ionized Ca, Phosp Repeat Renal US Order DXA Follow up in 5 months Plan I spent 30 minutes in reviewing the record, seeing the patient and documenting in the medical record. Orders: Orders Calcium, 24 Hr Ur 4 Months E21.3 - Hyperparathyroidism, unspecified Phosphorus 4 Months E21.3 - Hyperparathyroidism, unspecified Creatinine, 24 Hr Group 4 Months E21.3 - Hyperparathyroidism, unspecified Vitamin D 25-OH Total 4 Months E21.3 - Hyperparathyroidism, unspecified Calcium, Ionized 4 Months E21.3 - Hyperparathyroidism, unspecified Comprehensive Met. Panel 4 Months E21.3 - Hyperparathyroidism, unspecified Magnesium 4 Months E21.3 - Hyperparathyroidism, unspecified XR DEXA axial skeleton Today E21.3 - Hyperparathyroidism, unspecified US renal BI Today E21.0 - Primary hyperparathyroidism Patient Instructions: Please have blood/urine [facility] at [facility] on [address] [place] [address], [address] [place] [address] Por favor, real?cese los an?lisis de cally y/o orina en [facility], en cualquiera de las siguientes direcciones: [address] [place] [address], [address], [address] [place] [address] Instrucciones para la Recolecci?n de Calcio en Orina de 24 Horas Prop?sito: Esta prueba mide la cantidad de calcio excretado en la orina geovanni un per?odo de 24 horas. Ayuda a evaluar el metabolismo del calcio y a diagnosticar ciertas condiciones. Materiales Necesarios: * Recipiente para recolecci?n de orina de 24 horas (proporcionado por el laboratorio o la cl?urban) * Dispositivo para recolectar orina (opcional, para facilitar la recolecci?n) * Instrucciones escritas (esta hoja) Instrucciones: Inicio de la Recolecci?n: * Elija un d?a en el que pueda estar en casa o tenga f?cil acceso a un ba?o. * Al despertarse el primer d?a, orine y deseche esta primera orina de la ma?louisa. No la recoja. Anote la hora exacta; esta ser? ridley hora de inicio. Recolecci?n de Toda la Orina: * Geovanni las siguientes 24 horas, recolecte toda la orina que elimine en el recipiente proporcionado. * Cada vez que orine, h?nina en un recipiente limpio y luego transfi?ralo al recipiente de recolecci?n de 24 horas. * Mantenga el recipiente de recolecci?n en un lugar fresco, preferiblemente en el refrigerador o sobre hielo, geovanni el per?odo de recolecci?n. Finalizaci?n de la Recolecci?n: * Exactamente 24 horas despu?s de la hora de inicio, orine por ?ltima vez y agregue esta orina al recipiente. [place] completa la recolecci?n. Despu?s de la Recolecci?n: * Aseg?rese de que la tapa est? filiberto cerrada. * Etiquete el recipiente con ridley nombre, la fecha y las horas de inicio y finalizaci?n. * Devuelva el recipiente al laboratorio o al consultorio de ridley m?dico lo antes posible despu?s de completar la recolecci?n. Consejos Importantes: * No omita ninguna micci?n geovanni el per?odo de 24 horas. Si lo hace, es posible que deba repetir la prueba. * No permita que papel higi?meir, heces u otros materiales entren en la muestra de orina. * Contin?e con ridley dieta habitual, a menos que se le indique lo contrario. * Algunas pruebas pueden requerir que evite ciertos alimentos o medicamentos; siga cualquier instrucci?n adicional proporcionada por ridley m?dico. Coding Level of Care Code Est Pt Level 4 (86373) Add On Problem Visit Only Diagnoses Multinodular goiter (nontoxic) E04.2 Hypercalcemia E83.52
[2025-11-18 10:29] VITALS: BP 168/90; PULSE 82; O2SAT 97; BMI 28.2
--- OUTSIDE RECORDS SUMMARY | 2025-11-18 13:00 | XMS_ITS | Encounter Summary ---
Author Organization [employer] Address [address] [place] [address] [address] [place] [address] Care Team Providers Care Global Position System Technician Name Role Phone LanceCarrie VICE PRESIDENT PAYMENT Primary Care Provider Christina vailable Verenice Nixon NEWSPAPER CARRIER Primary Care Provider [phone] Verenice Nixon NP Primary Care Provider [phone] Encounter Details Date Type Department Care Team (Late st Contact Info) Description 01/02/2023 Orders Only [facility] MED & PEDS [address] [place] [address] Beatriz Castillo LPN Social History Tobacco Use [...] Description 01/13/2026 11:00 AM EST Office Visit [facility] MEDICINE [address] [place] [address] Verenice Nixon NP [address] [place] [address] 01/20/2026 2:15 PM EST Office Visit [facility] ADULT DENTAL [address] [place] [address] Willow Eisenberg 02/24/2026 11:00 AM EDT Office Visit [facility] OPTOMETRY [address] [place] [address] Jo-Ann Hinojosa, OD [address] [place] [address] documented as of this encounter Visit Diagnoses Not on filedocumented in this encounter Care Teams Global Position System Technician Relationship Specialty Start Date End Date Carrie Lucas FNP PCP - General Family Medicine 11/20/21 09/05/23 Verenice Nixon NP [address] [place] [id number] PCP - General Family Medicine 09/06/23 11/03/23 Verenice Nixon NP [address] [place] [id number] PCP - General Family Medicine 11/04/23 documented as of this encounter
--- OUTSIDE RECORDS SUMMARY | 2025-11-18 13:00 | XMS_ITS | Encounter Summary ---
Author Organization [employer] Address [address] [place] [address] Care Team Providers Care Holistic Nutritionist Name Role Phone NaveedVerenice todd RITA Primary Care Provider [phone] Reason for Visit * Reason Onset Date Comments unable to post insurance 02/23/2025 Encounter Details Date Type Department Care Team ([facility] Contact Info) Description 02/23/2025 Telephone [facility] ADULT DENTAL [address] [place] [address] Loretta Jasso DDS [address] [place] [address] unable to post insurance Social History Tobacco [...] appt. Unable to post insurance portal not [facility] [address] documented in this encounter Plan of Treatment Upcoming Encounters Date Type Department Care Team (Late st Contact Info) Description 01/13/2026 11:00 AM EST Office Visit [facility] MEDICINE [address] [place] [address] Verenice Nixon NP [address] [place] [address] 01/20/2026 2:15 PM EST Office Visit [facility] ADULT DENTAL [address] [place] [address] Willow Eisenberg 02/24/2026 11:00 AM EDT Office Visit [facility] OPTOMETRY [address] [place] [address] Jo-Ann Hinojosa, OD [address] [place] [address] documented as of this encounter Visit Diagnoses Not on filedocumented in this encounter Additional Health Concerns Assessment Noted Time PHQ-9 Depression Total Score: 0 01/17/20 24 10:02 AM EST documented as of this encounter Care Teams Holistic Nutritionist Relationship Specialty Start Date End Date Verenice Nixon NP [address] [place] [phone] PCP - General Family Medicine 11/04/23 documented as of this encounter
--- OUTSIDE RECORDS SUMMARY | 2025-11-18 13:00 | XMS_ITS | Encounter Summary ---
Author Organization [employer] Address [address] [place] [address] Care Team Providers Care Electronic Gluing Machine Operator Name Role Phone Carrie Lucas Primary Care Provider Christina vailable Verenice Nixon NP Primary Care Provider [phone] Verenice Nixon NP Primary Care Provider [phone] Reason for Visit * Reason Comments Med Refill Encounter Details Date Type Department Care Team (Late st Contact Info) Description 11/05/2022 Refill [facility] MED[facility] [address] [place] [address] Carrie Lucas FNP Social History Tobacco Use [...] Description 01/13/2026 11:00 AM EST Office Visit [facility] MED[facility]INE [address] [place] [address] Verenice Nixon NP [address] [place] [address] 01/20/2026 2:15 PM EST Office Visit [facility] ADULT DENTAL [address] [place] [address] Willow Eisenberg 02/24/2026 11:00 AM EDT Office Visit [facility] [address] [place] [address] [place] [address] Jo-Ann Hinojosa, OD [address] [place] [address] documented as of this encounter Visit Diagnoses Not on filedocumented in this encounter Care Teams Electronic Gluing Machine Operator Relationship Specialty Start Date End Date Carrie Lucas FNP PCP - General Family Medicine 11/20/21 09/05/23 Verencie Nixon NP [address] [place] [phone] PCP - General Family Medicine 09/06/23 11/03/23 Verenice Nixon NP [address] [place] [address] PCP - General Family Medicine 11/04/23 documented as of this encounter
--- OUTSIDE RECORDS SUMMARY | 2025-11-18 13:00 | XMS_ITS | Encounter Summary ---
Author Organization [employer] Address [address] [facility] 7t [place] [address] Care Team Providers Care Log Snaker Name Role Phone Verenice Nixon RITA Primary Care Provider [phone] Reason for Visit * Reason Comments Med Refill Encounter Details Date Type Department Care Team ([facility] st Contact Info) Description 03/27/2025 Refill [facility] MEDICINE [address] [place] [address] [phone] Name, MD Dimitri [address] [place] [address] Social History Tobacco Use Types Packs/Day Years [...] Description 01/13/2026 11:00 AM EST Office Visit [facility] MEDICINE [address] [place] [address] Verenice Nixon NP [address] [place] [address] 01/20/2026 2:15 PM EST Office Visit [facility] ADULT DENTAL [address] [place] [address] Willow Eisenberg 02/24/2026 11:00 AM EDT Office Visit [facility] OPTOM[facility]RY [address] [place] [address] Jo-Ann Hinojosa OD [address] [place] [address] documented as of this encounter Visit Diagnoses Not on filedocumented in this encounter Additional Health Concerns Assessment Noted Time PHQ-9 Depression Total Score: 0 01/17/20 24 10:02 AM EST documented as of this encounter Care Teams Log Snaker Relationship Specialty Start Date End Date Verenice Nixon NP [address] [place] [address] PCP - General Family Medicine 11/04/23 documented as of this encounter
--- OUTSIDE RECORDS SUMMARY | 2025-11-18 13:00 | XMS_ITS | Encounter Summary ---
Author Organization [employer] Address [address] [place] [address] 7 [place] [address] Care Team Providers Care Assembler Fitter Name Role Phone Carrie Lucas CARPENTER HELPER MAINTENANCE Primary Care Provider Christina Verenice Gonzalez NP Primary Care Provider [phone] Verenice Nixon NP Primary Care Provider [phone] Encounter Details Date Type Department Care Team (Late st Contact Info) Description 12/07/2022 Orders Only [facility] MED[facility]INE [address] [place] [phone] Maria G Jean, [place] Social History Tobacco [...] Upcoming Encounters Date Type Department Care Team ([facility] Contact Info) Description 01/13/2026 11:00 AM EST Office Visit [facility] MEDICINE [address] [place] [address] Verenice Nixon NP [address] [place] [address] 01/20/2026 2:15 PM EST Office Visit [facility] ADULT DENTAL [address] [place] [address] Willow Eisenberg 02/24/2026 11:00 AM EDT Office Visit [facility] OPT[facility] [address] [place] [phone] TarJo-Ann tello, OD [address] [place] [address] documented as of this encounter Visit Diagnoses Not on filedocumented in this encounter Care Teams Assembler Fitter Relationship Specialty Start Date End Date Carrie Lucas FNP PCP - General Family Medicine 11/20/21 09/05/23 Verenice Nixon NP [address] [place] [address] PCP - General Family Medicine 09/06/23 11/03/23 Verenice Nixon NP [address] [place] [phone] PCP - General Family Medicine 11/04/23 documented as of this encounter
--- OUTSIDE RECORDS SUMMARY | 2025-11-18 13:00 | XMS_ITS | Clinical Summary ---
Author Organization [employer] Address [address] [facility] 7t [place] [address] Care Team Providers Care Residential Aide Name Role Phone Verenice Nixon NP Primary Care Provider [phone] Allergies No known active allergies Medications Multiple [...] NOTE DOSE CHANGE 28 tablet 10/21/20 25 Active lisinopril 30 MG tabletIndications :Primary hypertension [...] (05/21/2025): -following with Dr. Kurt Augustin @ [facility] Assessment & Plan (05/21/2025 1:40 PM EDT): -following with Dr. Kurt Augustin @ [facility] -likely r/t hyperparathyroid -reinforced Dr. Hicks's caution against take calcium supplements and encouraged dietary sources. Examples of non dairy calcium sources provided. Open fracture of tooth 02/23/2025 Pain in both lower extremities 06/23/2024 Assessment & Plan (02/08/2025 1:40 PM EDT): -following with vascular -has started using compression stockings and is scheduled for Assessment & Plan (10/15/2024 12:38 PM EST): -likely venous insufficiency based on patient report -advised continued use of compression stockings and leg elevation as previously discussed -referral to vascular as this has been a long standing complaint of [facility] Assessment & Plan (06/23/2024 5:43 PM EDT): -may be due to venous insufficiency based on patient report -advised to continue elevation when possible -will benefit from use of compression stocking. encouraged to purchase a pair from [employer] as [facility] will not cover -consider venous US and [...] Encounters Date Type Department Care Team Description 11/18/2025 Telephone [facility] [place] [address] Verenice Nixon NP Med Refill 11/18/2025 Refill [facility] [place] [address] Verenice Nixon NP Primary insomnia 11/15/2025 Orders Only GENERIC EXTERNAL DATA DEPARTMENT Provider, Generic External Data 11/04/2025 Orders Only [facility] [place] [address] Verenice Nixon NP Primary hypertension (Primary Dx) 11/04/2025 Telephone [facility] [place] [address] Verenice Nixon NP Med Refill 10/21/2025 Telephone [facility] [place] [address] Verenice Nixon NP February recall 10/20/2025 Telephone [facility] [place] [address] Verenice Nixon NP Med Refill 10/18/2025 Refill [facility] [place] [address] Verenice Nixon NP Primary insomnia 10/11/2025 10:15 AM EST Office Visit [facility] [place] [address] Verenice Nixon NP Lymphadenopathy (Primary Dx) 10/11/2025 Travel 10/08/2025 Telephone [facility] [place] [address] Monica Maria MA chart prep 09/19/2025 Refill [facility] [place] [address] Verenice Nixon NP Anemia, unspecified type 09/16/2025 Refill [facility] [address] [facility] [place] [address] Verenice Nixon NP Primary insomnia from Last [...] Description 01/13/2026 11:00 AM EST Office Visit [facility] [address] [place] [address] Verenice Nixon NP [address] [place] [address] 01/20/2026 2:15 PM EST Office Visit [facility] ADULT DENTAL [address] [place] [address] Willow Eisenberg 02/24/2026 11:00 AM EDT Office Visit [facility] [address] [place], [place] [phone] Jo-Ann Hinojosa, OD [address] [place] [address] Health Maintenance Due Date Last Done Comments [...] RATIO, URINE Routine 11/15/2025 3:43 PM EST CALCIUM, IONIZED Routine 11/15/2025 3:42 PM EST VITAMIN D,25-OH,TOTAL,IA Routine 11/15/2025 3:42 [...] 3:43 PM EST) Creatinine, Urine 106.94 mg/dL [facility] Protein, Total, Random Urine 28(H) <12 mg/dL [facility] Protein/Creati nine Ratio, Ur 0.26(H) <0.2 [facility] Comment:The spot urine prote in:creatinine ratio may increase to 0.3during normal . 11/15/2025 3:43 PM EST 11/15/2025 5:15 PM EST us Generic External Data Provider LAB URINE ORDERAB LES Final Result [facility] [address] [place] [phone] * Vitamin D, 25-Hydroxy, Total, Immunoassay (11/15/2025 3:42 PM EST) Vitamin D 25-OH Total 37.2 >30 ng/mL [facility] Comment: Health Based Reference Values*< 20 ng/mL [id number] ng/mL Insufficient> 30 ng/mL Sufficient*Robin MCLAUGHLIN. N [...] Provider LAB BLOOD ORDERAB LES Final Result [facility] [address] [place] [phone] * (ABNORMAL) CBC auto differential (11/15/2025 3:42 PM EST) White Blood Count 10.6 4.8 - 10.8 X10*3/uL [facility] Red Blood Count 4.02(L) 4.20 - 5.50 X10*6/uL [facility] Hemoglobin 11.2(L) 12.0 - 16.0 g/dl [facility] Hematocrit 33.6(L) 37.0 - 47.0 % [facility] Mean Corpuscular Volume 83.6 80.0 - 98.0 fL [facility] Mean Corpuscular Hemoglobin 27.9 27.0 - 33.0 pg [facility] Mean Corpuscular HGB Conc 33.3 31.0 - 35.0 g/dl [facility] Red Cell Distribution Width 14.7 11.0 - 16.0 % [facility] Platelet Count 232 160 - 400 X10*3/uL [facility] Mean Platelet Volume 11.4 9.4 - 12.3 fL [facility] Neutrophils Percent Auto 57.7 45 - 73 % [facility] Imm Gran Pct Auto 0.6(H) 0.0 - 0.4 % [facility] Lymphocytes Percent Auto 28.1 20 - 40 % [facility] Monocytes Percent Auto 8.8 2 - 11 % [facility] Eosinophils Percent Auto 4.3(H) 0 - 4 % [facility] Basophils Percent Auto 0.5 0 - 2 % [facility] NRBC Pct Auto 0.0 0.0 - 0.2 /100WBC [facility] Neutrophils Absolute Auto 6.1 2.0 - 8.3 x10*3/uL [facility] Imm Gran Abs Auto 0.06(H) 0.00 - 0.03 X10*3/uL [facility] Lymphocytes Absolute Auto 3.0 1.2 - 4.9 X10*3/uL [facility] Monocytes Absolute Auto 0.9 0.1 - 1.2 X10*3/uL [facility] Eosinophils Absolute Auto 0.5(H) 0.0 - 0.4 X10*3/uL [facility] Basophils Absolute Auto 0.1 0.0 - 0.2 X10*3/uL [facility] NRBC Abs Auto 0.000 0.0 - 0.012 X10*3/uL [facility] Blood Venous blood specimen / Unknown 11/15/2025 3:42 PM EST 11/15/2025 3:42 PM EST us Verenice Nixon NP LAB BLOOD ORDERABLES Final Resu lt [facility] [address] [place] [address] [phone] * (ABNORMAL) PTH, Intact Without Calcium (11/15/2025 3:42 PM EST) Parathyroid Hormone, Intact 78.3(H) 8.7 - 77.1 pg/mL [facility] 11/15/2025 3:42 PM EST 11/15/2025 3:42 PM EST Generic External Data Provider LAB BLOOD ORDERAB LES Final Result Performing Organization Address City/[facility]/ZIP Co de Phone Number [facility] [address] [place] [phone] * Calcium, Ionized (11/15/2025 3:42 PM EST) Calcium, Ionized 5.4 4.7 - 5.5 mg/dL [facility] Comment:THIS TEST WAS PERFOR MED AT:[employer] [address] [phone] ESQUIVEL MD 11/15/2025 3:42 PM EST 11/15/2025 3:42 PM EST Generic External Data Provider LAB BLOOD ORDERAB LES Final Result Performing Organization Address City/[facility]/ZIP Co de Phone Number [facility] [address] [place] [phone] * BI Mammogram Screening Tomosynthesis Bilateral (11/11/2025 10:40 AM EST) Anatomical Region Laterality Modality Breast Bilateral Mammography 11/11/2025 10:4 0 AM EST Narrative 11/11/2025 7:34 PM EST [facility] [address] [place], [place] [phone] Mammography Report Signed Patient: Neha Metzger MR#: [id number] : 1960 Acct:[id number] Age/Sex: 65 / F ADM Date: 11/11/25 Loc: HO.MAMMO Attending Dr: Verenice Nixon Ordering Physician: Verenice Nixon Results: 1Negative Date of Service: 11/11/25 Follow Up: 1 Year From Orig inal Mammogram Procedure(s): MM tomosynthesis screening BI Accession Number(s): [id number] cc: Verenice Nixon Reason For Exam: SCREENING [...] by: Cyndee Riley MD 11/11/2025 07:30 PM [facility] Dictated By: Cyndee Riley MD Signed By: <Electronically signed by Cyndee Riley MD in OV> 11/11/25 1930 DD/ 1040 TD/TT: 11/11/25 1104 Test Cell Technician: Procedure Note Donotuseinterpreter, Image - 11/11/2025 [place] [facility] [address] [place] [address] Mammography Report Signed Patient: Jerome Metzger#: [id number] : 1960cct:[id number] Age/Sex: 65 / FADM Date: 11/11/25 Loc: HO.MAMMO Attending Dr: Verenice Nixon Ordering Physician: Verenice NixonResults: 1Negative Date of Service: 12/11/25Follow Up: 1 Year From Orig ina Mammogram Procedure(s): MM tomosynthesis screening BI Accession Number(s): [id number] cc: Verenice Nixon Reason For Exam: SCREENING [...] 11/11/25 1930 DD/ 1040 TD/TT: 11/11/25 1104 Test Cell Technician: Verenice Nixon NP [facility] BI PROCEDURES Edited Result - Final * Cologuard?? colon cancer screening (12/29/2024 4:40 PM EST) Cologuard Result Negative Negative 01/06/20 8:01 PM EST [facility] (CLIA #:[id number]) Comment: NEGATIVE TEST RESULT. A negative Cologuard [...] (Vinod Childress al, N Engl J Med 2014;370(14):2039-8326) The normal value (reference range) for this assay is negative. COLOGUARD RE-SCREENING RECOMMENDATION: Periodic colorectal cancer screening is an important part of preventive healthcare for asymptomatic individuals at average risk for colorectal cancer. Following a negative Cologuard result, the [place] [employer] Society and U.S. Multi-Society Task Force screening guidelines recommend a Cologuard re-screening interval of 3 years. References: [place] [employer] Guideline for Colorectal Cancer Screening: https://www.cancer.org/cancer/pfhxn-tizahi-zlwxri/jyktdtffw-ypatstfql-sokifpl/ac s-rec ommendations.html.; Arun VILLALOBOS, Jocelin ORONA, Cheikh VelázquezK, Colorectal Cancer Screening: Recommendations for Physicians and Patients from the U.S. Multi-Society Task Force on Colorectal Cancer Screening , Am J Gastroenterology 2017; 112:4751-6078. TEST DESCRIPTION: Composite algorithmic analysis of stool [...] (Vinod Childress al, N Engl J Med 2014;370(14):3988-8197.) Cologuard may produce a false negative or false positive result (no colorectal cancer or precancerous polyp present at colonoscopy follow up). A negative Cologuard test result does not guarantee the absence of CRC or advanced adenoma (pre-cancer). The current Cologuard screening interval is every 3 years. ([place] [employer] and U.S. Multi-Society Task Force). Cologuard performance data in a 10,000 patient pivotal study using colonoscopy as the reference method can be accessed at the following location: www.[employer]/results. Additional description of the Cologuard test process, warnings and precautions can be found at www.H[employer].comrd.[facility]. Stool specimen (specimen) 12/29/2024 4:40 PM EST 12/31/2024 1:15 PM EST [facility] MOLECULAR DIAGNOSTICS ORDER WALDEMAR Final Result [facility] (CLIA #:[id number]) [place] [address], * (ABNORMAL) Lipid Panel, Standard (12/16/2024 10:47 AM EST) Triglycerides 112 <150 mg/dL [facility] Comment:Desirable Triglyceri de: less than 150 mg/dLBorderline High Triglyceride 150-199 mg/dLHigh Triglyceride: 200-499 mg/dLVery High Triglyceride: greater than or equal to 5OO mg/dL Cholesterol 198 <200 mg/dL [facility] Comment:Desirable Cholestero l: less than 200 mg/dLBorderline High Cholesterol: 200-239 mg/dLHigh Cholesterol: greater than 239 mg/dL LDL Cholesterol Calculated 119(H) <100 mg/dL [facility] Comment:Desirable LDL: less than 100 mg/dLNear Optimal/Above Optimal LDL: 110- 129 mg/dLBorderline High LDL: 130-159 mg/dLHigh LDL: 160-189 mg/dLVery High LDL: greater than or equal to 190 mg/dL HDL Cholesterol 57 >40 mg/dL [facility] Comment:Desirable HDL: great er than 40 mg/dL Note: This HDL assay may give artificially low results in patients with liver disease. Blood Venous blood specimen / Unknown 12/16/2024 10:47 AM EST 12/16/2024 1:05 PM EST us Verenice Nixon ZMT OPERATOR LAB BLOOD ORDERABLES Final Resu lt Performing Organization Address [facility]/ZIP Co de Phone Number [facility] [address] [place] [phone] * Hepatitis C Antibody with Reflex to HCV, RNA, Quantitative, Real-Time PCR (10/30/2023 10:53 AM EST) Hepatitis C Antibody Nonreactive Nonreactive [facility] Comment:Antibodies to HCV no t detected; does not exclude early acuteHCV infection. Blood Venous blood specimen / Unknown 10/30/2023 10:53 AM EST 10/30/2023 11:19 AM EST us Tamara Siegel MD LAB BLOOD ORDERABLES Final Re sult Performing Organization Address [facility] Co de Phone Number [facility] [address] [place] [phone] * HIV-1/2 Antigen and Antibodies, Fourth Generation, with Reflexes (10/30/2023 10:53 AM EST) HIV AB/AG Nonreactive Nonreactive [facility] Comment:HIV-1 p24 Ag and/or HIV-1/HIV-2 Ab not detected.A test result that is nonreactive does not exclude thepossibility of exposure to or infection with HIV-1 and/orHIV-2. Nonreactive results in this assay for individualswith prior exposure to HIV-1 and/or HIV-2 may be due toantigen and antibody levels that are below the limit ofdetection of this assay.The [employer] HIV Ag/Ab Combo assay result andsupplemental assay results should be interpreted inconjunction with the patient's clinical presentation,history and other laboratory results. If the results areinconsistent with clinical evidence, additional testing issuggested to confirm the result. Blood Venous blood specimen / Unknown 10/30/2023 10:53 AM EST 10/30/2023 11:19 AM EST us Tamara Siegel MD LAB BLOOD ORDERABLES Final Re sult [facility] [address] [place] [address] [phone] from Last 3 Months or Most Recently Relevant to Health Maintenance Insurance [facility] EYE MED DENTAL - HSN PARTIAL (MEDICAID) * Guarantor: Neha Metgzer Account Type Relation to Patient Date of Phone Billing Address Personal/Family Self [address] Care Teams Residential Aide Relationship Specialty Start Date End Date Verenice Nixon NP [address] [place] [phone] PCP - General Family Medicine 11/04/23
--- OUTSIDE RECORDS SUMMARY | 2025-11-18 13:00 | XMS_ITS | Encounter Summary ---
Author Organization [employer] Address [address] [facility] 7t [place] [address] Care Team Providers Care Automobile Damage Appraiser Name Role Phone Verenice Nixon RITA Primary Care Provider [phone] Encounter Details Date Type Department Care Team ([facility] Contact Info) Description 11/15/2025 Orders Only GENERIC [...] Description 01/13/2026 11:00 AM EST Office Visit [facility] [address] [place] [address] Verenice Nixon NP [address] [place] [address] 01/20/2026 2:15 PM EST Office Visit [facility] ADULT DENTAL [address] [place] [address] Willow Eisenberg 02/24/2026 11:00 AM EDT Office Visit [facility] [address] [place] [address] Jo-Ann Hinojosa, OD [address] [place] [address] documented as of this encounter Procedures Procedure Name Priority Date/Time Associated Diagnosis Comments PROTEIN CREATININE RATIO, URINE Routine 11/15/2025 3:43 PM EST VITAMIN D,25-OH,TOTAL,IA Routine 11/15/2025 3:42 PM EST PTH, INTACT WITHOUT CALCIUM Routine 11/15/2025 3:42 PM EST CALCIUM, IONIZED Routine 11/15/2025 3:42 PM EST documented in this encounter Results * (ABNORMAL) Protein Creatinine Ratio, Urine (11/15/2025 3:43 PM EST) Creatinine, Urine 106.94 mg/dL [facility] Protein, Total, Random Urine 28(H) <12 mg/dL [facility] Protein/Creati nine Ratio, Ur 0.26(H) <0.2 [facility] Comment:The spot urine prote in:creatinine ratio may increase to 0.3during normal . 11/15/2025 3:43 PM EST 11/15/2025 5:15 PM EST Generic External Data Provider LAB URINE ORDERAB LES Final Result Performing Organization Address [facility] Co de Phone Number [facility] [address] [place] [phone] * Calcium, Ionized (11/15/2025 3:42 PM EST) Calcium, Ionized 5.4 4.7 - 5.5 mg/dL [facility] Comment:THIS TEST WAS PERFOR MED AT:[facility] [place] [phone] ESQUIVEL MD 11/15/2025 3:42 PM EST 11/15/2025 3:42 PM EST Generic External Data Provider LAB BLOOD ORDERAB LES Final Result Performing Organization Address [facility] Co de Phone Number [facility] [address] [place] [phone] * Vitamin D, 25-Hydroxy, Total, Immunoassay (11/15/2025 3:42 PM EST) Vitamin D 25-OH Total 37.2 >30 ng/mL [facility] Comment: Health Based Reference Values*< 20 ng/mL Ssmscfvwf16-64 ng/mL Insufficient> 30 ng/mL Sufficient*Robin MCLAUGHLIN. N [...] ORDERAB LES Final Result Performing Organization Address City/[facility]/ZIP Co de Phone Number [facility] [address] [place] [phone] * (ABNORMAL) PTH, Intact Without Calcium (11/15/2025 3:42 PM EST) Parathyroid Hormone, Intact 78.3(H) 8.7 - 77.1 pg/mL [facility] 11/15/2025 3:42 PM EST 11/15/2025 3:42 PM EST Generic External Data Provider LAB BLOOD ORDERAB LES Final Result Performing Organization Address [facility]/ZIP Co de Phone Number [facility] [address] [place] [phone] documented in this encounter Visit Diagnoses Not on filedocumented in this encounter Additional Health Concerns Assessment Noted Time PHQ-9 Depression Total Score: 5 05/21/20 25 11:43 AM EDT documented as of this encounter Care Teams Automobile Damage Appraiser Relationship Specialty Start Date End Date Verenice Nixon NP [address] [place] [address] PCP - General Family Medicine 11/04/23 documented as of this encounter
--- OUTSIDE RECORDS SUMMARY | 2025-11-18 13:00 | XMS_ITS | Encounter Summary ---
Author Organization [employer] Address 75 [facility] 7t [place] [address] Care Team Providers Care News Production Assistant Name Role Phone Verenice Nixon NP Primary Care Provider [phone] Encounter Details Date Type Department Care Team ([facility] Contact Info) Description 11/04/2025 Orders Only [facility] MEDICINE [address] [place] [address] Verenice Nixon NP 230 [place] [address] Primary hypertension (Primary Dx) Social History Tobacco [...] Description 01/13/2026 11:00 AM EST Office Visit [facility] MEDICINE 230 [place] [address] Verenice Nixon NP 230 [place] [address] 01/20/2026 2:15 PM EST Office Visit [facility] ADULT DENTAL 230 [place] [address] Willow Eisenberg 02/24/2026 11:00 AM EDT Office Visit [facility] OPTOMETRY [address] [place] [address] Jo-Ann Hinojosa, JAYDON [address] [place] [address] documented as of this encounter Procedures Procedure Name Priority Date/Time Associated Diagnosis Comments BI MAMMOGRAM SCREENING TOMOSYNTHESIS BILATERAL Routine 11/11/2025 10:40 AM EST documented in this encounter Results * BI Mammogram Screening Tomosynthesis Bilateral (11/11/2025 10:40 AM EST) Anatomical Region Laterality Modality Breast Bilateral Mammography 11/11/2025 10:4 0 AM EST Narrative 11/11/2025 7:34 PM EST [facility]'s [address] [place] [address] Mammography Report Signed Patient: Neha [place] MR#: [id number] : 1960 Acct:[id number] Age/Sex: 65 / F ADM Date: 11/11/25 Loc: HO.MAMMO Attending Dr: Verenice Nixon Ordering Physician: Verenice Nixon Results: 1Negative Date of Service: 11/11/25 Follow Up: 1 Year From Orig inal Mammogram Procedure(s): MM tomosynthesis screening BI Accession Number(s): [id number] cc: Verenice Nixon Reason For Exam: SCREENING [...] 11/11/25 1930 DD/ 1040 TD/TT: 11/11/25 1104 Body Wirer: Procedure Note Donotdoriinterpreter, Image - 11/11/2025 [facility] [address] [place] [address] Mammography Report Signed Patient: Jerome [place]#: [id number] : 1960cct:[id number] Age/Sex: 65 / FADM Date: 11/11/25 Loc: HO.MAMMO Attending Dr: Verenice Nixon Ordering Physician: Verenice NixonResults: 1Negative Date of Service: 11/11/25Follow Up: 1 Year From Orig inal Mammogram Procedure(s): MM tomosynthesis screening BI Accession Number(s): [id number] cc: Verenice Nixon Reason For Exam: SCREENING [...] by: Cyndee Riley MD 11/11/2025 07:30 PM [facility] [place] Dictated By: Cyndee Riley MD Signed By: <Electronically signed by Cyndee Riley MD in OV> 11/11/25 1930 DD/ 1040 TD/TT: 11/11/25 1104 Body Wirer: Verenice Nixon NP IMG BI PROCEDURES Edited Result - Final documented in this encounter Visit Diagnoses Diagnosis Primary hypertension- Primary Unspecified essential hypertension documented in this encounter Additional Health Concerns Assessment Noted Time PHQ-9 Depression Total Score: 5 05/21/20 11:43 AM EDT documented as of this encounter Care Teams News Production Assistant Relationship Specialty Start Date End Date Verenice Nixon NP [address] [place] [address] PCP - General Family Medicine 11/04/23 documented as of this encounter
--- OUTSIDE RECORDS SUMMARY | 2025-11-18 13:00 | XMS_ITS | Encounter Summary ---
Author Organization [employer] Address [address] [facility] 7t [place] [address] Care Team Providers Care Scaleman Name Role Phone Verenice Nixon NP Primary Care Provider Reason for Visit * Reason Onset Date Comments Med Refill 11/04/2025 Encounter Details Date Type Department Care Team ([facility] Contact Info) Description 11/04/2025 Telephone [facility] MEDICINE 230 [place], [place] [phone] Verenice Nixon NP [address] [place] [address] Med Refill Social History Tobacco Use Types [...] 30 MG tablet To be sent to: [facility]/pharmacy #[id number] [place] [address] documented in this encounter Plan of Treatment Upcoming Encounters Date Type Department Care Team (Late st Contact Info) Description 01/13/2026 11:00 AM EST Office Visit [facility] MEDICINE 230 [place], [place] [phone] Verenice Nixon NP [address] [place] [address] 01/20/2026 2:15 PM EST Office Visit [facility] ADULT DENTAL 230 [place] [address] Faina Willow 02/24/2026 11:00 AM EDT Office Visit [facility] OPTOMETRY 267 [place] [address] Jo-Ann Hinojosa, OD [address] [place] [address] documented as of this encounter Visit Diagnoses Not on filedocumented in this encounter Additional Health Concerns Assessment Noted Time PHQ-9 Depression Total Score: 5 05/21/20 25 11:43 AM EDT documented as of this encounter Care Teams Scaleman Relationship Specialty Start Date End Date Verenice Nixon NP [address] [place] [address] PCP - General Family Medicine 11/04/23 documented as of this encounter
--- OUTSIDE RECORDS SUMMARY | 2025-11-18 13:01 | XMS_ITS | Encounter Summary ---
Author Organization [employer] Address [address] [place] [address] 7t [place] [address] Care Team Providers Care Baster Hand Name Role Phone LanceCarrie EVENT STAFF Primary Care Provider Christina Verenice Gonzalez NP Primary Care Provider [phone] Verenice Nixon NP Primary Care Provider [phone] Encounter Details Date Type Department Care Team (Late st Contact Info) Description 04/02/2023 Orders Only [facility] CHC MED & PEDS [address] [place] [address] Beatriz Castillo LPN Social History Tobacco Use [...] 11:00 AM EST Office Visit [facility] MEDICINE 230 [place] [address] Verenice Nixon NP 230 [place], [place] [phone] 01/20/2026 2:15 PM EST Office Visit [facility] ADULT DENTAL 230 [place] [address] Willow Eisenberg 02/24/2026 11:00 AM EDT Office Visit [facility] OPTOMETRY [address] [place] [address] Jo-Ann Hinojosa, OD [address] [place] [address] documented as of this encounter Visit Diagnoses Not on filedocumented in this encounter Care Teams Baster Hand Relationship Specialty Start Date End Date Carrie Lucas FNP PCP - General Family Medicine 11/20/21 09/05/23 Verenice Nixon NP [address] [place] [address] PCP - General Family Medicine 09/06/23 11/03/23 Verenice Nixon NP [address] [place] [address] PCP - General Family Medicine 11/04/23 documented as of this encounter
--- OUTSIDE RECORDS SUMMARY | 2025-11-18 13:01 | XMS_ITS | Encounter Summary ---
Author Organization [employer] Address 75 [facility] 7t [place] [address] Care Team Providers Care Retail Sales Teammate Name Role Phone Verenice Nixon NP Primary Care Provider [phone] Reason for Visit * Reason Comments Med Refill Encounter Details Date Type Department Care Team ([facility] st Contact Info) Description 02/09/2024 Refill [facility] MEDICINE 230 [place] [address] Verenice Nixon NP 230 [place] [address] Primary insomnia Social History Tobacco Use Types [...] Description 01/13/2026 11:00 AM EST Office Visit [facility] MEDICINE [address] [place] [address] Verenice Nixon NP 230 [place] [address] 01/20/2026 2:15 PM EST Office Visit [facility] ADULT DENTAL 230 [place] [address] Willow Eisenberg 02/24/2026 11:00 AM EDT Office Visit [facility] OPTOMETRY [address] [place] [address] Jo-Ann Hinojosa OD [address] [place] [address] documented as of this encounter Visit Diagnoses Diagnosis Primary insomnia Persistent disorder of initiating or maintaining sleep documented in this encounter Additional Health Concerns Assessment Noted Time PHQ-9 Depression Total Score: 0 01/17/20 24 10:02 AM EST documented as of this encounter Care Teams Retail Sales Teammate Relationship Specialty Start Date End Date Verenice Nixon NP 230 [place] [address] PCP - General Family Medicine 11/04/23 documented as of this encounter
--- OUTSIDE RECORDS SUMMARY | 2025-11-18 13:01 | XMS_ITS | Encounter Summary ---
Author Organization [employer] Address [address] [place] [address] 7t [place] [address] Care Team Providers Care Salt Miner Name Role Phone LanceCarrie PRODUCT DEVELOPMENT CARPENTER Primary Care Provider Christina Verenice Gonzalez NP Primary Care Provider [phone] Verenice Nixon NP Primary Care Provider [phone] Encounter Details Date Type Department Care Team (Late st Contact Info) Description 03/11/2023 Orders Only [facility] CHC MED & PEDS 505 [place] [address] Beatriz Castillo LPN Social History Tobacco Use [...] 11:00 AM EST Office Visit [facility] MEDICINE 230 [place] [address] Verenice Nixon NP 230 [place], [place] [phone] 01/20/2026 2:15 PM EST Office Visit [facility] ADULT DENTAL 230 [place] [address] Willow Eisenberg 02/24/2026 11:00 AM EDT Office Visit [facility] OPTOMETRY [address] [place] [address] Jo-Ann Hinojosa, OD [address] [place] [address] documented as of this encounter Visit Diagnoses Not on filedocumented in this encounter Care Teams Salt Miner Relationship Specialty Start Date End Date Carrie Lucas FNP PCP - General Family Medicine 11/20/21 09/05/23 Verenice Nixon NP [address] [place] [address] PCP - General Family Medicine 09/06/23 11/03/23 Verenice Nixon NP [address] [place] [address] PCP - General Family Medicine 11/04/23 documented as of this encounter
--- OUTSIDE RECORDS SUMMARY | 2025-11-18 13:01 | XMS_ITS | Encounter Summary ---
Author Organization [employer] Address [address] [facility] [address] 7t [place] [address] Care Team Providers Care Pipe Racker Name Role Phone Verenice Nixon RITA Primary Care Provider [phone] Reason for Visit * Reason Comments Med Refill Encounter Details Date Type Department Care Team ([facility] st Contact Info) Description 12/09/2023 Refill [facility] MEDICINE 230 [place] [address] Tamara Siegel MD 505 [place] [address] Primary insomnia Social History Tobacco Use Types [...] 01/13/2026 11:00 AM EST Office Visit [facility] MEDICINE [address] [place] [address] Verenice Nixon NP 230 [place] [address] 01/20/2026 2:15 PM EST Office Visit [facility] ADULT DENTAL [address] [place] [address] Willow Eisenberg 02/24/2026 11:00 AM EDT Office Visit [facility] OPTOMETRY [address] [place] [address] TarJo-Ann tello, OD [address] [place] [address] documented as of this encounter Visit Diagnoses Diagnosis Primary insomnia Persistent disorder of initiating or maintaining sleep documented in this encounter Additional Health Concerns Assessment Noted Time PHQ-9 Depression Total Score: 3 10/30/20 23 9:52 AM EST documented as of this encounter Care Teams Pipe Racker Relationship Specialty Start Date End Date Verenice Nixon NP 230 [place] [address] PCP - General Family Medicine 11/04/23 documented as of this encounter
--- OUTSIDE RECORDS SUMMARY | 2025-11-18 13:01 | XMS_ITS | Encounter Summary ---
Author Organization [employer] Address 75 [facility] 7t [place] [address] Care Team Providers Care Carpentry Foreman Name Role Phone Verenice Nixon NP Primary Care Provider [phone] Reason for Visit * Reason Onset Date Comments Med Refill 11/18/2025 Encounter Details Date Type Department Care Team ([facility] Contact Info) Description 11/18/2025 Telephone [facility] MEDICINE [address] [place], [place] [phone] Verenice Nixon NP 230 [place] [address] Med Refill Social History Tobacco Use Types [...] Telephone Encounter - Nery Oliveira LPN - 11/18/2025 12:44 PM EST Pended to pcp * Telephone Encounter - Rigoberto Birmingham - 11/18/2025 12:40 PM EST TC from pt requesting medication refill. Medications needing refill : zolpidem (Ambien) 5 MG tablet To be sent to: [facility]/pharmacy #[id number] [place] [address] documented in this encounter Plan of Treatment Upcoming Encounters Date Type Department Care Team (Late st Contact Info) Description 01/13/2026 11:00 AM EST Office Visit [facility] MEDICINE [address] [place], [place] [phone] Verenice Nixon NP 230 [place] [address] 01/20/2026 2:15 PM EST Office Visit [facility] ADULT DENTAL [address] [place] [address] Faina Willow 02/24/2026 11:00 AM EDT Office Visit [facility] OPTOMETRY [address] [place] [address] Jo-Ann Hinojosa, OD 267 [place] [address] documented as of this encounter Visit Diagnoses Not on filedocumented in this encounter Additional Health Concerns Assessment Noted Time PHQ-9 Depression Total Score: 5 05/21/20 25 11:43 AM EDT documented as of this encounter Care Teams Carpentry Foreman Relationship Specialty Start Date End Date Verenice Nixon NP 230 [place] [address] PCP - General Family Medicine 11/04/23 documented as of this encounter
--- OUTSIDE RECORDS SUMMARY | 2025-11-18 13:01 | XMS_ITS | Encounter Summary ---
Author Organization [employer] Address [address] [place] [address] 7t [place] [address] Care Team Providers Care Geologist Petroleum Name Role Phone Verenice Nixon VENEER CLIPPER HELPER Primary Care Provider [phone] Verenice Nixon VENEER CLIPPER HELPER Primary Care Provider [phone] Encounter Details Date Type Department Care Team ([facility] Contact Info) Description 11/01/2023 Orders Only [facility] MEDICINE [address] [place] [address] Regi Marsh FNP Social History Tobacco Use [...] Upcoming Encounters Date Type Department Care Team ([facility] Contact Info) Description 01/13/2026 11:00 AM EST Office Visit [facility] MED[facility]INE 230 [place] [address] Verenice Nixon NP [address] [place] [address] 01/20/2026 2:15 PM EST Office Visit [facility] ADULT DENTAL 230 [place] [address] Willow Eisenberg 02/24/2026 11:00 AM EDT Office Visit [facility] OPTOMETRY [address] [place] [address] TarkaJo-Ann, OD [address] [place] [address] documented as of this encounter Visit Diagnoses Not on filedocumented in this encounter Additional Health Concerns Assessment Noted Time PHQ-9 Depression Total Score: 3 10/30/20 9:52 AM EST documented as of this encounter Care Teams Geologist Petroleum Relationship Specialty Start Date End Date Verenice Nixon NP [address] [place] [address] PCP - General Family Medicine 09/06/23 11/03/23 Verenice Nixon NP [address] [place] [address] PCP - General Family Medicine 11/04/23 documented as of this encounter
--- OUTSIDE RECORDS SUMMARY | 2025-11-18 13:01 | XMS_ITS | Encounter Summary ---
Author Organization [employer] Address 75 [facility] 7t [place] [address] Care Team Providers Care Head Refrigerating Engineer Name Role Phone Verenice Nixon NP Primary Care Provider [phone] Reason for Visit * Reason Comments Med Refill Encounter Details Date Type Department Care Team ([facility] st Contact Info) Description 11/18/2025 Refill [facility] MEDICINE [address] [place] [address] Verenice Nixon NP 230 [place] [address] Primary insomnia Social History Tobacco Use Types [...] EST Office Visit [facility] MEDICINE [address] [place] [address] Verenice Nixon NP [address] [place] [address] 01/20/2026 2:15 PM EST Office Visit [facility] ADULT DENTAL [address] [place] [address] Willow Eisenberg 02/24/2026 11:00 AM EDT Office Visit [facility] OPTOMETRY [address] [place] [address] Jo-Ann Hinojosa, OD [address] [place] [address] documented as of this encounter Visit Diagnoses Diagnosis Primary insomnia Persistent disorder of initiating or maintaining sleep documented in this encounter Additional Health Concerns Assessment Noted Time PHQ-9 Depression Total Score: 5 05/21/20 25 11:43 AM EDT documented as of this encounter Care Teams Head Refrigerating Engineer Relationship Specialty Start Date End Date Verenice Nixon NP 230 [place] [address] PCP - General Family Medicine 11/04/23 documented as of this encounter
--- OUTSIDE RECORDS SUMMARY | 2025-11-18 13:01 | XMS_ITS | Encounter Summary ---
Author Organization [employer] Address 75 [facility] 7t [place] [address] Care Team Providers Care Jewelry Maker Name Role Phone Verenice Nixon NP Primary Care Provider [phone] Reason for Visit * Reason Onset Date Comments Med Refill 02/19/2024 Encounter Details Date Type Department Care Team ([facility] Contact Info) Description 02/19/2024 Telephone [facility] MEDICINE 230 [place], [place] [phone] Verenice Nixon NP 230 [place] [address] Med Refill Social History Tobacco Use Types [...] 1:45 PM EDT Medication was sent to [facility] #[id number] on 01/23/24 90 day supply. * Telephone Encounter - Harlan Colon - 02/19/2024 1:39 PM EDT TC from pt requesting medication refill. Medications needing refill : rosuvastatin (Crestor) 40 MG tablet To be sent to: [facility]/pharmacy #[id number] - [place], [place] - [address] [place] [address] documented in this encounter Plan of Treatment Upcoming Encounters Date Type Department Care Team (Late st Contact Info) Description 01/13/2026 11:00 AM EST Office Visit [facility] MEDICINE 230 [place] [address] Verenice Nixon NP 230 [place] [address] 01/20/2026 2:15 PM EST Office Visit [facility] ADULT DENTAL [address] [place] [address] Willow Eisenberg 02/24/2026 11:00 AM EDT Office Visit [facility] OPTOMETRY [address] [place] [address] Agustinaomer Jo-Ann, OD [address] [place] [address] documented as of this encounter Visit Diagnoses Not on filedocumented in this encounter Additional Health Concerns Assessment Noted Time PHQ-9 Depression Total Score: 0 01/17/20 24 10:02 AM EST documented as of this encounter Care Teams Jewelry Maker Relationship Specialty Start Date End Date Verenice Nixon NP [address] [place] [address] PCP - General Family Medicine 11/04/23 documented as of this encounter
== END 2025-11-18 11:03 | disposition home or self-care (01) ==
LOC: HO.ENCR 10:27
PROVIDERS: PCP Nurse Practitioner; Visit Provider Student in an Organized Health Care Education/Training Program
DX: E04.2 Nontoxic multinodular goiter (principal); E83.52 Hypercalcemia
CPT/HCPCS: 99214

== ENCOUNTER → 2025-11-18 10:27 | Outpatient (BNVA) | payer OTHER, SELFPAY | PROVIDERS: PCP Nurse Practitioner; Visit Provider Student in an Organized Health Care Education/Training Program | DX: E04.2 Nontoxic multinodular goiter (principal); E83.52 Hypercalcemia | CPT/HCPCS: 99212 ==

== ENCOUNTER 2025-11-26 12:13 | Outpatient (AMB) | payer OTHER, SELFPAY ==
--- OUTSIDE RECORDS SUMMARY | 2025-11-26 12:16 | XMS_ITS | Encounter Summary ---
Author Organization [employer] Address 75 [facility] 7t [place] [address] Care Team Providers Care Wallpaper Remover Steam Name Role Phone Verenice Nixon NP Primary Care Provider [phone] Reason for Visit * Reason Onset Date Comments Med Refill 02/19/2024 Encounter Details Date Type Department Care Team ([facility] Contact Info) Description 02/19/2024 Telephone [facility] MEDICINE 230 [place], [place] [phone] Verenice Nixon NP 230 [place] [address] Med Refill Social History Tobacco Use Types [...] 1:45 PM EDT Medication was sent to [facility] #[id number] on 01/23/24 90 day supply. * Telephone Encounter - Harlan Colon - 02/19/2024 1:39 PM EDT TC from pt requesting medication refill. Medications needing refill : rosuvastatin (Crestor) 40 MG tablet To be sent to: [facility]/pharmacy #[id number] - [place], [place] - [address] [place] [address] documented in this encounter Plan of Treatment Upcoming Encounters Date Type Department Care Team (Late st Contact Info) Description 01/13/2026 11:00 AM EST Office Visit [facility] MEDICINE 230 [place] [address] Verenice Nixon NP [address] [place] [address] 01/20/2026 2:15 PM EST Office Visit [facility] ADULT DENTAL 230 [place] [address] Willow Eisenberg 02/24/2026 11:00 AM EDT Office Visit [facility] OPTOMETRY [address] [place] [address] Agustinaomer Jo-Ann, OD [address] [place] [address] documented as of this encounter Visit Diagnoses Not on filedocumented in this encounter Additional Health Concerns Assessment Noted Time PHQ-9 Depression Total Score: 0 01/17/20 24 10:02 AM EST documented as of this encounter Care Teams Wallpaper Remover Steam Relationship Specialty Start Date End Date Verenice Nixon NP [address] [place] [address] PCP - General Family Medicine 11/04/23 documented as of this encounter
--- OUTSIDE RECORDS SUMMARY | 2025-11-26 12:16 | XMS_ITS | Encounter Summary ---
Author Organization [employer] Address 75 [facility] 7t [place] [address] Care Team Providers Care Territory Account Executive Name Role Phone Verenice Nixon NP Primary Care Provider [phone] Encounter Details Date Type Department Care Team ([facility] Contact Info) Description 11/20/2025 Results Follow-Up [facility] MEDICINE [address] [place] [address] Verenice Nixon NP [address] [place] [address] PTH, Intact Without Calcium, Vitamin D, 25-Hydroxy, Total, Immunoassay, Protein Creatinine Ratio, Urine, Calcium, Ionized Social History Tobacco Use Types Packs/Day Years [...] Description 01/13/2026 11:00 AM EST Office Visit [facility] MEDICINE [address] [place] [address] Verenice Nixon NP [address] [place] [address] 01/20/2026 2:15 PM EST Office Visit [facility] ADULT DENTAL [address] [place] [address] Willow Eisenberg 02/24/2026 11:00 AM EDT Office Visit [facility] OPTOMETRY [address] [place] [address] Jo-Ann Hinojosa OD [address] [place] [address] documented as of this encounter Visit Diagnoses Not on filedocumented in this encounter Additional Health Concerns Assessment Noted Time PHQ-9 Depression Total Score: 5 05/21/20 25 11:43 AM EDT documented as of this encounter Care Teams Territory Account Executive Relationship Specialty Start Date End Date Verenice Nixon NP 230 [place] [address] PCP - General Family Medicine 11/04/23 documented as of this encounter
--- OUTSIDE RECORDS SUMMARY | 2025-11-26 12:16 | XMS_ITS | Encounter Summary ---
Author Organization [employer] Address [address] [place] [address] 7t [place] [address] Care Team Providers Care Horizontal Resaw Operator Name Role Phone LanceCarrie LUMBER TYING MACHINE OPERATOR Primary Care Provider Christina vailable Verenice Nixon TRANSPORTATION PLANNING TECHNICIAN Primary Care Provider [phone] Verenice Nixon NP Primary Care Provider [phone] Encounter Details Date Type Department Care Team (Late st Contact Info) Description 01/02/2023 Orders Only [facility] CHC MED & PEDS [address] [place] [address] Beatriz Castillo LPN Social History Tobacco Use [...] 01/13/2026 11:00 AM EST Office Visit [facility] MEDICINE [address] [place] [address] Verenice Nixon NP [address] [place] [address] 01/20/2026 2:15 PM EST Office Visit [facility] ADULT DENTAL [address] [place] [address] Willow Eisenberg 02/24/2026 11:00 AM EDT Office Visit [facility] OPTOMETRY [address] [place] [address] Jo-Ann Hinojosa, OD [address] [place] [address] documented as of this encounter Visit Diagnoses Not on filedocumented in this encounter Care Teams Horizontal Resaw Operator Relationship Specialty Start Date End Date Carrie Lucas FNP PCP - General Family Medicine 11/20/21 09/05/23 Verenice Nixon NP [address] [place] [address] PCP - General Family Medicine 09/06/23 11/03/23 Verenice Nixon NP [address] [place] [address] PCP - General Family Medicine 11/04/23 documented as of this encounter
--- OUTSIDE RECORDS SUMMARY | 2025-11-26 12:16 | XMS_ITS | Encounter Summary ---
Author Organization [employer] Address [address] [place] [address] 7t [place] [address] Care Team Providers Care Frit Coater Name Role Phone LanceCarrie LOAN OPERATIONS MANAGER Primary Care Provider Christina Verenice Gonzalez NP Primary Care Provider [phone] Verenice Nixon NP Primary Care Provider [phone] Encounter Details Date Type Department Care Team (Late st Contact Info) Description 04/02/2023 Orders Only [facility] CHC MED & PEDS [address] [place] [address] Beatriz Castillo LPN Social History Tobacco Use [...] Office Visit [facility] MEDICINE [address] [place] [address] Verenice Nixon NP [address] [place], [place] [phone] 01/20/2026 2:15 PM EST Office Visit [facility] ADULT DENTAL [address] [place] [address] Willow Eisenberg 02/24/2026 11:00 AM EDT Office Visit [facility] OPTOMETRY [address] [place] [address] Jo-Ann Hinojosa, OD [address] [place] [address] documented as of this encounter Visit Diagnoses Not on filedocumented in this encounter Care Teams Frit Coater Relationship Specialty Start Date End Date Carrie Lucas FNP PCP - General Family Medicine 11/20/21 09/05/23 Verenice Nixon NP [address] [place] [address] PCP - General Family Medicine 09/06/23 11/03/23 Verenice Nixon NP [address] [place] [address] PCP - General Family Medicine 11/04/23 documented as of this encounter
--- OUTSIDE RECORDS SUMMARY | 2025-11-26 12:16 | XMS_ITS | Encounter Summary ---
Author Organization [employer] Address [address] [place] [address] 7t [place] [address] Care Team Providers Care Percussion Tuner Name Role Phone LanceCarrie INTERN Primary Care Provider Christina Verenice Gonzalez NP Primary Care Provider [phone] Verenice Nixon NP Primary Care Provider [phone] Encounter Details Date Type Department Care Team (Late st Contact Info) Description 03/11/2023 Orders Only [facility] CHC MED & PEDS [address] [place] [address] Beatriz Castillo LPN Social History Tobacco Use [...] 11:00 AM EST Office Visit [facility] MEDICINE [address] [place] [address] Verenice Nixon NP [address] [place] [address] 01/20/2026 2:15 PM EST Office Visit [facility] ADULT DENTAL [address] [place] [address] Willow Eisenberg 02/24/2026 11:00 AM EDT Office Visit [facility] OPTOMETRY [address] [place] [address] Jo-Ann Hinojosa, OD [address] [place] [address] documented as of this encounter Visit Diagnoses Not on filedocumented in this encounter Care Teams Percussion Tuner Relationship Specialty Start Date End Date Carrie Lucas FNP PCP - General Family Medicine 11/20/21 09/05/23 Verenice Nixon NP [address] [place] [address] PCP - General Family Medicine 09/06/23 11/03/23 Verenice Nixon NP [address] [place] [address] PCP - General Family Medicine 11/04/23 documented as of this encounter
--- OUTSIDE RECORDS SUMMARY | 2025-11-26 12:16 | XMS_ITS | Encounter Summary ---
Author Organization [employer] Address [address] [place] [address] 7 [place] [address] Care Team Providers Care Wall Mirror Department Supervisor Name Role Phone Carrie Lucas BUSHEL GIRL Primary Care Provider Chrisitna Verenice Gonzalez NP Primary Care Provider [phone] Verenice Nixon NP Primary Care Provider [phone] Encounter Details Date Type Department Care Team (Late st Contact Info) Description 12/07/2022 Orders Only [facility] [place] [facility] MEDICINE [address] [place] [address] Maria G Jean, DEN Social History Tobacco [...] Upcoming Encounters Date Type Department Care Team ([facility] Contact Info) Description 01/13/2026 11:00 AM EST Office Visit [facility] [place] [facility] MEDICINE [address] [place] [address] Verenice Nixon NP [address] [place] [address] 01/20/2026 2:15 PM EST Office Visit [facility] [place] [facility] ADULT DENTAL [address] [place] [address] Willow Eisenberg 02/24/2026 11:00 AM EDT Office Visit [facility] [place] [facility] OPTOMETRY [address] [place] [address] TarJo-Ann tello, OD [address] [place] [address] documented as of this encounter Visit Diagnoses Not on filedocumented in this encounter Care Teams Wall Mirror Department Supervisor Relationship Specialty Start Date End Date Carrie Lucas FNP PCP - General Family Medicine 11/20/21 09/05/23 Verenice Nixon NP [address] [place] [address] PCP - General Family Medicine 09/06/23 11/03/23 Verenice Nixon NP [address] [place] [address] PCP - General Family Medicine 11/04/23 documented as of this encounter
--- OUTSIDE RECORDS SUMMARY | 2025-11-26 12:16 | XMS_ITS | Encounter Summary ---
Author Organization [employer] Address [address] [facility] 7t [place] [address] Care Team Providers Care Voice Over Artist Name Role Phone Verenice Nixon RITA Primary Care Provider [phone] Reason for Visit * Reason Comments Med Refill Encounter Details Date Type Department Care Team ([facility] st Contact Info) Description 03/27/2025 Refill [facility] MEDICINE [address] [place] [address] [phone] Name, MD Dimitri [address] [place] [address] Social History Tobacco Use Types Packs/Day Years [...] 11:00 AM EST Office Visit [facility] MEDICINE [address] [place] [address] Verenice Nixon NP [address] [place] [address] 01/20/2026 2:15 PM EST Office Visit [facility] ADULT DENTAL [address] [place] [address] Willow Eisenberg 02/24/2026 11:00 AM EDT Office Visit [facility] OPTOMETRY [address] [place] [address] Jo-Ann Hinojosa OD [address] [place] [address] documented as of this encounter Visit Diagnoses Not on filedocumented in this encounter Additional Health Concerns Assessment Noted Time PHQ-9 Depression Total Score: 0 01/17/20 24 10:02 AM EST documented as of this encounter Care Teams Voice Over Artist Relationship Specialty Start Date End Date Verenice Nixon NP [address] [place] [address] PCP - General Family Medicine 11/04/23 documented as of this encounter
--- OUTSIDE RECORDS SUMMARY | 2025-11-26 12:16 | XMS_ITS | Encounter Summary ---
Author Organization [employer] Address [address] [facility] 7t [place] [address] Care Team Providers Care Section 8 Property Manager Name Role Phone NaveedVerenice todd RITA Primary Care Provider [phone] Reason for Visit * Reason Onset Date Comments unable to post insurance 02/23/2025 Encounter Details Date Type Department Care Team ([facility] Contact Info) Description 02/23/2025 Telephone [facility] ADULT DENTAL [address] [place] [address] Loretta Jasso DDS [address] [place] [address] unable to post insurance Social History Tobacco [...] appt. Unable to post insurance portal not [facility] [address] documented in this encounter Plan of Treatment Upcoming Encounters Date Type Department Care Team (Late st Contact Info) Description 01/13/2026 11:00 AM EST Office Visit [facility] MEDICINE [address] [place] [address] Verenice Nixon NP [address] [place] [address] 01/20/2026 2:15 PM EST Office Visit [facility] ADULT DENTAL [address] [place] [address] Willow Eisenberg 02/24/2026 11:00 AM EDT Office Visit [facility] OPTOMETRY [address] [place] [address] Jo-Ann Hinojosa, OD [address] [place] [address] documented as of this encounter Visit Diagnoses Not on filedocumented in this encounter Additional Health Concerns Assessment Noted Time PHQ-9 Depression Total Score: 0 01/17/20 24 10:02 AM EST documented as of this encounter Care Teams Section 8 Property Manager Relationship Specialty Start Date End Date Verenice Nixon NP [address] [place] [address] PCP - General Family Medicine 11/04/23 documented as of this encounter
--- OUTSIDE RECORDS SUMMARY | 2025-11-26 12:16 | XMS_ITS | Encounter Summary ---
Author Organization [employer] Address [address] [place] [address] 7t [place] [address] Care Team Providers Care Research And Development Scientist Name Role Phone Verenice Nixon SOUND ART INSTRUCTOR Primary Care Provider [phone] Verenice Nixon SOUND ART INSTRUCTOR Primary Care Provider [phone] Encounter Details Date Type Department Care Team ([facility] Contact Info) Description 11/01/2023 Orders Only [facility] MEDICINE [address] [place] [phone] Regi Marsh FNP Social History Tobacco Use [...] Upcoming Encounters Date Type Department Care Team ([facility] Contact Info) Description 01/13/2026 11:00 AM EST Office Visit [facility] MEDICINE [address] [place] [address] Verenice Nixon NP [address] [place] [address] 01/20/2026 2:15 PM EST Office Visit [facility] ADULT DENTAL [address] [place] [address] Willow Eisenberg 02/24/2026 11:00 AM EDT Office Visit [facility] OPTOMETRY [address] [place] [address] TarkaJo-Ann, OD [address] [place] [address] documented as of this encounter Visit Diagnoses Not on filedocumented in this encounter Additional Health Concerns Assessment Noted Time PHQ-9 Depression Total Score: 3 10/30/20 9:52 AM EST documented as of this encounter Care Teams Research And Development Scientist Relationship Specialty Start Date End Date Verenice Nixon NP [address] [place] [address] PCP - General Family Medicine 09/06/23 11/03/23 Verenice Nixon NP [address] [place] [address] PCP - General Family Medicine 11/04/23 documented as of this encounter
--- OUTSIDE RECORDS SUMMARY | 2025-11-26 12:16 | XMS_ITS | Encounter Summary ---
Author Organization [employer] Address [address] [place] [address] Care Team Providers Care Hub Borer Name Role Phone Carrie Lucas Primary Care Provider Christina vailable Verenice Nixon NP Primary Care Provider [phone] Verenice Nixon NP Primary Care Provider [phone] Reason for Visit * Reason Comments Med Refill Encounter Details Date Type Department Care Team (Late st Contact Info) Description 11/05/2022 Refill [facility] MEDICINE [address] [place] [address] Carrie Lucas FNP Social History Tobacco Use [...] Description 01/13/2026 11:00 AM EST Office Visit [facility] MEDICINE [address] [place] [address] Verenice Nixon NP [address] [place] [address] 01/20/2026 2:15 PM EST Office Visit [facility] ADULT DENTAL [address] [place] [address] Willow Eisenberg 02/24/2026 11:00 AM EDT Office Visit [facility] OPTOMETRY [address] [place] [address] [place] [address] Jo-Ann Hinojosa, OD [address] [place] [address] documented as of this encounter Visit Diagnoses Not on filedocumented in this encounter Care Teams Hub Borer Relationship Specialty Start Date End Date Carrie Lucas FNP PCP - General Family Medicine 11/20/21 09/05/23 Verenice Nixon NP [address] [place] [address] PCP - General Family Medicine 09/06/23 11/03/23 Verenice Nixon NP [address] [place] [address] PCP - General Family Medicine 11/04/23 documented as of this encounter
--- OUTSIDE RECORDS SUMMARY | 2025-11-26 12:16 | XMS_ITS | Encounter Summary ---
Author Organization [employer] Address [address] [facility] 7t [place] [address] Care Team Providers Care Freight And Passenger Agent Name Role Phone Verenice Nixon NP Primary Care Provider [phone] Reason for Visit * Reason Onset Date Comments Med Refill 11/04/2025 Encounter Details Date Type Department Care Team ([facility] Contact Info) Description 11/04/2025 Telephone [facility] MEDICINE [address] [place], [place] [phone] Verenice Nixon NP [address] [place] [address] Med Refill Social History Tobacco Use Types [...] 30 MG tablet To be sent to: [facility]/pharmacy #[id number] [place] [address] documented in this encounter Plan of Treatment Upcoming Encounters Date Type Department Care Team (Late st Contact Info) Description 01/13/2026 11:00 AM EST Office Visit [facility] MEDICINE [address] [place], [place] [phone] Verenice iNxon NP [address] [place] [address] 01/20/2026 2:15 PM EST Office Visit [facility] ADULT DENTAL [address] [place] [address] Faina Willow 02/24/2026 11:00 AM EDT Office Visit [facility] OPTOMETRY [address] [place] [address] Jo-Ann Hinojosa, OD [address] [place] [address] documented as of this encounter Visit Diagnoses Not on filedocumented in this encounter Additional Health Concerns Assessment Noted Time PHQ-9 Depression Total Score: 5 05/21/20 25 11:43 AM EDT documented as of this encounter Care Teams Freight And Passenger Agent Relationship Specialty Start Date End Date Verenice Nixon NP [address] [place] [address] PCP - General Family Medicine 11/04/23 documented as of this encounter
--- OUTSIDE RECORDS SUMMARY | 2025-11-26 12:16 | XMS_ITS | Encounter Summary ---
Author Organization [employer] Address [address] [facility] 7t [place] [address] Care Team Providers Care Mechanic Sound Technician Name Role Phone Verenice Nixon NP Primary Care Provider [phone] Reason for Visit * Reason Comments Med Refill Encounter Details Date Type Department Care Team ([facility] st Contact Info) Description 02/09/2024 Refill [facility] MEDICINE [address] [place] [address] Verenice Nixon NP [address] [place] [address] Primary insomnia Social History Tobacco Use Types [...] Description 01/13/2026 11:00 AM EST Office Visit [facility] MEDICINE [address] [place] [address] Verenice Nixon NP [address] [place] [address] 01/20/2026 2:15 PM EST Office Visit [facility] ADULT DENTAL [address] [place] [address] Willow Eisenberg 02/24/2026 11:00 AM EDT Office Visit [facility] OPTOMETRY [address] [place] [address] Jo-Ann Hinojosa OD [address] [place] [address] documented as of this encounter Visit Diagnoses Diagnosis Primary insomnia Persistent disorder of initiating or maintaining sleep documented in this encounter Additional Health Concerns Assessment Noted Time PHQ-9 Depression Total Score: 0 01/17/20 24 10:02 AM EST documented as of this encounter Care Teams Mechanic Sound Technician Relationship Specialty Start Date End Date Verenice Nixon NP 230 [place] [address] PCP - General Family Medicine 11/04/23 documented as of this encounter
--- OUTSIDE RECORDS SUMMARY | 2025-11-26 12:16 | XMS_ITS | Clinical Summary ---
Author Organization [employer] Address [address] [facility] 7t [place] [address] Care Team Providers Care Space Planner Name Role Phone Verenice Nixon NP Primary Care Provider [phone] Allergies No known active allergies Medications Multiple [...] VITAMIN C) 45 tablet 09/20/20 25 Active lisinopril 30 MG tabletIndications :Primary hypertension Take 1 tablet (30 mg) by mouth Once per day. 30 tablet 1 11/04/20 25 Active D3-1000 25 MCG (1000 UT) capsule Take 1 capsule (25 mcg) by mouth Once per day. 90 capsule 11/04/20 25 026 Active zolpidem (Ambien) 5 MG tabletIndications :Primary insomnia TAKE 1 TABLET (5 MG) BY MOUTH IF NEEDED AT BEDTIME FOR SLEEP FOR UP TO 28 DAYS. NOTE DOSE CHANGE 28 tablet 11/18/20 25 026 Active lisinopril 30 MG tablet [...] DOSE CHANGE 28 tablet 10/21/20 25 025 Discontinued Active Problems Problem Noted [...] stocking. encouraged to purchase a pair from [employer] as [facility] will not cover -consider venous US [...] Encounters Date Type Department Care Team Description 11/20/2025 Results Follow-Up [facility] [place] [address] Verenice Nixon NP PTH, Intact Without Calcium, Vitamin D, 25-Hydroxy, Total, Immunoassay, Protein Creatinine Ratio, Urine, Calcium, Ionized 11/18/2025 Telephone [facility] [place] [address] Verenice Nixon NP Med Refill 11/18/2025 Refill [facility] [place] [address] Verenice Nixon NP Primary insomnia 11/15/2025 Orders Only GENERIC EXTERNAL DATA DEPARTMENT Provider, Generic External Data 11/04/2025 Orders Only [facility] [place] [address] Verenice Nixon NP Primary hypertension (Primary Dx) 11/04/2025 Telephone [facility] [place] [address] Verenice Nixon NP Med Refill 10/21/2025 Telephone [facility] [place] [address] Verenice Nixon NP February recall 10/20/2025 Telephone [facility] [place] [address] Verenice Nixon NP Med Refill 10/18/2025 Refill [facility] [place] [address] Verenice Nixon NP Primary insomnia 10/11/2025 10:15 AM EST Office Visit [facility] [place] [address] Verenice Nixon NP Lymphadenopathy (Primary Dx) 10/11/2025 Travel 10/08/2025 Telephone [facility] MEDICINE [address] [place] [address] Monica Maria MA chart prep 09/19/2025 Refill [facility] MEDICINE [address] [place] [address] Verenice Nixon NP Anemia, unspecified type 09/16/2025 Refill [facility] MED[facility]INE [address] [place] [address] Verenice Nixon NP Primary insomnia from Last [...] Visit [facility] MEDICINE [address] [place] [phone] Verenice Nixon, WALL COVERING INSTALLER [address] [place] [address] 01/20/2026 2:15 PM EST Office Visit [facility] ADULT DENTAL [address] [place] [address] Willow Eisenberg 02/24/2026 11:00 AM EDT Office Visit [facility] OPTOMETRY [address] [place], [place] [phone] Jo-Ann Hinojosa, OD [address] [place] [address] Health Maintenance Due Date Last Done Comments [...] 12/29/2024 Dental X-Ray: Full Mouth 05/14/2028 05/13/2025, 09/0 08/2016 Lipid Panel 12/16/2029 12/16/2024, 01/02, 10/30/2023, [...] PM EST) Creatinine, Urine 106.94 mg/dL [facility] Protein, Total, Random Urine 28(H) <12 mg/dL [facility] Protein/Creati nine Ratio, Ur 0.26(H) <0.2 [facility] Comment:The spot urine prote in:creatinine ratio may increase to 0.3during normal . 11/15/2025 3:43 PM EST 11/15/2025 5:15 PM EST us Generic External Data Provider LAB URINE ORDERAB LES Final Result [facility] [address] [place] [phone] * Vitamin D, 25-Hydroxy, Total, Immunoassay (11/15/2025 3:42 PM EST) Pathologist [facility] Vitamin D 25-OH Total 37.2 >30 ng/mL [facility] Comment: Health Based Reference Values*< 20 ng/mL Xgiofebsi30-55 ng/mL Insufficient> 30 ng/mL Sufficient*Robin MCLAUGHLIN. N [...] LAB BLOOD ORDERAB LES Final Result [facility] [address] [place] [phone] * (ABNORMAL) CBC auto differential (11/15/2025 3:42 PM EST) Pathologist [facility] White Blood Count 10.6 4.8 - 10.8 X10*3/uL [facility] Red Blood Count 4.02(L) 4.20 - 5.50 X10*6/uL [facility] Hemoglobin 11.2(L) 12.0 - 16.0 g/dl [facility] Hematocrit 33.6(L) 37.0 - 47.0 % [facility] Mean Corpuscular Volume 83.6 80.0 - 98.0 fL [facility] Mean Corpuscular Hemoglobin 27.9 27.0 - 33.0 pg [facility] Mean Corpuscular HGB Conc 33.3 31.0 - 35.0 g/dl [facility] Red Cell Distribution Width 14.7 11.0 - 16.0 % [facility] Platelet Count 232 160 - 400 X10*3/uL [facility] Mean Platelet Volume 11.4 9.4 - 12.3 fL [facility] Neutrophils Percent Auto 57.7 45 - 73 % [facility] Imm Gran Pct Auto 0.6(H) 0.0 - 0.4 % [facility] Lymphocytes Percent Auto 28.1 20 - 40 % [facility] Monocytes Percent Auto 8.8 2 - 11 % [facility] Eosinophils Percent Auto 4.3(H) 0 - 4 % [facility] Basophils Percent Auto 0.5 0 - 2 % [facility] NRBC Pct Auto 0.0 0.0 - 0.2 /100WBC [facility] Neutrophils Absolute Auto 6.1 2.0 - 8.3 x10*3/uL [facility] Imm Gran Abs Auto 0.06(H) 0.00 - 0.03 X10*3/uL [facility] Lymphocytes Absolute Auto 3.0 1.2 - 4.9 X10*3/uL [facility] Monocytes Absolute Auto 0.9 0.1 - 1.2 X10*3/uL [facility] Eosinophils Absolute Auto 0.5(H) 0.0 - 0.4 X10*3/uL [facility] Basophils Absolute Auto 0.1 0.0 - 0.2 X10*3/uL [facility] NRBC Abs Auto 0.000 0.0 - 0.012 X10*3/uL [facility] Blood Venous blood specimen / Unknown 11/15/2025 3:42 PM EST 11/15/2025 3:42 PM EST us Verenice Nixon WALL COVERING INSTALLER LAB BLOOD ORDERABLES Final Resu lt [facility] [address] [place] [phone] [phone] * (ABNORMAL) PTH, Intact Without Calcium (11/15/2025 3:42 PM EST) Parathyroid Hormone, Intact 78.3(H) 8.7 - 77.1 pg/mL [facility] 11/15/2025 3:42 PM EST 11/15/2025 3:42 PM EST us Generic External Data Provider LAB BLOOD ORDERAB LES Final Result Performing Organization Address [facility] Co de Phone Number [facility] [address] [place] [phone] * Calcium, Ionized (11/15/2025 3:42 PM EST) Calcium, Ionized 5.4 4.7 - 5.5 mg/dL [facility] Comment:THIS TEST WAS PERFOR MED AT:[facility] [address] [phone] ESQUIVEL MD 11/15/2025 3:42 PM EST 11/15/2025 3:42 PM EST us Generic External Data Provider LAB BLOOD ORDERAB LES Final Result Performing Organization Address [facility] Co de Phone Number [facility] [address] [place] [phone] * BI Mammogram Screening Tomosynthesis Bilateral (11/11/2025 10:40 AM EST) Anatomical Region Laterality Modality Breast Bilateral Mammography 11/11/2025 10:4 0 AM EST Narrative 11/11/2025 7:34 PM EST [facility] [address] [place] [address] Mammography Report Signed Patient: Neha Metzger MR#: [id number] : 1960 Acct:[id number] Age/Sex: 65 / F ADM Date: 11/11/25 Loc: HO.MAMMO Attending Dr: Verenice Nixon Ordering Physician: Verenice Nixon Results: 1Negative Date of Service: 11/11/25 Follow Up: 1 Year From Orig ina Mammogram Procedure(s): MM tomosynthesis screening BI Accession Number(s): [id number] cc: Verenice Nixon Reason For Exam: SCREENING [...] by: Cyndee Riley MD 11/11/2025 07:30 PM [facility] Dictated By: Cyndee Riley MD Signed By: <Electronically signed by Cyndee Riley MD in OV> 11/11/25 1930 DD/ 1040 TD/TT: 11/11/25 1104 Sld Educational Aide: Procedure Note Donotuseinterpreter, Image - 11/11/2025 [place] [facility] [address] [place], [place] [address] Mammography Report Signed Patient: Jerome Metzger#: [id number] : 1Acct:[id number] Age/Sex: 65 / FADM Date: 11/11/25 Loc: HO.MAMMO Attending Dr: Verenice Nixon Ordering Physician: Verenice NixonResults: 1Negative Date of Service: 11/11/25Follow Up: 1 Year From Orig ina Mammogram Procedure(s): MM tomosynthesis screening BI Accession Number(s): [id number] cc: Verenice Nixon Reason For Exam: SCREENING [...] 11/11/25 1930 DD/ 1040 TD/TT: 11/11/25 1104 Sld Educational Aide: Verenice Nixon NP IM BI PROCEDURES Edited Result - Final * Cologuard?? colon cancer screening (12/29/2024 4:40 PM EST) Cologuard Result Negative Negative 01/06/20 8:01 PM [facility] [employer] (CLIA #:[id number]) Comment: NEGATIVE TEST RESULT. A negative Cologuard [...] Cano et al, N Engl J Med 2014;370(14):2786-9846) The normal value (reference range) for this assay is negative. COLOGUARD RE-SCREENING RECOMMENDATION: Periodic colorectal cancer screening is an important part of preventive healthcare for asymptomatic individuals at average risk for colorectal cancer. Following a negative Cologuard result, the [place] [employer] Society and U.S. Multi-Society Task Force screening guidelines recommend a Cologuard re-screening interval of 3 years. References: [place] [employer] Guideline for Colorectal Cancer Screening: https://www.cancer.org/cancer/aqjxv-bxqaia-uxxjkd/rkfxblsxh-wogxnwuns-vzkzrgf/ac s-rec ommendations.html.; Arun VILLALOBOS, Jocelin ORONA, Cheikh VelázquezK, Colorectal Cancer Screening: Recommendations for Physicians and Patients from the U.S. Multi-Society Task Force on Colorectal Cancer Screening , Am J Gastroenterology 2017; 112:8500-5286. TEST DESCRIPTION: Composite algorithmic analysis of stool [...] (Vinod Childress al, N Engl J Med 2014;370(14):5045-8570.) Cologuard may produce a false negative or false positive result (no colorectal cancer or precancerous polyp present at colonoscopy follow up). A negative Cologuard test result does not guarantee the absence of CRC or advanced adenoma (pre-cancer). The current Cologuard screening interval is every 3 years. ([place] [employer] Society and U.S. Multi-Society Task Force). Cologuard performance data in a 10,000 patient pivotal study using colonoscopy as the reference method can be accessed at the following location: www.[place]/results. Additional description of the Cologuard test process, warnings and precautions can be found at www.Cogniscanrd.com. Stool specimen (specimen) 12/29/2024 4:40 PM EST 12/31/2024 1:15 PM EST [facility] LAB MOLECULAR DIAGNOSTICS ORDER WALDEMAR Final Result [employer] (CLIA #:[id number]) [place] [address], * (ABNORMAL) Lipid Panel, Standard (12/16/2024 10:47 AM EST) Triglycerides 112 <150 mg/dL [facility] Comment:Desirable Triglyceri de: less than 150 mg/dLBorderline High Triglyceride 150-199 mg/dLHigh Triglyceride: 200-499 mg/dLVery High Triglyceride: greater than or equal to 5OO mg/dL Cholesterol 198 <200 mg/dL [facility] Comment:Desirable Cholestero l: less than 200 mg/dLBorderline High Cholesterol: 200-239 mg/dLHigh Cholesterol: greater than 239 mg/dL LDL Cholesterol Calculated 119(H) <100 mg/dL [facility] Comment:Desirable LDL: less than 100 mg/dLNear Optimal/Above Optimal LDL: 110- 129 mg/dLBorderline High LDL: 130-159 mg/dLHigh LDL: 160-189 mg/dLVery High LDL: greater than or equal to 190 mg/dL HDL Cholesterol 57 >40 mg/dL [facility] Comment:Desirable HDL: grea ter than 40 mg/dL Note: This HDL assay may give artificially low results in patients with liver disease. Blood Venous blood specimen / Unknown 12/16/2024 10:47 AM EST 12/16/2024 1:05 PM EST us Verenice Nixon WALL COVERING INSTALLER LAB BLOOD ORDERABLES Final Resu lt Performing Organization Address [facility]/ZIP Co de Phone Number [facility] [address] [place] [phone] * Hepatitis C Antibody with Reflex to HCV, RNA, Quantitative, Real-Time PCR (10/30/2023 10:53 AM EST) Hepatitis C Antibody Nonreactive Nonreactive [facility] Comment:Antibodies to HCV no t detected; does not exclude early acuteHCV infection. Blood Venous blood specimen / Unknown 10/30/2023 10:53 AM EST 10/30/2023 11:19 AM EST us Tamara Siegel MD LAB BLOOD ORDERABLES Final Re sult Performing Organization Address [facility]/ZIP Co de Phone Number [facility] [address] [place] [phone] * HIV-1/2 Antigen and Antibodies, Fourth Generation, with Reflexes (10/30/2023 10:53 AM EST) HIV AB/AG Nonreactive Nonreactive [facility] Comment:HIV-1 p24 Ag and/or HIV-1/HIV-2 Ab not detected.A test result that is nonreactive does not exclude thepossibility of exposure to or infection with HIV-1 and/orHIV-2. Nonreactive results in this assay for individualswith prior exposure to HIV-1 and/or HIV-2 may be due toantigen and antibody levels that are below the limit ofdetection of this assay.The Particle Code HIV Ag/Ab Combo assay result andsupplemental assay results should be interpreted inconjunction with the patient's clinical presentation,history and other laboratory results. If the results areinconsistent with clinical evidence, additional testing issuggested to confirm the result. Blood Venous blood specimen / Unknown 10/30/2023 10:53 AM EST 10/30/2023 11:19 AM EST us Tamara Siegel MD LAB BLOOD ORDERABLES Final Re sult [facility] [address] [place] [phone] from Last 3 Months or Most Recently Relevant to Health Maintenance Insurance [facility] * Guarantor: Neha Metzger Account Type Relation to Patient Date of Phone Billing Address Personal/Family Self [address] Care Teams Space Planner Relationship Specialty Start Date End Date Verenice Nixon NP [address] [place] [address] PCP - General Family Medicine 11/04/23
--- OUTSIDE RECORDS SUMMARY | 2025-11-26 12:16 | XMS_ITS | Encounter Summary ---
Author Organization [email or web address] Address [address] [facility] 7t [place] [address] Care Team Providers Care Pricing Supervisor Name Role Phone Verenice Nixon NP Primary Care Provider [phone] Encounter Details Date Type Department Care Team ([facility] Contact Info) Description 11/04/2025 Orders Only [facility] MEDICINE [address] [place] [address] Verenice Nixon NP [address] [place] [address] Primary hypertension (Primary Dx) Social History Tobacco [...] Description 01/13/2026 11:00 AM EST Office Visit [facility] MEDICINE [address] [place] [address] Verenice Nixon NP [address] [place] [address] 01/20/2026 2:15 PM EST Office Visit [facility] ADULT DENTAL [address] [place] [address] Willow Eisenberg 02/24/2026 11:00 AM EDT Office Visit [facility] OPTOMETRY [address] [place] [address] Jo-Ann Hinojosa, JAYDON [address] [place] [address] documented as of this encounter Procedures Procedure Name Priority Date/Time Associated Diagnosis Comments BI MAMMOGRAM SCREENING TOMOSYNTHESIS BILATERAL Routine 11/11/2025 10:40 AM EST documented in this encounter Results * BI Mammogram Screening Tomosynthesis Bilateral (11/11/2025 10:40 AM EST) Anatomical Region Laterality Modality Breast Bilateral Mammography 11/11/2025 10:4 0 AM EST Narrative 11/11/2025 7:34 PM EST [facility] [address] [place] [address] Mammography Report Signed Patient: Neha Metzger MR#: [id number] : 1960 Acct:[id number] Age/Sex: 65 / F ADM Date: 11/11/25 Loc: HO.MAMMO Attending Dr: Verenice Nixon Ordering Physician: Verenice Nixon Results: 1Negative Date of Service: 11/11/25 Follow Up: 1 Year From Orig inal Mammogram Procedure(s): MM tomosynthesis screening BI Accession Number(s): [id number] cc: Verenice Nixon Reason For Exam: SCREENING [...] 11/11/25 1930 DD/ 1040 TD/TT: 11/11/25 1104 Dynamic Balancer: Procedure Note Donotdoriinterpreter, Image - 11/11/2025 [facility] [address] [place] [address] Mammography Report Signed Patient: Jerome Metzger#: [id number] : 1960cct:[id number] Age/Sex: 65 / FADM Date: 11/11/25 Loc: HO.MAMMO Attending Dr: Verenice Nixon Ordering Physician: Verenice NixonResults: 1Negative Date of Service: 11/11/25Follow Up: 1 Year From Orig inal Mammogram Procedure(s): MM tomosynthesis screening BI Accession Number(s): [id number] cc: Verenice Nixon Reason For Exam: SCREENING [...] by: Cyndee Riley MD 11/11/2025 07:30 PM [facility] Dictated By: Cyndee Riley MD Signed By: <Electronically signed by Cyndee Riley MD in OV> 11/11/25 1930 DD/ 1040 TD/TT: 11/11/25 1104 Dynamic Balancer: Verenice Nixon NP IMG BI PROCEDURES Edited Result - Final documented in this encounter Visit Diagnoses Diagnosis Primary hypertension- Primary Unspecified essential hypertension documented in this encounter Additional Health Concerns Assessment Noted Time PHQ-9 Depression Total Score: 5 05/21/20 11:43 AM EDT documented as of this encounter Care Teams Pricing Supervisor Relationship Specialty Start Date End Date Verenice Nixon NP [address] [place] [phone] PCP - General Family Medicine 11/04/23 documented as of this encounter
--- OUTSIDE RECORDS SUMMARY | 2025-11-26 12:16 | XMS_ITS | Encounter Summary ---
Author Organization [employer] Address [address] [facility] [address] [place] [address] Care Team Providers Care Study Abroad Coordinator Name Role Phone Verenice Nixon RITA Primary Care Provider [phone] Reason for Visit * Reason Comments Med Refill Encounter Details Date Type Department Care Team ([facility] st Contact Info) Description 12/09/2023 Refill [facility] MEDICINE [address] [place] [address] Tamara Siegel MD [address] [place] [address] Primary insomnia Social History Tobacco Use Types [...] Description 01/13/2026 11:00 AM EST Office Visit [facility] MEDICINE [address] [place] [address] Verenice Nixon NP [address] [place] [address] 01/20/2026 2:15 PM EST Office Visit [facility] ADULT DENTAL [address] [place] [address] Willow Eisenberg 02/24/2026 11:00 AM EDT Office Visit [facility] OPTOMETRY [address] [place] [address] TarJo-Ann tello, OD [address] [place] [address] documented as of this encounter Visit Diagnoses Diagnosis Primary insomnia Persistent disorder of initiating or maintaining sleep documented in this encounter Additional Health Concerns Assessment Noted Time PHQ-9 Depression Total Score: 3 10/30/20 23 9:52 AM EST documented as of this encounter Care Teams Study Abroad Coordinator Relationship Specialty Start Date End Date Verenice Nixon NP [address] [place] [address] PCP - General Family Medicine 11/04/23 documented as of this encounter
[2025-11-26 12:26] VITALS: BP 158/66; PULSE 71; O2SAT 97; BMI 28.0
--- NOTE | 2025-11-26 12:26 | HO.NEPHOV_ITS ---
Vital Signs 11/26/25 12:26 Height 5 ft 3 in Weight 158 lb BMI 28.0 BP 158/66 H Blood Pressure Location Rt brachial Position Sitting Pulse 71 Pulse Source Pulse Oximeter Pulse Oximetry (%) 97 Oxygen Delivery Method Room Air Intake Visit Reasons: -[facility] Machine Adjuster Required: No Accompanied by: Self / Same As Patient Allergies No Known Allergies (No Known Allergies*) Allergy (Verified 11/26/25 12:28) HPI Comments Details: Neha was seen in follow up for proteinuria, hypertension and H/O hypercalcemia. 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 She is not a diabetic. She has longstanding hypertension. She has no epistaxis, joint swellings, photosensitivity, new skin rashes, hematemesis, melena, hematuria, nephrolithiasis, new bone or back pain. She has H/O high calcium but denies taking any excessive all calcium or vitamin-D. Her PTH was disproportionately high in the past. She had sestamibi scan which showed possibility of atypical parathyroid adenoma/intrathyroidal parathyroid adenoma). She does not take any excessive nonsteroidal anti-inflammatories and tries to maintain good hydration. She has no hearing loss. She is compliant with her medications. She has been on PPI. She does not have any nausea or or vomiting. There were no other new active complaints at the time of this office visit [facility] Medical History Multinodular goiter (nontoxic) Irritable bowel syndrome with constipation Vaginal irritation UTI (urinary tract infection) History of Helicobacter pylori infection Colon cancer screening Frequent UTI Anemia Diverticulosis Colon cancer screening Hyperlipemia Hypertension Surgical History History of esophagogastroduodenoscopy (EGD) Hx of colonoscopy (09/16/20) History of ovarian cystectomy Hx of hysterectomy Family History Father Parkinson disease HTN (hypertension) Mother HTN (hypertension) Brother Cancer Social History Household Members: Significant Other Housing: Apartment Do you presently have visiting nurse or other home services: No Alcohol intake: current Alcohol intake frequency: holidays/special occasions only Patient Tobacco Use Status: Never used Tobacco Second Hand Smoke Exposure: Yes service: No Current occupational status: employed Sexual orientation: Straight/Heterosexual Gender identity: Female Review of Systems Const All systems reviewed & are unremarkable except as noted in HPI and below Physical Exam Vital Signs: Last Vital Signs Pulse 71 11/26/25 12:26 BP 158/66 H 11/26/25 12:26 Pulse Ox 97 11/26/25 12:26 Oxygen Delivery Method Room Air 11/26/25 12:26 BMI result Body Mass Index 28.0 Const General: comfortable and no acute distress Orientation/consciousness: patient oriented x3 HEENT Head: Yes normocephalic Mouth: Normal oral and palatal mucosa present Eyes EOM: EOMs intact bilaterally Neck Neck: Yes supple Resp Auscultation: clear to auscultation bilaterally Cardio Jugular venous distension: no JVD Rate: regular rate GI Palpation (GI): Soft to palpation Auscultation: normal bowel sounds General: Yes no CVA tenderness Back/Spine/Pelvis Back: no CVA tenderness Skin General skin exam: no rashes or lesions noted Neuro General: patient oriented x3 and moves all extremities Extrem General: Yes no pedal edema Results Reviewed Nephrology Results: Hgb, (12.0-16.0) 11.2 g/dl L 11/15/25 WBC, (4.8-10.8) 10.6 X10*3/uL 11/15/25 Plt Count, (160-400) 232 X10*3/uL 11/15/25 Sodium, (135-145) 143 mmol/L 11/15/25 Potassium, (3.3-5.1) 4.0 mmol/L 11/15/25 Chloride, (96-108) 108 mmol/L 11/15/25 Carbon Dioxide, (22-29) 27 mmol/L 11/15/25 BUN, (9-16) 20 mg/dL H 11/15/25 Creatinine, (0.5-1.4) 0.93 mg/dL 11/15/25 Calcium, (8.4-10.2) 9.7 mg/dL 11/15/25 Phosphorus, (2.7-4.5) 2.8 mg/dL 11/15/25 PTH Intact, (8.7-77.1) 78.3 pg/mL H 11/15/25 Urine Protein, (Neg-Trace) Negative mg/dL 04/24/25 Urine Creatinine 106.94 mg/dL 11/15/25 Protein/Creatinin Ratio, (<0.2) 0.26 H 11/15/25 Renal US 07/30/24 Assessment & Plan Assessment & Plan (1) Hypertension: Code(s): I10 - Essential (primary) hypertension Category: Medical Qualifiers: Hypertension type: primary hypertension Qualified Code(s): I10 - Essential (primary) hypertension (2) Proteinuria: Code(s): R80.9 - Proteinuria, unspecified Category: Medical Qualifiers: Proteinuria type: unspecified Qualified Code(s): R80.9 - Proteinuria, unspecified Plan Neha has longstanding hypertension and proteinuria. Her renal functions are stable and urine output is good. She is on RODOLFO inhibitor and amlodipine. I increased her lisinopril to 40 mg daily. F/U labs ordered. Her renal ultrasound was unremarkable. I discontinued her hydrochlorothiazide in the past given hypercalcemia. She should avoid calcium supplementation for now. She follows with Endocrine as well. All these have been explained in detail. Follow-up given Orders: Orders Protein Creatinine Ratio, Ur 6 Months I10 - Essential (primary) hypertension, R80.9 - Proteinuria, unspecified Creatinine 6 Months I10 - Essential (primary) hypertension, R80.9 - P roteinuria, unspecified Creatinine 3 Months I10 - Essential (primary) hypertension Electrolytes 3 Months I10 - Essential (primary) hypertension Electrolytes 6 Months I10 - Essential (primary) hypertension, R80.9 - Proteinuria, unspecified Blood Urea Nitrogen 6 Months I10 - Essential (primary) hypertension, R80.9 - Proteinuria, unspecified Blood Urea Nitrogen 3 Months I10 - Essential (primary) hypertension Medications: Changed From lisinopril 30 mg PO DAILY 90 tabs 4RF To lisinopril 40 mg PO DAILY 90 tabs 4RF Coding Level of Care Code Est Pt Level 4 (44152) Diagnoses Primary hypertension I10 Hypertension type: primary hypertension Proteinuria, unspecified type R80.9 Proteinuria type: unspecified
== END 2025-11-26 12:40 | disposition home or self-care (01) ==
LOC: HO.HKA 12:14
PROVIDERS: PCP Nurse Practitioner; Visit Provider Internal Medicine Nephrology
DX: I10 Essential (primary) hypertension (principal); R80.9 Proteinuria, unspecified
CPT/HCPCS: 99214

== ENCOUNTER → 2025-11-26 12:13 | Outpatient (BNVA) | payer OTHER, SELFPAY | PROVIDERS: PCP Nurse Practitioner; Visit Provider Internal Medicine Nephrology | DX: I10 Essential (primary) hypertension (principal); R80.9 Proteinuria, unspecified; Z79.899 Other long term (current) drug therapy; Z77.22 Contact with and (suspected) exposure to environmental tobacco smoke (acute) (chronic) | CPT/HCPCS: 99212 ==